=== PATIENT | female | born 1935 | race Caucasian/White ===

== ENCOUNTER 2016-11-29 17:05 | Observation (INO) ==
--- NOTE | 2016-11-29 17:12 | Emergency Department Note ---
Disposition Clinical Impression: Chest pain, CAD (coronary artery disease), CHF (congestive heart failure), Frail elderly, History of heart artery stent, Hypokalemia, Renal insufficiency, Abnormal urinalysis, Abnormal EKG, Elevated blood pressure reading Disposition: Admitted As Inpatient Condition: Fair Referrals: NO,PCP [Non-Partnered Physician] - Forms: ED Satisfaction Letter General Adult HPI - General Chief complaint: ED Chest Pain Stated complaint: chest pain Time Seen by Provider: 11/29/16 17:10 - History of Present Illness HPI Narrative: 81-year-old female reports to the emergency department via EMS concerned with chest pain and shortness of breath. She has had a dull pressure in her left chest for a few days. She states she has a history of cardiac stents. She also takes diuretics for apparent heart failure. The patient describes lower extremity edema worse on the left than right. She has no history of PE DVT or cancer. She has no primary lung disease does not wear oxygen. There is no history of abdominal pain vomiting or diarrhea. The patient states she has not anticoagulated. There is been no trouble moving the arms or legs independently. No history of coughing up blood or syncope. No troubles with unilateral arm or leg weakness or numbness slurred speech or confusion. The patient describes chest pain as her main concern. This has been present for at least several days. She states taking aspirin seems to make it better. - Related Data Home Medications Medication Instructions Recorded Confirmed Acetaminophen [Tylenol] 500 mg PO Q6H PRN 11/29/16 11/29/16 Cholecalciferol (D-3) [Vitamin D] 2,000 unit PO DAILY 11/29/16 11/29/16 Estradiol [Estrace] 1 appl VG MOWEFR 11/29/16 11/29/16 Hydralazine HCl 50 mg PO TID 11/29/16 11/29/16 Levothyroxine [Synthroid] 100 mcg PO 0630 11/29/16 11/29/16 Omeprazole [PriLOSEC] 20 mg PO DAILY 11/29/16 11/29/16 Allergies Allergy/AdvReac Type Severity Reaction Status Date / Time No Known Allergies Allergy Verified 09/17/15 10:12 All systems ED: reviewed and negative except as stated. Past Medical History - Past Medical History Medical history: Reports: asthma, CHF, coronary artery disease, GERD, hypertension Surgical history: Reports: breast surgery, cholecystectomy - Social History Smoking Status: Never smoker Alcohol use: Reports: none Drug use: Reports: none Physical Exam - General Limitations: no limitations General appearance: alert, in no apparent distress - Head Head exam: atraumatic, normocephalic, normal inspection - Eye Eye exam: Present: normal appearance, PERRL, EOMI. Absent: scleral icterus, conjunctival injection, miosis, mydriasis - ENT ENT exam: normal exam, normal oropharynx, mucous membranes moist, TM's normal bilaterally, normal external ear exam - Neck Neck exam: Present: normal inspection, full ROM, trachea midline. Absent: tenderness - Chest Chest inspection: Present: symmetric chest wall rise. Absent: tenderness - Respiratory Respiratory exam: Present: normal lung sounds bilaterally. Absent: respiratory distress, wheezes, accessory muscle use, prolonged expiratory phase - Cardiovascular Cardiovascular exam: Present: regular rate, normal rhythm, normal heart sounds - Abdominal Exam Abdominal exam: Present: soft, Non-Tender, normal bowel sounds. Absent: tenderness, distention, guarding, rebound, rigidity, pulsatile mass - Extremities Exam Extremities exam: Present: normal inspection, full ROM, normal capillary refill , pedal edema (Lower extremity bilaterally worse on the left, the patient reports a left is usually more swollen.). Absent: tenderness, joint swelling, calf tenderness - Expanded Lower Extremity Exam Lower leg exam: Absent: Homans' sign Neurovascular/Tendon exam: Present: normal capillary refill. Absent: motor deficit, sensory deficit, tendon deficit, extremity cold to touch, pallor - Back Exam Back exam: Present: normal inspection, full ROM. Absent: tenderness, CVA tenderness (R), CVA tenderness (L), vertebral tenderness - Neurological Exam Neurological exam: Present: alert, oriented X3, CN II-XII intact. Absent: motor sensory deficit - Psychiatric Psychiatric exam: Present: normal affect, normal mood - Skin Skin exam: Present: warm, dry, intact, normal color. Absent: rash, cyanosis, diaphoresis, erythema, pallor, mottled Course Vital Signs Temperature 97.9 F 11/29/16 17:08 Pulse Rate 98 11/29/16 17:08 Respiratory Rate 18 11/29/16 17:08 Blood Pressure 246/110 11/29/16 17:08 O2 Sat by Pulse Oximetry 100 11/29/16 17:08 Temperature 97.9 F 11/29/16 17:08 Pulse Rate 98 11/29/16 17:08 Respiratory Rate 18 11/29/16 17:08 Blood Pressure 246/110 11/29/16 17:08 O2 Sat by Pulse Oximetry 100 11/29/16 17:08 Oxygen Delivery Oxygen Delivery Nasal Cannula Medical Decision Making - MDM Narrative Medical decision making narrative: The patient is elderly, she has a known history of coronary disease with coronary stent, she is complaining of chest pain and has an abnormal EKG, a notably elevated blood pressure, as well as significant urinary changes. IV access was established aspirin, Lasix, and Nitropaste were ordered. Rocephin was ordered. The patient's lactate is negative. She is afebrile. Based on the patient's age, known coronary disease, chest pain in association with abnormal EKG, an element of CHF and notably elevated blood pressure, I thought it would be appropriate to admit the patient to the hospital. I discussed the case with the hospitalist on-call who has accepted the patient to their care.* The patient's systolic came down to 179 but the diastolic stayed at 118. The hospitalist and I discussed blood pressure management and agree a nitro drip would be a reasonable choice to help manage her CHF, blood pressure, and as an adjunct for her chest pain. - Lab Data Lab results reviewed: Yes I reviewed the patient's lab results. Result diagrams: 11/29/16 17:28 11/29/16 17:28 Lab Results 11/29/16 11/29/16 11/29/16 Range/Units 17:28 17:28 17:28 WBC (4.3-11.1) K/mcL RBC (3.82-4.97) M/mcL Hgb (11.5-15.4) g/dL Hct (35.3-44.9) % MCV (83.0-100.0) fL MCH (28.0-33.3) pg MCHC (31.6-35.5) g/dL RDW (11.5-14.5) % Plt Count (140-400) K/mcL MPV (9.4-12.4) fL Immature Gran % (0-4) % Seg Neutrophils % % Lymphocytes % % Monocytes % % Eosinophils % % Basophils % % Neutrophils # (1.6-8.9) K/mcL Lymphocytes # (0.6-4.6) K/mcL Monocytes # (0.0-1.3) K/mcL Eosinophils # (0.0-0.6) K/mcL Basophils # (0.0-0.2) K/mcL PT 10.6 (9.4-12.1) Seconds INR 1.0 APTT 26.2 (26.0-36.0) Seconds Sodium (136-145) mEq/L Potassium (3.5-4.5) mEq/L Chloride (98-109) mEq/L Carbon Dioxide (19-29) mEq/L BUN (7-20) mg/dL Creatinine (0.57-1.11) mg/dL Est GFR ( Amer) (> 60) Est GFR (Non-Af Amer) (> 60) BUN/Creatinine Ratio (6-26) Glucose (70-99) mg/dL Calculated Osmolality (280-300) Lactic Acid 1.4 (0.5-2.2) mmol/L Calcium (8.6-10.8) mg/dL Total Bilirubin 0.4 (0.2-1.2) mg/dL Direct Bilirubin 0.2 (0.0-0.5) mg/dL Indirect Bilirubin 0.2 (0.0-1.2) mg/dL AST 21 (5-34) Units/L ALT 14 (0-55) Units/L Alkaline Phosphatase 76 (38-126) Units/L Troponin I (0-0.03) ng/mL C-Reactive Protein 12 H (Less than 5) mg/L B-Natriuretic Peptide (0-100) pg/mL Serum Total Protein 8.0 (6.0-8.3) g/dL Albumin 4.1 (3.5-5.0) g/dL Globulin 3.9 H (2.4-3.5) g/dL Albumin/Globulin Ratio 1.1 (1.1-2.2) Lipase 17 (8-78) Units/L Urine Color (Yellow) Urine Clarity (Clear) Urine pH (5.0-8.0) pH Units Ur Specific [place] (1.010-1.025) Urine Protein (Neg-Trace) mg/dL Urine Glucose (UA) (Normal) mg/dL Urine Ketones (Negative) mg/dL Urine Blood (Negative) Urine Nitrite (Negative) Urine Bilirubin (Negative) Urine Urobilinogen (Normal) mg/dL Ur Leukocyte Esterase (Negative) Urine Microscopic RBC (0-3) per hpf Urine Microscopic WBC (0-3) per hpf Ur Squamous Epith Cells (None-Few) per lpf Urine Bacteria (None-Few) per hpf Hyaline Casts (None-Few) per lpf Ur Culture Indicated? (NO) 11/29/16 11/29/16 11/29/16 Range/Units 17:28 17:28 17:28 WBC 7.7 (4.3-11.1) K/mcL RBC 4.34 (3.82-4.97) M/mcL Hgb 12.7 (11.5-15.4) g/dL Hct 39.4 (35.3-44.9) % MCV 90.8 (83.0-100.0) fL MCH 29.3 (28.0-33.3) pg MCHC 32.2 (31.6-35.5) g/dL RDW 13.3 (11.5-14.5) % Plt Count 212 (140-400) K/mcL MPV 9.7 (9.4-12.4) fL Immature Gran % 0.3 (0-4) % Seg Neutrophils % 49.5 % Lymphocytes % 37.5 % Monocytes % 9.4 % Eosinophils % 2.5 % Basophils % 0.8 % Neutrophils # 3.8 (1.6-8.9) K/mcL Lymphocytes # 2.9 (0.6-4.6) K/mcL Monocytes # 0.7 (0.0-1.3) K/mcL Eosinophils # 0.2 (0.0-0.6) K/mcL Basophils # 0.1 (0.0-0.2) K/mcL PT (9.4-12.1) Seconds INR APTT (26.0-36.0) Seconds Sodium 139 (136-145) mEq/L Potassium 3.2 L (3.5-4.5) mEq/L Chloride 103 (98-109) mEq/L Carbon Dioxide 24 (19-29) mEq/L BUN 16 (7-20) mg/dL Creatinine 1.21 H (0.57-1.11) mg/dL Est GFR ( Amer) 52 L (> 60) Est GFR (Non-Af Amer) 43 L (> 60) BUN/Creatinine Ratio 13 (6-26) Glucose 98 (70-99) mg/dL Calculated Osmolality 289 (280-300) Lactic Acid (0.5-2.2) mmol/L Calcium 9.8 (8.6-10.8) mg/dL Total Bilirubin (0.2-1.2) mg/dL Direct Bilirubin (0.0-0.5) mg/dL Indirect Bilirubin (0.0-1.2) mg/dL AST (5-34) Units/L ALT (0-55) Units/L Alkaline Phosphatase (38-126) Units/L Troponin I (0-0.03) ng/mL C-Reactive Protein (Less than 5) mg/L B-Natriuretic Peptide 452 H (0-100) pg/mL Serum Total Protein (6.0-8.3) g/dL Albumin (3.5-5.0) g/dL Globulin (2.4-3.5) g/dL Albumin/Globulin Ratio (1.1-2.2) Lipase (8-78) Units/L Urine Color (Yellow) Urine Clarity (Clear) Urine pH (5.0-8.0) pH Units Ur Specific [place] (1.010-1.025) Urine Protein (Neg-Trace) mg/dL Urine Glucose (UA) (Normal) mg/dL Urine Ketones (Negative) mg/dL Urine Blood (Negative) Urine Nitrite (Negative) Urine Bilirubin (Negative) Urine Urobilinogen (Normal) mg/dL Ur Leukocyte Esterase (Negative) Urine Microscopic RBC (0-3) per hpf Urine Microscopic WBC (0-3) per hpf Ur Squamous Epith Cells (None-Few) per lpf Urine Bacteria (None-Few) per hpf Hyaline Casts (None-Few) per lpf Ur Culture Indicated? (NO) 11/29/16 11/29/16 Range/Units 17:28 17:37 WBC (4.3-11.1) K/mcL RBC (3.82-4.97) M/mcL Hgb (11.5-15.4) g/dL Hct (35.3-44.9) % MCV (83.0-100.0) fL MCH (28.0-33.3) pg MCHC (31.6-35.5) g/dL RDW (11.5-14.5) % Plt Count (140-400) K/mcL MPV (9.4-12.4) fL Immature Gran % (0-4) % Seg Neutrophils % % Lymphocytes % % Monocytes % % Eosinophils % % Basophils % % Neutrophils # (1.6-8.9) K/mcL Lymphocytes # (0.6-4.6) K/mcL Monocytes # (0.0-1.3) K/mcL Eosinophils # (0.0-0.6) K/mcL Basophils # (0.0-0.2) K/mcL PT (9.4-12.1) Seconds INR APTT (26.0-36.0) Seconds Sodium (136-145) mEq/L Potassium (3.5-4.5) mEq/L Chloride (98-109) mEq/L Carbon Dioxide (19-29) mEq/L BUN (7-20) mg/dL Creatinine (0.57-1.11) mg/dL Est GFR ( Amer) (> 60) Est GFR (Non-Af Amer) (> 60) BUN/Creatinine Ratio (6-26) Glucose (70-99) mg/dL Calculated Osmolality (280-300) Lactic Acid (0.5-2.2) mmol/L Calcium (8.6-10.8) mg/dL Total Bilirubin (0.2-1.2) mg/dL Direct Bilirubin (0.0-0.5) mg/dL Indirect Bilirubin (0.0-1.2) mg/dL AST (5-34) Units/L ALT (0-55) Units/L Alkaline Phosphatase (38-126) Units/L Troponin I 0.01 (0-0.03) ng/mL C-Reactive Protein (Less than 5) mg/L B-Natriuretic Peptide (0-100) pg/mL Serum Total Protein (6.0-8.3) g/dL Albumin (3.5-5.0) g/dL Globulin (2.4-3.5) g/dL Albumin/Globulin Ratio (1.1-2.2) Lipase (8-78) Units/L Urine Color Yellow (Yellow) Urine Clarity Clear (Clear) Urine pH 7.0 (5.0-8.0) pH Units Ur Specific [place] 1.009 L (1.010-1.025) Urine Protein 100 H (Neg-Trace) mg/dL Urine Glucose (UA) Normal (Normal) mg/dL Urine Ketones Negative (Negative) mg/dL Urine Blood Large H (Negative) Urine Nitrite Negative (Negative) Urine Bilirubin Negative (Negative) Urine Urobilinogen Normal (Normal) mg/dL Ur Leukocyte Esterase Small H (Negative) Urine Microscopic RBC TNTC H (0-3) per hpf Urine Microscopic WBC 15-30 H (0-3) per hpf Ur Squamous Epith Cells Many H (None-Few) per lpf Urine Bacteria None Seen (None-Few) per hpf Hyaline Casts None Seen (None-Few) per lpf Ur Culture Indicated? YES A (NO) - Radiology Data Radiology results reviewed: Yes I reviewed the patient's radiology results.
[2016-11-29] MEDS ORDERED: Aspirin 325 MG TABLET PO ONE (17:20)
[2016-11-29 17:41] LABS: Basophils # 0.1 K/mcL (0.0-0.2); Basophils % 0.8 %; Eosinophils # 0.2 K/mcL (0.0-0.6); Eosinophils % 2.5 %; Hematocrit 39.4 % (35.3-44.9); Hemoglobin 12.7 g/dL (11.5-15.4); Immature Granulocytes % 0.3 % (0-4); Lymphocytes # 2.9 K/mcL (0.6-4.6); Lymphocytes % 37.5 %; Mean Corpuscular HGB Conc 32.2 g/dL (31.6-35.5); Mean Corpuscular Hemoglobin 29.3 pg (28.0-33.3); Mean Corpuscular Volume 90.8 fL (83.0-100.0); Mean Platelet Volume 9.7 fL (9.4-12.4); Monocytes # 0.7 K/mcL (0.0-1.3); Monocytes % 9.4 %; Neutrophils # 3.8 K/mcL (1.6-8.9); Platelet Count 212 K/mcL (140-400); Red Blood Count 4.34 M/mcL (3.82-4.97); Red Cell Distribution Width 13.3 % (11.5-14.5); Segmented Neutrophils % 49.5 %
[2016-11-29 17:46] LABS: Prothrombin Time 10.6 Seconds (9.4-12.1)
[2016-11-29 17:49] LABS: Activated Partial Thrombo Time 26.2 Seconds (26.0-36.0)
[2016-11-29 17:50] LABS: Bilirubin,Urine Negative (Negative); Blood,Urine Large (Negative); Clarity,Urine Clear (Clear); Color,Urine Yellow (Yellow); Glucose,Urine (UA) Normal (Normal); Ketones,Urine Negative (Negative); Leukocyte Esterase,Urine Small (Negative); Nitrite,Urine Negative (Negative); Protein,Urine 100 mg/dL (Neg-Trace); Specific Gravity,Urine 1.009 (1.010-1.025); Urobilinogen,Urine Normal (Normal)
[2016-11-29 17:53] LABS: Bacteria,Urine None Seen per hpf (None-Few); Hyaline Casts,Urine None Seen per lpf (None-Few); RBC,Urine TNTC per hpf (0-3); Squamous Epithelial Cell,Urine Many per lpf (None-Few); WBC,Urine 15-30 per hpf (0-3)
[2016-11-29 17:55] LABS: Calcium 9.8 mg/dL (8.6-10.8); Potassium 3.2 mEq/L (3.5-4.5)
[2016-11-29 17:58] LABS: Albumin 4.1 g/dL (3.5-5.0); Albumin/Globulin Ratio 1.1 (1.1-2.2); Bilirubin,Direct 0.2 mg/dL (0.0-0.5); Bilirubin,Indirect 0.2 mg/dL (0.0-1.2); Bilirubin,Total 0.4 mg/dL (0.2-1.2); Globulin 3.9 g/dL (2.4-3.5)
[2016-11-29] MEDS ORDERED: Furosemide 40 MG in 0.9 % Sodium Chloride 50 ML IVPB ONE (18:22)
[2016-11-29] MEDS ORDERED: Nitroglycerin 1 INCH/GM PACKET TP ONE (18:22)
[2016-11-29] MEDS ORDERED: Nitroglycerin 25 MG/250 ML INFUS..BTL IVC SCH (20:15)
--- NOTE | 2016-11-29 21:28 | Internal Med History&Physical ---
Date of Encounter: 11/29/16 Time of Encounter: 21:25 Assessment and Plan (1) Hypertensive urgency, malignant Current visit: Yes Status: Acute patient has a history of HTN with acceptable control(per chart she provided) and medication adherence but she comes in today with chest pain in the setting of uncontrolled HTN, this is most likely hypertensive urgency , we will continue titrating nitro drip to chest pain, resume her home antihypertensive and monitor BP, etiology of her current presentation is unclear ?medication non adherence or occult poor control that was misread by her home device we will adjust her medications based on her readings (2) Chest pain Current visit: Yes Status: Acute patient has CAD s/p LAD stent in 2008, now comes in with stuttering chest pain ongoing for about 2 weeks, this is in the setting of uncontrolled HTN, EKG however is unchanged from prior, with her history of CAD it will be reasonable to consider ACS in her presentation we will first control her BP, cycle her troponin, check A1c and lipid profile and consider stress test once her symptoms and BP are controlled Qualifiers: Chest pain type: precordial pain Qualified Code(s): R07.2 - Precordial pain (3) Hypokalemia Current visit: Yes Status: Acute may be related to cellular shifts vs poor intake, we will replace and follow BMP (4) GERD (gastroesophageal reflux disease) Current visit: Yes Status: Chronic will continue PPI Qualifiers: Esophagitis presence: without esophagitis Qualified Code(s): K21.9 - Gastro -esophageal reflux disease without esophagitis (5) Hypothyroidism Current visit: Yes Status: Chronic will continue synthroid at home dose Qualifiers: Hypothyroidism type: acquired Qualified Code(s): E03.9 - Hypothyroidism, unspecified (6) CAD (coronary artery disease) Current visit: Yes Status: Chronic per chest pain section Qualifiers: Coronary Disease-Associated Artery/Lesion type: [place] artery [place] vs. transplanted heart: [place] heart Associated angina: with unspecified angina Qualified Code(s): I25.119 - Atherosclerotic heart disease of [place] coronary artery with unspecified angina pectoris Internal Medicine - H&P: HPI Chief complaint: left arm and chest pain Admitted From: Emergency Dept Plans for Post Hospital Care: Home History of present illness: Ms. Parrish is a 81 year old female with a history of CKD stage 3 and HTN who comes in with shortness of breath, left arm and chest pain. She reports being in her usual state of health until about a month ago when she began to have dyspnea, with dyspnea on exertion as time progressed. About 2 weeks ago she also noticed left arm pain that starts from the shoulder area and radiates to her forearm, this pain is intermittent, achy and sometimes pressure like and is a 6/10 in severity with no relieving or aggravating factors. She noticed about a week ago that she was having chest pain, this had no relation to the arm pain per patient. The chest pain is pressure like, retrosternally located and around a 6/10 in severity with a little relief from aspirin. No associated diaphoresis , nausea or vomiting, palpitations but has lightheadedness occasionally. Of note she was recently started on hydrazine in place of metoprolol by her gate keeper at the beginning of November to control her BP, her BP control has been acceptable for her age with a mean of around 140's systolic to 80's diastolic but today her nurse practitioner checked her BP and it was high so she was asked to come to the ER via [facility] for further evaluation. In the ER her BP was 246/110mmHg. She is being admitted as a case of hypertensive urgency on nitro drip. Past Med Surg Social Fam HX - Past Medical History Source: old records reviewed Medical history: asthma, CHF, coronary artery disease (LAD stent in 2008), GERD , hyperlipidemia, hypertension, renal disease (CKD stage 3), thyroid disease, other (DJD iwth L5 radiculopathy, barretts esophagus, L4-L5 disc bulge , vaginal atrophy) Psychiatric history: no psych history - Past Surgical History Surgical History: breast surgery, cholecystectomy, hysterectomy, knee replacement (left), other (bladder sling, head surgery from fall, pump inplant, medtronic inplant), arthroscopy (right knee) - Social History Smoking Status: Never smoker Smokeless Tobacco Status: No Alcohol use: none Drug use: none Additional social history: she is DNR/DNI - Additional Family History Additional family history: brother is alive with heart problems, parents medical conditions are unknown Internal Medicine - H&P: Meds Acetaminophen [Tylenol] 500 mg PO Q6H PRN 11/29/16 [History] Cholecalciferol (D-3) [Vitamin D] 2,000 unit PO DAILY 11/29/16 [History] Estradiol [Estrace] 1 appl VG MOWEFR 11/29/16 [History] Hydralazine HCl 50 mg PO TID 11/29/16 [History] Levothyroxine [Synthroid] 100 mcg PO 0630 11/29/16 [History] Omeprazole [PriLOSEC] 20 mg PO DAILY 11/29/16 [History] Allergies No Known Allergies Allergy (Verified 09/17/15 10:12) All Systems PM: A 10-system review of systems was performed and is negative for pertinent findings except as documented above in the HPI. - Constitutional Vitals: Temp Pulse Resp BP Pulse Ox 97.9 F 83 18 191/101 98 11/29/16 17:08 11/29/16 20:07 11/29/16 21:02 11/29/16 21:02 11/29/16 20:07 PHYSICAL EXAMINATION: GENERAL: Frail elderly female, lying in bed with no sign of distress, Alert, HEENT: NC/AT, EOMI, PERRLA, anicteric sclera, normal conjunctiva, supple, clear nares, moist mucous membranes, dentures hooks in place RESP: no chest wall tenderness with palpation, lungs are clear to auscultation bilaterally, good AE bilaterally, No crackles or wheeze CARDIO: Normal hearts sounds; S1 and 2, RRR with no murmurs, no JVD, no ankle edema GI: Soft, full, no tenderness, no organomegaly felt, normal bowel sounds heard MUSCULOSKELETAL: grossly normal movements bilaterally, no deformities noted, no arm or calf tenderness NEUROLOGIC: CN 2-12 intact grossly. No motor/sensory deficit appreciated, PSYCHIATRY: AAO x 3. Mood is fair, SKIN: no skin rash or ulcers noted Internal Med - H&P Results - Labs CBC & Chem 7: 11/29/16 17:28 11/30/16 00:53 - EKG Data -: EKG Interpreted by Myself EKG shows normal: sinus rhythm - EKG Data Prior EKG available for review: yes When compared to previous EKG: there is no significant change
[2016-11-29] MEDS ORDERED: Naloxone 0.4 MG/ML INJ IVP PRN (22:13)
[2016-11-29] MEDS ORDERED: Potassium Chloride Elixir 20 MEQ/15 ML UDC PO ONE (22:41)
[2016-11-30] MEDS: hydrALAZINE 25 MG TABLET PO SCH ×4 (01:24→22:32)
[2016-11-30 02:03] LABS: Calcium 9.3 mg/dL (8.6-10.8); Chol/HDL Ratio 4.9 (0-4.9); Magnesium 1.7 mg/dL (1.6-2.6); Phosphorous 3.2 mg/dL (2.3-4.7); Potassium 3.1 mEq/L (3.5-4.5)
[2016-11-30] MEDS: levETIRAcetam 250 MG TABLET PO SCH ×3 (02:46→22:31)
[2016-11-30 08:24] LABS: Hemoglobin A1C 5.9 %
[2016-11-30] MEDS: Cholecalciferol (D-3) 1,000 UNIT TABLET PO SCH (09:15)
--- NOTE | 2016-11-30 11:39 | Internal Med Progress Note ---
<Chandana Madsen - Last Filed: 11/30/16 15:18> Date of Encounter: 11/30/16 Time of Encounter: 09:00 - Assessment and plan (1) Hypertensive urgency, malignant Current Visit: Yes Status: Acute Assessment and plan: - BP as high as 246/110 in ED and patient was started on nitroglycerin drip. - Better controlled as BP 153/87 this morning. - Will hold nitroglycerin drip and continue hydralazine 50 mg PO TID. - Per nephrology note on eCW, patient is also on Toprol XL 25 mg daily. May resume that after patient finishes her nuclear stress test tomorrow. - Continue to monitor. (2) Chest pain Current Visit: Yes Status: Acute Assessment and plan: - Pressure-like retrosternal chest pain at rest prior to admission. Patient also has intermittent pressure-like left shoulder pain radiating down left arm, which per patient, is from the chest pain. - Troponin remains mostly negative (0.01, 0.05, 0.03) and EKG showed no significant ischemic change. - Given patient's PMH of CAD s/p LAD stent, DM and hypertension, patient needs stress test for further cardiac work-up. - Patient underwent nuclear stress test today and will finish rest of that tomorrow. Qualifiers: Chest pain type: precordial pain Qualified Code(s): R07.2 - Precordial pain (3) Hypokalemia Current Visit: Yes Status: Acute Assessment and plan: - K 3.1 early this morning. - Patient has received 40 mg of KCl PO. - Continue to monitor. (4) CAD (coronary artery disease) Current Visit: Yes Status: Chronic Assessment and plan: - S/p LAD stent in 2008. Qualifiers: Coronary Disease-Associated Artery/Lesion type: [place] artery [place] vs. transplanted heart: [place] heart Associated angina: with unspecified angina Qualified Code(s): I25.119 - Atherosclerotic heart disease of [place] coronary artery with unspecified angina pectoris (5) GERD (gastroesophageal reflux disease) Current Visit: Yes Status: Chronic Assessment and plan: - Continue omeprazole. Qualifiers: Esophagitis presence: without esophagitis Qualified Code(s): K21.9 - Gastro -esophageal reflux disease without esophagitis (6) Hypothyroidism Current Visit: Yes Status: Chronic Assessment and plan: - Continue home dose Synthroid. Qualifiers: Hypothyroidism type: acquired Qualified Code(s): E03.9 - Hypothyroidism, unspecified - Subjective Interval history: Patient was seen and examined this morning. Patient still has left shoulder pain radiating down to left arm but denies shortness of breath or chest pain. Patient also complains of headache and states it has been going on for a month. Patient denies fever, chills, nausea, vomiting, diarrhea. - Constitutional Vitals: Temp Pulse Resp BP Pulse Ox 97.9 F 78 16 153/87 99 11/30/16 07:00 11/30/16 07:00 11/30/16 07:00 11/30/16 07:00 11/30/16 07:00 General appearance: Present: cooperative, A&O X 3, no acute distress, answers questions appropriately - Head Head exam: Present: atraumatic, normocephalic - Eye Eye exam: Present: EOMI, PERRL, conjuntiva pink, sclera anicteric - Neck Neck exam general surgery: Present: supple, trachea midline. Absent: lymphadenopathy - Respiratory Respiratory exam: Present: CTAB. Absent: accessory muscle use, rales, rhonchi, wheezes - Cardiovascular Cardiovascular exam: Present: RRR, +S1, +S2. Absent: diastolic murmur, gallop, rubs, systolic murmur - GI/Abdominal GI/Abdominal exam: Present: normal bowel sounds, soft, no peritoneal signs. Absent: distended, tenderness - Extremities Exam Extremities exam: Present: warm, radial pulses palpable and symetrical. Absent : calf tenderness, cyanotic, pedal edema - Neurological Exam Neurological exam: Present: CN II-XII intact, oriented X3, no focal deficits. Absent: pronater drift, facial droop, speech deficit - Skin Skin exam: Present: dry, intact, warm Internal Medicine: Result - Labs CBC & Chem 7: 11/29/16 17:28 11/30/16 00:53 Labs: BMP 11/30/16 00:53 Sodium 139 Potassium 3.1 L Chloride 103 Carbon Dioxide 27 BUN 16 Creatinine 1.23 H Glucose 141 H Calcium 9.3 Cardiac Enzymes 11/30/16 11/30/16 Range/Units 00:53 06:13 Troponin I 0.05 H* 0.03 (0-0.03) ng/mL - ABG Interpretation ABG results: PT/INR, D-dimer PT 10.6 Seconds (9.4-12.1) 11/29/16 17:28 - Impressions Impressions Head CT 11/30/16 09:36 IMPRESSION: No acute intracranial abnormality. There is age-appropriate cerebral atrophy with evidence of chronic periventricular small vessel ischemic disease. Previous right-sided craniotomy with minor foci of encephalomalacia likely postsurgical in nature in the right cerebral hemisphere. D/ / Roel Rodriguez MD / Roel Rodriguez MD Interpreting Provider: Roel Rodriguez MD Consult Discharge Plan - Plan Referrals: Femi Harris MD [Primary Care Provider] - <Ryder Cabral P - Last Filed: 11/30/16 16:28> Date of Encounter: 11/30/16 - Constitutional Vitals: Temp Pulse Resp BP Pulse Ox 97.5 F L 99 18 147/82 100 11/30/16 15:41 11/30/16 15:41 11/30/16 15:41 11/30/16 15:41 11/30/16 15:41 Internal Medicine: Result - Labs CBC & Chem 7: 11/29/16 17:28 11/30/16 00:53 Labs: BMP 11/30/16 00:53 Sodium 139 Potassium 3.1 L Chloride 103 Carbon Dioxide 27 BUN 16 Creatinine 1.23 H Glucose 141 H Calcium 9.3 Cardiac Enzymes 11/30/16 11/30/16 Range/Units 00:53 06:13 Troponin I 0.05 H* 0.03 (0-0.03) ng/mL - ABG Interpretation ABG results: PT/INR, D-dimer PT 10.6 Seconds (9.4-12.1) 11/29/16 17:28 - Impressions Impressions Head CT 11/30/16 09:36 IMPRESSION: No acute intracranial abnormality. There is age-appropriate cerebral atrophy with evidence of chronic periventricular small vessel ischemic disease. Previous right-sided craniotomy with minor foci of encephalomalacia likely postsurgical in nature in the right cerebral hemisphere. D/ / Roel Rodriguez MD / Roel Rodriguez MD Interpreting Provider: Roel Rodriguez MD - Attending Attestation I examined this patient and my medical decision-making was reviewed with the VP PLATFORMS/PA/Advanced Practice Nurse/Resident Physician. I agree with the documented findings, disposition and treatment plan as described except to the extent set forth below.
[2016-11-30] MEDS ORDERED: Ketorolac 15 MG/ML VIAL IVP ONE (16:33)
[2016-11-30] MEDS: *HR* Heparin 5,000 UNIT/ML VIAL SQ SCH (16:36)
--- NOTE | 2016-11-30 16:39 | Electrocardiograph Report ---
[place] [address] Test Date: 2016-11-29 Pat Name: Josselyn Parrish Department: 105 Room: 2NE18 Gender: F Vp Respiratory: JUAN DAVID : 1935 Requested By: Vini Hirsch Order Number: [id number] Reading MD: Meaghan Kasper Measurements Intervals [place] Rate: 83 P: 57 WY: 198 QRS: -37 QRSD: 121 T: 62 QT: 398 QTc: 438 Interpretive Statements SINUS RHYTHM MARKED LEFT AXIS DEVIATION [QRS AXIS < -30] LEFT VENTRICULAR HYPERTROPHY AND ST-T CHANGE [VOLTAGE CRITERIA PLUS ST/T ABNORMALITY] Electronically Signed On 11-30-2016 16:37:28 EDT by Meaghan Kasper
[2016-12-01 05:10] LABS: Basophils # 0.1 K/mcL (0.0-0.2); Basophils % 0.7 %; Eosinophils # 0.3 K/mcL (0.0-0.6); Eosinophils % 4.1 %; Hematocrit 35.4 % (35.3-44.9); Hemoglobin 11.4 g/dL (11.5-15.4); Immature Granulocytes % 0.3 % (0-4); Lymphocytes % 28.6 %; Mean Corpuscular HGB Conc 32.2 g/dL (31.6-35.5); Mean Corpuscular Hemoglobin 29.8 pg (28.0-33.3); Mean Corpuscular Volume 92.4 fL (83.0-100.0); Mean Platelet Volume 10.6 fL (9.4-12.4); Monocytes # 0.7 K/mcL (0.0-1.3); Monocytes % 10.4 %; Neutrophils # 3.9 K/mcL (1.6-8.9); Platelet Count 175 K/mcL (140-400); Red Blood Count 3.83 M/mcL (3.82-4.97); Red Cell Distribution Width 13.6 % (11.5-14.5); Segmented Neutrophils % 55.9 %
[2016-12-01 05:11] LABS: Calcium 8.8 mg/dL (8.6-10.8); Magnesium 1.7 mg/dL (1.6-2.6)
[2016-12-01 05:19] LABS: Potassium 3.7 mEq/L (3.5-4.5)
[2016-12-01] MEDS: *HR* Heparin 5,000 UNIT/ML VIAL SQ SCH ×2 (05:59→16:39)
[2016-12-01] MEDS ORDERED: Regadenoson 0.4 MG/5 ML SYRINGE IVP ONE (06:26)
[2016-12-01] MEDS: Cholecalciferol (D-3) 1,000 UNIT TABLET PO SCH (09:51)
[2016-12-01] MEDS: levETIRAcetam 250 MG TABLET PO SCH ×2 (09:51→20:51)
[2016-12-01] MEDS: hydrALAZINE 25 MG TABLET PO SCH ×3 (09:51→20:51)
[2016-12-01] MEDS ORDERED: *HR* Morphine 2 MG/ML SYRINGE IVP ONE (11:09)
--- NOTE | 2016-12-01 11:21 | Internal Med Progress Note ---
<Chandana Madsen - Last Filed: 12/01/16 13:54> Date of Encounter: 12/01/16 Time of Encounter: 09:15 - Assessment and plan (1) Hypertensive urgency, malignant Current Visit: Yes Status: Acute Assessment and plan: - BP as high as 246/110 in ED and patient was started on nitroglycerin drip. - BP 160/84 this morning. - Continue hydralazine 50 mg PO TID. - Per nephrology note on eCW, patient is also on Toprol XL 25 mg daily. Will resume that given patient had finished her nuclear stress test today. - Continue to monitor. (2) Left shoulder pain Current Visit: Yes Status: Acute Assessment and plan: - 2-week history of intermittent pressure-like left shoulder pain radiating down left arm. Patient denies numbness, tingling or focal weakness. - Concern of radiculopathy and will obtain cervical spine X-ray for further evaluation. - Less likely cardiac given negative nuclear stress test. - Continue to monitor. Qualifiers: Chronicity: acute Qualified Code(s): M25.512 - Pain in left shoulder (3) CAD (coronary artery disease) Current Visit: Yes Status: Chronic Assessment and plan: - S/p LAD stent in 2008. - Pressure-like retrosternal chest pain at rest prior to admission. Currently chest pain-free. - Troponin remains mostly negative (0.01, 0.05, 0.03) and EKG showed no significant ischemic change. - Nuclear stress test found LVEF 70% and negative for ischemic or infarct. Qualifiers: Coronary Disease-Associated Artery/Lesion type: [place] artery [place] vs. transplanted heart: [place] heart Associated angina: with unspecified angina Qualified Code(s): I25.119 - Atherosclerotic heart disease of [place] coronary artery with unspecified angina pectoris (4) Hypokalemia Current Visit: Yes Status: Acute Assessment and plan: - K 3.1 on 11/30/16 - Improves as K 3.7 today - Continue to monitor. (5) GERD (gastroesophageal reflux disease) Current Visit: Yes Status: Chronic Assessment and plan: - Continue omeprazole. Qualifiers: Esophagitis presence: without esophagitis Qualified Code(s): K21.9 - Gastro -esophageal reflux disease without esophagitis (6) Hypothyroidism Current Visit: Yes Status: Chronic Assessment and plan: - Continue home dose Synthroid. Qualifiers: Hypothyroidism type: acquired Qualified Code(s): E03.9 - Hypothyroidism, unspecified - Subjective Interval history: Patient was seen and examined this morning after patient came back from nuclear stress test. Patient still has left shoulder pain radiating down to left arm, headache and some shortness of breath at rest but no chest pain. Patient denies fever, chills, nausea, vomiting, diarrhea. - Constitutional Vitals: Temp Pulse Resp BP Pulse Ox 98.0 F 92 19 160/84 98 12/01/16 04:00 12/01/16 09:21 12/01/16 09:21 12/01/16 09:21 12/01/16 09:21 General appearance: Present: cooperative, A&O X 3, no acute distress, answers questions appropriately - Head Head exam: Present: atraumatic, normocephalic - Eye Eye exam: Present: EOMI, PERRL, conjuntiva pink, sclera anicteric - Neck Neck exam general surgery: Present: supple, trachea midline. Absent: lymphadenopathy - Respiratory Respiratory exam: Present: CTAB. Absent: accessory muscle use, rales, rhonchi, wheezes - Cardiovascular Cardiovascular exam: Present: RRR, +S1, +S2. Absent: diastolic murmur, gallop, rubs, systolic murmur - GI/Abdominal GI/Abdominal exam: Present: normal bowel sounds, soft, no peritoneal signs. Absent: distended, tenderness - Extremities Exam Extremities exam: Present: warm, radial pulses palpable and symetrical. Absent : calf tenderness, cyanotic, pedal edema - Neurological Exam Neurological exam: Present: CN II-XII intact, oriented X3, no focal deficits. Absent: pronater drift, facial droop, speech deficit - Skin Skin exam: Present: dry, intact, warm Internal Medicine: Result - Labs CBC & Chem 7: 12/01/16 04:39 12/01/16 04:39 Labs: Short CBC 12/01/16 Range/Units 04:39 WBC 7.0 (4.3-11.1) K/mcL Hgb 11.4 L (11.5-15.4) g/dL Hct 35.4 (35.3-44.9) % Plt Count 175 (140-400) K/mcL Neutrophils # 3.9 (1.6-8.9) K/mcL BMP 12/01/16 04:39 Sodium 136 Potassium 3.7 Chloride 102 Carbon Dioxide 23 BUN 18 Creatinine 1.33 H Glucose 115 H Calcium 8.8 - ABG Interpretation ABG results: PT/INR, D-dimer PT 10.6 Seconds (9.4-12.1) 11/29/16 17:28 - Impressions Impressions Head CT 11/30/16 09:36 IMPRESSION: No acute intracranial abnormality. There is age-appropriate cerebral atrophy with evidence of chronic periventricular small vessel ischemic disease. Previous right-sided craniotomy with minor foci of encephalomalacia likely postsurgical in nature in the right cerebral hemisphere. D/ / Roel Rodriguez MD / Roel Rodriguez MD Interpreting Provider: Roel Rodriguez MD Consult Discharge Plan - Plan Referrals: Femi Harris MD [Primary Care Provider] - <Ryder Cabral P - Last Filed: 12/01/16 17:51> Date of Encounter: 12/01/16 - Constitutional Vitals: Temp Pulse Resp BP Pulse Ox 98.3 F 87 15 133/74 99 12/01/16 16:52 12/01/16 16:52 12/01/16 16:52 12/01/16 16:52 12/01/16 16:52 Internal Medicine: Result - Labs CBC & Chem 7: 12/01/16 04:39 12/01/16 04:39 Labs: Short CBC 12/01/16 Range/Units 04:39 WBC 7.0 (4.3-11.1) K/mcL Hgb 11.4 L (11.5-15.4) g/dL Hct 35.4 (35.3-44.9) % Plt Count 175 (140-400) K/mcL Neutrophils # 3.9 (1.6-8.9) K/mcL [facility] 12/01/16 04:39 Sodium 136 Potassium 3.7 Chloride 102 Carbon Dioxide 23 BUN 18 Creatinine 1.33 H Glucose 115 H Calcium 8.8 - ABG Interpretation ABG results: PT/INR, D-dimer PT 10.6 Seconds (9.4-12.1) 11/29/16 17:28 - Attending Attestation I examined this patient and my medical decision-making was reviewed with the DATABASE DEVELOPMENT PROJECT MANAGER/PA/Advanced Practice Nurse/Resident Physician. I agree with the documented findings, disposition and treatment plan as described except to the extent set forth below.
[2016-12-01] MEDS ORDERED: Ampicillin 2 GM in 0.9 % Sodium Chloride Mini Bag 100 ML IVPB SCH (12:00)
--- NOTE | 2016-12-01 12:42 | Nuclear Medicine Stress Report ---
Regadenoson Nuclear 2 day Name: Josselyn Parrish Date of Study: 11/30/2016 Date: 1935 Ht: 68.0 in Medical Record#: [id number] Age: 81 Wt: 162.0 lb Gender: Female Order #: [id number] Location: [facility] Room: 2n8 Supervising Provider: Myah Lindsey CNP Reading Physician: Raoul Hearn MD, [facility] Ordering Physician: Ryder Cabral MD Primary Care Physician: Spencer Harris MD Stress Technologist: Jose Haque CRT Bilingual Instructor: Jb Rodriguez Indications: Shortness of breath, Arm pain Impression: Occasional PVCs noted prior to exam beginning, during stress, and in recovery. No significant ECG changes with regadenoson. Gated LVEF > 70%. Perfusion imaging was negative for ischemia or infarct. History: Hypertension Stress Test Summary: Stress Test Type: Pharmacologic Baseline Information: Initial Heart Rate: 85 Blood Pressure: 136/70 Stress Information: Test Terminated Due to (primary): As per protocol Maximum Blood Pressure: 140/68 Maximum Heart Rate: 122 Percent Maximum Heart Rate Achieved: 88 Double Product: [id number] Symptoms: Shortness of breath Nuclear Summary: SPECT myocardial perfusion imaging using Tc99m Sestamibi given intravenously was performed at rest and following cardiac stress testing. The resting images were obtained following initial dose of 27 mCi. Following stress an additional dose of 35.8 mCi was given at peak exercise or 30 seconds post regadenoson infusion. Findings: Stress Note * Resting ECG demonstrated sinus rhythm, moderate IVCD, LVH, poor r-wave progression. * Occasional PVCs noted prior to exam beginning, during stress, and in recovery. * Patient had no chest pain during stress. * No significant ECG changes with regadenoson. Hemodynamic responses * Normal hemodynamic responses to pharmacologic stress. Study Quality * Study quality is good. Gated EF > 70% * Gated LVEF > 70%. Left Ventricle * The left ventricle is not dilated. * Normal Segmental Perfusion in rest. * Normal segmental perfusion in stress. TID * No evidence of transient ischemic dilatation. Updated by Raoul Hearn MD, [facility] on 12/01/2016 12:37:45 PM electronically signed on 12/01/2016 12:38:10 PM with status of Final
[2016-12-01] MEDS: Ampicillin 2 GM in 0.9 % Sodium Chloride Mini Bag 100 ML IVPB SCH ×2 (13:34→20:52)
[2016-12-01] MEDS: Metoprolol XL (24 HR) Succ 25 MG TAB.ER.24H PO SCH (16:03)
[2016-12-01] MEDS: Acetaminophen/Aspirin/Caffeine TABLET PO PRN ×2 (16:03→22:45)
[2016-12-02] MEDS: Ampicillin 2 GM in 0.9 % Sodium Chloride Mini Bag 100 ML IVPB SCH ×4 (01:34→18:30)
[2016-12-02 04:25] LABS: Calcium 8.7 mg/dL (8.6-10.8); Potassium 3.6 mEq/L (3.5-4.5)
[2016-12-02] MEDS: *HR* Heparin 5,000 UNIT/ML VIAL SQ SCH ×2 (05:44→18:29)
[2016-12-02] MEDS: Cholecalciferol (D-3) 1,000 UNIT TABLET PO SCH (08:19)
[2016-12-02] MEDS: hydrALAZINE 25 MG TABLET PO SCH ×3 (08:19→21:22)
[2016-12-02] MEDS: Metoprolol XL (24 HR) Succ 25 MG TAB.ER.24H PO SCH (08:19)
[2016-12-02] MEDS: levETIRAcetam 250 MG TABLET PO SCH ×2 (08:19→21:22)
--- NOTE | 2016-12-02 11:40 | Discharge Summary ---
Date of Encounter: 12/02/16 Time of Encounter: 10:00 - Discharge Diagnosis (1) Hypertensive urgency, malignant Priority: Primary Status: Acute (2) UTI (urinary tract infection) Priority: Secondary Status: Acute (3) Left shoulder pain Priority: Secondary Status: Acute Qualifiers: Chronicity: acute Qualified Code(s): M25.512 - Pain in left shoulder (4) CAD (coronary artery disease) Priority: Secondary Status: Chronic Qualifiers: Coronary Disease-Associated Artery/Lesion type: [place] artery [place] vs. transplanted heart: [place] heart Associated angina: with unspecified angina Qualified Code(s): I25.119 - Atherosclerotic heart disease of [place] coronary artery with unspecified angina pectoris (5) GERD (gastroesophageal reflux disease) Priority: Secondary Status: Chronic Qualifiers: Esophagitis presence: without esophagitis Qualified Code(s): K21.9 - Gastro -esophageal reflux disease without esophagitis (6) Hypothyroidism Priority: Secondary Status: Chronic Qualifiers: Hypothyroidism type: acquired Qualified Code(s): E03.9 - Hypothyroidism, unspecified - Discharge Medications Prescriptions: Acetaminophen/Aspirin/Caffeine [Excedrin EX] 1 each PO Q6HR PRN #20 tablet PRN Reason: Headache Amoxicillin/Clavulanate [Augmentin] 875 mg PO BIDWM #26 tablet Home Medications: Cholecalciferol (D-3) [Vitamin D] 2,000 unit PO DAILY 11/29/16 [History] Estradiol [Estrace] 1 appl VG MOWEFR 11/29/16 [History] Hydralazine HCl 50 mg PO TID 11/29/16 [History] Levothyroxine [Synthroid] 100 mcg PO 0630 11/29/16 [History] Omeprazole [PriLOSEC] 20 mg PO DAILY 11/29/16 [History] LevETIRAcetam [Keppra Xr] 500 mg PO BID 11/30/16 [History] Metoprolol Succinate 25 mg PO DAILY 11/30/16 [History] Acetaminophen/Aspirin/Caffeine [Excedrin EX] 1 each PO Q6HR PRN #20 tablet 12/02 [Rx] Amoxicillin/Clavulanate [Augmentin] 875 mg PO BIDWM #26 tablet 12/02/16 [Rx] Allergies/Adverse Reactions: Allergies No Known Allergies Allergy (Verified 09/17/15 10:12) Procedures/tests Complete & Pending: Procedures Performed prior 72 hours Category Date Time Status CT head/brain wo con [CT] Stat Cat Scan 11/30/16 09:36 Completed NM minerva perf SPECT multi [NM] Routine Exams 11/30/16 05:30 Taken SP pharm nuclear stress Routine Y 12/01/16 Completed Date of admission: 11/29/16 20:52 Primary care physician: Femi Harris MD Consults: 12/02/16 09:54 Consult to Physical Therapy [CONS] Routine Comment: Evaluate, develop and implement POC Reason for Consult: discharge planning OT [Consult to Occupational Therapy] [CONS] Routine Comment: Evaluate, develop and implement POC Reason for Consult: discharge planning Discharging clinician: Chandana Madsen Anticipated date of discharge: 12/02/16 - Patient Status Condition: Fair - Discharge Instructions Follow Up With: Femi Harris MD [Primary Care Provider] - Hospital course: Ms. Parrish is a 81 year old female - Time Spent with Patient Total time spent providing and/or coordinating discharge services: - Constitutional Vitals: Temp Pulse Resp BP Pulse Ox 97.3 F L 68 18 143/73 95 12/02/16 07:04 12/02/16 07:04 12/02/16 07:04 12/02/16 07:04 12/02/16 07:04 General appearance: Present: cooperative, A&O X 3, no acute distress, answers questions appropriately
--- NOTE | 2016-12-02 13:11 | Internal Med Progress Note ---
<Ryder Cabral - Last Filed: 12/02/16 13:28> Date of Encounter: 12/02/16 - Constitutional Vitals: Temp Pulse Resp BP Pulse Ox 97.3 F L 68 18 143/73 95 12/02/16 07:04 12/02/16 13:02 12/02/16 13:02 12/02/16 13:02 12/02/16 13:02 Internal Medicine: Result - Labs CBC & Chem 7: 12/01/16 04:39 12/02/16 03:13 Labs: BMP 12/02/16 03:13 Sodium 134 L Potassium 3.6 Chloride 101 Carbon Dioxide 23 BUN 17 Creatinine 1.15 H Glucose 106 H Calcium 8.7 - ABG Interpretation ABG results: PT/INR, D-dimer PT 10.6 Seconds (9.4-12.1) 11/29/16 17:28 - Impressions Impressions Cervical Spine X-Ray 12/01/16 13:15 IMPRESSION: Multilevel degenerative disc disease with spondylolisthesis as above. D/ / Helio Martin MD / Helio Martin MD Interpreting Provider: Helio Martin MD Consult Discharge Plan - Plan Referrals: Femi Harris MD [Primary Care Provider] - 12/08/16 2:00 pm Prescriptions: Acetaminophen/Aspirin/Caffeine [Excedrin EX] 1 each PO Q6HR PRN #20 tablet PRN Reason: Headache Amoxicillin/Clavulanate [Augmentin] 875 mg PO BIDWM #26 tablet - Attending Attestation I examined this patient and my medical decision-making was reviewed with the IN SERVICE EDUCATOR/PA/Advanced Practice Nurse/Resident Physician. I agree with the documented findings, disposition and treatment plan as described except to the extent set forth below. <Chandana Madsen - Last Filed: 12/02/16 14:07> Date of Encounter: 12/02/16 Time of Encounter: 09:30 - Assessment and plan (1) Hypertensive urgency, malignant Current Visit: Yes Status: Acute Assessment and plan: - BP as high as 246/110 in ED and patient was started on nitroglycerin drip. - Better controlled as BP 143/73 this morning. - Continue hydralazine 50 mg PO TID and Toprol XL 25 mg daily. - Continue to monitor. (2) Symptomatic premature ventricular contractions Current Visit: Yes Status: Acute Assessment and plan: - Multiple premature beats, likely PVCs, noted on telemetry while patient developed nausea, worsening headache and shortness of breath today. Patient denies chest pain/discomfort, palpitation, diaphoresis. - Concern of underlying arrhythmia. - Cardiology consulted. Appreciate further evaluation and recommendation. (3) UTI (urinary tract infection) Current Visit: Yes Status: Acute Assessment and plan: - Urine culture from 11/29/16 grew Group Streptococcus and penicillin is usually the drug of choice. - Symptomatic as patient reports being incontinence. - Continue IV ampicillin. Will switch to Augmentin if discharged to finish total 14-day course of antibiotic therapy. Qualifiers: Urinary tract infection type: site unspecified Hematuria presence: with hematuria Qualified Code(s): N39.0 - Urinary tract infection, site not specified; R31.9 - Hematuria, unspecified (4) Left shoulder pain Current Visit: Yes Status: Acute Assessment and plan: - 2-week history of intermittent pressure-like left shoulder pain radiating down left arm. Patient denies numbness, tingling or focal weakness. - Likely radiculopathy as cervical spine X-ray shows multilevel disc disease with spondylolisthesis. - Patient is instructed to follow up her with PCP for further work-up/referrals. Qualifiers: Chronicity: acute Qualified Code(s): M25.512 - Pain in left shoulder (5) CAD (coronary artery disease) Current Visit: Yes Status: Chronic Assessment and plan: - S/p LAD stent in 2008. - Pressure-like retrosternal chest pain at rest prior to admission. Currently chest pain-free. - Troponin remains mostly negative (0.01, 0.05, 0.03) and EKG showed no significant ischemic change. - Nuclear stress test found LVEF 70% and negative for ischemic or infarct. Qualifiers: Coronary Disease-Associated Artery/Lesion type: [place] artery [place] vs. transplanted heart: [place] heart Associated angina: with unspecified angina Qualified Code(s): I25.119 - Atherosclerotic heart disease of [place] coronary artery with unspecified angina pectoris (6) GERD (gastroesophageal reflux disease) Current Visit: Yes Status: Chronic Assessment and plan: - Continue omeprazole. Qualifiers: Esophagitis presence: without esophagitis Qualified Code(s): K21.9 - Gastro -esophageal reflux disease without esophagitis (7) Hypothyroidism Current Visit: Yes Status: Chronic Assessment and plan: - Continue home dose Synthroid. Qualifiers: Hypothyroidism type: acquired Qualified Code(s): E03.9 - Hypothyroidism, unspecified - Subjective Interval history: No significant event noted overnight. Patient was seen and examined this morning. Patient still has left shoulder pain radiating down to left arm, headache and some shortness of breath at rest but denies chest pain, fever, chills, diarrhea. Per nurse, some premature beats were noted on telemetry while patient developed headache, nausea and shortness of breath. - Constitutional Vitals: Temp Pulse Resp BP Pulse Ox 97.3 F L 68 18 143/73 95 12/02/16 07:04 12/02/16 07:04 12/02/16 07:04 12/02/16 07:04 12/02/16 07:04 General appearance: Present: cooperative, A&O X 3, no acute distress, answers questions appropriately - Head Head exam: Present: atraumatic, normocephalic - Eye Eye exam: Present: EOMI, PERRL, conjuntiva pink, sclera anicteric - Neck Neck exam general surgery: Present: supple, trachea midline. Absent: lymphadenopathy - Respiratory Respiratory exam: Present: CTAB. Absent: accessory muscle use, rales, rhonchi, wheezes - Cardiovascular Cardiovascular exam: Present: RRR, +S1, +S2. Absent: diastolic murmur, gallop, rubs, systolic murmur - GI/Abdominal GI/Abdominal exam: Present: normal bowel sounds, soft, no peritoneal signs. Absent: distended, tenderness - Extremities Exam Extremities exam: Present: warm, radial pulses palpable and symetrical. Absent : calf tenderness, cyanotic, pedal edema - Neurological Exam Neurological exam: Present: CN II-XII intact, oriented X3, no focal deficits. Absent: pronater drift, facial droop, speech deficit - Skin Skin exam: Present: dry, intact, warm Internal Medicine: Result - Labs CBC & Chem 7: 12/01/16 04:39 12/02/16 03:13 Labs: BMP 12/02/16 03:13 Sodium 134 L Potassium 3.6 Chloride 101 Carbon Dioxide 23 BUN 17 Creatinine 1.15 H Glucose 106 H Calcium 8.7 - ABG Interpretation ABG results: PT/INR, D-dimer PT 10.6 Seconds (9.4-12.1) 11/29/16 17:28 - Impressions Impressions Cervical Spine X-Ray 12/01/16 13:15
[2016-12-02] MEDS ORDERED: Metoprolol XL (24 HR) Succ 25 MG TAB.ER.24H PO SCH (13:24)
[2016-12-02] MEDS ORDERED: Metoprolol XL (24 HR) Succ 25 MG TAB.ER.24H PO ONE (14:51)
--- NOTE | 2016-12-02 14:56 | Cardiology Consult Note ---
Date of Encounter: 12/02/16 Time of Encounter: 14:00 Assessment and Plan (1) Premature atrial complexes Current Visit: Yes Status: Acute Per cardiology: -Telemetry strips reviewed with and PACs noted. -Of note, patient also noted to have PVCs. -Patient denies palpitations/fluttering. -Admits to shortness of breath. -On beta marcello. -Will increase beta marcello to 50mg daily. Will give extra 25mg today to total 50mg today. -Will continue to monitor. (2) Elevated troponin Current Visit: Yes Status: Acute Per cardiology: -Elevated troponin 0.01, 0.05, 0.03. Troponins flat and adynamic in the setting of hypertension. -BPs 240s systolic on admission. -Pateint denies chest pain. Admits to left arm pain on admission, but now resolved -History of CAD with stenting 2008. -STress test 12/01/16 negative for ischemia or infarct. -DO not suspect NSTEMI, suspect demand ischemia related to hypertension. -Will order echocardiogram. -Further recommendations pending echo. (3) Hypertension Current Visit: Yes Status: Chronic Per cardiology: -KNown history of hypertension. -BPs 240s systolic on admission. -BPs currently 130-140s systolic. -ON beta marcello and hydralazine. -Pateint reports a mix up with her medications at home. -Will continue to monitor. (4) CAD (coronary artery disease) Current Visit: Yes Status: Chronic Per cardiology: -KNown CAD with stenting 2008. -Denies chest pain. -Stress test this admission negative for ischemia or infarct. -On beta marcello. -Will add asa and statin. -Echo pending. -Further recommendations pending echo. Qualifiers: Coronary Disease-Associated Artery/Lesion type: [place] artery [place] vs. transplanted heart: [place] heart Associated angina: with unspecified angina Qualified Code(s): I25.119 - Atherosclerotic heart disease of [place] coronary artery with unspecified angina pectoris (5) Renal insufficiency Current Visit: Yes Status: Acute Per cardiololgy: -KNown renal insufficiency. -Follows with nephrology. -Creatinine 1.15. -Baseline 1.2-1.4. -Management per primary service. Discussion w patient/family: The assessment and plan as outlined above was discussed with the patient who expressed understanding and agreement. All questions were answered. Thank you for involving us in the care of your patient. Please call with any questions. DIscussed and reviewed with . History of Present Illness Consult date: 12/02/16 Requesting physician: Chandana Madsen Consult reason: symptomatic premature beats Chief complaint: left arm pain History of present illness: Ms. Parrish is a 81 year old female with a relevant past medical history of hyperlipidemia, HTN, CAD s/p stent 2008, asthma, barretts esophagus, CKD. Patient states she was at home when she had left arm pain. Patient states her home health nurse took her BP and it was hypertensive, so she came to ER. Upon arrival to ER, pateint's BP was 246/110. Patient was admitted to hospital. Per hospitalist review of telemetry, patient was noted to have premature beats and cardiololgy was consulted. Patient denies chest pain. Patient denies left arm pain now. Patient states over the last couple of months, she has been more short of breath. Patient admits to fatigue, however states it is at baseline. Patient denies palpitations/fluttering. Past Med Surg Social Fam HX - Past Medical History Attestation: Yes The following information was validated with the patient. Source: patient, old records reviewed Medical history: asthma, CHF, coronary artery disease (LAD stent in 2008), GERD , hyperlipidemia, hypertension, renal disease (CKD stage 3), thyroid disease, other (DJD iwth L5 radiculopathy, barretts esophagus, L4-L5 disc bulge , vaginal atrophy) Psychiatric history: no psych history - Past Surgical History Surgical History: breast surgery, cholecystectomy, hysterectomy, knee replacement (left), other (bladder sling, head surgery from fall, pump inplant, medtronic inplant), arthroscopy (right knee) - Social History Smoking Status: Never smoker Smokeless Tobacco Status: No Alcohol use: none Drug use: none Medications and Allergies Cholecalciferol (D-3) [Vitamin D] 2,000 unit PO DAILY 11/29/16 [History] Estradiol [Estrace] 1 appl VG MOWEFR 11/29/16 [History] Hydralazine HCl 50 mg PO TID 11/29/16 [History] Levothyroxine [Synthroid] 100 mcg PO 0630 11/29/16 [History] Omeprazole [PriLOSEC] 20 mg PO DAILY 11/29/16 [History] LevETIRAcetam [Keppra Xr] 500 mg PO BID 11/30/16 [History] Metoprolol Succinate 25 mg PO DAILY 11/30/16 [History] Acetaminophen/Aspirin/Caffeine [Excedrin EX] 1 each PO Q6HR PRN #20 tablet 12/02 [Rx] Amoxicillin/Clavulanate [Augmentin] 875 mg PO BIDWM #26 tablet 12/02/16 [Rx] Allergies No Known Allergies Allergy (Verified 09/17/15 10:12) All Systems Review: A 10-system review of systems was performed and is negative for pertinent findings except as documented above in the HPI. - Constitutional Constitutional: fatigue - Cardiovascular Cardiovascular: as per HPI, dyspnea on exertion Physical Examination Vital Signs, Last 4 Hours Pulse Resp BP Pulse Ox 12/02/16 13:02 68 18 143/73 95 General: Conversant, No Apparent Distress HEENT: Atraumatic, Normocephaly, Mucus Membranes Moist Neck: No JVD, Normal carotid pulses Cardiac: Reg Rate and Rhythm, Normal S1 and S2, No Murmur Lungs: Normal Breath Sounds, No Wheeze, Rales, Rhonchi Neuro: Alert and responsive, No focal deficits noted Abdomen: Soft, Non-Tender Skin: No rashes noted on visualized skin Musculoskeletal: No Chest Wall Tenderness Extremities: No Clubbing, No Cyanosis, No Edema, Normal Pulses Results 12/01/16 04:39 12/02/16 03:13 Lab Results Impressions Cervical Spine X-Ray 12/01/16 13:15 IMPRESSION: Multilevel degenerative disc disease with spondylolisthesis as above. D/ / Helio Martin MD / Helio Martin MD Interpreting Provider: Helio Martin MD Active Medications Acetaminophen (Tylenol) 500 mg PO Q6H PRN PRN Reason: Pain Stop: 05/31/17 22:13 Last Admin: 12/01/16 05:58 Dose: 500 mg Acetaminophen/Aspirin/Caffeine (Excedrin Ex) 1 each PO Q6HR PRN PRN Reason: Headache Stop: 06/02/17 15:41 Last Admin: 12/01/16 22:45 Dose: 1 each Docusate Sodium (Colace) 100 mg PO BID PRN PRN Reason: Constipation Stop: 05/31/17 22:14 Heparin Sodium (Porcine) (Heparin) 5,000 unit SQ Q12HCO [facility] Stop: 06/01/17 18:01 Last Admin: 12/02/16 05:44 Dose: 5,000 unit Hydralazine HCl (Hydralazine) 50 mg PO TID [facility] Stop: 05/31/17 22:16 Last Admin: 12/02/16 08:19 Dose: 50 mg Ampicillin Sodium 2 gm/ Sodium (Chloride) 100 mls @ 200 mls/hr IVPB Q6HR [facility] Stop: 06/02/17 12:01 Last Admin: 12/02/16 11:55 Dose: 200 mls/hr Levetiracetam (Keppra) 500 mg PO BID [facility] Stop: 06/01/17 01:46 Last Admin: 12/02/16 08:19 Dose: 500 mg Levothyroxine Sodium (Synthroid) 100 mcg PO 0630 [facility] Stop: 06/01/17 06:31 Last Admin: 12/02/16 05:43 Dose: 100 mcg Metoprolol Succinate (Toprol Xl) 50 mg PO DAILY [facility] Stop: 06/04/17 09:01 Naloxone HCl (Narcan) 0.4 mg IVP Q2MIN PRN PRN Reason: Opioid Reversal Stop: 05/31/17 22:14 Omeprazole (Prilosec) 20 mg PO 0630 [facility] PRN Reason: Protocol Stop: 06/01/17 06:31 Last Admin: 12/02/16 05:43 Dose: 20 mg Vitamin D (Vitamin D) 2,000 unit PO DAILY [facility] Stop: 06/01/17 09:01 Last Admin: 12/02/16 08:19 Dose: 2,000 unit Laboratory Tests 11/29/16 11/29/16 11/29/16 17:28 17:28 17:28 Potassium Creatinine 1.21 H Magnesium AST 21 ALT 14 Troponin I 0.01 Triglycerides Cholesterol LDL Cholesterol, Calc HDL Cholesterol 11/30/16 11/30/16 11/30/16 00:53 00:53 06:13 Potassium Creatinine Magnesium AST ALT Troponin I 0.05 H* 0.03 Triglycerides 342 H Cholesterol 148 LDL Cholesterol, Calc 50 HDL Cholesterol 30 L 12/01/16 12/02/16 04:39 03:13 Potassium 3.6 Creatinine 1.15 H Magnesium 1.7 AST ALT Troponin I Triglycerides Cholesterol LDL Cholesterol, Calc HDL Cholesterol - Imaging and Cardiology Chest Xray: report reviewed Stress Test: report reviewed Echo: pending - EKG Interpretation EKG results cardiology: personally reviewed (ECG 11/29/16 with SR, HR 83.), other (Telemetry reviewed with average HR previous 12 hours noted to be 73, Frequent PACs and PVCs noted.) Consult Discharge Plan - Plan Referrals: Femi Harris MD [Primary Care Provider] - 12/08/16 2:00 pm Prescriptions: Acetaminophen/Aspirin/Caffeine [Excedrin EX] 1 each PO Q6HR PRN #20 tablet PRN Reason: Headache Amoxicillin/Clavulanate [Augmentin] 875 mg PO BIDWM #26 tablet
[2016-12-02] MEDS: Aspirin 81 MG TAB.CHEW PO SCH (16:36)
[2016-12-02] MEDS ORDERED: *HR* Morphine 2 MG/ML SYRINGE IVP ONE (21:16)
[2016-12-02] MEDS ORDERED: *HR* Morphine 2 MG/ML SYRINGE ONE (21:19)
[2016-12-03] MEDS: Ampicillin 2 GM in 0.9 % Sodium Chloride Mini Bag 100 ML IVPB SCH ×5 (02:38→23:48)
[2016-12-03 04:41] LABS: Basophils # 0.1 K/mcL (0.0-0.2); Basophils % 0.8 %; Eosinophils # 0.4 K/mcL (0.0-0.6); Eosinophils % 4.6 %; Hematocrit 37.9 % (35.3-44.9); Hemoglobin 12.1 g/dL (11.5-15.4); Immature Granulocytes % 0.3 % (0-4); Lymphocytes # 2.4 K/mcL (0.6-4.6); Mean Corpuscular HGB Conc 31.9 g/dL (31.6-35.5); Mean Corpuscular Hemoglobin 29.4 pg (28.0-33.3); Mean Platelet Volume 10.3 fL (9.4-12.4); Monocytes # 0.9 K/mcL (0.0-1.3); Monocytes % 11.4 %; Platelet Count 195 K/mcL (140-400); Red Blood Count 4.12 M/mcL (3.82-4.97); Red Cell Distribution Width 13.2 % (11.5-14.5); Segmented Neutrophils % 51.9 %
[2016-12-03 04:58] LABS: BUN/Creatinine Ratio 16 (6-26); Blood Urea Nitrogen 17 mg/dL (7-20); Calcium 9.2 mg/dL (8.6-10.8); Carbon Dioxide 23 mEq/L (19-29); Chloride 103 mEq/L (98-109); Glucose 106 mg/dL (70-99); Osmolality,Calculated 284 (280-300); Potassium 3.4 mEq/L (3.5-4.5); Sodium 136 mEq/L (136-145); eGFR For African Americans > 60 (> 60); eGFR For Non-African Americans 51 (> 60)
[2016-12-03] MEDS: hydrALAZINE 25 MG TABLET PO SCH ×3 (08:19→21:44)
[2016-12-03] MEDS: Aspirin 81 MG TAB.CHEW PO SCH (08:19)
[2016-12-03] MEDS: Metoprolol XL (24 HR) Succ 50 MG TAB.ER.24H PO SCH (08:19)
[2016-12-03] MEDS: *HR* Heparin 5,000 UNIT/ML VIAL SQ SCH ×2 (08:20→17:25)
[2016-12-03] MEDS: levETIRAcetam 250 MG TABLET PO SCH ×2 (08:20→21:44)
[2016-12-03] MEDS: Cholecalciferol (D-3) 1,000 UNIT TABLET PO SCH (08:20)
--- NOTE | 2016-12-03 09:43 | Cardiology Progress Note ---
Date of Encounter: 12/03/16 Time of Encounter: 09:00 Assessment and Plan (1) Premature atrial complexes Current Visit: Yes Status: Acute Per cardiology: -Telemetry strips reviewed with yesterday and PACs noted. -Of note, patient also noted to have PVCs. -Patient denies palpitations/fluttering. -Admits to shortness of breath. -On beta marcello, which was increased yesterday. -Per review of telemetry today, it appears episodes of PACs have decreased. -Echo 12/02/16 with LVEF 60-65%, moderate diastolic dysfunction, moderate nilam regurgitation, mild-moderate tricuspid regurgitation, mild pulmonic regurgitation, moderate pulmonary hypertension, all argueta with normal motion. -Cardiology will sign off and will follow as outpatient. Follow up set. -Can consider further titration of beta marcello. (2) Elevated troponin Current Visit: Yes Status: Acute Per cardiology: -Elevated troponin 0.01, 0.05, 0.03. Troponins flat and adynamic in the setting of hypertension. -BPs 240s systolic on admission. -Pateint denies chest pain. Admits to left arm pain on admission, but now resolved -History of CAD with stenting 2008. -STress test 12/01/16 negative for ischemia or infarct. -Echo 12/02/16 with LVEF 60-65%, all argueta with normal motion. -DO not suspect NSTEMI, suspect demand ischemia related to hypertension. -Will continue to follow in outpatient setting. (3) Hypertension Current Visit: Yes Status: Chronic Per cardiology: -KNown history of hypertension. -BPs 240s systolic on admission. -BPs currently 150-160s systolic. -ON beta marcello and hydralazine. -Pateint reports a mix up with her medications at home. -Will continue to monitor in outpatient setting. Qualifiers: Hypertension type: essential hypertension Qualified Code(s): I10 - Essential (primary) hypertension (4) CAD (coronary artery disease) Current Visit: Yes Status: Chronic Per cardiology: -KNown CAD with stenting 2008. -Denies chest pain. -Stress test this admission negative for ischemia or infarct. -On beta marcello, asa, and statin. -Echo 12/02/16 with LVEF 60-65%, all argueta with normal motion. -Will continue to monitor in outpatient setting. Qualifiers: Coronary Disease-Associated Artery/Lesion type: [place] artery [place] vs. transplanted heart: [place] heart Associated angina: with unspecified angina Qualified Code(s): I25.119 - Atherosclerotic heart disease of [place] coronary artery with unspecified angina pectoris (5) Renal insufficiency Current Visit: Yes Status: Acute Per cardiololgy: -KNown renal insufficiency. -Follows with nephrology. -Creatinine 1.104 today. -Of note K today 3.4. -Baseline 1.2-1.4. -Management per primary service. -Will start potassium po daily. Discussion w patient/family: The assessment and plan as outlined above was discussed with the patient who expressed understanding and agreement. All questions were answered. Thank you for involving us in the care of your patient. Please call with any questions. DIscussed and reviewed with . Subjective Principal diagnosis: left arm pain Interval history: Patient states she was at home when she had left arm pain. Patient states her home health nurse took her BP and it was hypertensive, so she came to ER. Upon arrival to ER, pateint's BP was 246/110. Patient was admitted to hospital. Per hospitalist review of telemetry, patient was noted to have premature beats and cardiololgy was consulted. Patient denies chest pain. Patient denies left arm pain now. Patient states over the last couple of months, she has been more short of breath. Patient admits to fatigue, however states it is at baseline. Patient denies palpitations/fluttering. Patient complained today of headache, which she said is being worked up by the hospitalist team. Objective Vital Signs, Last 4 Hours Temp Pulse Resp BP Pulse Ox 12/03/16 06:33 97.5 F L 67 15 159/92 95 General: Conversant, No Apparent Distress HEENT: Atraumatic, Normocephaly, Mucus Membranes Moist Neck: No JVD, Normal carotid pulses Cardiac: Reg Rate and Rhythm, Normal S1 and S2, No Murmur Lungs: Normal Breath Sounds, No Wheeze, Rales, Rhonchi Neuro: Alert and responsive, No focal deficits noted Abdomen: Soft, Non-Tender Skin: No rashes noted on visualized skin Musculoskeletal: No Chest Wall Tenderness Extremities: No Clubbing, No Cyanosis, No Edema, Normal Pulses Results 12/03/16 03:18 12/03/16 03:18 Lab Results Active Medications Acetaminophen (Tylenol) 500 mg PO Q6H PRN PRN Reason: Pain Stop: 05/31/17 22:13 Last Admin: 12/02/16 15:07 Dose: 500 mg Acetaminophen/Aspirin/Caffeine (Excedrin Ex) 1 each PO Q6HR PRN PRN Reason: Headache Stop: 06/02/17 15:41 Last Admin: 12/01/16 22:45 Dose: 1 each Aspirin (Aspirin) 81 mg PO DAILY [facility] Stop: 06/03/17 15:31 Last Admin: 12/03/16 08:19 Dose: 81 mg Atorvastatin Calcium (Lipitor) 40 mg PO HS [facility] Stop: 06/03/17 21:01 Last Admin: 12/02/16 21:23 Dose: 40 mg Docusate Sodium (Colace) 100 mg PO BID PRN PRN Reason: Constipation Stop: 05/31/17 22:14 Heparin Sodium (Porcine) (Heparin) 5,000 unit SQ Q12HCO [facility] Stop: 06/01/17 18:01 Last Admin: 12/03/16 08:20 Dose: 5,000 unit Hydralazine HCl (Hydralazine) 50 mg PO TID [facility] Stop: 05/31/17 22:16 Last Admin: 12/03/16 08:19 Dose: 50 mg Ampicillin Sodium 2 gm/ Sodium (Chloride) 100 mls @ 200 mls/hr IVPB Q6HR [facility] Stop: 06/02/17 12:01 Last Admin: 12/03/16 05:33 Dose: 200 mls/hr Levetiracetam (Keppra) 500 mg PO BID [facility] Stop: 06/01/17 01:46 Last Admin: 12/03/16 08:20 Dose: 500 mg Levothyroxine Sodium (Synthroid) 100 mcg PO 0630 [facility] Stop: 06/01/17 06:31 Last Admin: 12/03/16 05:32 Dose: 100 mcg Metoprolol Succinate (Toprol Xl) 50 mg PO DAILY [facility] Stop: 06/04/17 09:01 Last Admin: 12/03/16 08:19 Dose: 50 mg Naloxone HCl (Narcan) 0.4 mg IVP Q2MIN PRN PRN Reason: Opioid Reversal Stop: 05/31/17 22:14 Omeprazole (Prilosec) 20 mg PO 0630 [facility] PRN Reason: Protocol Stop: 06/01/17 06:31 Last Admin: 12/03/16 05:32 Dose: 20 mg Vitamin D (Vitamin D) 2,000 unit PO DAILY [facility] Stop: 06/01/17 09:01 Last Admin: 12/03/16 08:20 Dose: 2,000 unit Laboratory Tests 12/03/16 12/03/16 03:18 03:18 Hgb 12.1 Potassium 3.4 L Creatinine 1.04 - Imaging and Cardiology Chest Xray: report reviewed Echo: report reviewed - EKG Interpretation EKG results cardiology: other (Telemetry reviewed with average HR 70, sinus rhythm. Occasional PVCs noted. Frequent PACs noted.) Consult Discharge Plan - Plan Referrals: Femi Harris MD [Primary Care Provider] - 12/08/16 2:00 pm Prescriptions: Acetaminophen/Aspirin/Caffeine [Excedrin EX] 1 each PO Q6HR PRN #20 tablet PRN Reason: Headache Amoxicillin/Clavulanate [Augmentin] 875 mg PO BIDWM #26 tablet
[2016-12-03] MEDS ORDERED: *HR* Morphine 2 MG/ML SYRINGE IVP PRN (09:50)
--- NOTE | 2016-12-03 09:52 | Internal Med Progress Note ---
Date of Encounter: 12/03/16 Time of Encounter: 09:50 - Assessment and plan (1) Hypertensive urgency, malignant Current Visit: Yes Status: Acute Assessment and plan: - BP as high as 246/110 in ED and patient was started on nitroglycerin drip. - Better controlled as BP 143/73 this morning. - Continue hydralazine 50 mg PO TID and Toprol XL 25 mg daily. - Continue to monitor. 12/03/2016 Noted that this morning blood pressure is much stable as compared to yesterday. Patient complains of occasional headache. Patient he used to have a morphine pump at home. She is not here on any opiate medication. We will continue intravenous morphine 2 mg every 6 hours. (2) Symptomatic premature ventricular contractions Current Visit: Yes Status: Acute Assessment and plan: - Multiple premature beats, likely PVCs, noted on telemetry while patient developed nausea, worsening headache and shortness of breath today. Patient denies chest pain/discomfort, palpitation, diaphoresis. - Concern of underlying arrhythmia. - Cardiology consulted. Appreciate further evaluation and recommendation. 12/03/2016 We will follow recommendations from cardiology. (3) UTI (urinary tract infection) Current Visit: Yes Status: Acute Assessment and plan: - Urine culture from 11/29/16 grew Group Streptococcus and penicillin is usually the drug of choice. - Symptomatic as patient reports being incontinence. - Continue IV ampicillin. Will switch to Augmentin if discharged to finish total 14-day course of antibiotic therapy. 12/03/2016 Continue antibiotics for now. Qualifiers: Urinary tract infection type: site unspecified Hematuria presence: with hematuria Qualified Code(s): N39.0 - Urinary tract infection, site not specified; R31.9 - Hematuria, unspecified (4) Left shoulder pain Current Visit: Yes Status: Acute Assessment and plan: - 2-week history of intermittent pressure-like left shoulder pain radiating down left arm. Patient denies numbness, tingling or focal weakness. - Likely radiculopathy as cervical spine X-ray shows multilevel disc disease with spondylolisthesis. - Patient is instructed to follow up her with PCP for further work-up/referrals. 12/03/2016 Patient needs outpatient follow-up with neurology/neurosurgery/pain specialist Qualifiers: Chronicity: acute Qualified Code(s): M25.512 - Pain in left shoulder - Subjective Interval history: Seen and examined. Chart reviewed. Patient is comfortably lying on the bed. Patient complains of occasional headache. Patient claims that she uses pain pump for her back pain at home. - Constitutional Vitals: Temp Pulse Resp BP Pulse Ox 97.5 F L 67 15 159/92 95 12/03/16 06:33 12/03/16 06:33 12/03/16 06:33 12/03/16 06:33 12/03/16 06:33 General appearance: Present: cooperative, A&O X 3, no acute distress, answers questions appropriately - Head Head exam: Present: atraumatic, normocephalic - Eye Eye exam: Present: PERRL, conjuntiva pink, sclera anicteric Pupils: Present: PERRL - Neck Neck exam general surgery: Present: supple, trachea midline. Absent: lymphadenopathy - Respiratory Respiratory exam: Present: CTAB. Absent: accessory muscle use, rales, rhonchi, wheezes - Cardiovascular Cardiovascular exam: Present: RRR, +S1, +S2. Absent: diastolic murmur, gallop, rubs, systolic murmur - GI/Abdominal GI/Abdominal exam: Present: normal bowel sounds, soft, no peritoneal signs. Absent: distended, tenderness - Extremities Exam Extremities exam: Present: warm, radial pulses palpable and symetrical. Absent : calf tenderness, cyanotic, pedal edema - Neurological Exam Neurological exam: Present: CN II-XII intact, oriented X3, no focal deficits. Absent: pronater drift, facial droop, speech deficit - Skin Skin exam: Present: dry, intact Internal Medicine: Result - Labs CBC & Chem 7: 12/03/16 03:18 12/03/16 03:18 Labs: Short CBC 12/03/16 Range/Units 03:18 WBC 7.7 (4.3-11.1) K/mcL Hgb 12.1 (11.5-15.4) g/dL Hct 37.9 (35.3-44.9) % Plt Count 195 (140-400) K/mcL Neutrophils # 4.0 (1.6-8.9) K/mcL BMP 12/03/16 03:18 Sodium 136 Potassium 3.4 L Chloride 103 Carbon Dioxide 23 BUN 17 Creatinine 1.04 Glucose 106 H Calcium 9.2 - ABG Interpretation ABG results: PT/INR, D-dimer PT 10.6 Seconds (9.4-12.1) 11/29/16 17:28 Consult Discharge Plan - Plan Referrals: Femi Harris MD [Primary Care Provider] - 12/08/16 2:00 pm Prescriptions: Acetaminophen/Aspirin/Caffeine [Excedrin EX] 1 each PO Q6HR PRN #20 tablet PRN Reason: Headache Amoxicillin/Clavulanate [Augmentin] 875 mg PO BIDWM #26 tablet
[2016-12-03] MEDS: Acetaminophen/Aspirin/Caffeine TABLET PO PRN ×2 (14:10→21:45)
[2016-12-04 05:36] LABS: Basophils # 0.1 K/mcL (0.0-0.2); Basophils % 1.1 %; Eosinophils # 0.4 K/mcL (0.0-0.6); Eosinophils % 5.7 %; Hematocrit 35.8 % (35.3-44.9); Hemoglobin 11.7 g/dL (11.5-15.4); Immature Granulocytes % 0.3 % (0-4); Immature Platelets 5.3 % (1.1-6.1); Lymphocytes % 41.2 %; Mean Corpuscular HGB Conc 32.7 g/dL (31.6-35.5); Mean Corpuscular Volume 91.8 fL (83.0-100.0); Mean Platelet Volume 10.4 fL (9.4-12.4); Monocytes # 0.7 K/mcL (0.0-1.3); Monocytes % 9.8 %; Neutrophils # 3.1 K/mcL (1.6-8.9); Platelet Count 206 K/mcL (140-400); Red Cell Distribution Width 13.3 % (11.5-14.5); Segmented Neutrophils % 41.9 %
[2016-12-04 05:56] LABS: Albumin 3.2 g/dL (3.5-5.0); Bilirubin,Total 0.5 mg/dL (0.2-1.2); Calcium 9.2 mg/dL (8.6-10.8); Globulin 3.2 g/dL (2.4-3.5); Potassium 3.7 mEq/L (3.5-4.5); Total Protein 6.4 g/dL (6.0-8.3)
[2016-12-04] MEDS: Ampicillin 2 GM in 0.9 % Sodium Chloride Mini Bag 100 ML IVPB SCH ×3 (06:27→17:09)
[2016-12-04] MEDS: Acetaminophen/Aspirin/Caffeine TABLET PO PRN ×3 (06:28→17:52)
[2016-12-04] MEDS: *HR* Heparin 5,000 UNIT/ML VIAL SQ SCH ×2 (06:43→17:08)
[2016-12-04] MEDS: hydrALAZINE 25 MG TABLET PO SCH ×3 (09:16→20:53)
[2016-12-04] MEDS: levETIRAcetam 250 MG TABLET PO SCH ×2 (09:16→20:53)
[2016-12-04] MEDS: Metoprolol XL (24 HR) Succ 50 MG TAB.ER.24H PO SCH (09:16)
[2016-12-04] MEDS: Aspirin 81 MG TAB.CHEW PO SCH (09:17)
[2016-12-04] MEDS: Cholecalciferol (D-3) 1,000 UNIT TABLET PO SCH (09:17)
--- NOTE | 2016-12-04 11:09 | Internal Med Progress Note ---
Date of Encounter: 12/04/16 Time of Encounter: 11:05 - Assessment and plan (1) Hypertensive urgency, malignant Current Visit: Yes Status: Acute Assessment and plan: - BP as high as 246/110 in ED and patient was started on nitroglycerin drip. - Better controlled as BP 143/73 this morning. - Continue hydralazine 50 mg PO TID and Toprol XL 25 mg daily. - Continue to monitor. 12/03/2016 Noted that this morning blood pressure is much stable as compared to yesterday. Patient complains of occasional headache. Patient he used to have a morphine pump at home. She is not here on any opiate medication. We will continue intravenous morphine 2 mg every 6 hours. 12/04/2016 This morning blood pressure is under control as compared to last few days. We will continue same medication. Patient's headache is getting better. We will continue the same management. (2) Symptomatic premature ventricular contractions Current Visit: Yes Status: Acute Assessment and plan: - Multiple premature beats, likely PVCs, noted on telemetry while patient developed nausea, worsening headache and shortness of breath today. Patient denies chest pain/discomfort, palpitation, diaphoresis. - Concern of underlying arrhythmia. - Cardiology consulted. Appreciate further evaluation and recommendation. 12/03/2016 We will follow recommendations from cardiology. 12/04/2016 We will follow the recommendations from cardiology (3) UTI (urinary tract infection) Current Visit: Yes Status: Acute Assessment and plan: - Urine culture from 11/29/16 grew Group Streptococcus and penicillin is usually the drug of choice. - Symptomatic as patient reports being incontinence. - Continue IV ampicillin. Will switch to Augmentin if discharged to finish total 14-day course of antibiotic therapy. 12/03/2016 Continue antibiotics for now. Qualifiers: Urinary tract infection type: site unspecified Hematuria presence: with hematuria Qualified Code(s): N39.0 - Urinary tract infection, site not specified; R31.9 - Hematuria, unspecified (4) Left shoulder pain Current Visit: Yes Status: Acute Assessment and plan: - 2-week history of intermittent pressure-like left shoulder pain radiating down left arm. Patient denies numbness, tingling or focal weakness. - Likely radiculopathy as cervical spine X-ray shows multilevel disc disease with spondylolisthesis. - Patient is instructed to follow up her with PCP for further work-up/referrals. 12/03/2016 Patient needs outpatient follow-up with neurology/neurosurgery/pain specialist Qualifiers: Chronicity: acute Qualified Code(s): M25.512 - Pain in left shoulder - Subjective Interval history: Seen and examined. Chart reviewed. Patient is comfortably lying on the bed. Patient complains of occasional headache. Patient claims that she uses pain pump for her back pain at home. 12/04/2016 Seen and examined. Chart reviewed. Patient is able to stand up with great difficulty. Physical therapy in the room and trying to work with the patient. Patient's is at bedside. Patient has a great difficulty and also has a dizziness from getting up. - Constitutional Vitals: Temp Pulse Resp BP Pulse Ox 98.4 F 75 15 163/85 98 12/04/16 08:01 12/04/16 08:01 12/04/16 08:01 12/04/16 08:01 12/04/16 09:00 General appearance: Present: cooperative, A&O X 3, no acute distress, answers questions appropriately - Head Head exam: Present: atraumatic, normocephalic - Eye Eye exam: Present: PERRL, conjuntiva pink, sclera anicteric Pupils: Present: PERRL - Neck Neck exam general surgery: Present: supple, trachea midline. Absent: lymphadenopathy - Respiratory Respiratory exam: Present: CTAB. Absent: accessory muscle use, rales, rhonchi, wheezes - Cardiovascular Cardiovascular exam: Present: RRR, +S1, +S2. Absent: diastolic murmur, gallop, rubs, systolic murmur - GI/Abdominal GI/Abdominal exam: Present: normal bowel sounds, soft, no peritoneal signs. Absent: distended, tenderness - Extremities Exam Extremities exam: Present: warm, radial pulses palpable and symetrical. Absent : calf tenderness, cyanotic, pedal edema - Neurological Exam Neurological exam: Present: CN II-XII intact, oriented X3, no focal deficits. Absent: pronater drift, facial droop, speech deficit - Skin Skin exam: Present: dry, intact Internal Medicine: Result - Labs CBC & Chem 7: 12/04/16 04:54 12/04/16 04:54 Labs: Short CBC 12/04/16 Range/Units 04:54 WBC 7.4 (4.3-11.1) K/mcL Hgb 11.7 (11.5-15.4) g/dL Hct 35.8 (35.3-44.9) % Plt Count 206 (140-400) K/mcL Neutrophils # 3.1 (1.6-8.9) K/mcL BMP 12/04/16 04:54 Sodium 136 Potassium 3.7 Chloride 104 Carbon Dioxide 24 BUN 17 Creatinine 1.27 H Glucose 105 H Calcium 9.2 Liver Function 12/04/16 Range/Units 04:54 Total Bilirubin 0.5 (0.2-1.2) mg/dL AST 17 (5-34) Units/L ALT 12 (0-55) Units/L Alkaline Phosphatase 55 (38-126) Units/L Albumin 3.2 L (3.5-5.0) g/dL - ABG Interpretation ABG results: PT/INR, D-dimer PT 10.6 Seconds (9.4-12.1) 11/29/16 17:28 Consult Discharge Plan - Plan Referrals: Femi Harris MD [Primary Care Provider] - 12/08/16 2:00 pm Prescriptions: Acetaminophen/Aspirin/Caffeine [Excedrin EX] 1 each PO Q6HR PRN #20 tablet PRN Reason: Headache Amoxicillin/Clavulanate [Augmentin] 875 mg PO BIDWM #26 tablet
[2016-12-05] MEDS: Ampicillin 2 GM in 0.9 % Sodium Chloride Mini Bag 100 ML IVPB SCH ×2 (00:16→05:41)
[2016-12-05] MEDS: Acetaminophen/Aspirin/Caffeine TABLET PO PRN (05:40)
[2016-12-05 06:09] LABS: Basophils # 0.1 K/mcL (0.0-0.2); Basophils % 1.2 %; Eosinophils # 0.5 K/mcL (0.0-0.6); Eosinophils % 6.1 %; Hematocrit 36.2 % (35.3-44.9); Hemoglobin 11.7 g/dL (11.5-15.4); Immature Granulocytes % 0.3 % (0-4); Lymphocytes # 2.9 K/mcL (0.6-4.6); Lymphocytes % 37.6 %; Mean Corpuscular HGB Conc 32.3 g/dL (31.6-35.5); Mean Corpuscular Hemoglobin 29.9 pg (28.0-33.3); Mean Corpuscular Volume 92.6 fL (83.0-100.0); Mean Platelet Volume 10.6 fL (9.4-12.4); Monocytes # 0.7 K/mcL (0.0-1.3); Monocytes % 9.6 %; Neutrophils # 3.5 K/mcL (1.6-8.9); Platelet Count 205 K/mcL (140-400); Red Blood Count 3.91 M/mcL (3.82-4.97); Red Cell Distribution Width 13.5 % (11.5-14.5); Segmented Neutrophils % 45.2 %
[2016-12-05 06:30] LABS: Albumin 3.2 g/dL (3.5-5.0); Albumin/Globulin Ratio 0.9 (1.1-2.2); Bilirubin,Total 0.5 mg/dL (0.2-1.2); Calcium 9.4 mg/dL (8.6-10.8); Globulin 3.4 g/dL (2.4-3.5); Potassium 3.8 mEq/L (3.5-4.5); Total Protein 6.6 g/dL (6.0-8.3)
[2016-12-05] MEDS: Cholecalciferol (D-3) 1,000 UNIT TABLET PO SCH (09:34)
[2016-12-05] MEDS: levETIRAcetam 250 MG TABLET PO SCH (09:35)
[2016-12-05] MEDS: hydrALAZINE 25 MG TABLET PO SCH (09:35)
[2016-12-05] MEDS: Metoprolol XL (24 HR) Succ 50 MG TAB.ER.24H PO SCH (09:35)
[2016-12-05] MEDS: *HR* Heparin 5,000 UNIT/ML VIAL SQ SCH (09:35)
[2016-12-05] MEDS: Aspirin 81 MG TAB.CHEW PO SCH (09:35)
--- NOTE | 2016-12-05 10:32 | Discharge Summary ---
<Chandana Madsen - Last Filed: 12/05/16 16:20> Date of Encounter: 12/05/16 Time of Encounter: 08:00 - Discharge Diagnosis (1) Hypertensive urgency, malignant Priority: Primary Status: Acute (2) Symptomatic premature ventricular contractions Priority: Secondary Status: Acute (3) UTI (urinary tract infection) Priority: Secondary Status: Acute Qualifiers: Urinary tract infection type: site unspecified Hematuria presence: with hematuria Qualified Code(s): N39.0 - Urinary tract infection, site not specified; R31.9 - Hematuria, unspecified (4) Left shoulder pain Priority: Secondary Status: Acute Qualifiers: Chronicity: acute Qualified Code(s): M25.512 - Pain in left shoulder (5) CAD (coronary artery disease) Priority: Secondary Status: Chronic Qualifiers: Coronary Disease-Associated Artery/Lesion type: [place] artery [place] vs. transplanted heart: [place] heart Associated angina: with unspecified angina Qualified Code(s): I25.119 - Atherosclerotic heart disease of [place] coronary artery with unspecified angina pectoris (6) GERD (gastroesophageal reflux disease) Priority: Secondary Status: Chronic Qualifiers: Esophagitis presence: without esophagitis Qualified Code(s): K21.9 - Gastro -esophageal reflux disease without esophagitis (7) Hypothyroidism Priority: Secondary Status: Chronic Qualifiers: Hypothyroidism type: acquired Qualified Code(s): E03.9 - Hypothyroidism, unspecified - Discharge Medications Prescriptions: Amoxicillin/Clavulanate [Augmentin] 875 mg PO BIDWM #5 tablet Aspirin 81 mg PO DAILY #30 tab.chew Atorvastatin [Lipitor] 40 mg PO HS #30 tablet Metoprolol XL (24 HR) Succ [Toprol Xl] 50 mg PO DAILY #30 tab.er.24h Home Medications: Cholecalciferol (D-3) [Vitamin D] 2,000 unit PO DAILY 11/29/16 [History] Estradiol [Estrace] 1 appl VG MOWEFR 11/29/16 [History] Hydralazine HCl 50 mg PO TID 11/29/16 [History] Levothyroxine [Synthroid] 100 mcg PO 0630 11/29/16 [History] Omeprazole [PriLOSEC] 20 mg PO DAILY 11/29/16 [History] LevETIRAcetam [Keppra Xr] 500 mg PO BID 11/30/16 [History] Amoxicillin/Clavulanate [Augmentin] 875 mg PO BIDWM #5 tablet 12/05/16 [Rx] Aspirin 81 mg PO DAILY #30 tab.chew 12/05/16 [Rx] Atorvastatin [Lipitor] 40 mg PO HS #30 tablet 12/05/16 [Rx] Metoprolol XL (24 HR) Succ [Toprol Xl] 50 mg PO DAILY #30 tab.er.24h 12/05/16 [ Rx] Allergies/Adverse Reactions: Allergies No Known Allergies Allergy (Verified 09/17/15 10:12) Procedures/tests Complete & Pending: Procedures Performed prior 72 hours Category Date Time Status EV echocardiogram Routine Y 12/02/16 14:48 Completed Date of admission: 11/29/16 20:52 Primary care physician: Femi Harris MD Consults: 12/02/16 09:54 Consult to Physical Therapy [CONS] Routine Comment: Evaluate, develop and implement POC Reason for Consult: discharge planning OT [Consult to Occupational Therapy] [CONS] Routine Comment: Evaluate, develop and implement POC Reason for Consult: discharge planning 12/02/16 11:37 Consult to Mgmt Consultant [CONS] Routine Reason for SW Consult: PT/OT recommend home health. Appreciate assistance to set up home health. 12/02/16 13:06 Consult to Cardiology [CONS] Routine Comment: Consulting Provider: Damon Sanchez Reason for Consult: Concern of symptomatic premature beats. Appreicate cardiology evaluation and recommendation. Call Completed: Yes Discharging clinician: Chandana Madsen Anticipated date of discharge: 12/05/16 - Patient Status Disposition: Home Health Service Condition: Fair Functional capacity at discharge: uses cane/walker Overall status at discharge: patient is progressing back to baseline - Discharge Instructions Instructions: Aspirin/Codeine (By mouth), Metoprolol (By mouth), Amoxicillin ( By mouth), Atorvastatin (By mouth) Follow Up With: Femi Harris MD [Primary Care Provider] - 12/08/16 2:00 pm [facility] [Provider Group] (Within 1-2 weeks for premature heart beats.) Additional Instructions: Please take 2 more days of Augmentin 875 mg by mouth twice a day (5 more pills to go) to finish your 7-day course of antibiotic therapy. Please continue your home dose of hydralazine 50 mg by mouth three times a day. Please be aware your Toprol XL (metoprolol succinate) have been increased. Please take prescribed Toprol XL 50 mg by mouth daily. Please take prescribed apsirin 81 mg by mouth daily and atorvastatin 40 mg by mouth at bedtime. Please follow up with your primary care physician Dr. Harris at 2 pm on regarding your hospitalization and further work-up or referrals (such as neurology, neurosurgery or pain management) for your left shoulder/arm pain. Please follow up with [place] [facility]ology within 1-2 weeks regarding your premature heart beats. - Diet and Activity Activity: increase activity as tolerated Diet: low fat, low cholesterol, low salt diet Hospital course: Ms. Parrish is a 81 year old female with PMH of HTN, hyperlipidemia, CAD s/sp LAD stent in 2008, diastolic CHF, CKD 3, hypothyroidism and DJD with L5 radiculopathy. Patient presented to [place] ED with complaint of one-month history of dyspnea on exertion, 2-week history of left shoulder pain radiating to left arm, and one-week history of intermittent pressure-like chest pain. Patient was noted to have blood pressure as high as 246/110 and started on nitroglycerin drip in ED. Patient was admitted on 11/29/16 for hypertensive urgency and chest pain work-up. Given patient also complains of headache in hypertensive urgency setting, head CT was obtained and found no acute intracranial abnormality. Patient's nitroglycerin was discontinued on 11/30/16 after her blood pressure got better controlled with home dose hydralazine and Toprol XL Patient had questionable troponin elevation (0.01, 0.05, 0.03) and nuclear stress test on 11/30/16 found gated LVEF > 70% and perfusion imaging negative for ischemia or infarct. Patient reports urinary incontinence and her urine culture from 11/29/16 grew Group C Streptoccocus, which is usually sensitive to pencillin. Patient was started on IV ampicillin for UTI. Given patient still complains of left shoulder pain radiating to left arm, cervical spin X-ray was obtained and found multilevel degenerative disc disease with spondylolisthesis. On 12/02/16, patient reports episodes of nausea, worsening headache & shortness of breath with multiple PACs & PVCs noted on telemetry. Cardiology was consulted and increased patient's Toprol XL to 50 mg daily, which seems to decrease patient's PACs. TTE on 12/02/16 found LVEF 60-65% with moderate LV diastolic dysfunction, moderate nilam regurgitation, mild-moderate tricuspid regurgitation, mild pulmonic regurgitation, moderate pulmonary hypertension, all argueta with normal motion. Given patient improves clinically and remains hemodynamically stable, will discharge patient home with home health as recommended by PT/OT. Patient is instructed to take 2 more days of Augmentin 875 mg PO BID (5 more pills to go) to finish 7-day course of antibiotic therapy. Patient is notified the increase of Toprol XL to 50 mg PO daily while continuing her home dose of hydralazine 50 mg PO TID. Patient is also recommended to continue prescribed apsirin 81 mg PO daily and atorvastatin 40 mg PO qHS. Patient will follow up with her primary care physician Dr. Harris at 2 pm on 12/08/16 regarding her hospitalization and further work-up or referrals (such as neurology, neurosurgery or pain management) for her left shoulder/arm pain, which is likely due to cervical DJD with radiculopathy. Patient will also follow up with [place] cardiology regarding her premature heart beats. - Time Spent with Patient Total time spent providing and/or coordinating discharge services: Greater than 30 minutes - Constitutional Vitals: Temp Pulse Resp BP Pulse Ox 97.4 F L 61 16 184/89 96 12/05/16 07:15 12/05/16 07:15 12/05/16 07:15 12/05/16 07:15 12/05/16 07:15 General appearance: Present: cooperative, A&O X 3, no acute distress, answers questions appropriately - Head Head exam: Present: atraumatic, normocephalic - Eye Eye exam: Present: EOMI, PERRL, conjuntiva pink, sclera anicteric - Neck Neck exam general surgery: Present: supple, trachea midline. Absent: lymphadenopathy - Respiratory Respiratory exam: Present: CTAB. Absent: accessory muscle use, rales, rhonchi, wheezes - Cardiovascular Cardiovascular exam: Present: RRR, +S1, +S2. Absent: diastolic murmur, gallop, rubs, systolic murmur - GI/Abdominal GI/Abdominal exam: Present: normal bowel sounds, soft, no peritoneal signs. Absent: distended, tenderness - Extremities Exam Extremities exam: Present: warm, radial pulses palpable and symetrical. Absent : calf tenderness, cyanotic, pedal edema - Neurological Exam Neurological exam: Present: CN II-XII intact, oriented X3, no focal deficits. Absent: pronater drift, facial droop, speech deficit - Skin Skin exam: Present: dry, intact, warm <Marianna,Ryder P - Last Filed: 12/05/16 17:08> Date of Encounter: 12/05/16 - Discharge Diagnosis (1) Hypertensive urgency, malignant Status: Acute (2) Symptomatic premature ventricular contractions Status: Acute (3) UTI (urinary tract infection) Status: Acute Qualifiers: Urinary tract infection type: site unspecified Hematuria presence: with hematuria Qualified Code(s): N39.0 - Urinary tract infection, site not specified; R31.9 - Hematuria, unspecified (4) Left shoulder pain Status: Acute Qualifiers: Chronicity: acute Qualified Code(s): M25.512 - Pain in left shoulder Date of admission: 11/29/16 20:52 Primary care physician: Femi Harris MD Consults: 12/02/16 09:54 Consult to Physical Therapy [CONS] Routine Comment: Evaluate, develop and implement POC Reason for Consult: discharge planning OT [Consult to Occupational Therapy] [CONS] Routine Comment: Evaluate, develop and implement POC Reason for Consult: discharge planning 12/02/16 11:37 Consult to Mgmt Consultant [CONS] Routine Reason for SW Consult: PT/OT recommend home health. Appreciate assistance to set up home health. 12/02/16 13:06 Consult to Cardiology [CONS] Routine Comment: Consulting Provider: [facility] Reason for Consult: Concern of symptomatic premature beats. Appreicate cardiology evaluation and recommendation. Call Completed: Yes Hospital course: Ms. Parrish is a 81 year old female - Time Spent with Patient Total time spent providing and/or coordinating discharge services: - Constitutional Vitals: Temp Pulse Resp BP Pulse Ox 98.1 F 63 16 168/83 98 12/05/16 11:04 12/05/16 11:04 12/05/16 11:04 12/05/16 11:04 12/05/16 11:04 - Attending Attestation I examined this patient and my medical decision-making was reviewed with the CREEL CLERK/PA/Advanced Practice Nurse/Resident Physician. I agree with the documented findings, disposition and treatment plan as described except to the extent set forth below.
--- NOTE | 2016-12-05 11:57 | Physician Discharge Referral ---
<Chandana Madsen - Last Filed: 12/05/16 11:56> Home Health/Hosp Referral Info Transfer to: Home Health Provider in Charge Post Discharge: PCP - Diagnosis (1) Hypertensive urgency, malignant Priority: Primary Status: Acute (2) Symptomatic premature ventricular contractions Priority: Secondary Status: Acute (3) UTI (urinary tract infection) Priority: Secondary Status: Acute (4) Left shoulder pain Priority: Secondary Status: Acute (5) CAD (coronary artery disease) Priority: Secondary Status: Chronic (6) GERD (gastroesophageal reflux disease) Priority: Secondary Status: Chronic (7) Hypothyroidism Priority: Secondary Status: Chronic - Respiratory Orders Smoking Cessation: Smoking cessation has been advised. For more information, call the [place] Tobacco Quit Line at 0-752-IXTT-NOW. - Diet/Nutrition Diet/Nutrition Orders: Cardiac - Activity Activity Orders: Walker - Services Needed Following services are medically necessary services: Physical Therapy, Occupational Therapy - Transfer Medications Prescriptions: Amoxicillin/Clavulanate [Augmentin] 875 mg PO BIDWM #5 tablet Aspirin 81 mg PO DAILY #30 tab.chew Atorvastatin [Lipitor] 40 mg PO HS #30 tablet Metoprolol XL (24 HR) Succ [Toprol Xl] 50 mg PO DAILY #30 tab.er.24h Home Medications: Cholecalciferol (D-3) [Vitamin D] 2,000 unit PO DAILY 11/29/16 [History] Estradiol [Estrace] 1 appl VG MOWEFR 11/29/16 [History] Hydralazine HCl 50 mg PO TID 11/29/16 [History] Levothyroxine [Synthroid] 100 mcg PO 0630 11/29/16 [History] Omeprazole [PriLOSEC] 20 mg PO DAILY 11/29/16 [History] LevETIRAcetam [Keppra Xr] 500 mg PO BID 11/30/16 [History] Amoxicillin/Clavulanate [Augmentin] 875 mg PO BIDWM #5 tablet 12/05/16 [Rx] Aspirin 81 mg PO DAILY #30 tab.chew 12/05/16 [Rx] Atorvastatin [Lipitor] 40 mg PO HS #30 tablet 12/05/16 [Rx] Metoprolol XL (24 HR) Succ [Toprol Xl] 50 mg PO DAILY #30 tab.er.24h 12/05/16 [ Rx] Allergies/Adverse Reactions: Allergies No Known Allergies Allergy (Verified 09/17/15 10:12) Certification: Further, I certify that my clinical findings support that this patient is homebound (i.e. absences from home require considerable and taxing effort and are for medical reasons or adventist services or infrequently or short duration when for other reasons) because: Homebound Reason: Patient requires assistance of a person or device to safely leave home Attestation: My signature below is to certify that this patient is under my care and that I, or nurse practitioner, or a physician's senior agricultural assistant working with me, has a face-to -face encounter with this patient. <Ryder Cabral P - Last Filed: 12/05/16 17:08> - Diagnosis (1) Hypertensive urgency, malignant Status: Acute (2) Symptomatic premature ventricular contractions Status: Acute (3) UTI (urinary tract infection) Status: Acute (4) Left shoulder pain Status: Acute - Respiratory Orders Smoking Cessation: Smoking cessation has been advised. For more information, call the [place] Tobacco Quit Line at 9-755-TTNU-NOW. Certification: Further, I certify that my clinical findings support that this patient is homebound (i.e. absences from home require considerable and taxing effort and are for medical reasons or adventist services or infrequently or short duration when for other reasons) because: Attestation: My signature below is to certify that this patient is under my care and that I, or nurse practitioner, or a physician's senior agricultural assistant working with me, has a face-to -face encounter with this patient.
[2016-12-05 20:02] VITALS: BP 168/83
== END 2016-12-05 13:21 | disposition home health service (06) ==
LOC: EMEROO 17:05 → 2NENU 17:05
PROVIDERS: ADMIT Internal Medicine; ATTEND Internal Medicine

== ENCOUNTER 2018-12-07 12:47 | Inpatient (IN) ==
--- NOTE | 2018-12-07 13:36 | Anesthesia Evaluation PreOp ---
Date of Encounter: 12/07/18 Time of Encounter: 14:16 - Past History Planned Operation: Robotic laparoscopic ruth fundoplication Cardiac History: CHF (moderate mitral regurgitation), HTN, Hyperlipidemia, Cardiac Stent (LAD stent 2008), Other (very poor functional capacity) Pulmonary History: Asthma [employer] History: Denies Any Significant HX Other Medical History: Renal (ckd stage III), GERD (hiatal hernia, Sharpe's) Anesthesia History: No Prior Anesthetic Complications, Past Anesthesia (breast surgery, cholecystectomy, hysterectomy, knee replacement (left), other (bladder sling, head surgery from fall, pump inplant, medtronic inplant), arthroscopy (right knee), multiple EGD's) Alcohol Use: none Drug use: none Medications and Allergies Cholecalciferol (D-3) [Vitamin D] 2,000 unit PO DAILY 11/29/16 [History] Estradiol [Estrace] 1 appl VG MOWEFR 11/29/16 [History] Hydralazine HCl 50 mg PO TID 11/29/16 [History] Levothyroxine [Synthroid] 100 mcg PO 0630 11/29/16 [History] Omeprazole [PriLOSEC] 20 mg PO DAILY 11/29/16 [History] LevETIRAcetam [Keppra Xr] 500 mg PO BID 11/30/16 [History] Aspirin 81 mg PO DAILY #30 tab.chew 12/05/16 [Rx] Atorvastatin [Lipitor] 40 mg PO HS #30 tablet 12/05/16 [Rx] Metoprolol XL (24 HR) Succ [Toprol Xl] 50 mg PO DAILY #30 tab.er.24h 12/05/16 [Rx] Allergy/AdvReac Type Severity Reaction Status Date / Time topiramate [From Topamax] Allergy Hives Verified 11/21/18 16:40 - Meds/Allergy Pre-op Review Medications Reviewed: Yes Allergies Reviewed: Yes Beta Blockers on Current Med List: Yes (metoprolol) If Beta Blockers taken, Date/Time (Last Dose taken): 12-07-18 metoprolol 7 am Anesthesia Results - Labs Laboratory Tests 11/28/18 11/28/18 13:19 13:19 WBC 7.6 Hgb 11.6 Hct 35.9 Plt Count 216 Potassium 3.8 Creatinine 1.22 H Est GFR ( Amer) 51 L Est GFR (Non-Af Amer) 42 L - Imaging EKG: report reviewed, image reviewed (SINUS RHYTHM MARKED LEFT AXIS DEVIATION) Additional studies: 12-05-2018 TTE: Impressions: LVEF 60-65%. Normal LV chamber size and function. Mild concentric left ventricular hypertrophy. Mild left ventricular diastolic dysfunction. Normal right ventricular structure and function. Mild mitral regurgitation. No evidence of pulmonary hypertension. Cardiology clearance by Dr. Call: No severe valvular disease on echo. She has no active cardiac conditions. She is at acceptable risk for an intermediate risk procedure. Continue beta-marcello perioperatively. Nuclear stress: Impression: Occasional PVCs noted prior to exam beginning, during stress, and in recovery. No significant ECG changes with regadenoson. Gated LVEF > 70%. Perfusion imaging was negative for ischemia or infarct. Anesthesia Exam Last Vital Signs Temp 98.2 F 12/07/18 13:09 Pulse 70 12/07/18 13:09 Resp 18 12/07/18 13:09 BP 148/71 12/07/18 13:09 Pulse Ox 97 12/07/18 13:09 Weight: 71 kg NPO (# of Hours): > 8 hrs - HEENT Pupil (Motor): Pupils equal, EOMI Mallampati: II Teeth: Edentulous Oral Opening: Greater than 3 - [employer] LOC: Oriented - Cardiac Rhythm: Regular - Pulmonary Breath Sounds: bilateral Clear Anesthesia Assess/Plan ASA Score: 3 Level of consciousness: Cooperative Anesthetic Plan: General Monitoring Plan: Standard Monitors Recovery Plan: PACU
[2018-12-07] MEDS ORDERED: cefOXitin 2,000 MG in Water for inj. (sterile) 20 ML 20 ML IVP ONE (13:39)
[2018-12-07] MEDS ORDERED: Albuterol 2.5 MG/3 ML NEBULIZER IH ONE (13:41)
[2018-12-07] MEDS ORDERED: Ringers Solution, Lactated 1,000 ML IVC SCH (13:45)
[2018-12-07] MEDS ORDERED: traMADol 50 MG TABLET PO ONE (14:08)
[2018-12-07] MEDS ORDERED: Acetaminophen IV 1,000 MG/100 ML INFUS..BTL IVPB ONE (14:08)
[2018-12-07] MEDS ORDERED: Lidocaine -MPF 2% 2 ML VIAL ONE (14:15)
[2018-12-07] MEDS ORDERED: *HR* Rocuronium Bromide 50 MG/5 ML VIAL ONE (14:15)
[2018-12-07] MEDS ORDERED: Lidocaine -MPF 4% 5 ML AMPUL ONE (14:15)
[2018-12-07] MEDS ORDERED: *HR* Propofol 200 MG/20 ML VIAL IVP ONE (14:16)
[2018-12-07] MEDS ORDERED: *HR* FentaNYL (PF) 100 MCG/2 ML VIAL ONE ×2 (14:16→17:06)
--- NOTE | 2018-12-07 14:44 | History & Physical Report ---
Date of Encounter: 12/07/18 Time of Encounter: 14:44 24 Hour HP Update - Instructions Instructions: If the History and Physical is less than 30 days old and was completed prior to A.M. admission and or procedure and has NOT been updated on calendar day of procedure please complete this update prior to performing procedure. - Update Patient reports changes in Medical Condition: No Changes in examination, assessment, or condition: No Changes in Medication: No Preop tests/diagnostics Reviewed: Yes Surgery Remains Indicated: Yes Consent for Planned Operative Procedure(s) Verified: Yes - Pre-Operative Checklist Preoperative Checklist Indicated: Yes Prophylactic Antibiotic Ordered: Yes Home Medications Include Beta Amol: Yes Beta Amol Taken Today (Day of Surgery): Yes
[2018-12-07] MEDS ORDERED: Neostigmine Methylsulfate 3 MG/3 ML SYRINGE ONE (16:38)
[2018-12-07] MEDS ORDERED: *HR* HYDROMORPHONE 2 MG/ML VIAL ONE (16:50)
[2018-12-07] MEDS ORDERED: *HR* Labetalol 20 MG/4 ML SYRINGE IVP ONE (16:52)
--- NOTE | 2018-12-07 17:02 | Operative Note ---
Date of procedure: 12/07/18 Pre-op diagnosis: Hiatal hernia with reflux esophagitis Procedure: Robotic hiatal hernia repair and Rocio fundoplication Anesthesia: SIOBHAN Surgeon: Lamont Leiva Was there an salon shampoo assistant present: Yes Workforce Specialist: Mercedes Recinos Estimated blood loss (cc): 30 Specimen: .0 Condition: stable Disposition: same day Procedure in Detail: After informed consent this patient was taken the operating room placed supine position. After adequate sedation anesthesia and was prepped and draped. A proper timeout was then performed. Two towel clamps were placed the umbilicus and a Veres needle was inserted. Incision was made between the umbilicus and subxiphoid port just left of the midline. Under direct visualization a 12 mm cannula was then placed into the abdomen. An 8 mm cannula was placed in left upper quadrant to individual 8 mm cannulas were placed in the right upper quadrant at the subxiphoid region and in the midclavicular line. Another 5 mm cannula was placed in the right lower quadrant. Once this port was placed a pretzel retractor was placed underneath of the left lobe of the liver and it was retracted anteriorly. An additional 5 mm cannulas placed in the left lower quadrant. Once all ports were in place robotic was docked over the patient's head. The stomach was delivered out of the hernia. A grasper was then able to identify the pars flaccida and it was opened with a vessel sealer. The right jackson was then identified and the peritoneum was incised again with the vessel sealer. Posterior to the stomach a window was created. The esophagus was easily identified with the lighted bougie. The hiatal hernia defect was then sutured with 0 Ethibond sutures in U stitch type fashion utilizing a pledget. At this point the short gastrics were taken down on the greater curvature stomach and fundus. The fundus was then passed through the retroesophageal window. 3 individual 0 Ethibond sutures were placed in U stitch type fashion in the fundus and the body of the stomach to create short floppy Rocio was created . The bougie was removed and found to have no blood. Once completed the ports are removed and pneumoperitoneum was evacuated. The 12 mm cannula site was closed with an 0 Vicryl suture. Skin incisions were closed with 4-0 Vicryl suture and Dermabond.
[2018-12-07] MEDS ORDERED: *HR* Metoprolol 5 MG/5 ML VIAL IVP ONE (17:04)
[2018-12-07] MEDS ORDERED: *HR* Metoprolol 5 MG/5 ML VIAL IVP PRN (17:05)
[2018-12-07] MEDS: *HR* FentaNYL (PF) 100 MCG/2 ML VIAL IVP PRN ×2 (17:34→17:43)
[2018-12-07] MEDS ORDERED: *HR* HYDROmorphone 2 MG/ML SYRINGE ONE (17:44)
[2018-12-07] MEDS ORDERED: *HR* Labetalol 20 MG/4 ML SYRINGE IVP PRN (17:48)
[2018-12-07] MEDS: *HR* HYDROmorphone (PF) 1 MG/ML SYRINGE IVP PRN ×2 (17:49→18:15)
--- NOTE | 2018-12-07 19:36 | Anesthesia Evaluation Post Op ---
Date of Encounter: 12/07/18 Time of Encounter: 18:59 - Discharge PostOp Status: Transfer Patient to floor (Patient's vital signs have been reviewed. Patient is stable postoperatively and has adequately recovered from anesthesia. Patient is determined to have stable airway patency and respiratory function including respiratory rate and oxygen saturation. Patient has a stable heart rate, blood pressure and adequate hydration. Patients mental status is acceptable. Patients temperature is appropriate. Pain and nausea are adequately controlled.)
[2018-12-07] MEDS: OXYCODONE Oral CONC 10 MG/0.5 ML ORAL.SYG SL PRN (20:20)
[2018-12-07] MEDS: 0.9 % Sodium Chloride 1,000 ML IVC SCH (22:51)
[2018-12-07] MEDS ORDERED: OXYCODONE Oral CONC 10 MG/0.5 ML ORAL.SYG SL STA (23:04)
[2018-12-08] MEDS: OXYCODONE Oral CONC 10 MG/0.5 ML ORAL.SYG SL PRN ×2 (03:30→11:02)
[2018-12-08 08:55] LABS: Bilirubin,Urine Negative (Negative); Blood,Urine Large (Negative); Clarity,Urine Cloudy (Clear); Color,Urine Yellow (Yellow); Glucose,Urine (UA) Normal (Normal); Ketones,Urine Negative (Negative); Leukocyte Esterase,Urine Large (Negative); Nitrite,Urine Negative (Negative); PH,Urine 7.5 pH Units (5.0-8.0); Protein,Urine 30 mg/dL (Neg-Trace); Specific Gravity,Urine 1.008 (1.010-1.025); Urobilinogen,Urine Normal (Normal)
[2018-12-08 09:07] LABS: Bacteria,Urine None Seen per hpf (None-Few); Hyaline Casts,Urine None Seen per lpf (None-Few); RBC,Urine TNTC per hpf (0-3); Squamous Epithelial Cell,Urine None Seen per lpf (None-Few); WBC,Urine TNTC per hpf (0-3)
[2018-12-08] MEDS ORDERED: Acetaminophen IV 1,000 MG/100 ML INFUS..BTL IVPB SCH (10:00)
[2018-12-08] MEDS: Ondansetron 4 MG/2 ML VIAL IVP PRN ×2 (11:02→19:39)
[2018-12-08] MEDS: Famotidine 20 MG TABLET PO SCH ×2 (11:03→11:08)
[2018-12-08] MEDS: (Hydromorphone (Pf) [Hydromorphone Intrathecal Pump] IT SCH (11:03)
[2018-12-08] MEDS: Metoprolol XL (24 HR) Succ 50 MG TAB.ER.24H PO SCH (11:06)
[2018-12-08 11:16] LABS: BUN/Creatinine Ratio 13 (6-26); Blood Urea Nitrogen 12 mg/dL (8-23); Calcium 9.4 mg/dL (8.6-10.3); Carbon Dioxide 23 mEq/L (23-29); Chloride 103 mEq/L (98-107); Glucose 138 mg/dL (70-105); Magnesium 1.5 mg/dL (1.6-2.6); Osmolality,Calculated 264 (280-300); Potassium 3.5 mEq/L (3.5-5.1); Sodium 126 mEq/L (136-145); eGFR For Non-African Americans 57 (> 60)
[2018-12-08 11:19] LABS: Basophils % 0.3 %; Eosinophils % 0.4 %; Hematocrit 36.8 % (35.3-44.9); Hemoglobin 11.7 g/dL (11.5-15.4); Immature Granulocytes % 0.2 % (0-4); Lymphocytes # 1.8 K/mcL (0.6-4.6); Lymphocytes % 18.6 %; Mean Corpuscular HGB Conc 31.8 g/dL (31.6-35.5); Mean Corpuscular Hemoglobin 29.6 pg (28.0-33.3); Mean Corpuscular Volume 93.2 fL (83.0-100.0); Monocytes % 10.4 %; Neutrophils # 6.6 K/mcL (1.6-8.9); Platelet Count 174 K/mcL (140-400); Red Blood Count 3.95 M/mcL (3.82-4.97); Red Cell Distribution Width 13.9 % (11.5-14.5); Segmented Neutrophils % 70.1 %
[2018-12-08] MEDS ORDERED: OXYCODONE Oral CONC 10 MG/0.5 ML ORAL.SYG SL PRN (11:54)
--- NOTE | 2018-12-08 12:54 | AcuteCareSurgery Progress Note ---
<Fang Craven - Last Filed: 12/08/18 12:52> Date of Encounter: 12/08/18 Time of Encounter: 08:30 - Assessment and Plan (1) Hiatal hernia with gastroesophageal reflux disease and esophagitis Current Visit: Yes Status: Acute Date of procedure: 12/07/18 Pre-op diagnosis: Hiatal hernia with reflux esophagitis Procedure: Robotic hiatal hernia repair and Roico fundoplication Anesthesia: GETA Surgeon: Lamont Leiva POD #1 as above. UGI completed 12/08/2018 is without contrast leak, persistent tiny slighting hiatal hernia noted, postoperative edema consistent with surgery, and mild reflux consistent with acute postoperative period. She is recovering as expected. She does state her abdominal pain was signifi cant when the pain medication wore off but is tolerable for activity. She does have an intrathecal pain pump. We have cautiously added 5 mg of sublingual oxycodone for severe breakthrough pain only. We did review this with the bedside RN who will diligently observe for over sedation. She has scheduled Ofirmev. We can add scheduled Toradol if needed. Plan: Continue supportive care and discomfort management while awaiting full return of bowel function Continue G.I. and DVT prophylaxis Incentive spirometry 10 times every hour while awake Out of bed to chair TID, do not offer meal trays while in the bed Activity as tolerated Apply ice 20 minutes on 20 minutes off as needed patient takes Dexilant at home, we will place her on omeprazole while in the hospital consult to PT/OT/social work for mobilization and discharge planning given her frail status and chronic pain. Suspect she would need home health versus a short rehab placement Rocio clear liquid diet, no carbonation, no straw, Ensure clear TID Stop IVF to prvent fluid overload. Pt takes lasix 20 mg aprox every other day. Will evaluate on a daily basis. 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 Intrathecal pain pump. Continue to closely monitor. Qualifiers: Chronic pain type: other chronic pain Qualified Code(s): G89.29 - Other chronic pain (4) Presence of intrathecal pump Current Visit: Yes Status: Chronic (5) HTN, goal below 130/80 Current Visit: Yes Status: Acute (6) Abnormal urinalysis Current Visit: Yes Status: Acute Acute versus chronic hematuria, painless, culture pending. Will wait to start a ntibiotics for culture as she is pain free. (7) Hypothyroidism Current Visit: No Status: Chronic Continue home meds Qualifiers: Hypothyroidism type: acquired Qualified Code(s): E03.9 - Hypothyroidism, unspecified Subjective Patient reports: still having pain (states very sore but she is able to move around and meds help), tolerating liquids well, voiding w/o difficulty, no flatus, no bowel movement, afebrile, other (denies nausea. reports bloody urine now (and at baseline), denies painful urination) Objective Vital Signs - Last 8 Hours Temp Pulse Resp BP Pulse Ox 12/08/18 11:23 98 12/08/18 10:25 97.5 F L 65 15 165/70 100 12/08/18 06:49 98.3 F 64 16 162/79 99 Intake and Output 12/07/18 12/08/18 12/08/18 23:59 07:59 15:59 Intake Total 720 / 1392 672 / 1392 Output Total 350 / 350 Balance -30 / -30 720 / 1042 322 / 1042 Intake: IV Fluids 672 / 672 0.9 % Sodium Chloride 1,000 ML 672 / 672 @ 70 mls/hr IVC .[id number] TYE Rx #:[id number] Oral 720 / 720 0 / 720 Output: Urine 350 / 350 Estimated Blood Loss Other: Meal Breakfast Percent of Meal Consumed 0% # Voids 1 # Urine Diapers 2 # Bowel Movements 0 Blood Glucose* 131 - General physical appearance no distress, moderate pain - Eyes normal ocular movement - ENT normal nares, normal mucosa, atraumatic, normocephalic - Neck Neck exam: trachea midline - Respiratory normal expansion, normal respiratory effort, clear to auscultation - Abdomen Abdomen: Present: bowel sounds present, soft, tender (Expected postoperative tenderness) - Incision Incision: Present: clean and dry, intact - Integumentary no rash - Neurologic normal coordination, normal sensation - Musculoskeletal normal gait, normal posture - Psychiatric oriented to time, oriented to person, oriented to place, speech is normal, memory intact - Labs 12/08/18 10:29 12/08/18 10:29 Diabetes panel 12/08/18 Range/Units 10:29 Sodium 126 L (136-145) mEq/L Potassium 3.5 (3.5-5.1) mEq/L Chloride 103 (98-107) mEq/L Carbon Dioxide 23 (23-29) mEq/L BUN 12 (8-23) mg/dL Creatinine 0.93 (0.60-1.20) mg/dL Glucose 138 H (70-105) mg/dL Calcium 9.4 (8.6-10.3) mg/dL Calcium panel 12/08/18 Range/Units 10:29 Calcium 9.4 (8.6-10.3) mg/dL Phosphorus 3.0 (2.7-4.5) mg/dL Pituitary panel 12/08/18 Range/Units 10:29 Sodium 126 L (136-145) mEq/L Potassium 3.5 (3.5-5.1) mEq/L Chloride 103 (98-107) mEq/L Carbon Dioxide 23 (23-29) mEq/L BUN 12 (8-23) mg/dL Creatinine 0.93 (0.60-1.20) mg/dL Glucose 138 H (70-105) mg/dL Calcium 9.4 (8.6-10.3) mg/dL Adrenal panel 12/08/18 Range/Units 10:29 Sodium 126 L (136-145) mEq/L Potassium 3.5 (3.5-5.1) mEq/L Chloride 103 (98-107) mEq/L Carbon Dioxide 23 (23-29) mEq/L BUN 12 (8-23) mg/dL Creatinine 0.93 (0.60-1.20) mg/dL Glucose 138 H (70-105) mg/dL Calcium 9.4 (8.6-10.3) mg/dL Consult Discharge Plan - Plan Instructions: Adult Laparoscopic Rocio Fundoplication (DC) Additional Instructions: General Instructions After Rocio Surgery 1. No pushing, pulling, or lifting greater than 15 lbs for two weeks. 2. You may shower beginning today, but no tub baths, soaking, or swimming for 2 weeks. 3. You may resume driving when you are off narcotics and are safe to react in a car. 4. Your pain pump will cover your postoperative pain. You may take additional Tylenol if needed. 5. Take stool softeners (Colace) or a water based laxative (Miramax) while taking narcotics. You may hold for loose stools. 6. Report any fevers greater than 100.5F, increase abdominal discomfort, drainage that looks like pus, increased redness or pain at the surgical site, or any vomiting. 7. Report any pain in the calves, shortness of breath, or rapid heartbeat. 8. Continue to take your heartburn medications until directed to stop. Do not stop them abruptly as this can cause symptoms of reflux. 9. Do not drink alcohol or carbonated beverages. 10. Do not deviate from the recommended Rocio diet below. Doing so can affect your outcomes. [facility] Diet After Rocio Fundoplication Surgery This diet information is for patients who have recently had Rocio Fundoplication Surgery to correct reflux disease or to repair various types of hernias, such as hiatal hernia and intrathoracic stomach. This diet may also be used for other gastrointestinal surgeries, such as Heller myotomy and repair of achalasia. The diet will help control diarrhea, excess gas and swallowing problems, which may occur after this type of surgery. Important Steps to Keep Your Stomach From Stretching Eat small, frequent meals (six to eight per day). This will help you consume the majority of the nutrients you need without causing your stomach to feel full or distended. Drinking large amounts of fluids with meals can stretch your stomach. You may drink fluids between meals as often as you like, but limit fluids to 1/2 cup (4 fluid ounces) with meals and one cup (8 fluid ounces) with snacks. Sit upright while eating, and stay upright for 30 minutes after each meal. [place] can help food move through your digestive tract. Do not lie down after eating. Sit upright for 2 hours after your last meal or snack of the day. Eat very slowly. Take your time when eating. Take small bites and chew your food well to lay out helper in swallowing and digestion. Avoid crusty breads and sticky, gummy foods, such as bananas, fresh doughy breads, rolls and doughnuts. These types of foods become sticky and difficult to swallow. Toasted breads tend to be better tolerated. Lastly, if you eat sweets, consume them at the end of your meal to avoid a group of symptoms referred to as dumping syndrome. This describes the rapid emptying of foods from the stomach to the small intestine. Sweetened beverages, candy and desserts move more rapidly and dump quickly into the intestines. This can cause symptoms of nausea, weakness, cold sweats, cramps, diarrhea and dizzy spells. Important Steps to Avoid Gas Do not drink through a straw, chew gum, or chew tobacco. These actions cause you to swallow air, which will produce excess gas in your stomach. Chew with your mouth closed and chew your food thoroughly. Avoid foods that cause stomach gas and distention. The foods include corn, dried beans, peas, lentils, onions, broccoli, cauliflower, and any food item from the cabbage family. Do not drink carbonated drinks, alcohol, citrus, or tomato products. What Will I Be Able To Eat and Drink After Surgery After Rocio Fundoplication Surgery, your diet will be advanced slowly by your surgeon. Generally, you will be on a thin/clear liquid diet for the first 10 days. Then you will advance to the full liquid diet for 4 days and eventually to a Rocio soft diet for 7 days. After any surgery, protein consumption is important for healing. To get enough protein, drink 3-4 [place] Instant Breakfast, Ensure, or equivalent daily. Reminder: Carbonated beverages (such as sodas, energy drinks, flavored carbona rosa water), and alcohol are not permitted for the 1st 6 to 8 weeks after valerio rgery. After this time you may attempt to reintroduce them in small amounts. Please note: Dairy products such as milk, ice cream, and pudding may cause diarrhea in some people after surgery. You may need to avoid milk products. If so you may substitute them with lactose free beverages, such as soy, rice, lactate, or almond milk. Please be aware that each patient's tolerance to food is different. Your doctor will advance your diet depending on how well you progress after surgery. Thin Liquid Diet The first diet after Rocio Fundoplication Surgery is the thin liquids diet. Follow this diet for postoperative days 1-10 12/08- 12/17. Thin liquids include: Apple, Cranberry, or Grape Juice (no citrus juice) Chicken Broth Beef Broth Flavored Gelatin (Jell-O) Decaffeinated Tea or Coffee Popsicles or [place] Ice Caffeinated Beverages Will Be Permitted Based upon Tolerance and at a later date Dairy if tolerated Thin Milkshakes (strawberry or vanilla flavored- No chocolate) Drink 3-4 [place] instant breakfast, Ensure, or equivalent daily. May be mixed with dairy for thin milkshakes Full Liquid Diet Follow this diet for postoperative days 11-14 12/18 - 12/21. Full liquid diet includes anything in the thin liquid diet plus: Milk: Dairy, Soy, Rice, and [place] (No Chocolate) Cream of Wheat, Cream of Rice, Grits Strained Creamed Soups (No Tomato or Broccoli) Vanilla and [place] Flavored Ice Cream Sherbet Vanilla and Butterscotch Pudding (No Chocolate or Coconut) Continue 3-4 [place] Instant Breakfast, Ensure, or an Equivalent Daily. May be mixed with Dairy for Thin Milkshakes. Rocio Soft Diet Follow this diet for postoperative days 15-12/22 - 12/27. (If you are consuming enough protein, you may stop the protein supplements). Please note: You will need extra fluids throughout the day to meet your fluid needs. Referrals: Femi Harris MD [Primary Care Provider] - Fang Craven CNP [Advanced Practice Nurse] - 12/18/18 1:15 pm <Marisela Jiménez - Last Filed: 12/08/18 16:00> Date of Encounter: 12/08/18 Objective Vital Signs - Last 8 Hours Temp Pulse Resp BP Pulse Ox 12/08/18 15:21 97.8 F 62 16 155/66 97 12/08/18 11:23 98 12/08/18 10:25 97.5 F L 65 15 165/70 100 Intake and Output 12/08/18 12/08/18 12/08/18 07:59 15:59 23:59 Intake Total 720 / 1492 772 / 1492 Output Total 350 / 350 Balance 720 / 1142 422 / 1142 Intake: IV Fluids 772 / 772 0.9 % Sodium Chloride 1,000 ML 672 / 672 @ 70 mls/hr IVC .[id number] TYE Rx #:[id number] Ofirmev 1,000 mg/100 ml 1,000 100 / 100 mg In 100 ml @ 400 mls/hr IVPB Q6H TYE Rx#:[id number] Oral 720 / 720 0 / 720 Output: Urine 350 / 350 Other: Meal Breakfast Percent of Meal Consumed 0% # Voids 1 # Urine Diapers 2 # Bowel Movements 0 Blood Glucose* 131 - Labs 12/08/18 10:29 12/08/18 10:29 Diabetes panel 12/08/18 Range/Units 10:29 Sodium 126 L (136-145) mEq/L Potassium 3.5 (3.5-5.1) mEq/L Chloride 103 (98-107) mEq/L Carbon Dioxide 23 (23-29) mEq/L BUN 12 (8-23) mg/dL Creatinine 0.93 (0.60-1.20) mg/dL Glucose 138 H (70-105) mg/dL Calcium 9.4 (8.6-10.3) mg/dL Calcium panel 12/08/18 Range/Units 10:29 Calcium 9.4 (8.6-10.3) mg/dL Phosphorus 3.0 (2.7-4.5) mg/dL Pituitary panel 12/08/18 Range/Units 10:29 Sodium 126 L (136-145) mEq/L Potassium 3.5 (3.5-5.1) mEq/L Chloride 103 (98-107) mEq/L Carbon Dioxide 23 (23-29) mEq/L BUN 12 (8-23) mg/dL Creatinine 0.93 (0.60-1.20) mg/dL Glucose 138 H (70-105) mg/dL Calcium 9.4 (8.6-10.3) mg/dL Adrenal panel 12/08/18 Range/Units 10:29 Sodium 126 L (136-145) mEq/L Potassium 3.5 (3.5-5.1) mEq/L Chloride 103 (98-107) mEq/L Carbon Dioxide 23 (23-29) mEq/L BUN 12 (8-23) mg/dL Creatinine 0.93 (0.60-1.20) mg/dL Glucose 138 H (70-105) mg/dL Calcium 9.4 (8.6-10.3) mg/dL - Attending Attestation I examined this patient and my medical decision-making was reviewed with the RESIDENTIAL REMODELING SUBCONTRACTOR. I agree with the documented findings, disposition and treatment plan as described except to the extent set forth below.
[2018-12-08] MEDS: Pantoprazole 40 MG VIAL IVP SCH (13:35)
[2018-12-08] MEDS: hydrALAZINE 25 MG TABLET PO SCH ×2 (15:15→21:27)
[2018-12-08] MEDS: *HR* Heparin 5,000 UNIT/ML VIAL SQ SCH (17:34)
[2018-12-08] MEDS: Acetaminophen IV 1,000 MG/100 ML INFUS..BTL IVPB SCH ×2 (17:35→23:43)
[2018-12-09] MEDS: *HR* Heparin 5,000 UNIT/ML VIAL SQ SCH ×2 (06:28→17:33)
[2018-12-09] MEDS: Acetaminophen IV 1,000 MG/100 ML INFUS..BTL IVPB SCH ×3 (06:29→17:33)
[2018-12-09 06:42] LABS: Basophils # 0.1 K/mcL (0.0-0.2); Basophils % 0.8 %; Eosinophils # 0.2 K/mcL (0.0-0.6); Hematocrit 33.8 % (35.3-44.9); Immature Granulocytes % 0.1 % (0-4); Lymphocytes # 2.2 K/mcL (0.6-4.6); Lymphocytes % 31.5 %; Mean Corpuscular HGB Conc 32.5 g/dL (31.6-35.5); Mean Corpuscular Volume 92.1 fL (83.0-100.0); Mean Platelet Volume 10.2 fL (9.4-12.4); Monocytes # 0.8 K/mcL (0.0-1.3); Monocytes % 11.6 %; Neutrophils # 3.7 K/mcL (1.6-8.9); Platelet Count 169 K/mcL (140-400); Red Blood Count 3.67 M/mcL (3.82-4.97); Red Cell Distribution Width 13.8 % (11.5-14.5)
[2018-12-09 07:01] LABS: BUN/Creatinine Ratio 13 (6-26); Blood Urea Nitrogen 12 mg/dL (8-23); Calcium 9.3 mg/dL (8.6-10.3); Carbon Dioxide 25 mEq/L (23-29); Chloride 99 mEq/L (98-107); Glucose 104 mg/dL (70-105); Osmolality,Calculated 276 (280-300); Potassium 3.5 mEq/L (3.5-5.1); Sodium 133 mEq/L (136-145); eGFR For Non-African Americans 60 (> 60)
[2018-12-09] MEDS: Pantoprazole 40 MG VIAL IVP SCH (08:41)
[2018-12-09] MEDS: hydrALAZINE 25 MG TABLET PO SCH ×3 (08:41→20:07)
[2018-12-09] MEDS: (Hydromorphone (Pf) [Hydromorphone Intrathecal Pump] IT SCH (08:42)
[2018-12-09] MEDS: Aspirin 81 MG TAB.CHEW PO SCH (08:42)
[2018-12-09] MEDS: Metoprolol XL (24 HR) Succ 50 MG TAB.ER.24H PO SCH (08:42)
[2018-12-09] MEDS: Cholecalciferol (D-3) 1,000 UNIT TABLET PO SCH (08:42)
[2018-12-09] MEDS ORDERED: Furosemide 20 MG TABLET PO SCH (09:00)
--- NOTE | 2018-12-09 09:02 | AcuteCareSurgery Progress Note ---
Date of Encounter: 12/09/18 Time of Encounter: 09:00 - Assessment and Plan (1) S/P repair of paraesophageal hernia Current Visit: Yes Status: Acute POD#2 Continue with post-Rocio diet. Increase activity. Probable DC in am. 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 Pt denies heartburn or dysphagia. ) Objective Vital Signs - Last 8 Hours Temp Pulse Resp BP Pulse Ox 12/09/18 06:56 98.1 F 63 16 127/69 99 12/09/18 03:12 97.7 F 55 14 134/71 98 Intake and Output 12/08/18 12/09/18 12/09/18 23:59 07:59 15:59 Intake Total 700 / 2534 200 / 200 Balance 700 / 2184 200 / 200 Intake: IV Fluids 100 / 974 200 / 200 Ofirmev 1,000 mg/100 ml 1,000 100 / 100 200 / 200 mg In 100 ml @ 400 mls/hr IVPB Q6H [facility] Rx#:[id number] Oral 240 / 1200 0 / 0 Free Water 360 / 360 Other: Meal Lunch # Voids 1 1 # Bowel Movements 0 0 Weight 71.9 kg Blood Glucose* 96 109 Patient Weight 12/09/18 23:59 Weight 71.9 kg - General physical appearance no distress, no pain - Eyes PERRL, normal ocular movement - ENT normal mucosa - Respiratory normal respiratory effort, clear to auscultation - Cardiovascular Cardiovascular exam: Present: RRR. Absent: JVD - Abdomen Abdomen: Present: bowel sounds present, soft, tender - Incision Incision: Present: clean and dry, intact - Integumentary no rash - Neurologic CN 2-12 grossly intact, normal coordination - Musculoskeletal normal posture - Psychiatric oriented to time, oriented to person, oriented to place - Labs 12/09/18 05:28 12/09/18 05:28 Diabetes panel 12/08/18 12/09/18 Range/Units 10:29 05:28 Sodium 126 L 133 L (136-145) mEq/L Potassium 3.5 3.5 (3.5-5.1) mEq/L Chloride 103 99 (98-107) mEq/L Carbon Dioxide 23 25 (23-29) mEq/L BUN 12 12 (8-23) mg/dL Creatinine 0.93 0.90 (0.60-1.20) mg/dL Glucose 138 H 104 (70-105) mg/dL Calcium 9.4 9.3 (8.6-10.3) mg/dL Calcium panel 12/08/18 12/09/18 Range/Units 10:29 05:28 Calcium 9.4 9.3 (8.6-10.3) mg/dL Phosphorus 3.0 (2.7-4.5) mg/dL Pituitary panel 12/08/18 12/09/18 Range/Units 10:29 05:28 Sodium 126 L 133 L (136-145) mEq/L Potassium 3.5 3.5 (3.5-5.1) mEq/L Chloride 103 99 (98-107) mEq/L Carbon Dioxide 23 25 (23-29) mEq/L BUN 12 12 (8-23) mg/dL Creatinine 0.93 0.90 (0.60-1.20) mg/dL Glucose 138 H 104 (70-105) mg/dL Calcium 9.4 9.3 (8.6-10.3) mg/dL Adrenal panel 12/08/18 12/09/18 Range/Units 10:29 05:28 Sodium 126 L 133 L (136-145) mEq/L Potassium 3.5 3.5 (3.5-5.1) mEq/L Chloride 103 99 (98-107) mEq/L Carbon Dioxide 23 25 (23-29) mEq/L BUN 12 12 (8-23) mg/dL Creatinine 0.93 0.90 (0.60-1.20) mg/dL Glucose 138 H 104 (70-105) mg/dL Calcium 9.4 9.3 (8.6-10.3) mg/dL Consult Discharge Plan - Plan Instructions: Adult Laparoscopic Rocio Fundoplication (DC) Additional Instructions: General Instructions After Rocio Surgery 1. No pushing, pulling, or lifting greater than 15 lbs for two weeks. 2. You may shower beginning today, but no tub baths, soaking, or swimming for 2 weeks. 3. You may resume driving when you are off narcotics and are safe to react in a car. 4. Your pain pump will cover your postoperative pain. You may take additional Tylenol if needed. 5. Take stool softeners (Colace) or a water based laxative (Miramax) while taking narcotics. You may hold for loose stools. 6. Report any fevers greater than 100.5F, increase abdominal discomfort, drainage that looks like pus, increased redness or pain at the surgical site, or any vomiting. 7. Report any pain in the calves, shortness of breath, or rapid heartbeat. 8. Continue to take your heartburn medications until directed to stop. Do not stop them abruptly as this can cause symptoms of reflux. 9. Do not drink alcohol or carbonated beverages. 10. Do not deviate from the recommended Rocio diet below. Doing so can affect your outcomes. [facility] Diet After Rocio Fundoplication Surgery This diet information is for patients who have recently had Rocio Fundoplication Surgery to correct reflux disease or to repair various types of hernias, such as hiatal hernia and intrathoracic stomach. This diet may also be used for other gastrointestinal surgeries, such as Heller myotomy and repair of achalasia. The diet will help control diarrhea, excess gas and swallowing problems, which may occur after this type of surgery. Important Steps to Keep Your Stomach From Stretching Eat small, frequent meals (six to eight per day). This will help you consume the majority of the nutrients you need without causing your stomach to feel full or distended. Drinking large amounts of fluids with meals can stretch your stomach. You may drink fluids between meals as often as you like, but limit fluids to 1/2 cup (4 fluid ounces) with meals and one cup (8 fluid ounces) with snacks. Sit upright while eating, and stay upright for 30 minutes after each meal. [place] can help food move through your digestive tract. Do not lie down after eating. Sit upright for 2 hours after your last meal or snack of the day. Eat very slowly. Take your time when eating. Take small bites and chew your food well to corrugator operator helper in swallowing and digestion. Avoid crusty breads and sticky, gummy foods, such as bananas, fresh doughy breads, rolls and doughnuts. These types of foods become sticky and difficult to swallow. Toasted breads tend to be better tolerated. Lastly, if you eat sweets, consume them at the end of your meal to avoid a group of symptoms referred to as dumping syndrome. This describes the rapid emptying of foods from the stomach to the small intestine. Sweetened beverages, candy and desserts move more rapidly and dump quickly into the intestines. This can cause symptoms of nausea, weakness, cold sweats, cramps, diarrhea and dizzy spells. Important Steps to Avoid Gas Do not drink through a straw, chew gum, or chew tobacco. These actions cause you to swallow air, which will produce excess gas in your stomach. Chew with your mouth closed and chew your food thoroughly. Avoid foods that cause stomach gas and distention. The foods include corn, dried beans, peas, lentils, onions, broccoli, cauliflower, and any food item from the cabbage family. Do not drink carbonated drinks, alcohol, citrus, or tomato products. What Will I Be Able To Eat and Drink After Surgery After Rocio Fundoplication Surgery, your diet will be advanced slowly by your surgeon. Generally, you will be on a thin/clear liquid diet for the first 10 days. Then you will advance to the full liquid diet for 4 days and eventually to a Rocio soft diet for 7 days. After any surgery, protein consumption is important for healing. To get enough protein, drink 3-4 [place] Instant Breakfast, Ensure, or equivalent daily. Reminder: Carbonated beverages (such as sodas, energy drinks, flavored carbonated water), and alcohol are not permitted for the 1st 6 to 8 weeks after surgery. After this time you may attempt to reintroduce them in small amounts. Please note: Dairy products such as milk, ice cream, and pudding may cause diarrhea in some people after surgery. You may need to avoid milk products. If so you may substitute them with lactose free beverages, such as soy, rice, lactate, or almond milk. Please be aware that each patient's tolerance to food is different. Your doctor will advance your diet depending on how well you progress after surgery. Thin Liquid Diet The first diet after Rocio Fundoplication Surgery is the thin liquids diet. Follow this diet for postoperative days 1-10 12/08- 12/17. Thin liquids include: Apple, Cranberry, or Grape Juice (no citrus juice) Chicken Broth Beef Broth Flavored Gelatin (Jell-O) Decaffeinated Tea or Coffee Popsicles or [place] Ice Caffeinated Beverages Will Be Permitted Based upon Tolerance and at a later date Dairy if tolerated Thin Milkshakes (strawberry or vanilla flavored- No chocolate) Drink 3-4 [place] instant breakfast, Ensure, or equivalent daily. May be mixed with dairy for thin milkshakes Full Liquid Diet Follow this diet for postoperative days 11-14 12/18 - 12/21. Full liquid diet includes anything in the thin liquid diet plus: Milk: Dairy, Soy, Rice, and [place] (No Chocolate) Cream of Wheat, Cream of Rice, Grits Strained Creamed Soups (No Tomato or Broccoli) Vanilla and [place] Flavored Ice Cream Sherbet Vanilla and Butterscotch Pudding (No Chocolate or Coconut) Continue 3-4 [place] Instant Breakfast, Ensure, or an Equivalent Daily. May be mixed with Dairy for Thin Milkshakes. Rocio Soft Diet Follow this diet for postoperative days 15-12/22 - 12/27. (If you are consuming enough protein, you may stop the protein supplements). Please note: You will need extra fluids throughout the day to meet your fluid needs. Referrals: Femi Harris MD [Primary Care Provider] - Fang Craven CNP [Advanced Practice Nurse] - 12/18/18 1:15 pm
[2018-12-10] MEDS: Acetaminophen IV 1,000 MG/100 ML INFUS..BTL IVPB SCH ×2 (00:15→05:13)
[2018-12-10] MEDS: *HR* Heparin 5,000 UNIT/ML VIAL SQ SCH (05:30)
[2018-12-10] MEDS: 0.9 % Sodium Chloride 1,000 ML IVC SCH (07:27)
--- NOTE | 2018-12-10 08:35 | Discharge Summary ---
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 (5) HTN, goal below 130/80 Priority: Secondary Status: Acute (6) Abnormal urinalysis Priority: Secondary Status: Chronic (7) Hypothyroidism Priority: Secondary Status: Chronic Qualifiers: Hypothyroidism type: acquired Qualified Code(s): E03.9 - Hypothyroidism, unspecified General Surgery Exam Initial Vital Signs Temp Pulse Resp BP Pulse Ox 98.2 F 70 18 148/71 97 12/07/18 13:09 12/07/18 13:09 12/07/18 13:09 12/07/18 13:09 12/07/18 13:09 - General physical appearance well developed, well nourished, no distress - Neck trachea midline - Respiratory normal expansion, normal respiratory effort - Cardiovascular Cardiovascular exam: Present: RRR - Abdomen Abdomen general surgery: Present: bowel sounds present, soft, tender (Expected postoperative) - Incision Incision: Present: clean and dry, intact - Integumentary Integumentary general surgery: Present: warm and dry - Neurologic Present: normal coordination, normal sensation - Musculoskeletal Present: normal posture - Psychiatric Psychiatric general surgery: Present: A&Ox3, appropriate - Hospital Course Hospital course: Ms. Parrish is a 83 year old female who presented on 12/07/2018 for an elective robotic hiatal hernia repair with Rocio fundoplication. Her postoperative u pper G.I. on 12/08/2018 was consistent with expected postoperative edema. She was kept in the hospital over the weekend due to her frail status and difficulty with pain control. She is tolerating her Rocio diet without nausea or vomiting, vital signs are stable, and she is afebrile. We will begin discharge planning to home with healthcare and a follow-up in approximately 2 weeks. - Time Spent with Patient Total time spent providing and/or coordinating discharge services: Less than 30 minutes Specific discharge activities: [facility] coordination - Discharge Medications Prescriptions: New Docusate Sodium [Colace] 100 mg PO BID PRN #30 capsule PRN Reason: Contstipation Polyethylene Glycol 3350 [MiraLAX Powder Bulk 17.9 Oz] 1 scoop PO DAILY 30 Days #510 gm Ondansetron ODT [Zofran ODT] 4 mg SL Q4HR PRN #15 tab.rapdis PRN Reason: Postsurgical nausea Continued Cholecalciferol (D-3) [Vitamin D] 5,000 unit PO DAILY Hydralazine HCl 50 mg PO TID Aspirin 81 mg PO DAILY #30 tab.chew Atorvastatin [Lipitor] 40 mg PO HS #30 tablet Metoprolol XL (24 HR) Succ [Toprol Xl] 50 mg PO DAILY #30 tab.er.24h Hydromorphone (Pf) [Hydromorphone Intrathecal Pump] 1 each IT AD Docusate [Colace] 100 mg PO DAILY PRN PRN Reason: Constipation Sucralfate [Carafate] 10 ml PO QID PRN PRN Reason: GERD Potassium Chloride [Klor-Con 10] 10 meq PO BID Dexlansoprazole [Dexilant] 60 mg PO DAILY Acetaminophen/Butalbital/Caffe [Fioricet] 1 tab PO DAILY PRN PRN Reason: Migraine Headache Magnesium Oxide [Magnesium] 400 mg PO BID Levothyroxine Sodium [Euthyrox] 125 mcg PO DAILY Furosemide [Lasix] 20 mg PO DAILY Home Medications: Cholecalciferol (D-3) [Vitamin D] 5,000 unit PO DAILY 11/29/16 [History] Hydralazine HCl 50 mg PO TID 11/29/16 [History] Aspirin 81 mg PO DAILY #30 tab.chew 12/05/16 [Rx] Atorvastatin [Lipitor] 40 mg PO HS #30 tablet 12/05/16 [Rx] Metoprolol XL (24 HR) Succ [Toprol Xl] 50 mg PO DAILY #30 tab.er.24h 12/05/16 [Rx] Acetaminophen/Butalbital/Caffe [Fioricet] 1 tab PO DAILY PRN 12/07/18 [History] Dexlansoprazole [Dexilant] 60 mg PO DAILY 12/07/18 [History] Docusate [Colace] 100 mg PO DAILY PRN 12/07/18 [History] Furosemide [Lasix] 20 mg PO DAILY 12/07/18 [History] Hydromorphone (Pf) [Hydromorphone Intrathecal Pump] 1 each IT AD 12/07/18 [History] Levothyroxine Sodium [Euthyrox] 125 mcg PO DAILY 12/07/18 [History] Magnesium Oxide [Magnesium] 400 mg PO BID 12/07/18 [History] Potassium Chloride [Klor-Con 10] 10 meq PO BID 12/07/18 [History] Sucralfate [Carafate] 10 ml PO QID PRN 12/07/18 [History] Docusate Sodium [Colace] 100 mg PO BID PRN #30 capsule 12/10/18 [Rx] Ondansetron ODT [Zofran ODT] 4 mg SL Q4HR PRN #15 tab.rapdis 12/10/18 [Rx] Polyethylene Glycol 3350 [MiraLAX Powder Bulk 17.9 Oz] 1 scoop PO DAILY 30 Days #510 gm 12/10/18 [Rx] Allergies/Adverse Reactions: Allergy/AdvReac Type Severity Reaction Status Date / Time topiramate [From Topamax] Allergy Hives Verified 11/21/18 16:40 Date of admission: 12/07/18 19:08 Primary care physician: Femi Harris MD Consults: 12/08/18 09:31 Consult to Occupational Therapy [CONS] Routine Comment: Evaluate, develop and implement POC Reason for Consult: Mobilization and discharge planning Does patient have active BEDREST order?: No Is patient medically & hemodynamically stable?: Yes Patient assessed for mobility or mobilized this visit?: No Consult to Physical Therapy [CONS] Routine Comment: Evaluate, develop and implement POC Reason for Consult: Mobilization and discharge planning Does patient have active BEDREST order?: No Is patient medically & hemodynamically stable?: Yes Patient assessed for mobility or mobilized this visit?: No Consult to Business Banking Officer [CONS] Routine Reason for SW Consult: Discharge planning; likely will need home healthcare due to postoperative pain Discharging clinician: Lamont Leiva (Fang Craven, LEONOR) Anticipated date of discharge: 12/10/18 Labs on day of discharge: Labs from last 24 hours 12/09/18 12/09/18 11:30 07:13 POC Glucose 115 H 109 H - Impressions ITS Impressions Upper GI Series 12/08/18 08:00 IMPRESSION: 1. No evident contrast leak following surgery. 2. Persistent tiny sliding hiatal hernia with suspected postoperative edema at the level of the esophageal hiatus. 3. Spontaneous mild gastroesophageal reflux. D/ / Raoul Gant MD / Raoul Gant MD Interpreting Provider: Raoul Gant MD - Patient Status Disposition: Home Health Service Condition: Fair Functional capacity at discharge: uses cane/walker Overall status at discharge: patient is progressing back to baseline - Discharge Instructions Instructions: Adult Laparoscopic Rocio Fundoplication (DC) Follow Up With: Femi Harris MD [Primary Care Provider] - Fang Craven CNP [Advanced Practice Nurse] - 12/18/18 1:15 pm Additional Instructions: General Instructions After Rocio Surgery 1. No pushing, pulling, or lifting greater than 15 lbs for two weeks. 2. You may shower beginning today, but no tub baths, soaking, or swimming for 2 weeks. 3. You may resume driving when you are off narcotics and are safe to react in a car. 4. Your pain pump will cover your postoperative pain. You may take additional Tylenol if needed. 5. Take stool softeners (Colace) or a water based laxative (Miramax) while taking narcotics. You may hold for loose stools. 6. Report any fevers greater than 100.5F, increase abdominal discomfort, drainage that looks like pus, increased redness or pain at the surgical site, or any vomiting. 7. Report any pain in the calves, shortness of breath, or rapid heartbeat. 8. Continue to take your heartburn medications until directed to stop. Do not stop them abruptly as this can cause symptoms of reflux. 9. Do not drink alcohol or carbonated beverages. 10. Do not deviate from the recommended Rocio diet below. Doing so can affect your outcomes. [facility] Diet After Rocio Fundoplication Surgery This diet information is for patients who have recently had Rocio Fundoplication Surgery to correct reflux disease or to repair various types of hernias, such as hiatal hernia and intrathoracic stomach. This diet may also be used for other gastrointestinal surgeries, such as Heller myotomy and repair of achalasia. The diet will help control diarrhea, excess gas and swallowing problems, which may occur after this type of surgery. Important Steps to Keep Your Stomach From Stretching Eat small, frequent meals (six to eight per day). This will help you consume the majority of the nutrients you need without causing your stomach to feel full or distended. Drinking large amounts of fluids with meals can stretch your stomach. You may drink fluids between meals as often as you like, but limit fluids to 1/2 cup (4 fluid ounces) with meals and one cup (8 fluid ounces) with snacks. Sit upright while eating, and stay upright for 30 minutes after each meal. [place] can help food move through your digestive tract. Do not lie down after eating. Sit upright for 2 hours after your last meal or snack of the day. Eat very slowly. Take your time when eating. Take small bites and chew your food well to sheet metal duct installer helper in swallowing and digestion. Avoid crusty breads and sticky, gummy foods, such as bananas, fresh doughy breads, rolls and doughnuts. These types of foods become sticky and difficult to swallow. Toasted breads tend to be better tolerated. Lastly, if you eat sweets, consume them at the end of your meal to avoid a group of symptoms referred to as dumping syndrome. This describes the rapid e mptying of foods from the stomach to the small intestine. Sweetened beverages, candy and desserts move more rapidly and dump quickly into the intestines. This can cause symptoms of nausea, weakness, cold sweats, cramps, diarrhea and dizzy spells. Important Steps to Avoid Gas Do not drink through a straw, chew gum, or chew tobacco. These actions cause you to swallow air, which will produce excess gas in your stomach. Chew with your mouth closed and chew your food thoroughly. Avoid foods that cause stomach gas and distention. The foods include corn, dried beans, peas, lentils, onions, broccoli, cauliflower, and any food item from the cabbage family. Do not drink carbonated drinks, alcohol, citrus, or tomato products. What Will I Be Able To Eat and Drink After Surgery After Rocio Fundoplication Surgery, your diet will be advanced slowly by your surgeon. Generally, you will be on a thin/clear liquid diet for the first 10 days. Then you will advance to the full liquid diet for 4 days and eventually to a Rocio soft diet for 7 days. After any surgery, protein consumption is important for healing. To get enough protein, drink 3-4 [place] Instant Breakfast, Ensure, or equivalent daily. Reminder: Carbonated beverages (such as sodas, energy drinks, flavored carbonated water), and alcohol are not permitted for the 1st 6 to 8 weeks after surgery. After this time you may attempt to reintroduce them in small amounts. Please note: Dairy products such as milk, ice cream, and pudding may cause diarrhea in some people after surgery. You may need to avoid milk products. If so you may substitute them with lactose free beverages, such as soy, rice, lactate, or almond milk. Please be aware that each patient's tolerance to food is different. Your doctor will advance your diet depending on how well you progress after surgery. Thin Liquid Diet The first diet after Rocio Fundoplication Surgery is the thin liquids diet. Follow this diet for postoperative days 1-10 12/08- 12/17. Thin liquids include: Apple, Cranberry, or Grape Juice (no citrus juice) Chicken Broth Beef Broth Flavored Gelatin (Jell-O) Decaffeinated Tea or Coffee Popsicles or Arabic Ice Caffeinated Beverages Will Be Permitted Based upon Tolerance and at a later date Dairy if tolerated Thin Milkshakes (strawberry or vanilla flavored- No chocolate) Drink 3-4 Preston instant breakfast, Ensure, or equivalent daily. May be mixed with dairy for thin milkshakes Full Liquid Diet Follow this diet for postoperative days 11-14 12/18 - 12/21. Full liquid diet includes anything in the thin liquid diet plus: Milk: Dairy, Soy, Rice, and [place] (No Chocolate) Cream of Wheat, Cream of Rice, Grits Strained Creamed Soups (No Tomato or Broccoli) Vanilla and [place] Flavored Ice Cream Sherbet Vanilla and Butterscotch Pudding (No Chocolate or Coconut) Continue 3-4 Preston Instant Breakfast, Ensure, or an Equivalent Daily. May be mixed with Dairy for Thin Milkshakes. Rocio Soft Diet Follow this diet for postoperative days 15-20 12/22 - 12/27. (If you are consuming enough protein, you may stop the protein supplements). Please note: You will need extra fluids throughout the day to meet your fluid needs. Food Category Foods to Choose Foods to Avoid Beverages Milk, such as, whole, 2%, 1%, non-fat, or skim, soy, rice, almond Caffeinated or decaf tea and coffee Powdered drink mixes (in moderation) Non-citrus juices (apple, grape, cranberry or blends of these) Fruit nectars Nutritional drinks including Boost , Ensure , [place] Instant Breakfast Chocolate milk, cocoa or other chocolate flavored drinks Carbonated drinks Alcohol Reedy juices like orange, grapefruit, lemon, and mind Breads Avoid breads until after your 6-week Upper GI follow-up Untoasted Bread, Bagels, [place], Hard Roles, or [place] Muffins Crackers with Nuts, Seeds, Fresh or Dried Fruit, Coconut, or Highly Seasoned Such As Garlic or Onion Flavored Sweet Rolls, Coffee Cake, or Doughnuts Avoid breads until after your 6-week Upper GI follow-up Cereals Well cooked cereals, such as oatmeal (plain or flavored) Cold cereal (Cornflakes, Rice Krispies, Cheerios, Special K plain, Rice Chexand puffed rice) Very coarse cereals such as shredded wheat Any cereal with fresh or dried fruit, Coconut, seeds, or nuts Food Category Foods to Choose Foods to Avoid Deserts Eat in moderation and do not eat desserts or sweets by themselves. Plain Cakes, Cookies, and Cream Filled Pies Vanilla and Butterscotch Pudding or Custard Ice Cream, Milk, Frozen Yogurt, and Sherbet Gelatin Fruit Ices and Popsicles Desserts containing chocolate, coconut, nuts, seeds, fresh or dried fruit, peppermint, or spearmint Eggs Poached, hard boiled, or scrambled Fried eggs and highly seasoned eggs (deviled eggs) Fats Eat in moderation. Butter and margarine Mayonnaise in Vegetable Oils Mildly Seasoned Cream Sauces and Gravies Plain Cream Cheese Sour Cream Highly Seasoned Salad Dressings, Cream Sauces, and Gravies Sorto, Sorto Fat, Ham, Fat, Lard, and Salt Pork Fried Foods Nuts Fruits Fruit juice Any canned or cooked fruit except those listed in the AVOID column ALL fresh fruits such as citrus, bananas, and pineapple Canned Pineapple Dried Fruits Such As Raisins or Berries Fruits with Seeds Such As Berries, Kiwi, and Figs Meat, Fish, Poultry, and Dairy Products Meats may be ground, minced or chopped Tender, well cooked and moist cuts of beef, chicken, turkey and pork Veal and tolentino Flaky, cooked fish Canned tuna Cottage and ricotta cheeses Mild cheese, i.e. Haitian, mozzarella and baby Vietnamese Creamy peanut butter Plain custard or blended fruit yogurt Moist casseroles, such as macaroni & cheese, tuna noodle Tough meats with a lot of gristle Fried, highly seasoned, smoked and fatty meat, fish or poultry, such as frankfurters, luncheon meats, sausage, sorto, spare ribs, beef brisket, sardines, anchovies, duck and goose Tanner and other entrees made with pepper or chili pepper Shellfish Strongly flavored cheeses, such as sharp cheese, extra sharp cheddar, cheese containing peppers or other seasonings Crunchy peanut butter Any yogurt with nuts, seeds, coconut, strawberries or raspberries Food Category Foods to Choose Foods to Avoid Potatoes and Starches Peeled, mashed or boiled white or sweet potatoes Oven-baked potatoes without skin Well-cooked white rice, enriched noodles, barley, spaghetti, macaroni and other pastas Fried potatoes, potato skins and potato chips Hard and soft taco shells Fried, brown or wild rice Soups Only flavored meat stocks Cream soups made from allowed foods Highly seasoned soups in tomato soup, cream soups made with gas producing vegetables such as broccoli, cauliflower, onion etc. Sweet and Snacks Use in moderation and do not eat large amounts of sweets by themselves Syrup, honey, jelly and seedless jam Plain hard candies and plain candies made with allowed ingredients Molasses Marshmallows Other candy made from allowed ingredients Jam, marmalade and preserves Chocolate in any form Any candy containing nuts, coconut, seeds, peppermint, spearmint or dried or fresh fruit Popcorn, potato chips, tortilla chips Soft or hard thick pretzels, such as sourdough Vegetables Well-cooked soft vegetables without seeds or skins, such as asparagus tips, beets, carrots, green and wax beans, chopped spinach, tender canned baby peas, squash and pumpkin Raw vegetables, tomatoes, tomato juice, tomato sauce and V-8 juice Gas producing vegetables, such as broccoli, Brussel sprouts, cabbage, cauliflower, onions, corn, cucumber, green peppers, rutabagas, turnips, radishes and sauerkraut Dried beans, peas and lentils Miscellaneous Salt and spices in moderation Mustard and vinegar in moderation Fried or highly seasoned foods Coconut and seeds Pickles and olives Tanner sauces, ketchup, barbecue sauce, horseradish, black pepper, chili powder and onion and garlic seasonings Any other strongly flavored seasoning, condiment, spice or herb not tolerated Any food not tolerated Sample Rocio Soft Diet Menu Breakfast cup canned fruit (non-citrus) to cup cereal cup 2% milk 1 tsp. sugar Mid-Morning Snack 2 isauro crackers 1 T creamy peanut butter 1 tsp. jelly 1 cup tea Lunch cup tuna salad (no raw vegetables) 3 to 4 saltine crackers cup canned peaches cup fruit juice (non-citrus) 1 tsp. mayonnaise Mid-Afternoon Snack 4 saltine crackers 1 T cream cheese 1 cup 2% milk Dinner 3 oz. roasted chicken (finely ground) with sauce cup cooked white rice cup cooked carrots cup canned pears 1 tsp. margarine cup tea 1 tsp. sugar Evening Snack cup cottage cheese cup applesauce cup 2% milk Please note:You will need extra fluids throughout the day to meet your fluid needs. [facility] Patient Education. (2014). Diet After Rocio FFundoplication Surgery. Retrieved from [email or web address] - Diet and Activity Activity: ambulate only with your walker, increase activity as tolerated Diet: other (see Rocio Instructions)
[2018-12-10] MEDS: Cholecalciferol (D-3) 1,000 UNIT TABLET PO SCH (09:53)
[2018-12-10] MEDS: Aspirin 81 MG TAB.CHEW PO SCH (09:54)
[2018-12-10] MEDS: (Hydromorphone (Pf) [Hydromorphone Intrathecal Pump] IT SCH (09:54)
[2018-12-10] MEDS: Pantoprazole 40 MG VIAL IVP SCH (09:54)
[2018-12-10] MEDS: hydrALAZINE 25 MG TABLET PO SCH (09:54)
[2018-12-10] MEDS: Metoprolol XL (24 HR) Succ 50 MG TAB.ER.24H PO SCH (09:54)
--- NOTE | 2018-12-10 10:01 | Physician Discharge Referral ---
Home Health/Hosp Referral Info Transfer to: Home Health Attending Provider: Dr. 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 For more information, call the [place] Tobacco Quit Line at 3-723-BUZR-NOW. - Diet/Nutrition Diet/Nutrition: List: Rocio diet (ONLY) and protein supplements TID - Activity Activity Orders: Ambulate, Walker - Services Needed Following services are medically necessary services: Physical Therapy, Occupational Therapy Home Care Orders: General Instructions After Rocio Surgery 1. No pushing, pulling, or lifting greater than 15 lbs for two weeks. 2. You may shower beginning today, but no tub baths, soaking, or swimming for 2 weeks. 3. You may resume driving when you are off narcotics and are safe to react in a car. 4. Your pain pump will cover your postoperative pain. You may take additional Tylenol if needed. 5. Take stool softeners (Colace) or a water based laxative (Miramax) while taking narcotics. You may hold for loose stools. 6. Report any fevers greater than 100.5F, increase abdominal discomfort, drainage that looks like pus, increased redness or pain at the surgical site, or any vomiting. 7. Report any pain in the calves, shortness of breath, or rapid heartbeat. 8. Continue to take your heartburn medications until directed to stop. Do not stop them abruptly as this can cause symptoms of reflux. 9. Do not drink alcohol or carbonated beverages. 10. Do not deviate from the recommended Rocio diet below. Doing so can affect your outcomes. [facility] Diet After Rocio Fundoplication Surgery This diet information is for patients who have recently had Rocio Fundoplication Surgery to correct reflux disease or to repair various types of hernias, such as hiatal hernia and intrathoracic stomach. This diet may also be used for other gastrointestinal surgeries, such as Heller myotomy and repair of achalasia. The diet will help control diarrhea, excess gas and swallowing problems, which may occur after this type of surgery. Important Steps to Keep Your Stomach From Stretching Eat small, frequent meals (six to eight per day). This will help you consume the majority of the nutrients you need without causing your stomach to feel full or distended. Drinking large amounts of fluids with meals can stretch your stomach. You may drink fluids between meals as often as you like, but limit fluids to 1/2 cup (4 fluid ounces) with meals and one cup (8 fluid ounces) with snacks. Sit upright while eating, and stay upright for 30 minutes after each meal. [place] can help food move through your digestive tract. Do not lie down after eating. Sit upright for 2 hours after your last meal or snack of the day. Eat very slowly. Take your time when eating. Take small bites and chew your food well to sales route driver helper in swallowing and digestion. Avoid crusty breads and sticky, gummy foods, such as bananas, fresh doughy breads, rolls and doughnuts. These types of foods become sticky and difficult to swallow. Toasted breads tend to be better tolerated. Lastly, if you eat sweets, consume them at the end of your meal to avoid a group of symptoms referred to as dumping syndrome. This describes the rapid emptying of foods from the stomach to the small intestine. Sweetened beverages, candy and desserts move more rapidly and dump quickly into the intestines. This can cause symptoms of nausea, weakness, cold sweats, cramps, diarrhea and dizzy spells. Important Steps to Avoid Gas Do not drink through a straw, chew gum, or chew tobacco. These actions cause you to swallow air, which will produce excess gas in your stomach. Chew with your mouth closed and chew your food thoroughly. Avoid foods that cause stomach gas and distention. The foods include corn, dried beans, peas, lentils, onions, broccoli, cauliflower, and any food item from the cabbage family. Do not drink carbonated drinks, alcohol, citrus, or tomato products. What Will I Be Able To Eat and Drink After Surgery After Rocio Fundoplication Surgery, your diet will be advanced slowly by your surgeon. Generally, you will be on a thin/clear liquid diet for the first 10 days. Then you will advance to the full liquid diet for 4 days and eventually to a Rocio soft diet for 7 days. After any surgery, protein consumption is important for healing. To get enough protein, drink 3-4 [place] Instant Breakfast, Ensure, or equivalent daily. Reminder: Carbonated beverages (such as sodas, energy drinks, flavored carbonated water), and alcohol are not permitted for the 1st 6 to 8 weeks after surgery. After this time you may attempt to reintroduce them in small amounts. Please note: Dairy products such as milk, ice cream, and pudding may cause diarrhea in some people after surgery. You may need to avoid milk products. If so you may substitute them with lactose free beverages, such as soy, rice, lactate, or almond milk. Please be aware that each patient's tolerance to food is different. Your doctor will advance your diet depending on how well you progress after surgery. Thin Liquid Diet The first diet after Rocio Fundoplication Surgery is the thin liquids diet. Follow this diet for postoperative days 1-10 12/08- 12/17. Thin liquids include: Apple, Cranberry, or Grape Juice (no citrus juice) Chicken Broth Beef Broth Flavored Gelatin (Jell-O) Decaffeinated Tea or Coffee Popsicles or [place] Ice Caffeinated Beverages Will Be Permitted Based upon Tolerance and at a later date Dairy if tolerated Thin Milkshakes (strawberry or vanilla flavored- No chocolate) Drink 3-4 [place] instant breakfast, Ensure, or equivalent daily. May be mixed with dairy for thin milkshakes Full Liquid Diet Follow this diet for postoperative days -14 12/18 - 12/21. Full liquid diet includes anything in the thin liquid diet plus: Milk: Dairy, Soy, Rice, and [place] (No Chocolate) Cream of Wheat, Cream of Rice, Grits Strained Creamed Soups (No Tomato or Broccoli) Vanilla and [place] Flavored Ice Cream Sherbet Vanilla and Butterscotch Pudding (No Chocolate or Coconut) Continue 3-4 [place] Instant Breakfast, Ensure, or an Equivalent Daily. May be mixed with Dairy for Thin Milkshakes. Rocio Soft Diet Follow this diet for postoperative days 15-20 12/22 - 12/27. (If you are consuming enough protein, you may stop the protein supplements). Please note: You will need extra fluids throughout the day to meet your fluid needs. Food Category Foods to Choose Foods to Avoid Beverages Milk, such as, whole, 2%, 1%, non-fat, or skim, soy, rice, almond Caffeinated or decaf tea and coffee Powdered drink mixes (in moderation) Non-citrus juices (apple, grape, cranberry or blends of these) Fruit nectars Nutritional drinks including Boost , Ensure , [place] Instant Breakfast Chocolate milk, cocoa or other chocolate flavored drinks Carbonated drinks Alcohol [place] juices like orange, grapefruit, lemon, and mind Breads Avoid breads until after your 6-week Upper GI follow-up Untoasted Bread, Bagels, [place], Hard Roles, or Khmer Muffins Crackers with Nuts, Seeds, Fresh or Dried Fruit, Coconut, or Highly Seasoned Such As Garlic or Onion Flavored Sweet Rolls, Coffee Cake, or Doughnuts Avoid breads until after your 6-week Upper GI follow-up Cereals Well cooked cereals, such as oatmeal (plain or flavored) Cold cereal (Cornflakes, Rice Krispies, Cheerios, Special K plain, Rice Chexand puffed rice) Very coarse cereals such as shredded wheat Any cereal with fresh or dried fruit, Coconut, seeds, or nuts Food Category Foods to Choose Foods to Avoid Deserts Eat in moderation and do not eat desserts or sweets by themselves. Plain Cakes, Cookies, and Cream Filled Pies Vanilla and Butterscotch Pudding or Custard Ice Cream, Milk, Frozen Yogurt, and Sherbet Gelatin Fruit Ices and Popsicles Desserts containing chocolate, coconut, nuts, seeds, fresh or dried fruit, peppermint, or spearmint Eggs Poached, hard boiled, or scrambled Fried eggs and highly seasoned eggs (deviled eggs) Fats Eat in moderation. Butter and margarine Mayonnaise in Vegetable Oils Mildly Seasoned Cream Sauces and Gravies Plain Cream Cheese Sour Cream Highly Seasoned Salad Dressings, Cream Sauces, and Gravies Yi, Yi Fat, Ham, Fat, Lard, and Salt Pork Fried Foods Nuts Fruits Fruit juice Any canned or cooked fruit except those listed in the AVOID column ALL fresh fruits such as citrus, bananas, and pineapple Canned Pineapple Dried Fruits Such As Raisins or Berries Fruits with Seeds Such As Berries, Kiwi, and Figs Meat, Fish, Poultry, and Dairy Products Meats may be ground, minced or chopped Tender, well cooked and moist cuts of beef, chicken, turkey and pork Veal and [place] Flaky, cooked fish Canned tuna Cottage and ricotta cheeses Mild cheese, i.e. [place], mozzarella and baby [place]inese Creamy peanut butter Plain custard or blended fruit yogurt Moist casseroles, such as macaroni & cheese, tuna noodle Tough meats with a lot of gristle Fried, highly seasoned, smoked and fatty meat, fish or poultry, such as frankfurters, luncheon meats, sausage, yi, spare ribs, beef brisket, sardines, anchovies, duck and goose [place] and other entrees made with pepper or chili pepper Shellfish Strongly flavored cheeses, such as sharp cheese, extra sharp cheddar, cheese containing peppers or other seasonings Crunchy peanut butter Any yogurt with nuts, seeds, coconut, strawberries or raspberries Food Category Foods to Choose Foods to Avoid Potatoes and Starches Peeled, mashed or boiled white or sweet potatoes Oven-baked potatoes without skin Well-cooked white rice, enriched noodles, barley, spaghetti, macaroni and other pastas Fried potatoes, potato skins and potato chips Hard and soft taco shells Fried, brown or wild rice Soups Only flavored meat stocks Cream soups made from allowed foods Highly seasoned soups in tomato soup, cream soups made with gas producing vegetables such as broccoli, cauliflower, onion etc. Sweet and Snacks Use in moderation and do not eat large amounts of sweets by themselves Syrup, honey, jelly and seedless jam Plain hard candies and plain candies made with allowed ingredients Molasses Marshmallows Other candy made from allowed ingredients Jam, marmalade and preserves Chocolate in any form Any candy containing nuts, coconut, seeds, peppermint, spearmint or dried or fresh fruit Popcorn, potato chips, tortilla chips Soft or hard thick pretzels, such as sourdough Vegetables Well-cooked soft vegetables without seeds or skins, such as asparagus tips, beets, carrots, green and wax beans, chopped spinach, tender canned baby peas, squash and pumpkin Raw vegetables, tomatoes, tomato juice, tomato sauce and V-8 juice Gas producing vegetables, such as broccoli, Brussel sprouts, cabbage, cauliflower, onions, corn, cucumber, green peppers, rutabagas, turnips, radishes and sauerkraut Dried beans, peas and lentils Miscellaneous Salt and spices in moderation Mustard and vinegar in moderation Fried or highly seasoned foods Coconut and seeds Pickles and olives [place] sauces, ketchup, barbecue sauce, horseradish, black pepper, chili powder and onion and garlic seasonings Any other strongly flavored seasoning, condiment, spice or herb not tolerated Any food not tolerated Sample Rocio Soft Diet Menu Breakfast cup canned fruit (non-citrus) to cup cereal cup 2% milk 1 tsp. sugar Mid-Morning Snack 2 isauro crackers 1 T creamy peanut butter 1 tsp. jelly 1 cup tea Lunch cup tuna salad (no raw vegetables) 3 to 4 saltine crackers cup canned peaches cup fruit juice (non-citrus) 1 tsp. mayonnaise Mid-Afternoon Snack 4 saltine crackers 1 T cream cheese 1 cup 2% milk Dinner 3 oz. roasted chicken (finely ground) with sauce cup cooked white rice cup cooked carrots cup canned pears 1 tsp. margarine cup tea 1 tsp. sugar Evening Snack cup cottage cheese cup applesauce cup 2% milk Please note:You will need extra fluids throughout the day to meet your fluid needs. [facility] Patient Education. (2014). Diet After Rocio FFundoplication Surgery. Retrieved from http:// [email or web address] - Transfer Medications Prescriptions: Docusate Sodium [Colace] 100 mg PO BID PRN #30 capsule PRN Reason: Contstipation Polyethylene Glycol 3350 [MiraLAX Powder Bulk 17.9 Oz] 1 scoop PO DAILY 30 Days #510 gm Ondansetron ODT [Zofran ODT] 4 mg SL Q4HR PRN #15 tab.rapdis PRN Reason: Postsurgical nausea Home Medications: Cholecalciferol (D-3) [Vitamin D] 5,000 unit PO DAILY 11/29/16 [History] Hydralazine HCl 50 mg PO TID 11/29/16 [History] Aspirin 81 mg PO DAILY #30 tab.chew 12/05/16 [Rx] Atorvastatin [Lipitor] 40 mg PO HS #30 tablet 12/05/16 [Rx] Metoprolol XL (24 HR) Succ [Toprol Xl] 50 mg PO DAILY #30 tab.er.24h 12/05/16 [Rx] Acetaminophen/Butalbital/Caffe [Fioricet] 1 tab PO DAILY PRN 12/07/18 [History] Dexlansoprazole [Dexilant] 60 mg PO DAILY 12/07/18 [History] Docusate [Colace] 100 mg PO DAILY PRN 12/07/18 [History] Furosemide [Lasix] 20 mg PO DAILY 12/07/18 [History] Hydromorphone (Pf) [Hydromorphone Intrathecal Pump] 1 each IT AD 12/07/18 [History] Levothyroxine Sodium [Euthyrox] 125 mcg PO DAILY 12/07/18 [History] Magnesium Oxide [Magnesium] 400 mg PO BID 12/07/18 [History] Potassium Chloride [Klor-Con 10] 10 meq PO BID 12/07/18 [History] Sucralfate [Carafate] 10 ml PO QID PRN 12/07/18 [History] Docusate Sodium [Colace] 100 mg PO BID PRN #30 capsule 12/10/18 [Rx] Ondansetron ODT [Zofran ODT] 4 mg SL Q4HR PRN #15 tab.rapdis 12/10/18 [Rx] Polyethylene Glycol 3350 [MiraLAX Powder Bulk 17.9 Oz] 1 scoop PO DAILY 30 Days #510 gm 12/10/18 [Rx] Allergies/Adverse Reactions: Allergy/AdvReac Type Severity Reaction Status Date / Time topiramate [From Topamax] Allergy Hives Verified 11/21/18 16:40 Certification: Further, I certify that my clinical findings support that this patient is homebound (i.e. absences from home require considerable and taxing effort and are for medical reasons or episcopalian services or infrequently or short duration when for other reasons) because: Homebound Reason: Post-surgery restriction and or conditions limit ability to leave home, Leaving home requires considerable and taxing effort due to condition Attestation: My signature below is to certify that this patient is under my care and that I, or nurse practitioner, or a physician's assistant professor of psychology working with me, has a [id number] encounter with this patient.
[2018-12-10 10:35] VITALS: BP 149/65
== END 2018-12-10 12:31 | disposition home or self-care (01) | DRG 327 ==
LOC: SAMDAY 12:47 → 3ANU 19:08
PROVIDERS: ADMIT Surgery; ATTEND Surgery

== ENCOUNTER 2019-02-25 18:39 | Observation (INO) ==
[2019-02-25] MEDS ORDERED: Aspirin 81 MG TAB.CHEW ONE (18:57)
[2019-02-25] MEDS ORDERED: *HR* Ticagrelor 90 MG TABLET ONE (18:57)
[2019-02-25] MEDS ORDERED: 0.9 % Sodium Chloride 1,000 ML ONE ×2 (18:57→19:18)
[2019-02-25] MEDS ORDERED: Nitroglycerin 0.4 MG TAB.SUBL SL PRN (18:57)
[2019-02-25] MEDS ORDERED: Aspirin 81 MG TAB.CHEW PO ONE (18:57)
[2019-02-25] MEDS ORDERED: *HR* Heparin 5,000 UNIT/ML VIAL ONE (18:57)
--- NOTE | 2019-02-25 18:59 | Emergency Department Note ---
Disposition Clinical Impression: Chest pain Qualifiers: Chest pain type: unspecified Qualified Code(s): R07.9 - Chest pain, unspecified Disposition: Admitted As Inpatient Condition: Fair Referrals: Femi Harris MD [Primary Care Provider] - Forms: ED Satisfaction Letter Time of Disposition: 21:06 Chest Pain HPI - General Chief Complaint: ED Chest Pain Stated Complaint: chest pain Time Seen by Provider: 02/25/19 18:44 Source: patient, family Limitations: no limitations Vital Signs Reviewed: Yes Nursing Notes Reviewed: Yes - History of Present Illness HPI Narrative: Patient is an 83-year-old female presented with chest pain. Patient with known history of CAD status post stenting 1 in 2008, hypertension, hyperlipidemia. Patient has been having chest pain as well as palpitations and shortness of b reath for the past 3-4 days, worse Keith 3 hours prior to arrival, she describes this pain to be pressure in the middle of her chest without radiation. She states that her symptoms are worse with any type of exertion. She states this is similar but not quite as extreme as when she had her NC in 2008. She denies any nausea, vomiting or abdominal pain. No urinary or stool changes. No pleuritic pain in nature. No history of DVT or PE. No history of malignancy, lower leg swelling or hemoptysis. Severity scale (1-10): 10 - Related Data Home Medications Medication Instructions Recorded Confirmed Cholecalciferol (D-3) [Vitamin D] 5,000 unit PO DAILY 11/29/16 02/25/19 Hydralazine HCl 50 mg PO TID 11/29/16 02/25/19 Acetaminophen/Butalbital/Caffe 1 tab PO DAILY PRN 12/07/18 02/25/19 [Fioricet] Dexlansoprazole [Dexilant] 60 mg PO BID 12/07/18 02/25/19 Docusate [Colace] 100 mg PO DAILY PRN 12/07/18 02/25/19 Furosemide [Lasix] 20 mg PO DAILY 12/07/18 02/25/19 Hydromorphone (Pf) [Hydromorphone 1 each IT AD 12/07/18 02/25/19 Intrathecal Pump] Levothyroxine Sodium [Euthyrox] 125 mcg PO DAILY 12/07/18 02/25/19 Magnesium Oxide [Magnesium] 400 mg PO BID 12/07/18 02/25/19 Potassium Chloride [Klor-Con 10] 10 meq PO BID 12/07/18 02/25/19 Metoclopramide HCl 5 mg PO TID 02/25/19 02/25/19 Ondansetron ODT [Zofran ODT] 4 mg SL Q4HR PRN 02/25/19 02/25/19 Previous Rx's Medication Instructions Recorded Aspirin 81 mg PO DAILY #30 tab.chew 12/05/16 Atorvastatin [Lipitor] 40 mg PO HS #30 tablet 12/05/16 Metoprolol XL (24 HR) Succ [Toprol 50 mg PO DAILY #30 tab.er.24h 12/05/16 Xl] Sucralfate [Carafate] 1 gm PO Q6HR 30 Days #120 oral.susp 01/30/19 Allergies Allergy/AdvReac Type Severity Reaction Status Date / Time topiramate [From Topamax] Allergy Hives Verified 11/21/18 16:40 All systems ED: reviewed and negative except as stated. Review of Systems: As Per HPI Constitutional: Denies: fever, chills ENT ED: Denies: congestion Cardiovascular: Reports: chest pain, palpitations, dyspnea on exertion Respiratory: Denies: cough, dyspnea, wheezes Gastrointestinal: Denies: abdominal pain, nausea, vomiting Genitourinary: Denies: dysuria Musculoskeletal: Denies: back pain Integumentary: Denies: rash Neurological: Denies: headache, weakness, confusion Endocrine: Denies: fatigue Chest Pain PMH - Past Medical History Medical history: Reports: renal disease, GERD, hyperlipidemia, hypertension, asthma, other, thyroid disease, coronary artery disease, CHF Surgical history: Reports: breast surgery, cholecystectomy, hysterectomy, knee replacement, orthopedic, other, other, arthroscopy Psychiatric history: Reports: no psych history - Social History Smoking Status: Never smoker Alcohol use: Reports: none Drug use: Reports: none Physical Exam General: Conversant. No apparent distress. Follow commands. Appears stated age. Neck: No JVD. Trachea midline. Neck supple. Eyes: PERRL. No scleral icterus. HENT: Normocephalic and atraumatic. Moist mucus membranes. Cardiovascular: Regular rate and rhythm. Normal S1 and S2. No murmurs appreciated. Normal capillary refill. Extremities well perfused with 2+ distal pulses bilaterally. No edema. Pulmonary: Normal and equal breath sounds bilaterally, anteriorly and posteriorly. No wheezes, rales, or rhonchi. Not in respiratory distress. Speaks in full sentences. Abdomen: Soft, nondistended, without tenderness. No bruits or masses. No guarding or rebound. Neuro: Alert and oriented x3. No slurred speech. No focal deficits noted. Skin: No rashes noted on visualized skin. Musculoskeletal: No bony abnormalities visualized. Moves all extremities. Psych: Normal mood. Pleasant. Makes appropriate eye contact. - General Limitations: no limitations General appearance: alert Course Vital Signs Temperature 98.6 F 02/25/19 18:42 Pulse Rate 101 02/25/19 18:42 Respiratory Rate 18 02/25/19 18:42 Blood Pressure 151/86 02/25/19 18:42 O2 Sat by Pulse Oximetry 100 02/25/19 18:42 Temperature 98.6 F 02/25/19 18:42 Pulse Rate 86 02/25/19 20:30 Respiratory Rate 18 02/25/19 20:30 Blood Pressure 140/74 02/25/19 20:30 O2 Sat by Pulse Oximetry 100 02/25/19 20:30 Oxygen Delivery Oxygen Delivery Nasal Cannula Chest Pain - [facility] Narrative Medical decision making narrative: Patient is an 83-year-old female presented with chest pain. Patient has known history of CAD status post stent 1 in 2008, hypertension, hyperlipidemia. On initial presentation, there was concern with an initial EKG showing ST ST segment elevation in anterior septal leads, initial STEMI alert was called given patient presentation and EKG changes, I did discuss the patient's EKG with Dr. Allen, he also visualized the EKG the vocera, states that this point in time it appears to be rate dependent J-point elevation, with possible incomplete left bundle, does not believe that this is true ST segment elevation with STEMI criteria, given the patient is currently tachycardic, feels though this is appropriate, STEMI alert was canceled. Patient was given aspirin 324 mg as well as a nitroglycerin trial. I was in the room the patient was given the first nitroglycerin, she immediately went slightly hypotensive with a blood pressure of 90/60, her pulse went up to 146, appears to be SVT versus sinus tachycardia, 1 L of fluid was bolused and, blood pressure came back up to 101/75. Did not attempt adenosine R cardioversion as blood pressure was coming up with fluid hydration, will initiate amiodarone bolus with drip. On reevaluation prior to the medial bolus and drip initiation, patient's heart rate is now down to 88, and blood pressure is 155 systolic. We will hold off on amiodarone bolus and drip at this time. Repeat EKG now shows the patient continued to have [address] elevation in the anterior septal leads, no further ST reciprocal depression changes are noted on the EKG. Patient's laboratory work show CBC, BMP and troponin within normal limits. Chest x-ray shows no acute changes. Patient will be admitted at this point in time for ACS rule out. - Medical Records Medical records reviewed: Yes I reviewed the patient's medical records. - Lab Data Lab results reviewed: Yes I reviewed the patient's lab results. Result diagrams: 02/25/19 19:15 02/25/19 19:15 Lab Results 02/25/19 02/25/19 02/25/19 Range/Units 19:15 19:15 19:15 WBC 6.8 (4.3-11.1) K/mcL RBC 4.32 (3.82-4.97) M/mcL Hgb 13.2 (11.5-15.4) g/dL Hct 40.5 (35.3-44.9) % MCV 93.8 (83.0-100.0) fL MCH 30.6 (28.0-33.3) pg MCHC 32.6 (31.6-35.5) g/dL RDW 14.3 (11.5-14.5) % Plt Count 208 (140-400) K/mcL MPV 9.9 (9.4-12.4) fL Immature Gran % 0.1 (0-4) % Seg Neutrophils % 57.9 % Lymphocytes % 29.0 % Monocytes % 10.8 % Eosinophils % 1.6 % Basophils % 0.6 % Neutrophils # 3.9 (1.6-8.9) K/mcL Lymphocytes # 2.0 (0.6-4.6) K/mcL Monocytes # 0.7 (0.0-1.3) K/mcL Eosinophils # 0.1 (0.0-0.6) K/mcL Basophils # 0.0 (0.0-0.2) K/mcL PT 12.2 H (9.4-12.1) Seconds INR 1.1 APTT 43.9 H (26.0-36.0) Seconds Sodium 136 (136-145) mEq/L Potassium 3.2 L (3.5-5.1) mEq/L Chloride 97 L (98-107) mEq/L Carbon Dioxide 26 (23-29) mEq/L BUN 14 (8-23) mg/dL Creatinine 1.21 H (0.60-1.20) mg/dL Est GFR ( Amer) 51 L (> 60) Est GFR (Non-Af Amer) 42 L (> 60) BUN/Creatinine Ratio 12 (6-26) Glucose 169 H (70-105) mg/dL Calculated Osmolality 286 (280-300) Calcium 9.5 (8.6-10.3) mg/dL Troponin I 0.03 (< 0.04) ng/mL - Radiology Data Radiology results reviewed: Yes I reviewed the patient's radiology results. Chest X-Ray 02/25/19 18:57 IMPRESSION: Unremarkable portable chest radiograph. D/ / Steven Wolfe MD / Steven Wolfe MD Interpreting Provider: Steven Wolfe MD - EKG Data EKG attestation: Yes I reviewed and interpreted this EKG. EKG results narrative: EKG performed at 1841 with ventricular rate of 105, regular rhythm, left axis deviation, appears to be V1, V2 and V3 ST elevation approximately [address] depression in the lateral leads. No T-wave inversions. EKG performed at 1917 post nitroglycerin with into a rate of 146, regular rhythm, left axis deviation with continued ST and T-wave changes. EKG performed following 1 L normal saline bolus of 2000 with a jugular rate of 84, V6 is missing, regular rhythm, left axis deviation with continued ST segment elevation [place] a [address] segment depression. No T-wave changes. Heart Score - Score History: Moderately Suspicious EKG: Significant ST-Depression Age: Greater than 65 Risk Factors: Equal/Greater than 3 risk factor or history of atherosclerotic disease Troponin: Less than normal limit HEART Score Total: 7
--- NOTE | 2019-02-25 18:59 | Emergency Department Note ---
Disposition Clinical Impression: Chest pain Qualifiers: Chest pain type: unspecified Qualified Code(s): R07.9 - Chest pain, unspecified Disposition: Admitted As Inpatient Condition: Fair Time of Disposition: 18:45 General Adult HPI - General Chief complaint: ED Chest Pain Stated complaint: chest pain Time Seen by Provider: 02/25/19 18:44 Source: patient, family Limitations: no limitations Nursing Notes Reviewed: Yes Vital Signs Reviewed: Yes - History of Present Illness Pain Scale: 10 - Related Data Home Medications Medication Instructions Recorded Confirmed Cholecalciferol (D-3) [Vitamin D] 5,000 unit PO DAILY 11/29/16 02/25/19 Hydralazine HCl 50 mg PO TID 11/29/16 02/25/19 Acetaminophen/Butalbital/Caffe 1 tab PO DAILY PRN 12/07/18 02/25/19 [Fioricet] Dexlansoprazole [Dexilant] 60 mg PO BID 12/07/18 02/25/19 Docusate [Colace] 100 mg PO DAILY PRN 12/07/18 02/25/19 Furosemide [Lasix] 20 mg PO DAILY 12/07/18 02/25/19 Hydromorphone (Pf) [Hydromorphone 1 each IT AD 12/07/18 02/25/19 Intrathecal Pump] Levothyroxine Sodium [Euthyrox] 125 mcg PO DAILY 12/07/18 02/25/19 Magnesium Oxide [Magnesium] 400 mg PO BID 12/07/18 02/25/19 Potassium Chloride [Klor-Con 10] 10 meq PO BID 12/07/18 02/25/19 Metoclopramide HCl 5 mg PO TID 02/25/19 02/25/19 Ondansetron ODT [Zofran ODT] 4 mg SL Q4HR PRN 02/25/19 02/25/19 Previous Rx's Medication Instructions Recorded Aspirin 81 mg PO DAILY #30 tab.chew 12/05/16 Atorvastatin [Lipitor] 40 mg PO HS #30 tablet 12/05/16 Metoprolol XL (24 HR) Succ [Toprol 50 mg PO DAILY #30 tab.er.24h 12/05/16 Xl] Sucralfate [Carafate] 1 gm PO Q6HR 30 Days #120 oral.susp 01/30/19 Allergies Allergy/AdvReac Type Severity Reaction Status Date / Time topiramate [From Topamax] Allergy Hives Verified 11/21/18 16:40 Past Medical History - Past Medical History Medical history: Reports: renal disease, GERD, hyperlipidemia, hypertension, asthma, other, thyroid disease, coronary artery disease, CHF Surgical history: Reports: breast surgery, cholecystectomy, hysterectomy, knee replacement, orthopedic, other, other, arthroscopy Psychiatric history: Reports: no psych history - Social History Smoking Status: Never smoker Smokeless Tobacco Status: No Alcohol use: Reports: none Drug use: Reports: none Physical Exam - General Limitations: no limitations General appearance: alert Course Vital Signs Temperature 98.6 F 02/25/19 18:42 Pulse Rate 101 02/25/19 18:42 Respiratory Rate 18 02/25/19 18:42 Blood Pressure 151/86 02/25/19 18:42 O2 Sat by Pulse Oximetry 100 02/25/19 18:42 Temperature 98.6 F 02/25/19 18:42 Pulse Rate 99 02/25/19 23:42 Respiratory Rate 12 02/25/19 23:42 Blood Pressure 178/94 02/25/19 23:42 O2 Sat by Pulse Oximetry 100 02/25/19 23:42 Oxygen Delivery Oxygen Delivery Nasal Cannula Medical Decision Making - Lab Data Result diagrams: 02/25/19 19:15 02/25/19 19:15 Lab Results 02/25/19 02/25/19 02/25/19 Range/Units 19:15 19:15 19:15 WBC 6.8 (4.3-11.1) K/mcL RBC 4.32 (3.82-4.97) M/mcL Hgb 13.2 (11.5-15.4) g/dL Hct 40.5 (35.3-44.9) % MCV 93.8 (83.0-100.0) fL MCH 30.6 (28.0-33.3) pg MCHC 32.6 (31.6-35.5) g/dL RDW 14.3 (11.5-14.5) % Plt Count 208 (140-400) K/mcL MPV 9.9 (9.4-12.4) fL Immature Gran % 0.1 (0-4) % Seg Neutrophils % 57.9 % Lymphocytes % 29.0 % Monocytes % 10.8 % Eosinophils % 1.6 % Basophils % 0.6 % Neutrophils # 3.9 (1.6-8.9) K/mcL Lymphocytes # 2.0 (0.6-4.6) K/mcL Monocytes # 0.7 (0.0-1.3) K/mcL Eosinophils # 0.1 (0.0-0.6) K/mcL Basophils # 0.0 (0.0-0.2) K/mcL PT 12.2 H (9.4-12.1) Seconds INR 1.1 APTT 43.9 H (26.0-36.0) Seconds Sodium 136 (136-145) mEq/L Potassium 3.2 L (3.5-5.1) mEq/L Chloride 97 L (98-107) mEq/L Carbon Dioxide 26 (23-29) mEq/L BUN 14 (8-23) mg/dL Creatinine 1.21 H (0.60-1.20) mg/dL Est GFR ( Amer) 51 L (> 60) Est GFR (Non-Af Amer) 42 L (> 60) BUN/Creatinine Ratio 12 (6-26) Glucose 169 H (70-105) mg/dL Calculated Osmolality 286 (280-300) Calcium 9.5 (8.6-10.3) mg/dL Troponin I 0.03 (< 0.04) ng/mL Critical Care Time Critical Care Time: No Attestation Statement - Attestation Attestation: I examined this patient and my medical decision-making was reviewed with the Resident Physician. I agree with the documented findings, disposition and treatment plan as described except to the extent set forth below. Patient to the ED with chief complaint of chest pain. She describes it as substernal pressure nonradiating. History coronary disease with stent placement. She is also been having dyspnea on exertion and palpitations for the past week. States she just does not feel well. On exam she is in no distress with the heart is regular rate and rhythm and lungs are clear. Plan. We will discuss the EKG with the interventional technical publications writer. Cardiac workup. EKG is reviewed with the resident. ST elevations in her anterior leads that appear new from old EKG. She also has some lateral ST depressions. We will discuss with interventionalist Patient had an episode after 1 nitroglycerin where her blood pressure went down and her heart rate went up. It was in the 140s. Appeared to be in SVT versus a atrial flutter with a 2-1 conduction. We are going to give her amiodarone but her heart rate returned to the 80s prior to giving any medication. Her cardiac workup has been unremarkable. Troponin is negative. She does have EKG changes. She is admitted to medicine for further workup.
[2019-02-25] MEDS ORDERED: Amiodarone Premix 150 MG/100 ML BAG IVPB ONE (19:22)
[2019-02-25] MEDS ORDERED: Amiodarone Premix 360 MG/200 ML BAG IVC ONE (19:24)
[2019-02-25] MEDS ORDERED: Amiodarone Premix 360 MG/200 ML BAG IVC SCH (19:30)
[2019-02-25 19:33] LABS: Basophils % 0.6 %; Eosinophils # 0.1 K/mcL (0.0-0.6); Eosinophils % 1.6 %; Hematocrit 40.5 % (35.3-44.9); Hemoglobin 13.2 g/dL (11.5-15.4); Immature Granulocytes % 0.1 % (0-4); Mean Corpuscular HGB Conc 32.6 g/dL (31.6-35.5); Mean Corpuscular Hemoglobin 30.6 pg (28.0-33.3); Mean Corpuscular Volume 93.8 fL (83.0-100.0); Mean Platelet Volume 9.9 fL (9.4-12.4); Monocytes # 0.7 K/mcL (0.0-1.3); Monocytes % 10.8 %; Neutrophils # 3.9 K/mcL (1.6-8.9); Platelet Count 208 K/mcL (140-400); Red Blood Count 4.32 M/mcL (3.82-4.97); Red Cell Distribution Width 14.3 % (11.5-14.5); Segmented Neutrophils % 57.9 %; White Blood Count 6.8 K/mcL (4.3-11.1)
[2019-02-25 19:49] LABS: Calcium 9.5 mg/dL (8.6-10.3); Potassium 3.2 mEq/L (3.5-5.1); Troponin I 0.03 ng/mL (< 0.04)
[2019-02-25 20:01] LABS: INR 1.1; Prothrombin Time 12.2 Seconds (9.4-12.1)
[2019-02-25 20:03] LABS: Activated Partial Thrombo Time 43.9 Seconds (26.0-36.0)
[2019-02-25] MEDS ORDERED: Ondansetron 4 MG/2 ML VIAL IVP PRN (23:33)
[2019-02-25] MEDS ORDERED: Naloxone 0.4 MG/ML INJ IVP PRN (23:33)
[2019-02-25] MEDS ORDERED: *HR* Heparin 5,000 UNIT/ML VIAL IVP ONE (23:39)
[2019-02-25] MEDS ORDERED: *HR* Heparin 5,000 UNIT/ML VIAL IVP PRN ×2 (23:39)
[2019-02-25] MEDS ORDERED: 0.9 % Sodium Chloride 1,000 ML IVC SCH (23:45)
--- NOTE | 2019-02-26 00:03 | Internal Med History&Physical ---
<Sherry Robbins - Last Filed: 02/26/19 05:47> Date of Encounter: 02/26/19 Time of Encounter: 23:49 Internal Medicine - H&P: HPI History of present illness: Ms. Parrish is an 83 year old female with past medical history of hypertension, hyperlipidemia, CAD, AK status post stent in 2008 who presented to the ED on 02/25/19 complaining of chest pain. She reports ongoing chest pain including heart palpitation and shortness of breath for the past 3-4 days which worsened 3 hours prior to arrival. Denies orthopnea or PND and states shortness of breath is not positional. The pain is described as pressure-like in the middle of the chest without radiation and worsens with exertion. Reports the pain is similar to her previous AK in 2008 but the dyspnea and chest pressure is worse. Denies any nausea, emesis, abdominal pain, dysuria, fever, chills, extremity edema abdominal pain. In the ED she was noted to have EKG showing ST segment elevation anterior septal leads and Dr. Allen was called who reviewed the EKG and believed to have right dependent J-point elevation with possible incomplete left bundle branch block, he did not believe it was STEMI given tachycardia. She was subsequently given 325 mg of aspirin and nitroglycerin shortly afterwards became hypotensive with blood pressure of 90/60 and heart rate elevation at 146 which appear sinus tachycardia. Received 1 L of IV fluid pressure returned to 101/75. After bolus of IV hydration heart rate decreased to 88 blood pressure was 155 systolic. Past Med Surg Social Fam HX - Past Medical History Medical history: renal disease, GERD, hyperlipidemia, hypertension, asthma, other, thyroid disease, coronary artery disease, CHF Additional medical history: coronary artery disease,barretts Psychiatric history: no psych history - Past Surgical History Surgical History: breast surgery, cholecystectomy, hysterectomy, knee replacement, orthopedic, other, other, arthroscopy Additional surgical history: heart stent,bladder,head,foot - Social History Smoking Status: Never smoker Smokeless Tobacco Status: No Alcohol use: none Drug use: none - Family History Mother Living Status: Age at : 59 Father Living Status: Age at : 86 Internal Medicine - H&P: Meds Cholecalciferol (D-3) [Vitamin D] 5,000 unit PO DAILY 11/29/16 [History] Hydralazine HCl 50 mg PO TID 11/29/16 [History] Aspirin 81 mg PO DAILY #30 tab.chew 12/05/16 [Rx] Atorvastatin [Lipitor] 40 mg PO HS #30 tablet 12/05/16 [Rx] Metoprolol XL (24 HR) Succ [Toprol Xl] 50 mg PO DAILY #30 tab.er.24h 12/05/16 [Rx] Acetaminophen/Butalbital/Caffe [Fioricet] 1 tab PO DAILY PRN 12/07/18 [History] Dexlansoprazole [Dexilant] 60 mg PO BID 12/07/18 [History] Docusate [Colace] 100 mg PO DAILY PRN 12/07/18 [History] Furosemide [Lasix] 20 mg PO DAILY 12/07/18 [History] Hydromorphone (Pf) [Hydromorphone Intrathecal Pump] 1 each IT AD 12/07/18 [History] Levothyroxine Sodium [Euthyrox] 125 mcg PO DAILY 12/07/18 [History] Magnesium Oxide [Magnesium] 400 mg PO BID 12/07/18 [History] Potassium Chloride [Klor-Con 10] 10 meq PO BID 12/07/18 [History] Sucralfate [Carafate] 1 gm PO Q6HR 30 Days #120 oral.susp 01/30/19 [Rx] Metoclopramide HCl 5 mg PO TID 02/25/19 [History] Ondansetron ODT [Zofran ODT] 4 mg SL Q4HR PRN 02/25/19 [History] Allergy/AdvReac Type Severity Reaction Status Date / Time topiramate [From Topamax] Allergy Hives Verified 11/21/18 16:40 All Systems PM: A 10-system review of systems was performed and is negative for pertinent findings except as documented above in the HPI. - Constitutional Constitutional: no chills, no fever(s), no weakness - EENT Eyes: no blurry vision, no change in vision - Cardiovascular Cardiovascular ROS IM: chest pain (With pressure), dyspnea, dyspnea on exertion, palpitations, no edema - Respiratory Respiratory: dyspnea, dyspnea on exertion, no cough, no wheezing - Gastrointestinal Gastrointestinal: abdominal pain (Chronic unchanged), dysphagia, no diarrhea, no hematemesis, no hematochezia - Genitourinary Genitourinary: breast pain (Chronic unchanged has morphine pump), no dysuria, no flank pain - Musculoskeletal Musculoskeletal ROS IM: no muscle cramps, no numbness, no tingling - Integumentary Integumentary IM: no erythema, no rash - Neurological Neurological ROS: headache(s), no numbness, no paresthesias, no tremor(s) - Endocrine Endocrine IM: no fatigue, no flushing - Constitutional Vitals: Temp Pulse Resp BP Pulse Ox 98.6 F 99 12 178/94 100 02/25/19 18:42 02/25/19 23:42 02/25/19 23:42 02/25/19 23:42 02/25/19 23:42 Exam: Gen: Vitals noted. No acute distress. Appears comfortable. Eyes: anicteric sclerae, moist conjunctivae; no lid-lag; Pupils equal and reactive to light HENT: Atraumatic; oropharynx clear with moist mucous membranes and no mucosal ulcerations; normal hard and soft palate Neck: Trachea midline; supple, no thyromegaly or lymphadenopathy Cardiac: Regular rhythm with tachycardia, mitral regurgitation, +S1/S2. No JVD noted. Pulmonary: CTA bilaterally, no wheezes, rales or rhonchi, equal chest expansion Abdomen: soft, nontender, no guarding. No masses or hepatosplenomegaly MSK: ROM intact, no joint swelling noted Extremities: no edema, nontender calf Skin: Normal temperature, turgor; no rash, ulcers or subcutaneous nodules Neuro: moves all extremities, no focal deficits. Psych: Appropriate mood and behavior. A&Ox3 Internal Med - H&P Results - Labs CBC & Chem 7: 02/26/19 00:32 02/26/19 00:32 Labs: Short CBC 02/25/19 Range/Units 19:15 WBC 6.8 (4.3-11.1) K/mcL Hgb 13.2 (11.5-15.4) g/dL Hct 40.5 (35.3-44.9) % Plt Count 208 (140-400) K/mcL Neutrophils # 3.9 (1.6-8.9) K/mcL BMP 02/25/19 19:15 Sodium 136 Potassium 3.2 L Chloride 97 L Carbon Dioxide 26 BUN 14 Creatinine 1.21 H Glucose 169 H Calcium 9.5 Cardiac Enzymes 02/25/19 Range/Units 19:15 Troponin I 0.03 (< 0.04) ng/mL - Impressions ITS Impressions Chest X-Ray 02/25/19 18:57 IMPRESSION: Unremarkable portable chest radiograph. D/ / Steven Wolfe MD / Steven Wolfe MD Interpreting Provider: Steven Wolfe MD Pulmonary Perfusion Imaging 02/25/19 21:32 IMPRESSION: Low probability for pulmonary embolus. D/ / Keyla Lazar MD / Keyla Lazar MD Interpreting Provider: Keyla Lazar MD - Assessment and Plan (1) Chest pain Current Visit: Yes Status: Acute Assessment and plan: Presented with chest pain described as midsternal pressure-like sensation ongoing for 3 days prior to arrival Additionally complained of heart palpitation Troponin at presentation was her 0.03, repeat troponin was 0.04 Blood pressure was noted to be 90/60 improved after IV hydration EKG showed possible ST elevation but due to tachycardia appeared to be J-point elevation Chest pain improved after receiving aspirin and sublingual nitroglycerin Previous echo on 12/05/18 showed EF of 60-65% with mild elevated diastolic dysfunction with mild LVH Continue heparin drip per ACS protocol Nothing by mouth Limited echo pending Cardiology consulted When necessary nitroglycerin ordered Qualifiers: Chest pain type: unspecified Qualified Code(s): R07.9 - Chest pain, unspecified (2) Hypertension Current Visit: Yes Status: Acute Assessment and plan: History of hypertension on metoprolol and hydralazine at home Continue 20 mg when necessary hydralazine Qualifiers: Hypertension type: essential hypertension Qualified Code(s): I10 - Essential (primary) hypertension (3) Chronic back pain Current Visit: Yes Status: Acute Assessment and plan: Study of chronic back pain on morphine pump at home Currently denying any pain at this time Qualifiers: Back pain location: low back pain Back pain laterality: bilateral Sciatica presence: without sciatica Qualified Code(s): M54.5 - Low back pain; G89.29 - Other chronic pain (4) CAD (coronary artery disease) Current Visit: No Status: Chronic Assessment and plan: History of CAD continue home Continue home atorvastatin Qualifiers: Coronary Disease-Associated Artery/Lesion type: [place] artery [place] vs. transplanted heart: [place] heart Associated angina: with unspecified angina Qualified Code(s): I25.119 - Atherosclerotic heart disease of [place] coronary artery with unspecified angina pectoris (5) Hypokalemia Current Visit: No Status: Acute Assessment and plan: Presented with potassium of 3.2 Received 40 mEq of potassium repeat potassium 3.4 and magnesium was 1.6 Continue 40 mEq of potassium chloride and 2g magnesium (6) GERD (gastroesophageal reflux disease) Current Visit: No Status: Chronic Assessment and plan: Reports history of GERD on Carafate at home will continue Qualifiers: Esophagitis presence: without esophagitis Qualified Code(s): K21.9 - Gastro-esophageal reflux disease without esophagitis (7) Hypothyroidism Current Visit: Yes Status: Chronic Assessment and plan: Continue home levothyroxine Qualifiers: Hypothyroidism type: unspecified Qualified Code(s): E03.9 - Hypothyroidism, unspecified (8) DVT prophylaxis Current Visit: Yes Status: Acute Assessment and plan: Currently on heparin drip - Time Spent With Patient Total time spent is greater than 50% in coordination of care (as documented) at patient's floor/unit and/or counseling patient: <Duncan Guerrero - Last Filed: 02/26/19 06:26> Date of Encounter: 02/26/19 Time of Encounter: 00:30 - Constitutional Constitutional: no fever(s) - Cardiovascular Cardiovascular ROS IM: chest pain, dyspnea, dyspnea on exertion - Respiratory Respiratory: no chest congestion, no excessive phlegm production - Gastrointestinal Gastrointestinal: abdominal pain, nausea, no hematemesis, no hematochezia, no vomiting - Musculoskeletal Musculoskeletal ROS IM: no arthralgias, no back pain - Psychiatric Psychiatric: no anxiety, no depression - Endocrine Endocrine IM: no polydipsia, no polyphagia, no polyuria - Allergic/Immunologic Allergic/Immunologic: no GI upset with certain foods - Constitutional Vitals: Temp Pulse Resp BP Pulse Ox 97.9 F 87 16 131/77 99 02/26/19 04:31 02/26/19 04:31 02/26/19 04:31 02/26/19 04:31 02/26/19 04:31 General appearance: Present: cooperative, A&O X 3, pleasant, no acute distress - Eye Eye exam: Present: PERRL. Absent: scleral icterus - ENT ENT exam: Present: mucous membranes dry, normal exam, normal oropharynx - Neck Neck exam general surgery: Present: full ROM, supple, trachea midline - Respiratory Respiratory exam: Present: CTAB. Absent: rales, rhonchi, wheezes - Cardiovascular Cardiovascular exam: Present: distant heart sounds, +S1, +S2, systolic murmur. Absent: diastolic murmur - GI/Abdominal GI/Abdominal exam: Present: normal bowel sounds, soft. Absent: hepatomegaly, mass, splenomegaly - Extremities Exam Extremities exam: Present: normal capillary refill, warm, radial pulses palpable and symmetrical. Absent: calf tenderness, joint swelling, pedal edema, tenderness - Back Exam Back exam: Absent: CVA tenderness (L), CVA tenderness (R) - Neurological Exam Neurological exam: Present: alert, oriented X3, no focal deficits, strengths equal and symetr throughout - Psychiatric Psychiatric exam: Present: normal affect, normal mood - Skin Skin exam: Present: dry, intact, warm Internal Med - H&P Results - Labs CBC & Chem 7: 02/26/19 00:32 02/26/19 00:32 Labs: Short CBC 02/25/19 02/26/19 Range/Units 19:15 00:32 WBC 6.8 7.0 (4.3-11.1) K/mcL Hgb 13.2 11.4 L D (11.5-15.4) g/dL Hct 40.5 35.6 (35.3-44.9) % Plt Count 208 191 (140-400) K/mcL Neutrophils # 3.9 (1.6-8.9) K/mcL BMP 02/25/19 02/26/19 19:15 00:32 Sodium 136 137 Potassium 3.2 L 3.4 L Chloride 97 L 104 Carbon Dioxide 26 22 L BUN 14 13 Creatinine 1.21 H 0.96 Glucose 169 H 118 H Calcium 9.5 8.7 Cardiac Enzymes 02/25/19 02/26/19 Range/Units 19:15 00:32 Troponin I 0.03 0.04 H* (< 0.04) ng/mL - EKG Data -: EKG Interpreted by Myself - EKG Data Prior EKG available for review: yes EKG comments: 02/26/19 06:[address] elevation which appears to be early repolarization abnormality. EKG already interpreted by cardiology. - Impressions ITS Impressions Chest X-Ray 02/25/19 18:57 IMPRESSION: Unremarkable portable chest radiograph. D/ / Steven Wolfe MD / Steven Wolfe MD Interpreting Provider: Steven Wolfe MD Pulmonary Perfusion Imaging 02/25/19 21:32 IMPRESSION: Low probability for pulmonary embolus. D/ / Keyla Lazar MD / Keyla Lazar MD Interpreting Provider: Keyla Lazar MD - Time Spent With Patient Total time spent is greater than 50% in coordination of care (as documented) at patient's floor/unit and/or counseling patient: - Attending Attestation I discussed the patient HO-CHUNK, past medical history, review of systems, lab data, imaging data, and EGD findings with Dr. Robbins. I then saw and examined patient independently in the ER. Patient remains chest pain-free now and has no dyspnea. Given her presentation and symptoms, I agree with heparin drip initiation. We will keep her nothing by mouth, trend her EKGs and troponins, order limited ECHO, and consult cardiology. I suspect that she may need invasive cardiac workup. However, I will defer to cardiology and patient and family. Meanwhile, we will place her on heparin drip for treatment of her non- STEMI as well as remote possibility of PE. VQ scan was ordered from the ER. She denies any recent prolonged travel, family history of DVT/PE, or any prior malignancies. Other than my comments above and documented exam findings, with Dr. Robbins's assessment and plan.
[2019-02-26 01:02] LABS: Hematocrit 35.6 % (35.3-44.9); Hemoglobin 11.4 g/dL (11.5-15.4); Mean Corpuscular Hemoglobin 30.6 pg (28.0-33.3); Mean Corpuscular Volume 95.7 fL (83.0-100.0); Mean Platelet Volume 10.2 fL (9.4-12.4); Platelet Count 191 K/mcL (140-400); Red Blood Count 3.72 M/mcL (3.82-4.97); Red Cell Distribution Width 14.2 % (11.5-14.5)
[2019-02-26] MEDS ORDERED: Amiodarone Premix 360 MG/200 ML BAG IVC SCH (01:20)
[2019-02-26 01:26] LABS: BUN/Creatinine Ratio 14 (6-26); Blood Urea Nitrogen 13 mg/dL (8-23); Calcium 8.7 mg/dL (8.6-10.3); Carbon Dioxide 22 mEq/L (23-29); Chloride 104 mEq/L (98-107); Glucose 118 mg/dL (70-105); Magnesium 1.6 mg/dL (1.6-2.6); Osmolality,Calculated 285 (280-300); Potassium 3.4 mEq/L (3.5-5.1); Sodium 137 mEq/L (136-145); eGFR For African Americans > 60 (> 60); eGFR For Non-African Americans 55 (> 60)
[2019-02-26] MEDS: Heparin 25,000 UNIT/250 ML D5W 25,000 UNIT/250 ML IV.SOLN IVC SCH (01:43)
[2019-02-26] MEDS ORDERED: *HR* Labetalol 20 MG/4 ML SYRINGE IVP ONE (02:01)
[2019-02-26] MEDS ORDERED: Potassium Chloride 40 MEQ, Lidocaine 1% 2 ML in 0.9 % Sodium Chloride 500 ML IVPB ONE (05:49)
[2019-02-26] MEDS ORDERED: Potassium Chloride Elixir 20 MEQ/15 ML UDC PO ONE ×2 (08:13→10:30)
--- NOTE | 2019-02-26 09:31 | Cardiology Consult Note ---
<Jan Shannon R - Last Filed: 02/26/19 10:27> Date of Encounter: 02/26/19 Time of Encounter: 09:28 Assessment and Plan (1) Elevated troponin Current Visit: No Status: Acute Troponin negative, then 0.04, 0.04 in setting of tachycardia. Suspect demand ischemia, nondiagnostic for ACS. On heparin gtt. TTE to evaluate structure and function. Repeat ECG. If EF remains preserved will recommend nuclear stress test during stay. Will need to wait at least 48 hours after VQ scan. Continue to follow. (2) Chest pain Current Visit: Yes Status: Acute Reports chest pain, heart palpitations and shortness of breath for the past 3-4 days which worsened 3 hours prior to arrival. Pain is described as pressure in the middle of the chest without radiation and worsens with exertion. TTE 12/05/18: LVEF 60-65%. Normal LV chamber size and function. Mild cLVH. Mild LVDD. Normal RV structure and function. Mild MR. No phtn. Nuclear stress test 11/30/16: Gated EF >70%. Perfusion imaging negative for ischemia or infarct. Hx CAD and PCI in 2008. Repeat TTE and if EF preserved, nuclear stress test during stay. Qualifiers: Chest pain type: unspecified Qualified Code(s): R07.9 - Chest pain, unspecified (3) Abnormal EKG Current Visit: No Status: Acute Concern of ECG changes on admission. Appears to be early repolarization. Most recent ECG tachycardic 140s. Currently rate controlled on tele, but appears irregular at times. Will repeat ECG. (4) CAD (coronary artery disease) Current Visit: No Status: Chronic Hx PCI. ASA, Statin, BB. Qualifiers: Coronary Disease-Associated Artery/Lesion type: [place] artery [place] vs. transplanted heart: [place] heart Associated angina: with unspecified angina Qualified Code(s): I25.119 - Atherosclerotic heart disease of [place] coronary artery with unspecified angina pectoris Discussion w patient/family: The assessment and plan as outlined above was discussed with the patient and/or family members who expressed understanding and agreement. All questions were answered. Thank you for involving us in the care of your patient. Please call with any questions. I will discuss all the above with Dr. Call and make changes as necessary. History of Present Illness Consult date: 02/26/19 Consult reason: chest pain, ECG changes Chief complaint: chest pain, palpitations History of present illness: Ms. Parrish is a 83 year old female with PMH of HTN, HLD, CAD, CT s/p PCI in 2008 who presented to the ED complaining of chest pain. She reported chest pain, heart palpitations and shortness of breath for the past 3-4 days which worsened 3 hours prior to arrival. Pain is described as pressure in the middle of the chest without radiation and worsens with exertion. Tachycardic in ED, Initial troponin negative, then 0.04, 0.04. Cardiology consulted for further recs. VQ scan low probability for PE. Prior CV testing: TTE 12/05/18: LVEF 60-65%. Normal LV chamber size and function. Mild concentric left ventricular hypertrophy. Mild left ventricular diastolic dysfunction. Normal right ventricular structure and function. Mild mitral regurgitation. No evidence of pulmonary hypertension. Nuclear stress test 11/30/16: Gated EF >70%. Perfusion imaging negative for ischemia or infarct. Past Med Surg Social Fam HX - Past Medical History Medical history: renal disease, GERD, hyperlipidemia, hypertension, asthma, other, thyroid disease, coronary artery disease, CHF Additional medical history: coronary artery disease,barretts Psychiatric history: no psych history - Past Surgical History Surgical History: breast surgery, cholecystectomy, hysterectomy, knee replacement, orthopedic, other, other, arthroscopy Additional surgical history: heart stent,bladder,head,foot - Social History Smoking Status: Never smoker Smokeless Tobacco Status: No Alcohol use: none Drug use: none - Family History Mother Living Status: Age at : 59 Father Living Status: Age at : 86 Medications and Allergies Cholecalciferol (D-3) [Vitamin D] 5,000 unit PO DAILY 11/29/16 [History] Hydralazine HCl 50 mg PO TID 11/29/16 [History] Aspirin 81 mg PO DAILY #30 tab.chew 12/05/16 [Rx] Atorvastatin [Lipitor] 40 mg PO HS #30 tablet 12/05/16 [Rx] Metoprolol XL (24 HR) Succ [Toprol Xl] 50 mg PO DAILY #30 tab.er.24h 12/05/16 [Rx] Acetaminophen/Butalbital/Caffe [Fioricet] 1 tab PO DAILY PRN 12/07/18 [History] Dexlansoprazole [Dexilant] 60 mg PO BID 12/07/18 [History] Docusate [Colace] 100 mg PO DAILY PRN 12/07/18 [History] Furosemide [Lasix] 20 mg PO DAILY 12/07/18 [History] Hydromorphone (Pf) [Hydromorphone Intrathecal Pump] 1 each IT AD 12/07/18 [History] Levothyroxine Sodium [Euthyrox] 125 mcg PO DAILY 12/07/18 [History] Magnesium Oxide [Magnesium] 400 mg PO BID 12/07/18 [History] Potassium Chloride [Klor-Con 10] 10 meq PO BID 12/07/18 [History] Sucralfate [Carafate] 1 gm PO Q6HR 30 Days #120 oral.susp 01/30/19 [Rx] Metoclopramide HCl 5 mg PO TID 02/25/19 [History] Ondansetron ODT [Zofran ODT] 4 mg SL Q4HR PRN 02/25/19 [History] Allergy/AdvReac Type Severity Reaction Status Date / Time topiramate [From Topamax] Allergy Hives Verified 11/21/18 16:40 All Systems Review: The remainder of the systems were reviewed and are negative - Cardiovascular Cardiovascular: as per HPI, chest pain at rest, chest pain with exertion, dyspnea at rest, palpitations - Respiratory Respiratory: dyspnea Physical Examination Vital Signs, Last 4 Hours Temp Pulse Resp BP Pulse Ox 02/26/19 08:53 98.2 F 78 14 133/73 99 Vital Signs Temp Pulse Resp BP Pulse Ox 02/26/19 08:53 98.2 F 78 14 133/73 99 02/26/19 04:31 97.9 F 87 16 131/77 99 02/26/19 02:17 93 02/26/19 00:14 97.9 F 86 17 198/100 100 02/25/19 23:42 99 12 178/94 100 02/25/19 22:56 95 20 185/97 100 02/25/19 22:00 92 165/88 100 02/25/19 21:00 87 19 160/75 100 02/25/19 20:30 86 18 140/74 100 02/25/19 20:00 86 20 149/74 100 02/25/19 19:45 91 159/86 100 02/25/19 19:30 95 15 155/81 100 02/25/19 19:25 100 02/25/19 19:16 151 20 84/62 100 02/25/19 18:42 98.6 F 101 18 151/86 100 Intake and Output 02/25/19 02/26/19 02/26/19 23:59 07:59 15:59 Intake Total 1999 0 / 0 0 / 0 Output Total 0 / 0 0 / 0 Balance 1999 0 / 0 0 / 0 Intake: IV Fluids 1999 0.9 % Sodium Chloride 1,000 ML 1999 @ 0 mls/hr .ROUTE .[facility] Rx#:[id number] Oral 0 / 0 0 / 0 Output: Urine 0 / 0 0 / 0 Other: # Voids 0 # Urine Diapers 1 # Bowel Movements 0 Weight 64.41 kg 64.4 kg Patient Weight 02/26/19 23:59 Weight 64.4 kg General: Conversant, No Apparent Distress HEENT: Atraumatic, Normocephaly, Mucus Membranes Moist Neck: No JVD, Normal carotid pulses Cardiac: Reg Rate and Rhythm, Normal S1 and S2, No Murmur Lungs: Normal Breath Sounds, No Wheeze, Rales, Rhonchi Neuro: Alert and responsive, No focal deficits noted Abdomen: Soft, Non-Tender Skin: No rashes noted on visualized skin Musculoskeletal: No Chest Wall Tenderness Extremities: No Clubbing, No Cyanosis, No Edema, Normal Pulses Results 02/26/19 00:32 02/26/19 00:32 Lab Results 02/25/19 02/25/19 02/25/19 19:15 19:15 19:15 WBC 6.8 Hgb 13.2 Hct 40.5 Plt Count 208 INR 1.1 APTT 43.9 H Sodium 136 Potassium 3.2 L Chloride 97 L Carbon Dioxide 26 BUN 14 Creatinine 1.21 H Glucose 169 H Calcium 9.5 Magnesium Troponin I 0.03 B-Natriuretic Peptide 02/26/19 02/26/19 02/26/19 00:32 00:32 00:32 WBC 7.0 Hgb 11.4 L D Hct 35.6 Plt Count 191 INR APTT Sodium 137 Potassium 3.4 L Chloride 104 Carbon Dioxide 22 L BUN 13 Creatinine 0.96 Glucose 118 H Calcium 8.7 Magnesium 1.6 Troponin I 0.04 H* B-Natriuretic Peptide 02/26/19 02/26/19 00:32 07:48 WBC Hgb Hct Plt Count INR APTT Sodium Potassium Chloride Carbon Dioxide BUN Creatinine Glucose Calcium Magnesium Troponin I 0.04 H* B-Natriuretic Peptide 437 H Short CBC 02/26/19 02/25/19 Range/Units 00:32 19:15 WBC 7.0 6.8 (4.3-11.1) K/mcL Hgb 11.4 L D 13.2 (11.5-15.4) g/dL Hct 35.6 40.5 (35.3-44.9) % Plt Count 191 208 (140-400) K/mcL Neutrophils # 3.9 (1.6-8.9) K/mcL BMP 02/26/19 02/25/19 Range/Units 00:32 19:15 Sodium 137 136 (136-145) mEq/L Potassium 3.4 L 3.2 L (3.5-5.1) mEq/L Chloride 104 97 L (98-107) mEq/L Carbon Dioxide 22 L 26 (23-29) mEq/L BUN 13 14 (8-23) mg/dL Creatinine 0.96 1.21 H (0.60-1.20) mg/dL Glucose 118 H 169 H (70-105) mg/dL Calcium 8.7 9.5 (8.6-10.3) mg/dL Cardiac Enzymes 02/26/19 02/26/19 02/25/19 Range/Units 07:48 00:32 19:15 Troponin I 0.04 H* 0.04 H* 0.03 (< 0.04) ng/mL Impressions Chest X-Ray 02/25/19 18:57 IMPRESSION: Unremarkable portable chest radiograph. D/ / Steven Wolfe MD / Steven Wolfe MD Interpreting Provider: Steven Wolfe MD Pulmonary Perfusion Imaging 02/25/19 21:32 IMPRESSION: Low probability for pulmonary embolus. D/ / Keyla Lazar MD / Keyla Lazar MD Interpreting Provider: Keyla Lazar MD Active Medications Atorvastatin Calcium (Lipitor) 40 mg PO HS TYE Stop: 08/27/19 23:46 Last Admin: 02/26/19 01:04 Dose: 40 mg Documented by: Docusate Sodium (Colace) 100 mg PO DAILY PRN; Protocol PRN Reason: Constipation Stop: 08/28/19 09:01 Heparin Sodium (Porcine) (Heparin) 3,900 unit 60 unit/kg (3900 unit) IVP Q6HR PRN PRN Reason: SEE COMMENTS Stop: 08/27/19 23:40 Heparin Sodium (Porcine) (Heparin) 1,900 unit 30 unit/kg (1900 unit) IVP Q6H PRN PRN Reason: SEE COMMENTS Stop: 08/27/19 23:40 Hydralazine HCl (Hydralazine) 20 mg IVP Q6H PRN PRN Reason: Hypertension Stop: 08/27/19 23:42 Last Admin: 02/26/19 01:01 Dose: 20 mg Documented by: Sodium Chloride (0.9 % Sodium Chloride) 1,000 mls @ 100 mls/hr IVC .Q10H TYE Stop: 02/26/19 09:44 Last Admin: 02/26/19 01:08 Dose: 100 mls/hr Documented by: Heparin Sodium/Dextrose (Heparin 25,000 Unit/250 Ml D5w) 25,000 unit in 250 mls @ 7.729 mls/hr IVC .Q24H TYE; Protocol Stop: 08/27/19 23:46 Last Admin: 02/26/19 01:43 Dose: 12 unit/kg/hr, 7.7 mls/hr Documented by: Potassium Chloride 40 meq/Lidocaine 2 ml/ Sodium Chloride 522 mls @ 130.5 ml s/hr IVPB ONCE ONE Stop: 02/26/19 09:48 Last Admin: 02/26/19 07:20 Dose: 130.5 mls/hr Documented by: Levothyroxine Sodium (Synthroid) 125 mcg PO 0630 TYE Stop: 08/28/19 06:31 Last Admin: 02/26/19 06:16 Dose: Not Given Documented by: Metoprolol Succinate (Toprol Xl) 50 mg PO DAILY@1200 [facility] Stop: 08/28/19 12:01 Naloxone HCl (Narcan) 0.4 mg IVP Q2MPRN PRN PRN Reason: SEE COMMENTS Stop: 08/27/19 23:34 Nitroglycerin (Nitroglycerin) 0.4 mg SL Q5MPRN PRN PRN Reason: Chest Pain Stop: 08/27/19 18:58 Last Admin: 02/25/19 19:08 Dose: 0.4 mg Documented by: Ondansetron HCl (Zofran) 4 mg IVP Q8H PRN PRN Reason: Nausea And Vomiting Stop: 08/27/19 23:34 Pantoprazole Sodium (Protonix) 40 mg IVP Q12H [facility] Stop: 08/28/19 23:41 Sucralfate (Carafate) 1 gm PO Q6HR [facility] Stop: 08/28/19 00:01 Last Admin: 02/26/19 06:16 Dose: Not Given Documented by: - Imaging and Cardiology Stress Test: report reviewed Echo: report reviewed - EKG Interpretation EKG results cardiology: personally reviewed, other (12 hr tele AVG HR 84) Consult Discharge Plan - Plan Referrals: Femi Harris MD [Primary Care Provider] - <Tommie Call A - Last Filed: 02/26/19 13:58> Date of Encounter: 02/26/19 - Attending Attestation I have personally performed a face to face evaluation on this patient. I have reviewed and agree with the documented findings and care plan as documented by the PLATE WORKER HELPER. History and Exam by me shows: Patient with risk factors for coronary artery disease presenting with atypical chest pain. We will obtain pharmacological nuclear stress test during this hospitalization. Thanks for the consult, please call with questions. Tommie Call MD [facility] Assessment and Plan Discussion w patient/family: The assessment and plan as outlined above was discussed with the patient and/or family members who expressed understanding and agreement. All questions were answered. Thank you for involving us in the care of your patient. Please call with any questions. History of Present Illness History of present illness: Ms. Parrish is a 83 year old female All Systems Review: The remainder of the systems were reviewed and are negative Results 02/26/19 00:32 02/26/19 00:32 Lab Results 02/25/19 02/25/19 02/25/19 19:15 19:15 19:15 WBC 6.8 Hgb 13.2 Hct 40.5 Plt Count 208 INR 1.1 APTT 43.9 H Sodium 136 Potassium 3.2 L Chloride 97 L Carbon Dioxide 26 BUN 14 Creatinine 1.21 H Glucose 169 H Calcium 9.5 Magnesium Troponin I 0.03 B-Natriuretic Peptide 02/26/19 02/26/19 02/26/19 00:32 00:32 00:32 WBC 7.0 Hgb 11.4 L D Hct 35.6 Plt Count 191 INR APTT Sodium 137 Potassium 3.4 L Chloride 104 Carbon Dioxide 22 L BUN 13 Creatinine 0.96 Glucose 118 H Calcium 8.7 Magnesium 1.6 Troponin I 0.04 H* B-Natriuretic Peptide 02/26/19 02/26/19 00:32 07:48 WBC Hgb Hct Plt Count INR APTT Sodium Potassium Chloride Carbon Dioxide BUN Creatinine Glucose Calcium Magnesium Troponin I 0.04 H* B-Natriuretic Peptide 437 H
--- NOTE | 2019-02-26 10:41 | Electrocardiograph Report ---
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
--- NOTE | 2019-02-26 13:18 | Internal Med Progress Note ---
Hospitalist Progress Note - Encounter Date of Encounter: 02/26/19 Time of Encounter: 10:00 - Subjective Interval History: No major events overnight. Patient was seen this a.m. sHe denied fever, chills or night sweats. sHe has no nausea, vomiting or abdominal pain. Patient denied chest pain, shortness of breath or palpitation. - Exam Vitals: Temp Pulse Resp BP Pulse Ox 98.2 F 78 14 133/73 99 02/26/19 08:53 02/26/19 08:53 02/26/19 08:53 02/26/19 08:53 02/26/19 08:53 Exam: Gen: Vitals noted. No acute distress. Appears comfortable. Eyes: anicteric sclerae, moist conjunctivae; no lid-lag; Pupils equal and reactive to light HENT: Atraumatic; oropharynx clear with moist mucous membranes and no mucosal ulcerations; normal hard and soft palate Neck: Trachea midline; supple, no thyromegaly or lymphadenopathy Cardiac: Regular rhythm and rate, +S1/S2. No JVD noted. Pulmonary: CTA bilaterally, no wheezes, rales or rhonchi, equal chest expansion Abdomen: soft, nontender, no guarding. No masses or hepatosplenomegaly MSK: ROM intact, no joint swelling noted Extremities: no edema, nontender calf Skin: Normal temperature, turgor; no rash, ulcers or subcutaneous nodules Neuro: moves all extremities, no focal deficits. Psych: Appropriate mood and behavior. A&Ox3 - Assessment and Plan (1) GABY (acute kidney injury) Current Visit: Yes Status: Resolved (2) Elevated troponin Current Visit: Yes Status: Resolved (3) Chest pain Current Visit: Yes Status: Resolved (4) DVT prophylaxis Current Visit: Yes Status: Acute (5) Hypothyroidism Current Visit: Yes Status: Chronic (6) S/P repair of paraesophageal hernia Current Visit: No Status: Chronic (7) Hypothyroidism Current Visit: Yes Status: Chronic - Summary of Assessment and Plan Summary of Assessment and Plan: Ms. Parrish is a 83 year old female with PMH of HTN, HLD, CAD, [place] s/p PCI in 2008 who presented with chest pain for 4 days, palpitation and shortness of breath. Her symptoms are managed as following: Elevated troponin/NSTEMI: - Likely typeII event however can't r/o type I. repeat EKG today with no ST changes - Flat elevation with concerning EKG changes at presentation, however cardiology thinks his due to tachycardia. - On heparin drip, aspirin, Lipitor and BB. Pending echo and possible stress test in 48 hours since she HAD V/Q yesterday. CAD S/P PCI: - as above. Dysphagia: - Chronic issue, had recent hernia repair without improvement. Speech therapy recommended GI consult. Consult placed. Continue PPI and Carafate GABY: - resolved, likely from dehydration. - Check BMP tomorrow Hypokalemia: - Repleted, check BMP tomorrow Chronic back pain: - On morphine pump DVT prophylaxis: Heparin drip I reviewed independently all laboratory workup, pertinent images including x- rays and CT scans. I also reviewed independently and EKGs and my findings are in the body of my assessment and plan. I ordered the laboratory workup and images myself. I discussed finding with patient's, their families, RN's and consultants involved in the care of the patient. - Time Spent with Patient Total time spent is greater than 50% in coordination of care (as documented) at patient's floor/unit and/or counseling patient: Plan of Care Discussed with: patient Internal Medicine: Result - Labs CBC & Chem 7: 02/26/19 00:32 02/26/19 00:32 Labs: Short CBC 02/25/19 02/26/19 Range/Units 19:15 00:32 WBC 6.8 7.0 (4.3-11.1) K/mcL Hgb 13.2 11.4 L D (11.5-15.4) g/dL Hct 40.5 35.6 (35.3-44.9) % Plt Count 208 191 (140-400) K/mcL Neutrophils # 3.9 (1.6-8.9) K/mcL BMP 02/25/19 02/26/19 19:15 00:32 Sodium 136 137 Potassium 3.2 L 3.4 L Chloride 97 L 104 Carbon Dioxide 26 22 L BUN 14 13 Creatinine 1.21 H 0.96 Glucose 169 H 118 H Calcium 9.5 8.7 Cardiac Enzymes 02/25/19 02/26/19 02/26/19 Range/Units 19:15 00:32 07:48 Troponin I 0.03 0.04 H* 0.04 H* (< 0.04) ng/mL - ABG Interpretation ABG results: PT/INR, D-dimer PT 12.2 Seconds (9.4-12.1) H 02/25/19 19:15 - Impressions Impressions Chest X-Ray 02/25/19 18:57 IMPRESSION: Unremarkable portable chest radiograph. D/ / Steven Wolfe MD / Steven Wolfe MD Interpreting Provider: Steven Wolfe MD Pulmonary Perfusion Imaging 02/25/19 21:32 IMPRESSION: Low probability for pulmonary embolus. D/ / Keyla Lazar MD / Keyla Lazar MD Interpreting Provider: Keyla Lazar MD Consult Discharge Plan - Plan Referrals: Femi Harris MD [Primary Care Provider] - (3) Chest pain Qualifiers: Chest pain type: chest pain due to myocardial ischemia Ischemic chest pain type: unstable angina pectoris Qualified Code(s): I20.0 - Unstable angina (5) Hypothyroidism Qualifiers: Hypothyroidism type: unspecified Qualified Code(s): E03.9 - Hypothyroidism, unspecified (7) Hypothyroidism Qualifiers: Hypothyroidism type: acquired Qualified Code(s): E03.9 - Hypothyroidism, unspecified
[2019-02-26] MEDS: Metoprolol XL (24 HR) Succ 50 MG TAB.ER.24H PO SCH (13:29)
[2019-02-26] MEDS: Aspirin 81 MG TAB.CHEW PO SCH (13:29)
[2019-02-26] MEDS ORDERED: Perflutren Lipid Microsphere 1.3 ML in 0.9 % Sodium Chloride 8.7 ML IVP ONE (14:17)
[2019-02-26 16:20] LABS: Bilirubin,Urine Negative (Negative); Blood,Urine Large (Negative); Clarity,Urine Cloudy (Clear); Color,Urine Yellow (Yellow); Glucose,Urine (UA) Normal (Normal); Ketones,Urine Negative (Negative); Leukocyte Esterase,Urine Small (Negative); Nitrite,Urine Negative (Negative); PH,Urine 7.5 pH Units (5.0-8.0); Protein,Urine Negative (Neg-Trace); Specific Gravity,Urine 1.012 (1.010-1.025); Urobilinogen,Urine Normal (Normal)
[2019-02-26 16:22] LABS: Bacteria,Urine None Seen per hpf (None-Few); Hyaline Casts,Urine None Seen per lpf (None-Few); RBC,Urine TNTC per hpf (0-3); Squamous Epithelial Cell,Urine Many per lpf (None-Few)
[2019-02-26 16:29] LABS: Hematocrit 34.2 % (35.3-44.9); Hemoglobin 10.8 g/dL (11.5-15.4)
--- NOTE | 2019-02-26 18:42 | Urology - Consult Note ---
Date of Encounter: 02/26/19 Time of Encounter: 18:40 - Assessment and Plan (1) Hematuria Current Visit: Yes Status: Acute Assessment and plan: 83-year-old woman with a history of gross hematuria. A urine culture has been obtained. She has previously underwent a urologic workup for hematuria which was benign back in 2016. The bleeding is likely related to her anticoagulation. Her urine color is clear to light pink. I think it is reasonable to conservatively follow this for now. If her urine becomes more bloody, we would need to place a Capellan catheter and consider starting bladder irrigation. I will defer to cardiology and internal medicine team regarding the anticoagulation. Certainly, the heparin drip will potentiate her bladder bleeding. If it is reasonably safe to stop her heparin drip for a few hours, that may decrease her gross hematuria. We will continue to follow her H&H. Surgical intervention is not necessary at this time. If the bleeding worsens, starting CBI would be the first option and making efforts to minimize anticoagulants would certainly help. Thank you very much for allowing me to participate in the care of this patient. Please call with any questions. Qualifiers: Hematuria type: gross Qualified Code(s): R31.0 - Gross hematuria Urology CN:HPI Consult date: 02/26/19 Reason for consult Urology: Gross Hematuria History of present illness: 83-year-old woman was admitted for chest pain. She is undergoing a cardiac workup and has started heparin. She was noted to have gross hematuria. She reports having issues with hematuria and burning pain. She has been established with Dr. Casper. She reports that she previously had a mid urethral sling placed. In [address] scan. This showed some thickening of the anterior bladder wall. Dr. Casper performed a cystoscopy afterwards and saw no concerning lesions at that time. She did void into the commode. The urine was light pink. A urinalysis was obtained. This showed full field red blood cells. Past Med Surg Social Fam HX - Past Medical History Medical history: renal disease, GERD, hyperlipidemia, hypertension, asthma, other, thyroid disease, coronary artery disease, CHF Additional medical history: coronary artery disease,barretts Psychiatric history: no psych history - Past Surgical History Surgical History: breast surgery, cholecystectomy, hysterectomy, knee replacement, orthopedic, other, other, arthroscopy Additional surgical history: heart stent,bladder,head,foot - Social History Smoking Status: Never smoker Smokeless Tobacco Status: No Alcohol use: none Drug use: none - Family History Mother Living Status: Age at : 59 Father Living Status: Age at : 86 Medications and Allergies Cholecalciferol (D-3) [Vitamin D] 5,000 unit PO DAILY 11/29/16 [History] Hydralazine HCl 50 mg PO TID 11/29/16 [History] Aspirin 81 mg PO DAILY #30 tab.chew 12/05/16 [Rx] Atorvastatin [Lipitor] 40 mg PO HS #30 tablet 12/05/16 [Rx] Metoprolol XL (24 HR) Succ [Toprol Xl] 50 mg PO DAILY #30 tab.er.24h 12/05/16 [Rx] Acetaminophen/Butalbital/Caffe [Fioricet] 1 tab PO DAILY PRN 12/07/18 [History] Dexlansoprazole [Dexilant] 60 mg PO BID 12/07/18 [History] Docusate [Colace] 100 mg PO DAILY PRN 12/07/18 [History] Furosemide [Lasix] 20 mg PO DAILY 12/07/18 [History] Hydromorphone (Pf) [Hydromorphone Intrathecal Pump] 1 each IT AD 12/07/18 [History] Levothyroxine Sodium [Euthyrox] 125 mcg PO DAILY 12/07/18 [History] Magnesium Oxide [Magnesium] 400 mg PO BID 12/07/18 [History] Potassium Chloride [Klor-Con 10] 10 meq PO BID 12/07/18 [History] Sucralfate [Carafate] 1 gm PO Q6HR 30 Days #120 oral.susp 01/30/19 [Rx] Metoclopramide HCl 5 mg PO TID 02/25/19 [History] Ondansetron ODT [Zofran ODT] 4 mg SL Q4HR PRN 02/25/19 [History] Allergy/AdvReac Type Severity Reaction Status Date / Time topiramate [From Topamax] Allergy Hives Verified 11/21/18 16:40 Review of Systems - Constitutional no chills, no fever(s) - EENT Nose, mouth and throat: no dizziness - Cardiovascular chest pain - Respiratory no dyspnea - Gastrointestinal no nausea, no vomiting - Genitourinary Genitourinary: difficulty urinating, hematuria, no flank pain - Musculoskeletal no back pain - Integumentary no erythema, no rash - Neurological no weakness - Psychiatric no suicidal ideation - Hematologic/Lymphatic no easy bleeding - Allergic/Immunologic no wheezing Exam Initial Vital Signs Temp Pulse Resp BP Pulse Ox 98.6 F 101 18 151/86 100 02/25/19 18:42 02/25/19 18:42 02/25/19 18:42 02/25/19 18:42 02/25/19 18:42 - General physical appearance Present: well developed, well nourished, no distress - Eyes Absent: icteric - ENT Present: normal nares - Neck Present: trachea midline - Respiratory Present: normal respiratory effort - Cardiovascular Cardiovascular exam IM: RRR - Abdomen Abdomen: Present: soft - Integumentary Present: no rash - Neurologic Present: normal coordination - Musculoskeletal Present: other (Grossly normal) Urology Results - Labs 02/26/19 16:18 02/26/19 00:32 Abnormal lab results RBC 3.72 M/mcL (3.82-4.97) L 02/26/19 00:32 Hgb 10.8 g/dL (11.5-15.4) L 02/26/19 16:18 Hct 34.2 % (35.3-44.9) L 02/26/19 16:18 PT 12.2 Seconds (9.4-12.1) H 02/25/19 19:15 APTT 43.9 Seconds (26.0-36.0) H 02/25/19 19:15 Heparin Anti-Xa, Unfract 0.04 IU/mL (0.30-0.70) L 02/26/19 00:32 Potassium 3.4 mEq/L (3.5-5.1) L 02/26/19 00:32 Chloride 97 mEq/L (98-107) L 02/25/19 19:15 Carbon Dioxide 22 mEq/L (23-29) L 02/26/19 00:32 Creatinine 1.21 mg/dL (0.60-1.20) H 02/25/19 19:15 Est GFR ( Amer) 51 (> 60) L 02/25/19 19:15 Est GFR (Non-Af Amer) 55 (> 60) L 08/20/19 00:32 Glucose 118 mg/dL (70-105) H 02/26/19 00:32 Troponin I 0.04 ng/mL (< 0.04) H* 02/26/19 07:48 B-Natriuretic Peptide 437 pg/mL (Less than 100) H 02/26/19 00:32 TSH 0.101 mcIU/mL (0.340-5.600) L 02/26/19 14:44 Urine Clarity Cloudy (Clear) A 02/26/19 16:02 Urine Blood Large (Negative) H 02/26/19 16:02 Ur Leukocyte Esterase Small (Negative) H 02/26/19 16:02 Urine Microscopic RBC TNTC per hpf (0-3) H 02/26/19 16:02 Urine Microscopic WBC 5-15 per hpf (0-3) H 02/26/19 16:02 Ur Squamous Epith Cells Many per lpf (None-Few) H 02/26/19 16:02 Ur Culture Indicated? YES (NO) A 02/26/19 16:02 Diabetes panel 02/25/19 02/26/19 Range/Units 19:15 00:32 Sodium 136 137 (136-145) mEq/L Potassium 3.2 L 3.4 L (3.5-5.1) mEq/L Chloride 97 L 104 (98-107) mEq/L Carbon Dioxide 26 22 L (23-29) mEq/L BUN 14 13 (8-23) mg/dL Creatinine 1.21 H 0.96 (0.60-1.20) mg/dL Glucose 169 H 118 H (70-105) mg/dL Calcium 9.5 8.7 (8.6-10.3) mg/dL Thyroid panel 02/26/19 Range/Units 14:44 TSH 0.101 L (0.340-5.600) mcIU/mL Calcium panel 02/25/19 02/26/19 Range/Units 19:15 00:32 Calcium 9.5 8.7 (8.6-10.3) mg/dL Pituitary panel 02/25/19 02/26/19 02/26/19 Range/Units 19:15 00:32 14:44 Sodium 136 137 (136-145) mEq/L Potassium 3.2 L 3.4 L (3.5-5.1) mEq/L Chloride 97 L 104 (98-107) mEq/L Carbon Dioxide 26 22 L (23-29) mEq/L BUN 14 13 (8-23) mg/dL Creatinine 1.21 H 0.96 (0.60-1.20) mg/dL Glucose 169 H 118 H (70-105) mg/dL Calcium 9.5 8.7 (8.6-10.3) mg/dL TSH 0.101 L (0.340-5.600) mcIU/mL Adrenal panel 02/25/19 02/26/19 Range/Units 19:15 00:32 Sodium 136 137 (136-145) mEq/L Potassium 3.2 L 3.4 L (3.5-5.1) mEq/L Chloride 97 L 104 (98-107) mEq/L Carbon Dioxide 26 22 L (23-29) mEq/L BUN 14 13 (8-23) mg/dL Creatinine 1.21 H 0.96 (0.60-1.20) mg/dL Glucose 169 H 118 H (70-105) mg/dL Calcium 9.5 8.7 (8.6-10.3) mg/dL All other labs normal. Consult Discharge Plan - Plan Referrals: Femi Harris MD [Primary Care Provider] -
[2019-02-26 21:50] LABS: Hematocrit 32.8 % (35.3-44.9); Hemoglobin 10.7 g/dL (11.5-15.4)
[2019-02-26] MEDS: Pantoprazole 40 MG VIAL IVP SCH (23:15)
[2019-02-27 04:56] LABS: Hematocrit 35.8 % (35.3-44.9); Hemoglobin 11.2 g/dL (11.5-15.4); Mean Corpuscular HGB Conc 31.3 g/dL (31.6-35.5); Mean Corpuscular Hemoglobin 30.5 pg (28.0-33.3); Mean Corpuscular Volume 97.5 fL (83.0-100.0); Mean Platelet Volume 10.1 fL (9.4-12.4); Platelet Count 176 K/mcL (140-400); Red Blood Count 3.67 M/mcL (3.82-4.97); Red Cell Distribution Width 14.6 % (11.5-14.5); White Blood Count 6.8 K/mcL (4.3-11.1)
[2019-02-27 05:10] LABS: BUN/Creatinine Ratio 12 (6-26); Blood Urea Nitrogen 10 mg/dL (8-23); Carbon Dioxide 24 mEq/L (23-29); Chloride 107 mEq/L (98-107); Glucose 100 mg/dL (70-105); Osmolality,Calculated 283 (280-300); Potassium 3.9 mEq/L (3.5-5.1); Sodium 137 mEq/L (136-145); eGFR For African Americans > 60 (> 60); eGFR For Non-African Americans > 60 (> 60)
[2019-02-27] MEDS ORDERED: Regadenoson 0.4 MG/5 ML SYRINGE IVP ONE (06:58)
[2019-02-27] MEDS: Heparin 25,000 UNIT/250 ML D5W 25,000 UNIT/250 ML IV.SOLN IVC SCH (07:25)
--- NOTE | 2019-02-27 08:25 | Event Note ---
Date of Encounter: 02/27/19 Time of Encounter: 08:25 GI consulted for dysphagia. Chart reviewed pt is status post Rocio Fundoplication in 11/25. Dysphagia is likely due to surgery and would recommend if there is concern to consult Dr Leiva or surgery.
[2019-02-27] MEDS: Aspirin 81 MG TAB.CHEW PO SCH (08:28)
--- NOTE | 2019-02-27 08:35 | Urology Progress Note ---
Date of Encounter: 02/27/19 Time of Encounter: 08:00 - Assessment and Plan (1) Hematuria Current Visit: Yes Status: Acute Assessment and plan: Patient is an 83-year-old female who presents the history of gross hematuria. Patient has previously undergone a reassuring hematuria workup with Dr. Casper. Hematuria appears resolved, as urine is transparent and clear yellow at present. Hemoglobin appears stabilized, and patient is still receiving IV heparin. At this time, I do not anticipate any need for urologic intervention such as catheterization. We discussed outpatient follow-up will likely require a cystoscopy. We briefly discussed her urge incontinence, and she is also interested in seeking further treatment for this at upcoming outpatient appointment. Patient will need an appointment for cystoscopy with either Dr. Child or Dr. Castellon within 2-3 weeks of discharge. Qualifiers: Hematuria type: gross Qualified Code(s): R31.0 - Gross hematuria Progress Note Subjective: no new complaints, feels better Narrative: Patient seen and examined sitting upright in bed in no apparent distress. Patient with family member at bedside. Patient denies any fever, chills or flank pain. Objective Initial Vital Signs Temp Pulse Resp BP Pulse Ox 98.6 F 101 18 151/86 100 02/25/19 18:42 02/25/19 18:42 02/25/19 18:42 02/25/19 18:42 02/25/19 18:42 - General physical appearance Present: no distress, no pain - Respiratory Present: normal expansion, normal respiratory effort - Abdomen Present: soft, non tender. Absent: distended - Genitourinary Urine Appearance: Present: Clear. Absent: Hematuria - Integumentary Present: no rash, no abnormal pigmentation - Musculoskeletal Present: normal posture - Psychiatric Present: oriented to time, oriented to person, oriented to place, speech is normal, memory intact - Labs 02/27/19 04:36 02/27/19 04:36 Diabetes panel 02/27/19 Range/Units 04:36 Sodium 137 (136-145) mEq/L Potassium 3.9 (3.5-5.1) mEq/L Chloride 107 (98-107) mEq/L Carbon Dioxide 24 (23-29) mEq/L BUN 10 (8-23) mg/dL Creatinine 0.85 (0.60-1.20) mg/dL Glucose 100 (70-105) mg/dL Calcium 9.0 (8.6-10.3) mg/dL Thyroid panel 02/26/19 Range/Units 14:44 TSH 0.101 L (0.340-5.600) mcIU/mL Calcium panel 02/27/19 Range/Units 04:36 Calcium 9.0 (8.6-10.3) mg/dL Pituitary panel 02/26/19 02/27/19 Range/Units 14:44 04:36 Sodium 137 (136-145) mEq/L Potassium 3.9 (3.5-5.1) mEq/L Chloride 107 (98-107) mEq/L Carbon Dioxide 24 (23-29) mEq/L BUN 10 (8-23) mg/dL Creatinine 0.85 (0.60-1.20) mg/dL Glucose 100 (70-105) mg/dL Calcium 9.0 (8.6-10.3) mg/dL TSH 0.101 L (0.340-5.600) mcIU/mL Adrenal panel 02/27/19 Range/Units 04:36 Sodium 137 (136-145) mEq/L Potassium 3.9 (3.5-5.1) mEq/L Chloride 107 (98-107) mEq/L Carbon Dioxide 24 (23-29) mEq/L BUN 10 (8-23) mg/dL Creatinine 0.85 (0.60-1.20) mg/dL Glucose 100 (70-105) mg/dL Calcium 9.0 (8.6-10.3) mg/dL Consult Discharge Plan - Plan Referrals: Femi Harris MD [Primary Care Provider] -
--- NOTE | 2019-02-27 09:14 | Cardiology Progress Note ---
Date of Encounter: 02/27/19 Time of Encounter: 09:11 Assessment and Plan (1) Elevated troponin Current Visit: No Status: Acute Troponin negative, then 0.04, 0.04 in setting of tachycardia. Suspect demand ischemia, nondiagnostic for ACS. On heparin gtt. TTE EF 65-70%. Repeat ECG. Recommend nuclear stress test during stay. Will need to wait at least 48 hours after VQ scan. Plan for pharmacologic nuclear stress test tomorrow AM. Continue to follow. (2) Chest pain Current Visit: Yes Status: Resolved Reports chest pain, heart palpitations and shortness of breath for the past 3-4 days which worsened 3 hours prior to arrival. Pain is described as pressure in the middle of the chest without radiation and worsens with exertion. TTE 12/05/18: LVEF 60-65%. Normal LV chamber size and function. Mild cLVH. Mild LVDD. Normal RV structure and function. Mild MR. No phtn. Nuclear stress test 11/30/16: Gated EF >70%. Perfusion imaging negative for ischemia or infarct. Hx CAD and PCI in 2008. Repeat TTE EF preserved, nuclear stress test during stay as above. Qualifiers: Chest pain type: chest pain due to myocardial ischemia Ischemic chest pain type: unstable angina pectoris Qualified Code(s): I20.0 - Unstable angina (3) Abnormal EKG Current Visit: No Status: Acute Concern of ECG changes on admission. Appears to be early repolarization. Most recent ECG tachycardic 140s. Currently SR on tele. Will repeat ECG. (4) CAD (coronary artery disease) Current Visit: No Status: Chronic Hx PCI. ASA, Statin, BB. Qualifiers: Coronary Disease-Associated Artery/Lesion type: [place] artery [place] vs. transplanted heart: [place] heart Associated angina: with unspecified angina Qualified Code(s): I25.119 - Atherosclerotic heart disease of [place] coronary a rtery with unspecified angina pectoris Discussion w patient/family: The assessment and plan as outlined above was discussed with the patient and/or family members who expressed understanding and agreement. All questions were answered. Thank you for involving us in the care of your patient. Please call with any questions. I will discuss all the above with Dr. Call and make changes as necessary. Subjective Principal diagnosis: Elevated troponin Interval history: No acute cardiac complaints this AM. Objective Vital Signs, Last 4 Hours Temp Pulse Resp BP Pulse Ox 02/27/19 07:37 97.8 F 58 14 135/63 98 Vital Signs Temp Pulse Resp BP Pulse Ox 02/27/19 07:37 97.8 F 58 14 135/63 98 02/27/19 04:37 97.6 F 57 16 148/70 100 02/27/19 00:19 97.8 F 65 18 114/65 98 02/26/19 21:26 77 14 135/77 99 02/26/19 20:33 97.9 F 74 16 97 02/26/19 15:46 98.2 F 85 17 155/77 99 02/26/19 14:10 97.9 F 78 16 144/76 97 Intake and Output 02/26/19 02/27/19 02/27/19 23:59 07:59 15:59 Intake Total 25 / 1175 100 / 100 Output Total 0 / 0 650 / 650 Balance 25 / 1175 -550 / -550 Intake: IV Fluids 100 / 100 Heparin 25,000 UNIT/250 ML D5W 100 / 100 25,000 unit In 250 ml @ 12 UNIT /KG/HR 7.729 mls/hr IVC .Q24H [facility] Rx#:[id number] Oral 25 / 25 0 / 0 Output: Urine 0 / 0 650 / 650 Other: Weight 64 kg Patient Weight 02/27/19 23:59 Weight 64 kg General: Conversant, No Apparent Distress HEENT: Atraumatic, Normocephaly, Mucus Membranes Moist Neck: No JVD, Normal carotid pulses Cardiac: Reg Rate and Rhythm, Normal S1 and S2, No Murmur Lungs: Normal Breath Sounds, No Wheeze, Rales, Rhonchi Neuro: Alert and responsive, No focal deficits noted Abdomen: Soft, Non-Tender Skin: No rashes noted on visualized skin Musculoskeletal: No Chest Wall Tenderness Extremities: No Clubbing, No Cyanosis, No Edema, Normal Pulses Results 02/27/19 04:36 02/27/19 04:36 Lab Results 02/26/19 02/26/19 02/26/19 14:44 16:18 21:32 WBC Hgb 10.8 L 10.7 L Hct 34.2 L 32.8 L Plt Count Sodium Potassium Chloride Carbon Dioxide BUN Creatinine Glucose Calcium TSH 0.101 L 02/27/19 02/27/19 04:36 04:36 WBC 6.8 Hgb 11.2 L Hct 35.8 Plt Count 176 Sodium 137 Potassium 3.9 Chloride 107 Carbon Dioxide 24 BUN 10 Creatinine 0.85 Glucose 100 Calcium 9.0 TSH Short CBC 02/27/19 02/26/19 02/26/19 Range/Units 04:36 21:32 16:18 WBC 6.8 (4.3-11.1) K/mcL Hgb 11.2 L 10.7 L 10.8 L (11.5-15.4) g/dL Hct 35.8 32.8 L 34.2 L (35.3-44.9) % Plt Count 176 (140-400) K/mcL BMP 02/27/19 Range/Units 04:36 Sodium 137 (136-145) mEq/L Potassium 3.9 (3.5-5.1) mEq/L Chloride 107 (98-107) mEq/L Carbon Dioxide 24 (23-29) mEq/L BUN 10 (8-23) mg/dL Creatinine 0.85 (0.60-1.20) mg/dL Glucose 100 (70-105) mg/dL Calcium 9.0 (8.6-10.3) mg/dL Urine 02/26/19 Range/Units 16:02 Urine Color Yellow (Yellow) Urine Clarity Cloudy A (Clear) Urine pH 7.5 (5.0-8.0) pH Units Ur Specific [place] 1.012 (1.010-1.025) Urine Protein Negative (Neg-Trace) mg/dL Urine Glucose (UA) Normal (Normal) mg/dL Active Medications Aspirin (Aspirin) 81 mg PO DAILY TYE Stop: 08/28/19 10:40 Last Admin: 02/27/19 08:28 Dose: 81 mg Documented by: Atorvastatin Calcium (Lipitor) 40 mg PO HS TYE Stop: 08/27/19 23:46 Last Admin: 02/26/19 20:25 Dose: 40 mg Documented by: Diphenhydramine HCl (Benadryl) 25 mg PO HS PRN PRN Reason: Insomnia Stop: 08/28/19 20:48 Last Admin: 02/26/19 20:57 Dose: 25 mg Documented by: Docusate Sodium (Colace) 100 mg PO DAILY PRN; Protocol PRN Reason: Constipation Stop: 08/28/19 09:01 Last Admin: 02/27/19 08:40 Dose: 100 mg Documented by: Heparin Sodium (Porcine) (Heparin) 3,900 unit 60 unit/kg (3900 unit) IVP Q6HR PRN PRN Reason: SEE COMMENTS Stop: 08/27/19 23:40 Heparin Sodium (Porcine) (Heparin) 1,900 unit 30 unit/kg (1900 unit) IVP Q6H PRN PRN Reason: SEE COMMENTS Stop: 08/27/19 23:40 Hydralazine HCl (Hydralazine) 20 mg IVP Q6H PRN PRN Reason: Hypertension Stop: 08/27/19 23:42 Last Admin: 02/26/19 20:57 Dose: 20 mg Documented by: Heparin Sodium/Dextrose (Heparin 25,000 Unit/250 Ml D5w) 25,000 unit in 250 mls @ 7.729 mls/hr IVC .Q24H TYE; Protocol Stop: 08/27/19 23:46 Last Admin: 02/27/19 07:25 Dose: 11.95 unit/kg/hr, 7.7 mls/hr Documented by: Levothyroxine Sodium (Synthroid) 100 mcg PO 0630 [facility] Stop: 08/29/19 06:31 Last Admin: 02/27/19 05:33 Dose: Not Given Documented by: Metoprolol Succinate (Toprol Xl) 50 mg PO DAILY@1200 TYE Stop: 08/28/19 12:01 Last Admin: 02/26/19 13:29 Dose: 50 mg Documented by: Naloxone HCl (Narcan) 0.4 mg IVP Q2MPRN PRN PRN Reason: SEE COMMENTS Stop: 08/27/19 23:34 Nitroglycerin (Nitroglycerin) 0.4 mg SL Q5MPRN PRN PRN Reason: Chest Pain Stop: 08/27/19 18:58 Last Admin: 02/25/19 19:08 Dose: 0.4 mg Documented by: Ondansetron HCl (Zofran) 4 mg IVP Q8H PRN PRN Reason: Nausea And Vomiting Stop: 08/27/19 23:34 Pantoprazole Sodium (Protonix) 40 mg IVP Q12H TYE Stop: 08/28/19 23:41 Last Admin: 02/26/19 23:15 Dose: 40 mg Documented by: Sucralfate (Carafate) 1 gm PO Q6HR TYE Stop: 08/28/19 00:01 Last Admin: 02/27/19 05:32 Dose: Not Given Documented by: - Imaging and Cardiology Echo: report reviewed - EKG Interpretation EKG results cardiology: other (12 hr tele AVG HR 84, SR) Consult Discharge Plan - Plan Referrals: Femi Harris MD [Primary Care Provider] -
--- NOTE | 2019-02-27 11:48 | Internal Med Progress Note ---
Hospitalist Progress Note - Encounter Date of Encounter: 02/27/19 Time of Encounter: 10:25 - Subjective Interval History: Patient was seen this morning. She denied chest pain, shortness of breath or palpitation. She did not have any hematuria since yesterday night. She denied nausea/vomiting or abdominal pain. - Exam Vitals: Temp Pulse Resp BP Pulse Ox 97.8 F 63 14 149/87 95 02/27/19 11:14 02/27/19 11:14 02/27/19 11:14 02/27/19 11:14 02/27/19 11:14 Exam: Gen: Vitals noted. No acute distress. Appears comfortable. Eyes: anicteric sclerae, moist conjunctivae; no lid-lag; Pupils equal and reactive to light HENT: Atraumatic; oropharynx clear with moist mucous membranes and no mucosal ulcerations; normal hard and soft palate Neck: Trachea midline; supple, no thyromegaly or lymphadenopathy Cardiac: Normal rate but Irregular rhythm , +S1/S2. No JVD noted. Pulmonary: CTA bilaterally, no wheezes, rales or rhonchi, equal chest expansion Abdomen: soft, nontender, no guarding. No masses or hepatosplenomegaly MSK: ROM intact, no joint swelling noted Extremities: no edema, nontender calf Skin: Normal temperature, turgor; no rash, ulcers or subcutaneous nodules Neuro: moves all extremities, no focal deficits. Psych: Appropriate mood and behavior. A&Ox3 - Assessment and Plan (1) GABY (acute kidney injury) Current Visit: Yes Status: Resolved (2) Elevated troponin Current Visit: Yes Status: Resolved (3) Chest pain Current Visit: Yes Status: Resolved (4) DVT prophylaxis Current Visit: Yes Status: Acute (5) Hypothyroidism Current Visit: Yes Status: Chronic (6) S/P repair of paraesophageal hernia Current Visit: No Status: Chronic (7) Hypothyroidism Current Visit: Yes Status: Chronic (8) Gross hematuria Current Visit: Yes Status: Acute (9) Dysphagia Current Visit: Yes Status: Acute - Summary of Assessment and Plan Summary of Assessment and Plan: Ms. Parrihs is a 83 year old female with PMH of HTN, HLD, CAD, [place] s/p PCI in 2008 who presented with chest pain for 4 days, palpitation and shortness of breath. Her symptoms are managed as following: Elevated troponin/NSTEMI: - Likely typeII event however can't r/o type I. Repeat EKG today with no ST changes, SR with 1st degree HB. - Flat elevation with concerning EKG changes at presentation, however cardiology thinks his due to tachycardia. - On heparin drip, aspirin, Lipitor and BB. limited echo without a change in EF, tomorrow for stress test in 48 hours since she HAD V/Q at admission. CAD S/P PCI: - as above. Gross hematuria: resolved - Yesterday with slight drop in Hg, UA with RBC TNTC. - Urology consulted yesterday, Had previous reassuring hematuria work up, can follow up as outpatient. Dysphagia/ Odynophagia: - Chronic issue, had recent robotic hiatal hernia repair with Rocio fundoplication. Spoke with General surgery who did the procedure back in December, appreciate their recommendation. - Continue PPI and Carafate GABY: - resolved, likely from dehydration. - Check BMP tomorrow Hypokalemia: resolved Chronic back pain: - On morphine pump DVT prophylaxis: Heparin drip I reviewed independently all laboratory workup, pertinent images including x- rays and CT scans. I also reviewed independently and EKGs and my findings are in the body of my assessment and plan. I ordered the laboratory workup and images myself. I discussed finding with patient's, their families, RN's and consultants involved in the care of the patient. - Time Spent with Patient Total time spent is greater than 50% in coordination of care (as documented) at patient's floor/unit and/or counseling patient: Plan of Care Discussed with: patient Internal Medicine: Result - Labs CBC & Chem 7: 02/27/19 04:36 02/27/19 04:36 Labs: Short CBC 02/26/19 02/26/19 02/27/19 Range/Units 16:18 21:32 04:36 WBC 6.8 (4.3-11.1) K/mcL Hgb 10.8 L 10.7 L 11.2 L (11.5-15.4) g/dL Hct 34.2 L 32.8 L 35.8 (35.3-44.9) % Plt Count 176 (140-400) K/mcL BMP 02/27/19 04:36 Sodium 137 Potassium 3.9 Chloride 107 Carbon Dioxide 24 BUN 10 Creatinine 0.85 Glucose 100 Calcium 9.0 Urine 08/20/19 Range/Units 16:02 Urine Color Yellow (Yellow) Urine Clarity Cloudy A (Clear) Urine pH 7.5 (5.0-8.0) pH Units Ur Specific [place] 1.012 (1.010-1.025) Urine Protein Negative (Neg-Trace) mg/dL Urine Glucose (UA) Normal (Normal) mg/dL - ABG Interpretation ABG results: PT/INR, D-dimer PT 12.2 Seconds (9.4-12.1) H 02/25/19 19:15 Consult Discharge Plan - Plan Referrals: Femi Harris MD [Primary Care Provider] - ____ (3) Chest pain Qualifiers: Chest pain type: chest pain due to myocardial ischemia Ischemic chest pain type: unstable angina pectoris Qualified Code(s): I20.0 - Unstable angina (5) Hypothyroidism Qualifiers: Hypothyroidism type: unspecified Qualified Code(s): E03.9 - Hypothyroidism, unspecified (7) Hypothyroidism Qualifiers: Hypothyroidism type: acquired Qualified Code(s): E03.9 - Hypothyroidism, unspecified (9) Dysphagia Qualifiers: Dysphagia type: unspecified Qualified Code(s): R13.10 - Dysphagia, unspecified
[2019-02-27] MEDS: Metoprolol XL (24 HR) Succ 50 MG TAB.ER.24H PO SCH (11:59)
[2019-02-27] MEDS: Pantoprazole 40 MG VIAL IVP SCH ×2 (11:59→23:47)
--- NOTE | 2019-02-27 14:24 | Event Note ---
Date of Encounter: 02/27/19 Time of Encounter: 14:18 Ms. Parrish is s/p Robotic assisted Rocio Fundoplication with Dr. Leiva on 12/07/18. She is s/p EGD on 01/30/19 for continued dysphagia. She had esophageal ulcerations noted during her EGD. Her dysphagia has been a chronic issue which was present before her surgery and has not improved after her surgery. She has been on PPI therapy as well as carafate. No improvement noted in symptoms and ulcerations evident on scope. Dr. Blevins did see the patient as an outpatient on 02/20/19 and plans were made to repeat EGD with biopsies to evaluate causes for symptoms and ulcerations. I personally discussed with Dr. Blevins and he will plan to see the patient and perform EGD while inpatient, likely 02/28/19.
--- NOTE | 2019-02-27 18:09 | Electrocardiograph Report ---
[place] [id number] Test Date: 2019-02-27 Pat Name: Josselyn Parrish Department: 111 Room: 2NE32 Gender: F [employer]: [facility] : 1935 Requested By: Jan Shannon Order Number: [id number] Reading MD: Yann Crowe Measurements Intervals [place] Rate: 64 P: 64 [place]: 254 QRS: -43 QRSD: 107 T: 29 QT: 425 QTc: 435 Interpretive Statements SINUS RHYTHM WITH FIRST DEGREE AV BLOCK MARKED LEFT AXIS DEVIATION MINIMAL VOLTAGE CRITERIA FOR LVH, CONSIDER NORMAL VARIANT Poor R wave progression Electronically Signed On 02-27-2019 18:08:03 EDT by Yann Crowe
[2019-02-27] MEDS: Hydromorphone (Pf) [Hydromorphone Intrathecal Pump IT SCH (19:23)
[2019-02-27] MEDS: Magnesium Oxide 400 MG TABLET PO SCH (21:41)
[2019-02-28] MEDS ORDERED: Regadenoson 0.4 MG/5 ML SYRINGE IVP ONE (06:24)
[2019-02-28 07:34] LABS: Hematocrit 34.9 % (35.3-44.9); Hemoglobin 11.2 g/dL (11.5-15.4); Mean Corpuscular HGB Conc 32.1 g/dL (31.6-35.5); Mean Corpuscular Hemoglobin 31.1 pg (28.0-33.3); Mean Corpuscular Volume 96.9 fL (83.0-100.0); Mean Platelet Volume 11.2 fL (9.4-12.4); Platelet Count 144 K/mcL (140-400); Red Cell Distribution Width 14.2 % (11.5-14.5); White Blood Count 7.2 K/mcL (4.3-11.1)
[2019-02-28 08:02] LABS: BUN/Creatinine Ratio 13 (6-26); Blood Urea Nitrogen 11 mg/dL (8-23); Calcium 9.3 mg/dL (8.6-10.3); Carbon Dioxide 25 mEq/L (23-29); Chloride 101 mEq/L (98-107); Glucose 96 mg/dL (70-105); Osmolality,Calculated 279 (280-300); Potassium 3.6 mEq/L (3.5-5.1); Sodium 135 mEq/L (136-145); eGFR For African Americans > 60 (> 60); eGFR For Non-African Americans > 60 (> 60)
--- NOTE | 2019-02-28 08:54 | Gastroenterology Consult Note ---
<NichoGabriellaWayne C - Last Filed: 02/28/19 11:22> Date of Encounter: 02/28/19 Time of Encounter: 08:54 - Assessment and plan (1) Odynophagia Current Visit: Yes Status: Chronic Assessment and plan: Patient has chronic history of odynophagia She has had multiple EGDs demonstrating nonbleeding ulcers and gastritis Odynophagia has continued despite Rocio fundoplication and medical management She has been evaluated by gastroenterology on an outpatient basis and was anticipated for repeat EGD She is currently hospitalized for chest pain and cardiology evaluation, however continues to complain of odynophagia Gastroenterology evaluation was requested, plan is for EGD this afternoon to evaluate upper gastrointestinal tract Risks including bleeding/infection/perforation were explained to the patient, she agrees to plan of care Patient is currently nothing by mouth, on Carafate and Protonix, recommend continuing these medications Further recommendations per Dr. Blevins (2) Constipation Current Visit: Yes Status: Chronic Assessment and plan: Patient complains of chronic and continued constipation She normally takes Colace which helps but has recently resorted to taking MiraLAX Yesterday she strained significantly to have a bowel movement and experienced bright red blood when wiping She denies any melena or hematochezia, blood when wiping is likely secondary to straining I anticipate this can be relieved with continued medical management and will not require urgent colonoscopy Further recommendations per Dr. Blevins Qualifiers: Constipation type: unspecified constipation type Qualified Code(s): K59.00 - Constipation, unspecified - Time Spent With Patient Total time spent is greater than 50% in coordination of care (as documented) at patient's floor/unit and/or counseling patient: GI History of Present Illness - Data of Consult Patient: known to practice within the last 3 years Consult date: 02/28/19 Requesting Physician: Madelyn Aguiar - Consult Narrative Reason for consult: odynophagia History of present illness: Ms. Prarish is a 83 year old female with a past medical history of hypertension, hyperlipidemia, coronary artery disease, SD status post PCI in 2008, Rocio fundoplication. She was recently admitted in November 2018 for Rocio fundoplication performed by Dr. Leiva with general surgery. Surgery was completed without incident, patient had repeat EGD by Dr. Leiva in January 2019. She was symptomatic with odynophagia prior to Rocio fundoplication and post-procedurally. Repeat EGD in January demonstrated ulcerations. She was referred to gastroenterology service where she followed up outpatient in the office earlier this month. Plan at that time was to schedule repeat EGD for evaluation of ulceration and odynophagia. She is currently admitted for chest pain and cardiology evaluation. While in the hospital gastroenterology consultation was requested for odynophagia. On my evaluation patient confirms the above history. She states she has been having consistent odynophagia associated with both solids and liquids and pills. She states that any time she swallows she has pain during the entire swallowing process but most acutely in the lower chest/epigastrium. She denies specific dysphagia, stating that nothing feels as if it gets stuck but that is just very painful. She also saw reports some nausea after by mouth intake but denies vomiting. She also reports constipation and he denies diarrhea, she denies melena or hematochezia but does report blood after wiping secondary to straining. I explained to her that we are concerned for continued ulceration of her esophagus and possible gastritis, and that our p mahesh is to perform repeat EGD this afternoon to evaluate the upper gastrointestinal tract. She stated she understood and agreed with the plan of care. Past Med Surg Social Fam HX - Past Medical History Medical history: renal disease, GERD, hyperlipidemia, hypertension, asthma, other, thyroid disease, coronary artery disease, CHF Additional medical history: coronary artery disease,barretts Psychiatric history: no psych history - Past Surgical History Surgical History: breast surgery, cholecystectomy, hysterectomy, knee replacement, orthopedic, other, other, arthroscopy Additional surgical history: heart stent,bladder,head,foot - Social History Smoking Status: Never smoker Smokeless Tobacco Status: No Alcohol use: none Drug use: none - Family History Mother Living Status: Age at : 59 Father Living Status: Age at : 86 All systems PM: reviewed and no additional remarkable complaints except as stated - Constitutional Vitals: Temp Pulse Resp BP Pulse Ox 97.7 F 60 12 130/86 97 02/28/19 03:38 02/28/19 03:38 02/28/19 03:38 02/28/19 03:38 02/28/19 03:38 General appearance: Present: A&O X 3, no acute distress - Eye Eye exam: Present: EOMI, PERRL - Respiratory Respiratory exam: Present: CTAB - Cardiovascular Cardiovascular exam: Present: RRR Additional comments: Frequent premature contractions - GI/Abdominal GI/Abdominal exam: Present: pulsatile mass (Significantly palpable, auditory and visible central abdominal pulse), soft, no peritoneal signs. Absent: firm, guarding, rigid, tenderness - Extremities Exam Extremities exam: Present: radial pulses palpable and symmetrical. Absent: ped al edema - Skin Skin exam: Present: dry, warm Results - Labs CBC & Chem 7: 02/28/19 06:37 02/28/19 06:37 Labs: Last Result 02/28/19 06:37 Calcium 9.3 Entire Visit 02/28/19 06:37 Hgb 11.2 L Hct 34.9 L - ABG ABG results: PT/INR, D-dimer PT 12.2 Seconds (9.4-12.1) H 02/25/19 19:15 Consult Discharge Plan - Plan Referrals: Femi Harris MD [Primary Care Provider] - 03/06/19 3:00 pm (patient is to see Dr. Harris and 3:00 on the . The is at 3:30) <Kain Blevins - Last Filed: 02/28/19 14:02> Date of Encounter: 02/28/19 Time of Encounter: 13:00 - Time Spent With Patient Total time spent is greater than 50% in coordination of care (as documented) at patient's floor/unit and/or counseling patient: GI History of Present Illness - Data of Consult Requesting Physician: Madelyn Aguiar - Consult Narrative History of present illness: Ms. Parrish is a 83 year old female - Constitutional Vitals: Temp Pulse Resp BP Pulse Ox 97.7 F 62 16 164/81 97 02/28/19 13:30 02/28/19 13:30 02/28/19 13:30 02/28/19 13:30 02/28/19 13:30 Results - Labs CBC & Chem 7: 02/28/19 06:37 02/28/19 06:37 Labs: Last Result 02/28/19 06:37 Calcium 9.3 Entire Visit 02/28/19 06:37 Hgb 11.2 L Hct 34.9 L - ABG ABG results: PT/INR, D-dimer PT 12.2 Seconds (9.4-12.1) H 02/25/19 19:15 - Attending Attestation I have personally performed a face to face evaluation on this patient. I have reviewed and agree with the care plan. History and Exam by me shows: Patient seen complaining of having trouble/painful swallowing. On examination: Alert and awake not in distress. Assessment: Patient with a history of persistent erosive/ulcerated esophagitis status post Rocio fundoplication by Dr. Leiva but still patient is having persistent symptom and recent EGD by Dr. Leiva still shows persistent ulceration. Recommendation: Repeat EGD with biopsies of the ulcer to make sure patient does not have any underlying Crohn disease or any other infectious etiology for her persistent ulceration. We will recommend stopping oral magnesium potassium and vitamin D. Continue PPI along with the oral Carafate liquid
[2019-02-28] MEDS: Aspirin 81 MG TAB.CHEW PO SCH (10:28)
[2019-02-28] MEDS: Magnesium Oxide 400 MG TABLET PO SCH ×2 (10:29→21:30)
[2019-02-28] MEDS: Heparin 25,000 UNIT/250 ML D5W 25,000 UNIT/250 ML IV.SOLN IVC SCH (10:46)
--- NOTE | 2019-02-28 10:58 | Cardiology Progress Note ---
Date of Encounter: 02/28/19 Time of Encounter: 10:56 Assessment and Plan (1) Elevated troponin Current Visit: No Status: Acute Troponin negative, then 0.04, 0.04 in setting of tachycardia. Suspect demand ischemia, nondiagnostic for ACS. On heparin gtt. TTE EF 65-70%. Repeat ECG improved from admission. Nuclear stress test negative for ischemia or infarct. Cardiology signing off. Reconsult PRN. (2) Chest pain Current Visit: Yes Status: Resolved Reports chest pain, heart palpitations and shortness of breath for the past 3-4 days which worsened 3 hours prior to arrival. SVT on admission. Pain is described as pressure in the middle of the chest without radiation and worsens with exertion. TTE 12/05/18: LVEF 60-65%. Normal LV chamber size and function. Mild cLVH. Mild LVDD. Normal RV structure and function. Mild MR. No phtn. Nuclear stress test 11/30/16: Gated EF >70%. Perfusion imaging negative for ischemia or infarct. Hx CAD and PCI in 2008. Repeat TTE EF preserved, nuclear stress test today negative for ischemia or infarct. No further inpt cardiac testing warranted. Qualifiers: Chest pain type: chest pain due to myocardial ischemia Ischemic chest pain type: unstable angina pectoris Qualified Code(s): I20.0 - Unstable angina (3) Abnormal EKG Current Visit: No Status: Acute Concern of ECG changes on admission. Appears to be early repolarization, SVT rate 140s. Currently SR on tele. Continue BB. Repeat ECG improved and back to baseline. (4) CAD (coronary artery disease) Current Visit: No Status: Chronic Hx PCI. ASA, Statin, BB. Qualifiers: Coronary Disease-Associated Artery/Lesion type: [place] artery [place] vs. transplanted heart: [place] heart Associated angina: with unspecified angina Qualified Code(s): I25.119 - Atherosclerotic heart disease of [place] coronary artery with unspecified angina pectoris (5) SVT (supraventricular tachycardia) Current Visit: Yes Status: Acute SVT on admission ECG. Now resolved without recurrence. Continue BB. Discussion w patient/family: The assessment and plan as outlined above was discussed with the patient and/or family members who expressed understanding and agreement. All questions were answered. Thank you for involving us in the care of your patient. Please call with any questions. I will discuss all the above with Dr. Call and make changes as necessary. Subjective Principal diagnosis: Elevated troponin Interval history: No acute cardiac complaints this AM. Reports intermittent epigastric discomfort, but denies chest pain. Objective Vital Signs Temp Pulse Resp BP Pulse Ox 02/28/19 03:38 97.7 F 60 12 130/86 97 02/27/19 23:54 97.7 F 62 12 156/87 97 02/27/19 21:45 97 02/27/19 19:39 97.6 F 68 16 166/65 97 02/27/19 15:27 97.8 F 61 14 156/79 96 02/27/19 11:14 97.8 F 63 14 149/87 95 Intake and Output 02/27/19 02/28/19 02/28/19 23:59 07:59 15:59 Intake Total 115.5 / 115.5 0 / 115.5 Output Total 250 / 250 Balance -134.5 / -134.5 0 / -134.5 Intake: IV Fluids 115.5 / 115.5 Heparin 25,000 UNIT/250 ML D5W 115.5 / 115.5 25,000 unit In 250 ml @ 12 UNIT /KG/HR 7.729 mls/hr IVC .Q24H [facility] Rx#:[id number] Oral 0 / 0 Output: Urine 250 / 250 Other: Meal Breakfast Percent of Meal Consumed 0% Weight 64.5 kg General: Conversant, No Apparent Distress HEENT: Atraumatic, Normocephaly, Mucus Membranes Moist Neck: No JVD, Normal carotid pulses Cardiac: Reg Rate and Rhythm, Normal S1 and S2, No Murmur Lungs: Normal Breath Sounds, No Wheeze, Rales, Rhonchi Neuro: Alert and responsive, No focal deficits noted Abdomen: Soft, Non-Tender Skin: No rashes noted on visualized skin Musculoskeletal: No Chest Wall Tenderness Extremities: No Clubbing, No Cyanosis, No Edema, Normal Pulses Results 02/28/19 06:37 02/28/19 06:37 Lab Results 02/28/19 02/28/19 06:37 06:37 WBC 7.2 Hgb 11.2 L Hct 34.9 L Plt Count 144 Sodium 135 L Potassium 3.6 Chloride 101 Carbon Dioxide 25 BUN 11 Creatinine 0.88 Glucose 96 Calcium 9.3 Short CBC 02/28/19 Range/Units 06:37 WBC 7.2 (4.3-11.1) K/mcL Hgb 11.2 L (11.5-15.4) g/dL Hct 34.9 L (35.3-44.9) % Plt Count 144 (140-400) K/mcL BMP 02/28/19 Range/Units 06:37 Sodium 135 L (136-145) mEq/L Potassium 3.6 (3.5-5.1) mEq/L Chloride 101 (98-107) mEq/L Carbon Dioxide 25 (23-29) mEq/L BUN 11 (8-23) mg/dL Creatinine 0.88 (0.60-1.20) mg/dL Glucose 96 (70-105) mg/dL Calcium 9.3 (8.6-10.3) mg/dL Active Medications Aspirin (Aspirin) 81 mg PO DAILY [facility] Stop: 08/28/19 10:40 Last Admin: 02/28/19 10:28 Dose: Not Given Documented by: Atorvastatin Calcium (Lipitor) 40 mg PO HS [facility] Stop: 08/27/19 23:46 Last Admin: 02/27/19 21:41 Dose: 40 mg Documented by: Diphenhydramine HCl (Benadryl) 25 mg PO HS PRN PRN Reason: Insomnia Stop: 08/28/19 20:48 Last Admin: 02/26/19 20:57 Dose: 25 mg Documented by: Docusate Sodium (Colace) 100 mg PO DAILY PRN; Protocol PRN Reason: Constipation Stop: 08/28/19 09:01 Last Admin: 02/27/19 08:40 Dose: 100 mg Documented by: Hydralazine HCl (Hydralazine) 20 mg IVP Q6H PRN PRN Reason: Hypertension Stop: 08/27/19 23:42 Last Admin: 02/26/19 20:57 Dose: 20 mg Documented by: Levothyroxine Sodium (Synthroid) 100 mcg PO 0630 [facility] Stop: 08/29/19 06:31 Last Admin: 02/28/19 05:27 Dose: 100 mcg Documented by: Magnesium Oxide (Mag-Ox) 400 mg PO BID [facility] Stop: 08/29/19 21:01 Last Admin: 02/28/19 10:29 Dose: Not Given Documented by: Metoprolol Succinate (Toprol Xl) 50 mg PO DAILY@1200 [facility] Stop: 08/28/19 12:01 Last Admin: 02/27/19 11:59 Dose: 50 mg Documented by: Naloxone HCl (Narcan) 0.4 mg IVP Q2MPRN PRN PRN Reason: SEE COMMENTS Stop: 08/27/19 23:34 Nitroglycerin (Nitroglycerin) 0.4 mg SL Q5MPRN PRN PRN Reason: Chest Pain Stop: 08/27/19 18:58 Last Admin: 02/25/19 19:08 Dose: 0.4 mg Documented by: Ondansetron HCl (Zofran) 4 mg IVP Q8H PRN PRN Reason: Nausea And Vomiting Stop: 08/27/19 23:34 Pantoprazole Sodium (Protonix) 40 mg IVP Q12H [facility] Stop: 08/28/19 23:41 Last Admin: 02/27/19 23:47 Dose: 40 mg Documented by: Pharmacy Profile Note (Patient Taking Own Medication) 1 each IT AD [facility] Stop: 08/29/19 12:16 Last Admin: 02/27/19 19:23 Dose: Not Given Documented by: Sucralfate (Carafate) 1 gm PO Q6HR [facility] Stop: 08/28/19 00:01 Last Admin: 02/28/19 05:27 Dose: 1 gm Documented by: - Imaging and Cardiology Stress Test: report reviewed - EKG Interpretation EKG results cardiology: other (12 hr tele AVG HR 55, SR) Consult Discharge Plan - Plan Referrals: Femi Harris MD [Primary Care Provider] - 03/06/19 3:00 pm (patient is to see Dr. Harris and 3:00 on the . The is at 3:30)
[2019-02-28] MEDS ORDERED: *HR* Propofol 200 MG/20 ML VIAL IVP ONE (11:17)
[2019-02-28] MEDS ORDERED: Lidocaine -MPF 2% 2 ML VIAL ONE (11:18)
[2019-02-28] MEDS ORDERED: *HR* Metoprolol 5 MG/5 ML VIAL IVP ONE (11:58)
--- NOTE | 2019-02-28 12:24 | Anesthesia Evaluation PreOp ---
Date of Encounter: 02/28/19 Time of Encounter: 12:30 - Past History Planned Operation: EGD for odynophagia Cardiac History: OK, CHF, HTN, Hyperlipidemia, Cardiac Stent, Other (admitted to hospital on 02/26 with angina. Was felt NOT to have an OK, just angina that responded to nitroglycerin and IV fluids.) Pulmonary History: Asthma Other Medical History: Renal (renal insufficiency), Thyroid (hypothyroid), GERD Alcohol Use: none Drug use: none Medications and Allergies Cholecalciferol (D-3) [Vitamin D] 5,000 unit PO DAILY 11/29/16 [History] Hydralazine HCl 50 mg PO TID 11/29/16 [History] Aspirin 81 mg PO DAILY #30 tab.chew 12/05/16 [Rx] Atorvastatin [Lipitor] 40 mg PO HS #30 tablet 12/05/16 [Rx] Metoprolol XL (24 HR) Succ [Toprol Xl] 50 mg PO DAILY #30 tab.er.24h 12/05/16 [Rx] Acetaminophen/Butalbital/Caffe [Fioricet] 1 tab PO DAILY PRN 12/07/18 [History] Dexlansoprazole [Dexilant] 60 mg PO BID 12/07/18 [History] Docusate [Colace] 100 mg PO DAILY PRN 12/07/18 [History] Furosemide [Lasix] 20 mg PO DAILY 12/07/18 [History] Hydromorphone (Pf) [Hydromorphone Intrathecal Pump] 1 each IT AD 12/07/18 [History] Levothyroxine Sodium [Euthyrox] 125 mcg PO DAILY 12/07/18 [History] Magnesium Oxide [Magnesium] 400 mg PO BID 12/07/18 [History] Potassium Chloride [Klor-Con 10] 10 meq PO BID 12/07/18 [History] Sucralfate [Carafate] 1 gm PO Q6HR 30 Days #120 oral.susp 01/30/19 [Rx] Metoclopramide HCl 5 mg PO TID 02/25/19 [History] Ondansetron ODT [Zofran ODT] 4 mg SL Q4HR PRN 02/25/19 [History] Allergy/AdvReac Type Severity Reaction Status Date / Time topiramate [From Topamax] Allergy Hives Verified 11/21/18 16:40 - Meds/Allergy Pre-op Review Medications Reviewed: Yes Allergies Reviewed: Yes Beta Blockers on Current Med List: Yes (currently on hold by cardiologists) Anesthesia Results - Labs 02/28/19 06:37 02/28/19 06:37 - Imaging Additional studies: EF 60-65% with mild elevated diastolic dysfunction Anesthesia Exam Selected Entries 02/28/19 11:55 Temperature 97.5 F L Pulse Rate 59 Respiratory Rate 12 Blood Pressure 174/70 O2 Sat by Pulse Oximetry 98 Weight: 65 kg NPO (# of Hours): over 8 hours - HEENT Teeth: Edentulous Oral Opening: Greater than 3 - Cardiac Rhythm: Regular Murmur: None - Pulmonary Breath Sounds: bilateral Clear Respiratory Effort: Symmetrical Anesthesia Assess/Plan ASA Score: 3 Level of consciousness: Cooperative Anesthetic Plan: MAC Monitoring Plan: Standard Monitors Recovery Plan: Other (Discussed MAC anesthesia, agreed to proceed.)
[2019-02-28] MEDS: Hydromorphone (Pf) [Hydromorphone Intrathecal Pump IT SCH (13:31)
[2019-02-28] MEDS: Metoprolol XL (24 HR) Succ 50 MG TAB.ER.24H PO SCH (13:35)
[2019-02-28] MEDS: Pantoprazole 40 MG VIAL IVP SCH (13:35)
--- NOTE | 2019-02-28 14:45 | Internal Med Progress Note ---
Hospitalist Progress Note - Encounter Date of Encounter: 02/28/19 Time of Encounter: 10:25 - Subjective Interval History: No major events overnight. Patient was seen this a.m. sHe denied fever, chills or night sweats. sHe has no nausea, vomiting or abdominal pain. Patient denied chest pain, shortness of breath or palpitation. - Exam Vitals: Temp Pulse Resp BP Pulse Ox 97.4 F L 56 16 189/79 97 02/28/19 14:08 02/28/19 14:08 02/28/19 14:08 02/28/19 14:08 02/28/19 14:08 Exam: Gen: Vitals noted. No acute distress. Appears comfortable. Eyes: anicteric sclerae, moist conjunctivae; no lid-lag; Pupils equal and reactive to light HENT: Atraumatic; oropharynx clear with moist mucous membranes and no mucosal ulcerations; normal hard and soft palate Neck: Trachea midline; supple, no thyromegaly or lymphadenopathy Cardiac: Normal rate but Irregular rhythm , +S1/S2. No JVD noted. Pulmonary: CTA bilaterally, no wheezes, rales or rhonchi, equal chest expansion Abdomen: soft, nontender, no guarding. No masses or hepatosplenomegaly MSK: ROM intact, no joint swelling noted Extremities: no edema, nontender calf Skin: Normal temperature, turgor; no rash, ulcers or subcutaneous nodules Neuro: moves all extremities, no focal deficits. Psych: Appropriate mood and behavior. A&Ox3 - Assessment and Plan (1) Elevated troponin Current Visit: Yes Status: Resolved (2) GABY (acute kidney injury) Current Visit: Yes Status: Resolved (3) Hypothyroidism Current Visit: Yes Status: Chronic (4) S/P repair of paraesophageal hernia Current Visit: No Status: Chronic (5) Hypothyroidism Current Visit: Yes Status: Chronic (6) Gross hematuria Current Visit: Yes Status: Resolved (7) Dysphagia Current Visit: Yes Status: Acute (8) Esophagitis Current Visit: Yes Status: Acute (9) DVT prophylaxis Current Visit: Yes Status: Acute - Summary of Assessment and Plan Summary of Assessment and Plan: Ms. Parrish is a 83 year old female with PMH of HTN, HLD, CAD, [place] s/p PCI in 2008 who presented with chest pain for 4 days, palpitation and shortness of breath. Her symptoms are managed as following: Elevated troponin/NSTEMI: - Likely typeII event, EKG with no ST changes, SR with 1st degree HB. Flat elevation of troponin. - On Aspirin, Lipitor and BB. limited echo without a change in EF, stress test is negative for acute ischemic changes. CAD S/P PCI: - as above. Dysphagia/ Odynophagia: - Chronic issue, had recent robotic hiatal hernia repair with Rocio fundoplication. EGD today with findings of severe esophagitis, medium sized h iatal hernia. - Continue PPI and Carafate Gross hematuria: resolved - Urology consulted, Had previous reassuring hematuria work up, can follow up as outpatient. GABY: - resolved, likely from dehydration. - Check BMP tomorrow Hypokalemia: resolved Chronic back pain: - On morphine pump DVT prophylaxis: Heparin SC - Time Spent with Patient Total time spent is greater than 50% in coordination of care (as documented) at patient's floor/unit and/or counseling patient: Plan of Care Discussed with: patient Internal Medicine: Result - Labs CBC & Chem 7: 02/28/19 06:37 02/28/19 06:37 Labs: Short CBC 02/28/19 Range/Units 06:37 WBC 7.2 (4.3-11.1) K/mcL Hgb 11.2 L (11.5-15.4) g/dL Hct 34.9 L (35.3-44.9) % Plt Count 144 (140-400) K/mcL BMP 02/28/19 06:37 Sodium 135 L Potassium 3.6 Chloride 101 Carbon Dioxide 25 BUN 11 Creatinine 0.88 Glucose 96 Calcium 9.3 - ABG Interpretation ABG results: PT/INR, D-dimer PT 12.2 Seconds (9.4-12.1) H 02/25/19 19:15 Consult Discharge Plan - Plan Referrals: Femi Harris MD [Primary Care Provider] - 03/06/19 3:00 pm (patient is to see Dr. Harris and 3:00 on the . The is at 3:30) (3) Hypothyroidism Qualifiers: Hypothyroidism type: unspecified Qualified Code(s): E03.9 - Hypothyroidism, unspecified (5) Hypothyroidism Qualifiers: Hypothyroidism type: acquired Qualified Code(s): E03.9 - Hypothyroidism, unspecified (7) Dysphagia Qualifiers: Dysphagia type: esophageal phase Qualified Code(s): R13.10 - Dysphagia, unspecified
[2019-02-28] MEDS: *HR* Heparin 5,000 UNIT/ML VIAL SQ SCH (18:52)
[2019-02-28] MEDS ORDERED: Tetrahydrozoline 15 ML BOTTLE RIGHT EYE PRN (18:53)
[2019-03-01] MEDS: Pantoprazole 40 MG VIAL IVP SCH (00:27)
[2019-03-01] MEDS: *HR* Heparin 5,000 UNIT/ML VIAL SQ SCH (06:31)
[2019-03-01] MEDS: Aspirin 81 MG TAB.CHEW PO SCH (09:41)
[2019-03-01] MEDS: Magnesium Oxide 400 MG TABLET PO SCH (09:41)
--- NOTE | 2019-03-01 10:33 | Discharge Summary ---
- NOTES TO OUTPATIENT PROVIDER Notes to Outpatient Provider: Patient was admitted for chest pain and was treated for NSTEMI with negative stress test. She also had dysphagia and odynophagia and upper endoscopy was done by GI with findings positive for severe esophagitis. Follow-up on upper endoscopy biopsy results. I also decreased her levothyroxine giving her low TSH so follow TSH in 6 weeks. Orders not resulted at time of discharge: Pending orders 02/26/19 14:44 Culture,Blood [BC] Routine 02/28/19 13:09 Surgical Pathology [PTH] Routine Date of Encounter: 03/01/19 Time of Encounter: 09:35 - Discharge Diagnosis (1) Elevated troponin Priority: Primary Status: Resolved (2) GABY (acute kidney injury) Priority: Secondary Status: Resolved (3) Hypothyroidism Priority: Secondary Status: Chronic Qualifiers: Hypothyroidism type: unspecified Qualified Code(s): E03.9 - Hypothyroidism, unspecified (4) S/P repair of paraesophageal hernia Priority: Secondary Status: Chronic (5) Hypothyroidism Priority: Secondary Status: Chronic Qualifiers: Hypothyroidism type: acquired Qualified Code(s): E03.9 - Hypothyroidism, unspecified (6) Gross hematuria Priority: Secondary Status: Resolved (7) Dysphagia Priority: Secondary Status: Acute Qualifiers: Dysphagia type: esophageal phase Qualified Code(s): R13.10 - Dysphagia, unspecified (8) Esophagitis Priority: Secondary Status: Acute Hospital course: Ms. Parrish is a 83 year old female with PMH of HTN, HLD, CAD, ID s/p PCI in 200 9, recent obotic hiatal hernia repair with Rocio fundoplication who presented with chest pain for 4 days, palpitation and shortness of breath. Patient had mild troponin elevation for which cardiology service was consulted and patient had no change on her echo and negative stress test. Her TSH was low for which her levothyroxine dose was decreased. Patient developed one episode of gross hematuria with stable hemoglobin while being on heparin drip and urology service was consulted and no further workup was recommended while inpatient. She had the chronic dysphagia and odynophagia and GI was consulted and had EGD revealed severe esophagitis with moderate size hiatal hernia. Today, patient is hemodynamically stable, asymptomatic. She will be discharged home in stable condition. She has an appointment in 5 days with her PCP to set home health services for her Discharge discussed with: patient - Time Spent with Patient Total time spent providing and/or coordinating discharge services: 45 minutes - Discharge Medications Prescriptions: New Pantoprazole Sodium [Protonix] 40 mg PO BID #120 tablet. Levothyroxine [Synthroid] 100 mcg PO 0630 #30 tablet Continued Cholecalciferol (D-3) [Vitamin D] 5,000 unit PO DAILY Hydralazine HCl 50 mg PO TID Aspirin 81 mg PO DAILY #30 tab.chew Atorvastatin [Lipitor] 40 mg PO HS #30 tablet Metoprolol XL (24 HR) Succ [Toprol Xl] 50 mg PO DAILY #30 tab.er.24h Hydromorphone (Pf) [Hydromorphone Intrathecal Pump] 1 each IT AD Docusate [Colace] 100 mg PO DAILY PRN PRN Reason: Constipation Potassium Chloride [Klor-Con 10] 10 meq PO BID Dexlansoprazole [Dexilant] 60 mg PO BID Acetaminophen/Butalbital/Caffe [Fioricet] 1 tab PO DAILY PRN PRN Reason: Migraine Headache Magnesium Oxide [Magnesium] 400 mg PO BID Furosemide [Lasix] 20 mg PO DAILY Sucralfate [Carafate] 1 gm PO Q6HR 30 Days #120 oral.susp Metoclopramide HCl 5 mg PO TID Ondansetron ODT [Zofran ODT] 4 mg SL Q4HR PRN PRN Reason: Nausea And Vomiting Discontinued Levothyroxine Sodium [Euthyrox] 125 mcg PO DAILY Home Medications: Cholecalciferol (D-3) [Vitamin D] 5,000 unit PO DAILY 11/29/16 [History] Hydralazine HCl 50 mg PO TID 11/29/16 [History] Aspirin 81 mg PO DAILY #30 tab.chew 12/05/16 [Rx] Atorvastatin [Lipitor] 40 mg PO HS #30 tablet 12/05/16 [Rx] Metoprolol XL (24 HR) Succ [Toprol Xl] 50 mg PO DAILY #30 tab.er.24h 12/05/16 [Rx] Acetaminophen/Butalbital/Caffe [Fioricet] 1 tab PO DAILY PRN 12/07/18 [History] Dexlansoprazole [Dexilant] 60 mg PO BID 12/07/18 [History] Docusate [Colace] 100 mg PO DAILY PRN 12/07/18 [History] Furosemide [Lasix] 20 mg PO DAILY 12/07/18 [History] Hydromorphone (Pf) [Hydromorphone Intrathecal Pump] 1 each IT AD 12/07/18 [History] Magnesium Oxide [Magnesium] 400 mg PO BID 12/07/18 [History] Potassium Chloride [Klor-Con 10] 10 meq PO BID 12/07/18 [History] Sucralfate [Carafate] 1 gm PO Q6HR 30 Days #120 oral.susp 01/30/19 [Rx] Metoclopramide HCl 5 mg PO TID 02/25/19 [History] Ondansetron ODT [Zofran ODT] 4 mg SL Q4HR PRN 02/25/19 [History] Levothyroxine [Synthroid] 100 mcg PO 0630 #30 tablet 03/01/19 [Rx] Pantoprazole Sodium [Protonix] 40 mg PO BID #120 tablet. 03/01/19 [Rx] Allergies/Adverse Reactions: Allergy/AdvReac Type Severity Reaction Status Date / Time topiramate [From Topamax] Allergy Hives Verified 11/21/18 16:40 Date of admission: 02/25/19 22:05 Primary care physician: Femi Harris MD Consults: 02/26/19 02:13 Consult to Nutrition [CONS] Routine Comment: Consulting Provider: NUTRITION Reason for Dietary Consult: MST Score 02/26/19 05:56 Consult to Cardiology [CONS] Routine Comment: Consulting Provider: Cardiology Laura Reason for Consult: chest pain with EKG changes Call Completed: Yes 02/26/19 13:24 Consult to Gastroenterology [CONS] Routine Consulting Provider: Gastroenterology Laura Reason for Consult: Has hernia repair recently. Has dysphagia and speech therapy recommended GI consult Call Completed: No 02/26/19 16:37 Consult to Urology [CONS] Routine Consulting Provider: Urology Stokes Reason for Consult: hematuria, gross Call Completed: No 02/27/19 09:32 Consult to Surgery [CONS] Routine Consulting Provider: Surgery Laura Surgical Reason for Consult: Robotic hiatal hernia repair and Rocio fundoplication on December, she has dysphagia and odynophagia with regurg. Call Completed: Yes 02/28/19 10:43 Consult to Occupational Therapy [CONS] Routine Comment: Evaluate, develop and implement POC Reason for Consult: evaluate the need for skilled placement Does patient have active BEDREST order?: No Is patient medically & hemodynamically stable?: Yes Consult to Physical Therapy [CONS] Routine Comment: Evaluate, develop and implement POC Reason for Consult: evaluate the need for skilled placement Does patient have active BEDREST order?: No Is patient medically & hemodynamically stable?: Yes - Constitutional Vitals: Temp Pulse Resp BP Pulse Ox 98.4 F 58 12 157/72 97 03/01/19 07:28 03/01/19 07:28 03/01/19 07:28 03/01/19 07:28 03/01/19 07:28 General appearance: Present: cooperative, A&O X 3, pleasant, no acute distress Exam: Gen: Vitals noted. No acute distress. Appears comfortable. Eyes: anicteric sclerae, moist conjunctivae; no lid-lag; Pupils equal and reactive to light HENT: Atraumatic; oropharynx clear with moist mucous membranes and no mucosal ulcerations; normal hard and soft palate Neck: Trachea midline; supple, no thyromegaly or lymphadenopathy Cardiac: Normal rate but Irregular rhythm , +S1/S2. No JVD noted. Pulmonary: CTA bilaterally, no wheezes, rales or rhonchi, equal chest expansion Abdomen: soft, nontender, no guarding. No masses or hepatosplenomegaly MSK: ROM intact, no joint swelling noted Extremities: no edema, nontender calf Skin: Normal temperature, turgor; no rash, ulcers or subcutaneous nodules Neuro: moves all extremities, no focal deficits. Psych: Appropriate mood and behavior. A&Ox3 - Patient Status Disposition: Home, Self-Care Condition: Good Functional capacity at discharge: uses cane/walker Overall status at discharge: patient is back to baseline - Discharge Instructions Follow Up With: Femi Harris MD [Primary Care Provider] - 03/06/19 3:00 pm (patient is to see Dr. Harris and 3:00 on the . The is at 3:30) - Diet and Activity Activity: increase activity as tolerated Diet: low salt diet
[2019-03-01 16:06] VITALS: BP 169/98
== END 2019-03-01 16:11 | disposition home or self-care (01) ==
LOC: EMEROOARM 18:39 → ICNU 18:39 → SUATTDRO 22:05 → 2NENU 23:30
PROVIDERS: ADMIT Internal Medicine Nephrology; ATTEND Internal Medicine

== ENCOUNTER 2019-03-26 16:07 | Inpatient (IN) ==
[2019-03-26] MEDS ORDERED: 0.9 % Sodium Chloride 1,000 ML IVC ONE ×2 (16:36→20:34)
[2019-03-26 17:11] LABS: Basophils % 0.2 %; Hematocrit 38.9 % (35.3-44.9); Hemoglobin 13.1 g/dL (11.5-15.4); Lymphocytes # 0.5 K/mcL (0.6-4.6); Lymphocytes % 8.6 %; Mean Corpuscular HGB Conc 33.7 g/dL (31.6-35.5); Mean Corpuscular Hemoglobin 31.1 pg (28.0-33.3); Mean Corpuscular Volume 92.4 fL (83.0-100.0); Mean Platelet Volume 10.6 fL (9.4-12.4); Monocytes % 0.6 %; Neutrophils # 4.7 K/mcL (1.6-8.9); Platelet Count 134 K/mcL (140-400); Red Blood Count 4.21 M/mcL (3.82-4.97); Red Cell Distribution Width 13.5 % (11.5-14.5); Segmented Neutrophils % 89.6 %; White Blood Count 5.2 K/mcL (4.3-11.1)
[2019-03-26 17:19] LABS: INR 1.1; Prothrombin Time 12.7 Seconds (9.4-12.1)
[2019-03-26 17:22] LABS: Activated Partial Thrombo Time 28.6 Seconds (26.0-36.0)
[2019-03-26 17:30] LABS: Alanine Aminotransferase 217 Units/L (7-52); Albumin 3.7 g/dL (3.5-5.7); Albumin/Globulin Ratio 1.6 (1.1-2.2); Alkaline Phosphatase 153 Units/L (34-104); Aspartate Amino Transferase 453 Units/L (13-39); BUN/Creatinine Ratio 20 (6-26); Bilirubin,Direct 1.2 mg/dL (0.0-0.2); Bilirubin,Indirect 0.7 mg/dL (0.0-1.2); Bilirubin,Total 1.9 mg/dL (0.3-1.0); Blood Urea Nitrogen 26 mg/dL (8-23); Calcium 9.8 mg/dL (8.6-10.3); Carbon Dioxide 26 mEq/L (23-29); Chloride 96 mEq/L (98-107); Globulin 2.3 g/dL (2.4-3.5); Glucose 114 mg/dL (70-105); Magnesium 1.6 mg/dL (1.6-2.6); Osmolality,Calculated 280 (280-300); Phosphorous 1.1 mg/dL (2.7-4.5); Potassium 3.3 mEq/L (3.5-5.1); Sodium 132 mEq/L (136-145); eGFR For African Americans 49 (> 60); eGFR For Non-African Americans 40 (> 60)
[2019-03-26 18:06] LABS: Bilirubin,Urine Negative (Negative); Blood,Urine Small (Negative); Clarity,Urine Clear (Clear); Color,Urine Yellow (Yellow); Glucose,Urine (UA) Normal (Normal); Ketones,Urine Negative (Negative); Leukocyte Esterase,Urine Negative (Negative); Nitrite,Urine Negative (Negative); Protein,Urine 100 mg/dL (Neg-Trace); Specific Gravity,Urine 1.011 (1.010-1.025); Urobilinogen,Urine Normal (Normal)
[2019-03-26 18:08] LABS: Bacteria,Urine Many per hpf (None-Few); Hyaline Casts,Urine None Seen per lpf (None-Few); RBC,Urine 0-3 per hpf (0-3); Squamous Epithelial Cell,Urine Many per lpf (None-Few)
[2019-03-26] MEDS ORDERED: Piperacillin/Tazobactam 3.375 GM in 0.9 % Sodium Chloride Mini Bag 100 ML IVPB ONE (19:05)
[2019-03-26] MEDS ORDERED: cefTRIAXone 1,000 MG in Water for inj. (sterile) 10 ML IVP ONE (19:05)
--- NOTE | 2019-03-26 20:53 | Emergency Department Note ---
Disposition Clinical Impression: Transaminitis, Elevated troponin UTI (urinary tract infection) Qualifiers: Urinary tract infection type: acute cystitis Hematuria presence: without hematuria Qualified Code(s): N30.00 - Acute cystitis without hematuria Sepsis Qualifiers: Sepsis type: sepsis due to unspecified organism Sepsis acute organ dysfunction status: unspecified Qualified Code(s): A41.9 - Sepsis, unspecified organism Disposition: Admitted As Inpatient Condition: Fair Time of Disposition: 21:03 General Adult HPI - General Chief complaint: ED General Medical Stated complaint: General illness Time Seen by Provider: 03/26/19 16:10 Source: patient, EMS Mode of arrival: EMS Limitations: altered mental status Nursing Notes Reviewed: Yes Vital Signs Reviewed: Yes - History of Present Illness HPI Narrative: 83-year-old female with significant past medical history of coronary artery disease and congestive heart failure presenting to the emergency department chief complaint of altered mental status. According to family members at bedside patient has been weaker than normal and more tired for the past 2 days. Today her family member went to go see her and she was very tired, somnolent and they were concerned. According to patient's son yesterday she was complaining of dysuria and was concerned for UTI as she has had multiple these in the past. The patient arrived she is febrile. No known fevers at home. Patient somnolent and unable to provide any further history of present illness. Pain Scale: 8 - Related Data Home Medications Medication Instructions Recorded Confirmed Cholecalciferol (D-3) [Vitamin D] 5,000 unit PO DAILY 11/29/16 02/25/19 Hydralazine HCl 50 mg PO TID 11/29/16 02/25/19 Acetaminophen/Butalbital/Caffe 1 tab PO DAILY PRN 12/07/18 02/25/19 [Fioricet] Dexlansoprazole [Dexilant] 60 mg PO BID 12/07/18 02/25/19 Docusate [Colace] 100 mg PO DAILY PRN 12/07/18 02/25/19 Furosemide [Lasix] 20 mg PO DAILY 12/07/18 02/25/19 Hydromorphone (Pf) [Hydromorphone 1 each IT AD 12/07/18 02/25/19 Intrathecal Pump] Magnesium Oxide [Magnesium] 400 mg PO BID 12/07/18 02/25/19 Metoclopramide HCl 5 mg PO TID 02/25/19 02/25/19 Ondansetron ODT [Zofran ODT] 4 mg SL Q4HR PRN 02/25/19 02/25/19 Previous Rx's Medication Instructions Recorded Aspirin 81 mg PO DAILY #30 tab.chew 12/05/16 Atorvastatin [Lipitor] 40 mg PO HS #30 tablet 12/05/16 Metoprolol XL (24 HR) Succ [Toprol 50 mg PO DAILY #30 tab.er.24h 12/05/16 Xl] Sucralfate [Carafate] 1 gm PO Q6HR 30 Days #120 oral.susp 01/30/19 Levothyroxine [Synthroid] 100 mcg PO 0630 #30 tablet 03/01/19 Pantoprazole Sodium [Protonix] 40 mg PO BID #120 tablet. 03/01/19 Allergies Allergy/AdvReac Type Severity Reaction Status Date / Time topiramate [From Topamax] Allergy Hives Verified 11/21/18 16:40 All systems ED: reviewed and negative except as stated. Constitutional: Reports: fever Eyes: Reports: as per HPI ENT ED: Reports: as per HPI Cardiovascular: Reports: as per HPI Respiratory: Denies: cough Gastrointestinal: Reports: as per HPI Genitourinary: Reports: dysuria Musculoskeletal: Reports: as per HPI Integumentary: Reports: as per HPI Neurological: Reports: as per HPI Psychiatric: Reports: as per HPI Endocrine: Reports: as per HPI Hematological/Lymphatic: Reports: as per HPI Allergic/Immunologic: Reports: as per HPI Past Medical History - Past Medical History Attestation: Yes The following information was validated with the patient. Medical history: Reports: renal disease, GERD, hyperlipidemia, hypertension, asthma, other, thyroid disease, coronary artery disease, CHF Surgical history: Reports: breast surgery, cholecystectomy, hysterectomy, knee replacement, orthopedic, other, other, arthroscopy Psychiatric history: Reports: no psych history - Social History Smoking Status: Never smoker Smokeless Tobacco Status: No Alcohol use: Reports: none Drug use: Reports: none Physical Exam - General Limitations: no limitations General appearance: alert, in no apparent distress - Head Head exam: atraumatic, normocephalic, normal inspection - Eye Eye exam: Absent: scleral icterus - ENT ENT exam: mucous membranes dry - Chest Chest inspection: Present: symmetric chest wall rise - Respiratory Respiratory exam: Present: normal lung sounds bilaterally. Absent: respiratory distress, wheezes - Cardiovascular Cardiovascular exam: Present: normal rhythm, tachycardia - Abdominal Exam Abdominal exam: Present: soft, Non-Tender. Absent: distention, guarding, rebound - Female Gate Manager present during exam: Yes External Exam: Present: normal external exam - Psychiatric Psychiatric exam: Present: normal affect - Skin Skin exam: Present: warm Course Course Narrative: 83-year-old female coming in for altered mental status. In the room she is june nolent but arousable. Concern for UTI per patient family history. Patient found to be febrile at 101 and tachycardic in the low 100s. Concerning for sepsis at this time. We will perform labs, blood cultures, urine analysis and CT of the head. Disposition most likely admission the pending results. Patient agrees with this plan along with family members at bedside. - Reevaluation(s) Reevaluation #1: Patient's laboratory analysis shows elevated AST, ALT, alkaline phosphatase along with an elevated troponin at 0.1. No EKG changes. Concern for sepsis and end organ damage at this time. We will provide the patient with Zosyn and Rocephin. Patient remains somnolent but arousable and hemodynamically stable after 2 L of fluid. Due to the elevated liver enzymes right upper quadrant ultrasound was completed that showed some mild dilatation of the biliary tree but no obstruction or lesions. At this time will plan to admit the patient for further evaluation and treatment of her sepsis. I spoke with the hospitalist on-call who agrees to accept the patient at this time. Vital Signs Temperature 101.4 F H 03/26/19 16:16 Pulse Rate 104 03/26/19 16:16 Respiratory Rate 14 03/26/19 16:16 Blood Pressure 133/78 03/26/19 16:16 O2 Sat by Pulse Oximetry 99 03/26/19 16:16 Temperature 98.5 F 03/26/19 20:46 Pulse Rate 78 03/26/19 21:14 Respiratory Rate 16 03/26/19 19:28 Blood Pressure 99/54 03/26/19 21:14 O2 Sat by Pulse Oximetry 100 03/26/19 21:14 Oxygen Delivery Oxygen Delivery Room Air Medical Decision Making - Lab Data Result diagrams: 03/26/19 16:47 03/26/19 16:47 Lab Results 03/26/19 03/26/19 03/26/19 Range/Units 16:47 16:47 16:47 WBC 5.2 (4.3-11.1) K/mcL RBC 4.21 (3.82-4.97) M/mcL Hgb 13.1 (11.5-15.4) g/dL Hct 38.9 (35.3-44.9) % MCV 92.4 (83.0-100.0) fL MCH 31.1 (28.0-33.3) pg MCHC 33.7 (31.6-35.5) g/dL RDW 13.5 (11.5-14.5) % Plt Count 134 L (140-400) K/mcL MPV 10.6 (9.4-12.4) fL Immature Gran % 1.0 (0-4) % Seg Neutrophils % 89.6 % Lymphocytes % 8.6 % Monocytes % 0.6 % Eosinophils % 0.0 % Basophils % 0.2 % Neutrophils # 4.7 (1.6-8.9) K/mcL Lymphocytes # 0.5 L (0.6-4.6) K/mcL Monocytes # 0.0 (0.0-1.3) K/mcL Eosinophils # 0.0 (0.0-0.6) K/mcL Basophils # 0.0 (0.0-0.2) K/mcL PT 12.7 H (9.4-12.1) Seconds INR 1.1 APTT 28.6 (26.0-36.0) Seconds Sodium 132 L (136-145) mEq/L Potassium 3.3 L (3.5-5.1) mEq/L Chloride 96 L (98-107) mEq/L Carbon Dioxide 26 (23-29) mEq/L BUN 26 H (8-23) mg/dL Creatinine 1.27 H (0.60-1.20) mg/dL Est GFR ( Amer) 49 L (> 60) Est GFR (Non-Af Amer) 40 L (> 60) BUN/Creatinine Ratio 20 (6-26) Glucose 114 H (70-105) mg/dL Calculated Osmolality 280 (280-300) Lactic Acid (0.5-2.2) mmol/L Calcium 9.8 (8.6-10.3) mg/dL Phosphorus 1.1 L (2.7-4.5) mg/dL Magnesium 1.6 (1.6-2.6) mg/dL Total Bilirubin 1.9 H (0.3-1.0) mg/dL Direct Bilirubin 1.2 H (0.0-0.2) mg/dL Indirect Bilirubin 0.7 (0.0-1.2) mg/dL AST 453 H (13-39) Units/L ALT 217 H (7-52) Units/L Alkaline Phosphatase 153 H (34-104) Units/L Troponin I 0.10 H* (< 0.04) ng/mL Serum Total Protein 6.0 L (6.4-8.9) g/dL Albumin 3.7 (3.5-5.7) g/dL Globulin 2.3 L (2.4-3.5) g/dL Albumin/Globulin Ratio 1.6 (1.1-2.2) Urine Color (Yellow) Urine Clarity (Clear) Urine pH (5.0-8.0) pH Units Ur Specific Ronco (1.010-1.025) Urine Protein (Neg-Trace) mg/dL Urine Glucose (UA) (Normal) mg/dL Urine Ketones (Negative) mg/dL Urine Blood (Negative) Urine Nitrite (Negative) Urine Bilirubin (Negative) Urine Urobilinogen (Normal) mg/dL Ur Leukocyte Esterase (Negative) Urine Microscopic RBC (0-3) per hpf Urine Microscopic WBC (0-3) per hpf Ur Squamous Epith Cells (None-Few) per lpf Urine Bacteria (None-Few) per hpf Hyaline Casts (None-Few) per lpf Ur Culture Indicated? (NO) 03/26/19 03/26/19 03/26/19 Range/Units 16:47 17:54 20:50 WBC (4.3-11.1) K/mcL RBC (3.82-4.97) M/mcL Hgb (11.5-15.4) g/dL Hct (35.3-44.9) % MCV (83.0-100.0) fL MCH (28.0-33.3) pg MCHC (31.6-35.5) g/dL RDW (11.5-14.5) % Plt Count (140-400) K/mcL MPV (9.4-12.4) fL Immature Gran % (0-4) % Seg Neutrophils % % Lymphocytes % % Monocytes % % Eosinophils % % Basophils % % Neutrophils # (1.6-8.9) K/mcL Lymphocytes # (0.6-4.6) K/mcL Monocytes # (0.0-1.3) K/mcL Eosinophils # (0.0-0.6) K/mcL Basophils # (0.0-0.2) K/mcL PT (9.4-12.1) Seconds INR APTT (26.0-36.0) Seconds Sodium (136-145) mEq/L Potassium (3.5-5.1) mEq/L Chloride (98-107) mEq/L Carbon Dioxide (23-29) mEq/L BUN (8-23) mg/dL Creatinine (0.60-1.20) mg/dL Est GFR ( Amer) (> 60) Est GFR (Non-Af Amer) (> 60) BUN/Creatinine Ratio (6-26) Glucose (70-105) mg/dL Calculated Osmolality (280-300) Lactic Acid 2.6 H 1.7 (0.5-2.2) mmol/L Calcium (8.6-10.3) mg/dL Phosphorus (2.7-4.5) mg/dL Magnesium (1.6-2.6) mg/dL Total Bilirubin (0.3-1.0) mg/dL Direct Bilirubin (0.0-0.2) mg/dL Indirect Bilirubin (0.0-1.2) mg/dL AST (13-39) Units/L ALT (7-52) Units/L Alkaline Phosphatase (34-104) Units/L Troponin I (< 0.04) ng/mL Serum Total Protein (6.4-8.9) g/dL Albumin (3.5-5.7) g/dL Globulin (2.4-3.5) g/dL Albumin/Globulin Ratio (1.1-2.2) Urine Color Yellow (Yellow) Urine Clarity Clear (Clear) Urine pH 7.0 (5.0-8.0) pH Units Ur Specific [place] 1.011 (1.010-1.025) Urine Protein 100 H (Neg-Trace) mg/dL Urine Glucose (UA) Normal (Normal) mg/dL Urine Ketones Negative (Negative) mg/dL Urine Blood Small H (Negative) Urine Nitrite Negative (Negative) Urine Bilirubin Negative (Negative) Urine Urobilinogen Normal (Normal) mg/dL Ur Leukocyte Esterase Negative (Negative) Urine Microscopic RBC 0-3 (0-3) per hpf Urine Microscopic WBC 5-15 H (0-3) per hpf Ur Squamous Epith Cells Many H (None-Few) per lpf Urine Bacteria Many H (None-Few) per hpf Hyaline Casts None Seen (None-Few) per lpf Ur Culture Indicated? YES A (NO) Critical Care Time Critical Care Time: Yes Total Critical Care Time: 35 Attestation: CRITICAL CARE TIME OF 35 MINUTES PERFORMING THIS INDIVIDUAL OUTSIDE OF SEPARATELY BILLABLE PROCEDURES. THIS INCLUDES BEDSIDE EVALUATION, INTERPRETATION OF EKG AND LAB TESTS AND CONSULTATIONS. Attestation Statement - Attestation Attestation: I examined this patient and my medical decision-making was reviewed with the Resident Physician. I agree with the documented findings, disposition and treatment plan as described except to the extent set forth below. Patient is somewhat tired appearing in emergency room, somewhat of a poor historian as well. She denies any abdominal pain. The patient states that she apparently did have some painful urination couple days ago, she was at the fever. The patient has had no cough, she has clear breath sounds and examination, mildly tachycardic on examination, focally neurologically intact, no complaints of headache, no neck pain. The patient has no other rashes noted. Patient appears to have possibly urosepsis. The patient did have a CAT scan that showed evidence of stranding around the kidney, this is concerning for infection. The patient at this time is going to be admitted, the patient did have elevated LFTs, the patient did have an ultrasound that did not show any acute findings. The patient also did have a CT of the head secondary to some confusion she was having however this is most likely secondary to infection. Patient was treated with broad-spectrum antibiotics here in emergency room, she was given several liters of IV fluids. The patient is going to be admitted and otherwise critical but overall stable condition. I do agree with the resident's interpretation of the patient's EKG.
--- NOTE | 2019-03-26 22:25 | Internal Med History&Physical ---
<Luba Henry - Last Filed: 03/27/19 03:39> Date of Encounter: 03/27/19 Time of Encounter: 22:25 Internal Medicine - H&P: HPI Chief complaint: Weakness Admitted From: Emergency Dept Plans for Post Hospital Care: Transfer [facility] Facility History of present illness: Ms. Parrish is a 83 year old female with past medical history of CAD, hypertension, asthma, Gerd, renal disease who presented to [facility] from home due to weakness. The patient is fatigued and there is no family at the bedside to get history, hence some of history is taken from medical records. The patient reported that today she suddenly felt nauseous but did not vomit. Additionally, she has had dysuria for the past 2 days with increased urinary frequency. Apparently, the patient's family was concerned because they noted that she had been more tired and weak the past couple of days which progressed. Then when she complained of dysuria they were concerned for a UTI since she has had them in the past and brought her into the ED for evaluation. She denied recent grayson catheterization or ureteral procedure. The patient denies fever, chills, skin rash, itching, chest pain, new shortness of breath, cough, sputum production, a bdominal pain, diarrhea. Patient denies smoking, alcohol use, drug use. In the ED they were told by patient and family that she wanted everything done and to be a full code. In the ED initial vitals were temperature 101.4F, HR 104, RR 14, BP 133/78, 99% SpO2 on room air. WBC 5.2, hemoglobin 13.1, platelets 134, INR 1.1, sodium 132, potassium 3.3, creatinine 1.27, lactic acid 2.6, phosphorus 1.1, magnesium 1.6, total bilirubin 1.9, direct bilirubin 1.2, and direct bilirubin 0.7, AST 453, ALT 217, alkaline phosphatase 153, troponin 0.1. -Urinalysis: protein 100, WBC 5-15. -Head CT negative for acute intracranial normality. -Pelvis x-ray showing severe osteoarthritis of the right hip. -Abdomen/pelvis CT showing prominent perinephric fat stranding along with urothelial thickening. Intra-and extrahepatic biliary dilation status post cholecystectomy. Thickening and irregularity of the cervix and upper vagina new compared to previous exam. -Liver ultrasound showing intra-and extrahepatic biliary ductal dilation, may be related to prior cholecystectomy. No coledocholithiasis or obstructing lesions. -In the ED the patient was given 2L IVF, Zosyn, ceftriaxone, acetaminophen for sepsis with concerns for UTI. Blood and urine cultures were collected. Past Med Surg Social Fam HX - Past Medical History Source: old records reviewed Medical history: renal disease, GERD, hyperlipidemia, hypertension, asthma, other, thyroid disease, coronary artery disease, CHF Additional medical history: coronary artery disease,barretts Psychiatric history: no psych history - Past Surgical History Surgical History: breast surgery, cholecystectomy, hysterectomy, knee replacement, orthopedic, other, other, arthroscopy Additional surgical history: heart stent,bladder,head,foot, pain pump in place - Social History Smoking Status: Never smoker Smokeless Tobacco Status: No Alcohol use: none Drug use: none - Family History Mother Living Status: Father Living Status: Internal Medicine - H&P: Meds Cholecalciferol (D-3) [Vitamin D] 5,000 unit PO DAILY 11/29/16 [History] Hydralazine HCl 50 mg PO TID 11/29/16 [History] Aspirin 81 mg PO DAILY #30 tab.chew 12/05/16 [Rx] Atorvastatin [Lipitor] 40 mg PO HS #30 tablet 12/05/16 [Rx] Metoprolol XL (24 HR) Succ [Toprol Xl] 50 mg PO DAILY #30 tab.er.24h 12/05/16 [Rx] Acetaminophen/Butalbital/Caffe [Fioricet] 1 tab PO DAILY PRN 12/07/18 [History] Dexlansoprazole [Dexilant] 60 mg PO BID 12/07/18 [History] Docusate [Colace] 100 mg PO DAILY PRN 12/07/18 [History] Furosemide [Lasix] 20 mg PO DAILY 12/07/18 [History] Hydromorphone (Pf) [Hydromorphone Intrathecal Pump] 1 each IT AD 12/07/18 [History] Magnesium Oxide [Magnesium] 400 mg PO BID 12/07/18 [History] Sucralfate [Carafate] 1 gm PO Q6HR 30 Days #120 oral.susp 01/30/19 [Rx] Metoclopramide HCl 5 mg PO TID 02/25/19 [History] Ondansetron ODT [Zofran ODT] 4 mg SL Q4HR PRN 02/25/19 [History] Levothyroxine [Synthroid] 100 mcg PO 0630 #30 tablet 03/01/19 [Rx] Pantoprazole Sodium [Protonix] 40 mg PO BID #120 tablet. 03/01/19 [Rx] predniSONE [PredniSONE] See Taper PO TAPER 03/26/19 [History] Allergy/AdvReac Type Severity Reaction Status Date / Time topiramate [From Topamax] Allergy Hives Verified 11/21/18 16:40 All Systems PM: A 10-system review of systems was performed and is negative for pertinent findings except as documented above in the HPI. - Constitutional Constitutional: no chills, no fever(s), no malaise - EENT Eyes: no change in vision - Cardiovascular Cardiovascular ROS IM: no chest pain, no edema, no palpitations - Respiratory Respiratory: no cough, no dyspnea, no wheezing, no excessive phlegm production - Gastrointestinal Gastrointestinal: no abdominal pain, no diarrhea, no nausea, no vomiting - Genitourinary Genitourinary: dysuria, urinary frequency - Musculoskeletal Musculoskeletal ROS IM: no muscle cramps, no muscle weakness - Integumentary Integumentary IM: no rash, no skin ulcer - Neurological Neurological ROS: no dizziness, no headache(s) - Constitutional Vitals: Temp Pulse Resp BP Pulse Ox 97.3 F L 90 14 97/41 100 03/26/19 21:57 03/26/19 21:57 03/26/19 21:57 03/26/19 21:57 03/26/19 22:02 Exam: Gen.: Vitals noted. No acute distress. AAOx2 (person and place) HEENT: oropharynx clear, Normocephalic, atraumatic, no scleral icterus Cardiac: RRR, systolic murmur, +S1/S2 Pulmonary: CTA bilaterally, no wheezes, rales or rhonchi, equal chest expansion Abdomen: soft, nontender, Bowel sounds noted, no guarding Back: mild right CVA throughout. MSK: no joint swelling noted Extremities: no BLE edema, nontender calf, no cyanosis or clubbing Neuro: A&Ox2, moves all extremities, no focal deficits Psych: Appropriate mood and behavior Internal Med - H&P Results - Labs CBC & Chem 7: 03/26/19 16:47 03/26/19 16:47 Labs: Short CBC 03/26/19 Range/Units 16:47 WBC 5.2 (4.3-11.1) K/mcL Hgb 13.1 (11.5-15.4) g/dL Hct 38.9 (35.3-44.9) % Plt Count 134 L (140-400) K/mcL Neutrophils # 4.7 (1.6-8.9) K/mcL BMP 03/26/19 16:47 Sodium 132 L Potassium 3.3 L Chloride 96 L Carbon Dioxide 26 BUN 26 H Creatinine 1.27 H Glucose 114 H Calcium 9.8 Cardiac Enzymes 03/26/19 Range/Units 16:47 Troponin I 0.10 H* (< 0.04) ng/mL Liver Function 03/26/19 Range/Units 16:47 Total Bilirubin 1.9 H (0.3-1.0) mg/dL Direct Bilirubin 1.2 H (0.0-0.2) mg/dL AST 453 H (13-39) Units/L ALT 217 H (7-52) Units/L Alkaline Phosphatase 153 H (34-104) Units/L Albumin 3.7 (3.5-5.7) g/dL Urine 03/26/19 Range/Units 17:54 Urine Color Yellow (Yellow) Urine Clarity Clear (Clear) Urine pH 7.0 (5.0-8.0) pH Units Ur Specific [place] 1.011 (1.010-1.025) Urine Protein 100 H (Neg-Trace) mg/dL Urine Glucose (UA) Normal (Normal) mg/dL - Impressions ITS Impressions Pelvis X-Ray 03/26/19 17:22 IMPRESSION: Severe osteoarthritis of the right hip. D/ / Shaq Carmichael MD / Shaq Carmichael MD Interpreting Provider: Shaq Carmichael MD Head CT 03/26/19 17:58 IMPRESSION: No acute intracranial abnormality. Diffuse atrophic changes with findings suggesting chronic microvascular ischemia D/ / Raoul Cadena MD / Raoul Cadena MD Interpreting Provider: Raoul Cadena MD Abdomen/Pelvis CT 03/26/19 18:49 IMPRESSION: Prominent left perinephric fat stranding along with urothelial thickening. Urinary tract infection on the left is likely. Correlation with urinalysis recommended. There is intra and extrahepatic biliary dilation. Some of that may be reservoir effect status post cholecystectomy. However, correlate with any clinical evidence of biliary obstruction. Thickening and irregularity of the cervix and the upper vagina, which appears new when compared to the previous exam. Correlation with physical exam recommended. D/ / Steven Wolfe MD / Steven Wolfe MD Interpreting Provider: Steven Wolfe MD Liver Ultrasound 03/26/19 20:37 IMPRESSION: 1. Prior cholecystectomy. 2. Intra and extrahepatic biliary ductal dilatation which may be related to prior cholecystectomy. No choledocholithiasis or obstructing lesions are evident. MRCP could be performed for further evaluation if clinically warranted. D/ / 03/26/2019 20:43:35 Shaq Carmichael MD / [place] Interpreting Provider: Shaq Carmichael MD - Assessment and Plan (1) Sepsis Current Visit: Yes Status: Acute Assessment and plan: Patient presenting mean sepsis criteria with 2 SIRS: 101.4F, HR 104. -Etiology for sepsis is unclear at this time however patient is reporting dysuria for the past couple days concerning for UTI but urinalysis is inconsistent with this but she received abx in ED prior to UA. She has very mild right CVA tenderness but CT shows some fat stranding along left kidney and not the right. So no overt high suspicion for pyelonephritis at this time. She has elevated transaminases and bilirubin levels status post cholecystectomy and liver ultrasound is not sure obstruction and patient does not have any other findings on physical exam concerning for obstruction as she does not have abdominal pain. Consider bacteremia. Possible consideration of the new thickening of the cervix and upper vagina. It is also noted that patient has pr ednisone taper on home medication list which shows that was started on 03/18/2019 for dosing of 30 mg for 10 days and then 20 mg for 10 days. Patient may have an adrenal insufficiency if she had been not taking the prednisone. It is unknown at this time why she is taking the prednisone will have to talk with family when they come to the hospital tomorrow. In the ED the patient was given 2L IVF, Z osyn, ceftriaxone, acetaminophen for sepsis with concerns for UTI. Blood and urine cultures were collected. -WBC 5.2, lactic acid 2.6 -total bilirubin 1.9, direct bilirubin 1.2, and direct bilirubin 0.7, AST 453, ALT 217, alkaline phosphatase 153 -Urinalysis: protein 100, WBC 5-15. -Head CT negative for acute intracranial normality. -Pelvis x-ray showing severe osteoarthritis of the right hip. -Abdomen/pelvis CT showing prominent left perinephric fat stranding along with urothelial thickening. Intra-and extrahepatic biliary dilation status post cholecystectomy. Thickening and irregularity of the cervix and upper vagina new compared to previous exam. -Liver ultrasound showing intra-and extrahepatic biliary ductal dilation, may be related to prior cholecystectomy. No coledocholithiasis or obstructing lesions. plan: -continue 500ml IVF bolus. Patient is our received 2L IVF which meets fluid resuscitation for sepsis 30ml/kg. -continue Zosyn for now as source of infection is unclear. -await urine culture -await blood culture -Tylenol PRN fever Qualifiers: Sepsis type: sepsis due to unspecified organism Sepsis acute organ dysfunction status: unspecified Qualified Code(s): A41.9 - Sepsis, unspecified organism (2) Adrenal insufficiency Current Visit: Yes Status: Acute Assessment and plan: Concern for possible adrenal insufficiency of the patient has prednisone on her home medication list. Upon review of medication list it had been started on 03/18/2019 to take prednisone 30 mg for 10 days and then 20 mg for 10 days. The patient has been hypotensive despite fluids and increased weakness. She may not have been taking her prednisone as prescribed. plan -will give dexamethasone 4 mg IV once -will do a standard high dose ACTH stimulation test was giving cosyntropin then measure serum cortisol immediately before and 30 and 60 minutes after. (3) UTI (urinary tract infection) Current Visit: Yes Status: Acute Assessment and plan: Patient reporting dysuria with symptoms concerning for a UTI, however urinalysis is inconsistent but may be due to patient getting abx prior to UA. Abdomen CT that showed left perinephric fat stranding along with urothelial thickening but she does not have left CVA tenderness. Instead she has slight right CVA tenderness in the setting of chronic back pain. Not highly concerning for pyelonephritis. She has history of UTI in the past. -Urinalysis: protein 100, WBC 5-15. -Abdomen/pelvis CT showing prominent left perinephric fat stranding along with urothelial thickening. Thickening and irregularity of the cervix and upper vagina new compared to previous exam. plan: -continue zosyn for now and await urine culture. -Urine culture ordered Qualifiers: Urinary tract infection type: acute cystitis Hematuria presence: without hematuria Qualified Code(s): N30.00 - Acute cystitis without hematuria (4) Hypokalemia Current Visit: No Status: Acute Assessment and plan: Patient presented with hypokalemia potassium 3.3. This may be secondary to poor oral intake and patient taking diuretics. -Replete potassium with potassium phosphate as phosphorus is also low. Magnesium 1.6. -Continue to monitor potassium -magnesium repleted (5) Transaminitis Current Visit: Yes Status: Acute Assessment and plan: Patient with elevated LFTs. She denies history of alcohol use. Compared to prior labs this is new. The elevated transaminases are in the setting of sepsis and hypotension, which might have caused decreased perfusion to the liver. No physical evidence of biliary obstruction as the patient does not have abdominal pain, jaundice, scleral icterus. -total bilirubin 1.9, direct bilirubin 1.2, and direct bilirubin 0.7, AST 453, ALT 217, alkaline phosphatase 153 -Abdomen/pelvis CT showing prominent left perinephric fat stranding along with urothelial thickening. Intra-and extrahepatic biliary dilation status post cholecystectomy. Thickening and irregularity of the cervix and upper vagina new compared to previous exam. -Liver ultrasound showing intra-and extrahepatic biliary ductal dilation, may be related to prior cholecystectomy. No coledocholithiasis or obstructing lesions. plan: -will continue with IV fluids -will check in acetaminophen level -will recheck and monitor LFTs in a.m. labs (6) Weakness Current Visit: Yes Status: Acute Assessment and plan: Patient having increased weakness according to family over the past few days. May be secondary to sepsis in infection from possible UTI. -Consult PT/OT (7) Elevated troponin Current Visit: No Status: Resolved Assessment and plan: Elevated troponin on admission. Patient denies chest pain. May be secondary to demand ischemia in the setting of sepsis. Do not suspect ACS. -Troponin 0.1 > 0.09 -EKG: HR 68, NSR, left axis deviation, LVH and T wave inversion in leads III and aVF. No ST changes. Similiar compared to prior EKG. -will trend troponin in monitor for chest pain (8) Low phosphate levels Current Visit: Yes Status: Acute Assessment and plan: Low phosphorus level of 1.1 on admission. This is likely secondary to poor oral intake. -Will replete phosphorus -will continue to monitor phosphorus level (9) CKD (chronic kidney disease) stage 3, GFR 30-59 ml/min Current Visit: Yes Status: Acute Assessment and plan: Patient is chronic kidney disease stage III. -Creatinine 1.27 she is at baseline plan -will continue to monitor serum creatinine and urine output -will avoid nephrotoxic agents and renal dose medications as needed -monitor I&O (10) CAD (coronary artery disease) Current Visit: No Status: Chronic Assessment and plan: Patient with history of CAD taking aspirin, atorvastatin, hydralazine, metoprolol, Lasix. Holding blood pressure medications at this time due to sepsis. Qualifiers: Coronary Disease-Associated Artery/Lesion type: [place] artery [place] vs. 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 (12) CHF (congestive heart failure) Current Visit: No Status: Acute Assessment and plan: HFpEF. -12/05/2018 TTE: EF= 60-65%, mild diastolic dysfunction, mild mitral regurgitation. -Patient takes metoprolol, Lasix, hydralazine however we are holding these medications as she is septic with hypotension -continue aspirin and atorvastatin -monitor I&O Qualifiers: Heart failure type: diastolic Heart failure chronicity: chronic Qualified Code(s): I50.32 - Chronic diastolic (congestive) heart failure (13) DVT prophylaxis Current Visit: No Status: Acute Assessment and plan: Heparin SQ - Time Spent With Patient Total time spent is greater than 50% in coordination of care (as documented) at patient's floor/unit and/or counseling patient: <Betsey Martinez A - Last Filed: 03/27/19 07:07> Date of Encounter: 03/27/19 Internal Medicine - H&P: HPI History of present illness: Ms. Parrish is a 83 year old female All Systems PM: A 10-system review of systems was performed and is negative for pertinent findings except as documented above in the HPI. - Constitutional Vitals: Temp Pulse Resp BP Pulse Ox 98.3 F 69 14 90/47 95 03/27/19 05:08 03/27/19 05:08 03/27/19 05:08 03/27/19 05:08 03/27/19 05:08 Internal Med - H&P Results - Labs CBC & Chem 7: 03/27/19 04:00 03/27/19 04:00 Labs: Short CBC 03/26/19 03/27/19 Range/Units 16:47 04:00 WBC 5.2 15.2 H D (4.3-11.1) K/mcL Hgb 13.1 10.2 L D (11.5-15.4) g/dL Hct 38.9 30.7 L (35.3-44.9) % Plt Count 134 L 82 L (140-400) K/mcL Neutrophils # 4.7 (1.6-8.9) K/mcL BMP 03/26/19 03/27/19 16:47 04:00 Sodium 132 L 134 L Potassium 3.3 L 3.9 Chloride 96 L 103 Carbon Dioxide 26 22 L BUN 26 H 27 H Creatinine 1.27 H 1.43 H Glucose 114 H 88 Calcium 9.8 8.4 L Cardiac Enzymes 03/26/19 03/26/19 Range/Units 16:47 23:44 Troponin I 0.10 H* 0.09 H* (< 0.04) ng/mL Liver Function 03/26/19 03/27/19 Range/Units 16:47 04:00 Total Bilirubin 1.9 H 1.9 H (0.3-1.0) mg/dL Direct Bilirubin 1.2 H 1.4 H (0.0-0.2) mg/dL AST 453 H 220 H (13-39) Units/L ALT 217 H 173 H (7-52) Units/L Alkaline Phosphatase 153 H 121 H (34-104) Units/L Albumin 3.7 2.9 L (3.5-5.7) g/dL Urine 03/26/19 Range/Units 17:54 Urine Color Yellow (Yellow) Urine Clarity Clear (Clear) Urine pH 7.0 (5.0-8.0) pH Units Ur Specific [place] 1.011 (1.010-1.025) Urine Protein 100 H (Neg-Trace) mg/dL Urine Glucose (UA) Normal (Normal) mg/dL - Impressions ITS Impressions Pelvis X-Ray 03/26/19 17:22 IMPRESSION: Severe osteoarthritis of the right hip. D/ / Shaq Carmichael MD / Shaq Carmichael MD Interpreting Provider: Shaq Carmichael MD Head CT 03/26/19 17:58 IMPRESSION: No acute intracranial abnormality. Diffuse atrophic changes with findings suggesting chronic microvascular ischemia D/ / Raoul Cadena MD / Raoul Cadena MD Interpreting Provider: Raoul Cadena MD Abdomen/Pelvis CT 03/26/19 18:49 IMPRESSION: Prominent left perinephric fat stranding along with urothelial thickening. Urinary tract infection on the left is likely. Correlation with urinalysis recommended. There is intra and extrahepatic biliary dilation. Some of that may be reservoir effect status post cholecystectomy. However, correlate with any clinical evidence of biliary obstruction. Thickening and irregularity of the cervix and the upper vagina, which appears new when compared to the previous exam. Correlation with physical exam recommended. D/ / Steven Wolfe MD / Steven Wolfe MD Interpreting Provider: Steven Wolfe MD Liver Ultrasound 03/26/19 20:37 IMPRESSION: 1. Prior cholecystectomy. 2. Intra and extrahepatic biliary ductal dilatation which may be related to prior cholecystectomy. No choledocholithiasis or obstructing lesions are evident. MRCP could be performed for further evaluation if clinically warranted. D/ / 03/26/2019 20:43:35 Shaq Carmichael MD / [place] Interpreting Provider: Shaq Carmichael MD - Assessment and Plan (1) Sepsis Current Visit: Yes Status: Acute Qualifiers: Sepsis type: sepsis due to unspecified organism Sepsis acute organ dysfunction status: unspecified Qualified Code(s): A41.9 - Sepsis, unspecified organism (2) Adrenal insufficiency Current Visit: Yes Status: Acute (3) UTI (urinary tract infection) Current Visit: Yes Status: Acute Qualifiers: Urinary tract infection type: acute cystitis Hematuria presence: without hematuria Qualified Code(s): N30.00 - Acute cystitis without hematuria (4) Hypokalemia Current Visit: No Status: Acute (5) Transaminitis Current Visit: Yes Status: Acute (6) Weakness Current Visit: Yes Status: Acute (7) Elevated troponin Current Visit: No Status: Resolved (8) Low phosphate levels Current Visit: Yes Status: Acute (9) CKD (chronic kidney disease) stage 3, GFR 30-59 ml/min Current Visit: Yes Status: Acute (10) CAD (coronary artery disease) Current Visit: No Status: Chronic Qualifiers: Coronary Disease-Associated Artery/Lesion type: [place] artery [place] vs. 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 I agree with plan of care as documented below by the resident with the following comments: [id number] encounter 9:45pm. The patient is a 83-year-old female with past medical history of severe CAD, chronic back pain on intrathecal Pump on chronic prednisone presented for severe lethargy. Patient reports very poor oral intake, and worsening lethargy and weakness. The patient's past medical surgi shreays family and social history. On exam dry mucous membranes, tachycardic, grade 2 systolic murmur, capillary Refill 6 seconds, CVA tenderness. Patient admitted for sepsis suspected source urinary currently on IV Zosyn. Source remain not clear thus will consult ID. While patient was admitted was noted to be hypotensive despite fluid resuscitation with suspected adrenal insufficiency due to chronic prednisone intake thus was given dexamethasone with cosyntropin test done thereafter. Blood pressure has improved significantly after steroid intake and consyntropin test was normal. Acute renal failure secondary to low oral intake- prerenal picture. IVF and recheck response. Nutrition consult for malnutrition.
[2019-03-26] MEDS ORDERED: Ondansetron ODT 4 MG TAB.RAPDIS SL PRN (22:39)
[2019-03-26] MEDS ORDERED: Naloxone 0.4 MG/ML INJ IVP PRN (22:39)
[2019-03-26] MEDS ORDERED: 0.9 % Sodium Chloride 500 ML IVC ONE (23:05)
[2019-03-26] MEDS ORDERED: Potassium Phosphate 44 MEQ in 0.9 % Sodium Chloride 250 ML IVPB ONE (23:26)
[2019-03-27 00:15] LABS: Acetaminophen < 10 mcg/mL (10-20)
[2019-03-27] MEDS ORDERED: Dexamethasone 4 MG/ML VIAL IVP ONE (01:27)
[2019-03-27] MEDS ORDERED: Cosyntropin 250 MCG/2 ML VIAL IVP ONE (02:34)
[2019-03-27 04:44] LABS: Mean Platelet Volume 11.1 fL (9.4-12.4)
[2019-03-27 04:46] LABS: Hematocrit 30.7 % (35.3-44.9); Hemoglobin 10.2 g/dL (11.5-15.4); Immature Platelets 5.2 % (1.1-6.1); Mean Corpuscular HGB Conc 33.2 g/dL (31.6-35.5); Mean Corpuscular Hemoglobin 31.4 pg (28.0-33.3); Mean Corpuscular Volume 94.5 fL (83.0-100.0); Red Blood Count 3.25 M/mcL (3.82-4.97); Red Cell Distribution Width 13.6 % (11.5-14.5); White Blood Count 15.2 K/mcL (4.3-11.1)
[2019-03-27 04:50] LABS: Platelet Count 82 K/mcL (140-400)
[2019-03-27 05:00] LABS: Phosphorous 4.1 mg/dL (2.7-4.5)
[2019-03-27 05:03] LABS: Albumin 2.9 g/dL (3.5-5.7); Albumin/Globulin Ratio 1.5 (1.1-2.2); Bilirubin,Direct 1.4 mg/dL (0.0-0.2); Bilirubin,Indirect 0.5 mg/dL (0.0-1.2); Bilirubin,Total 1.9 mg/dL (0.3-1.0); Calcium 8.4 mg/dL (8.6-10.3); Globulin 1.9 g/dL (2.4-3.5); Potassium 3.9 mEq/L (3.5-5.1); Total Protein 4.8 g/dL (6.4-8.9)
[2019-03-27] MEDS ORDERED: 0.9 % Sodium Chloride 1,000 ML IVC ONE (05:58)
[2019-03-27] MEDS ORDERED: Ringers Solution, Lactated 1,000 ML IVC SCH (06:00)
[2019-03-27 06:10] LABS: Basophils % 0.1 %; Eosinophils % 0.1 %; Immature Granulocytes % 7.2 % (0-4); Lymphocytes # 0.4 K/mcL (0.6-4.6); Lymphocytes % 2.8 %; Monocytes % 2.9 %; Segmented Neutrophils % 86.9 %
[2019-03-27 06:13] LABS: Monocytes # 0.4 K/mcL (0.0-1.3); Neutrophils # 13.2 K/mcL (1.6-8.9)
[2019-03-27] MEDS: *HR* Heparin 5,000 UNIT/ML VIAL SQ SCH ×3 (06:27→21:40)
[2019-03-27 06:35] LABS: Platelet Estimate Decreased (Normal)
[2019-03-27] MEDS: Piperacillin/Tazobactam 3.375 GM in 0.9 % Sodium Chloride Mini Bag 100 ML IVPB SCH ×3 (08:53→23:42)
[2019-03-27] MEDS: Aspirin 81 MG TAB.CHEW PO SCH (08:55)
--- NOTE | 2019-03-27 11:26 | Internal Med Progress Note ---
Hospitalist Progress Note - Encounter Date of Encounter: 03/27/19 Time of Encounter: 07:40 - Subjective Interval History: Patient seen and examined. States that she is feeling better compared to when she came in but admits that she still feels "sick'. Denies abdominal pain, fever, chills, nausea and vomiting. - Exam Vitals: Temp Pulse Resp BP Pulse Ox 36.5 C 68 14 109/60 97 03/27/19 11:00 03/27/19 11:00 03/27/19 11:00 03/27/19 11:00 03/27/19 11:00 Exam: GENERAL: Not in distress. Alert and Oriented MOUTH: Moist oral mucosa NECK:No JVD, No lymph nodes. CHEST AND LUNGS: Normal breath sounds, no wheezes or crackles HEART: S1 and S2 normal, no murmurs ABDOMEN: Soft, nontender, no organomegaly SKIN: Normal color, no rashes, no lesions EXTREMITIES: No deformity, no edema, no tenderness, no joint swelling or clubbing NEUROLOGICAL: Normal cognition, normal motor and sensory exam. - Assessment and Plan (1) Sepsis Current Visit: Yes Status: Acute Assessment and Plan: Patient has been afebrile overnight. WBC 15.2 (elevation likely due to IV steroids that patient received.) Source of infection likely the urinary tract. Awaiting blood an urine cultures. Continue IV antibiotics. (2) UTI (urinary tract infection) Current Visit: Yes Status: Acute Assessment and Plan: Patient presented with symptoms of a UTI. CT scan findings significant for left perinephric fat stranding. Urine cultures pending. Continue broad-spectrum antibiotics. (3) Hypokalemia Current Visit: No Status: Resolved Assessment and Plan: Potasium 3.9 this morning. Will monitor. (4) Transaminitis Current Visit: Yes Status: Acute Assessment and Plan: Elevation in liver enzymes likley due to severe hypotension with reduced hepatic perfusion. Liver enzymes are trending down: AST 220<453, ALT 173<217, ALP 121<153 No RUQ tenderness on exam. Will continue with gentle hydration. (5) Elevated troponin Current Visit: No Status: Resolved Assessment and Plan: Likely due to demand ischemia Troponin trending down. 0.10<0.09<0.08 Patient denies chest pain, palpitations and SOB. Will monitor. (6) Low phosphate levels Current Visit: Yes Status: Acute Assessment and Plan: Corrected. Now at 4.1 (7) CKD (chronic kidney disease) stage 3, GFR 30-59 ml/min Current Visit: Yes Status: Acute Assessment and Plan: Creatinine close to baseline. Will continue to monitor. (8) CAD (coronary artery disease) Current Visit: No Status: Chronic Assessment and Plan: Patient with history of CAD taking aspirin, atorvastatin, hydralazine, metoprolol, Lasix. Metoprolol and hydralazine on hold due to initial hypotension. (9) Presence of intrathecal pump Current Visit: No Status: Chronic Assessment and Plan: Patient has chronic back pain for which she has an intrathecal pain pump that is located anterior to her right pelvis. (10) CHF (congestive heart failure) Current Visit: No Status: Acute Assessment and Plan: HFpEF. -12/05/2018 TTE: EF= 60-65%, mild diastolic dysfunction, mild mitral regurgitation. -Patient takes metoprolol, Lasix, hydralazine however we are holding these medications as she is septic with hypotension -continue aspirin and atorvastatin -monitor I&O (11) DVT prophylaxis Current Visit: No Status: Acute Assessment and Plan: Heparin SQ - Time Spent with Patient Total time spent is greater than 50% in coordination of care (as documented) at patient's floor/unit and/or counseling patient: Internal Medicine: Result - Labs CBC & Chem 7: 03/27/19 04:00 03/27/19 04:00 Labs: Short CBC 03/26/19 03/27/19 Range/Units 16:47 04:00 WBC 5.2 15.2 H D (4.3-11.1) K/mcL Hgb 13.1 10.2 L D (11.5-15.4) g/dL Hct 38.9 30.7 L (35.3-44.9) % Plt Count 134 L 82 L (140-400) K/mcL Neutrophils # 4.7 13.2 H (1.6-8.9) K/mcL BMP 03/26/19 03/27/19 16:47 04:00 Sodium 132 L 134 L Potassium 3.3 L 3.9 Chloride 96 L 103 Carbon Dioxide 26 22 L BUN 26 H 27 H Creatinine 1.27 H 1.43 H Glucose 114 H 88 Calcium 9.8 8.4 L Cardiac Enzymes 03/26/19 03/26/19 03/27/19 Range/Units 16:47 23:44 04:11 Troponin I 0.10 H* 0.09 H* 0.08 H* (< 0.04) ng/mL Liver Function 03/26/19 03/27/19 Range/Units 16:47 04:00 Total Bilirubin 1.9 H 1.9 H (0.3-1.0) mg/dL Direct Bilirubin 1.2 H 1.4 H (0.0-0.2) mg/dL AST 453 H 220 H (13-39) Units/L ALT 217 H 173 H (7-52) Units/L Alkaline Phosphatase 153 H 121 H (34-104) Units/L Albumin 3.7 2.9 L (3.5-5.7) g/dL Urine 03/26/19 Range/Units 17:54 Urine Color Yellow (Yellow) Urine Clarity Clear (Clear) Urine pH 7.0 (5.0-8.0) pH Units Ur Specific [place] 1.011 (1.010-1.025) Urine Protein 100 H (Neg-Trace) mg/dL Urine Glucose (UA) Normal (Normal) mg/dL - ABG Interpretation ABG results: PT/INR, D-dimer PT 12.7 Seconds (9.4-12.1) H 03/26/19 16:47 - Impressions Impressions Pelvis X-Ray 03/26/19 17:22 IMPRESSION: Severe osteoarthritis of the right hip. D/ / Shaq Carmichael MD / Shaq Carmichael MD Interpreting Provider: Shaq Carmichael MD Head CT 03/26/19 17:58 IMPRESSION: No acute intracranial abnormality. Diffuse atrophic changes with findings suggesting chronic microvascular ischemia D/ / Raoul Cadena MD / Raoul Cadena MD Interpreting Provider: Raoul Cadena MD Abdomen/Pelvis CT 03/26/19 18:49 IMPRESSION: Prominent left perinephric fat stranding along with urothelial thickening. Urinary tract infection on the left is likely. Correlation with urinalysis recommended. There is intra and extrahepatic biliary dilation. Some of that may be reservoir effect status post cholecystectomy. However, correlate with any clinical evidence of biliary obstruction. Thickening and irregularity of the cervix and the upper vagina, which appears new when compared to the previous exam. Correlation with physical exam recommended. D/ / Steven Wolfe MD / Steven Wolfe MD Interpreting Provider: Steven Wolfe MD Liver Ultrasound 03/26/19 20:37 IMPRESSION: 1. Prior cholecystectomy. 2. Intra and extrahepatic biliary ductal dilatation which may be related to prior cholecystectomy. No choledocholithiasis or obstructing lesions are evident. MRCP could be performed for further evaluation if clinically warranted. D/ / 03/26/2019 20:43:35 Shaq Carmichael MD / [place] Interpreting Provider: Shaq Carmichael MD Consult Discharge Plan - Plan Referrals: NONE,PCP [Primary Care Provider] - (1) Sepsis Qualifiers: Qualified Code(s): A41.9 - Sepsis, unspecified organism (2) UTI (urinary tract infection) Qualifiers: Qualified Code(s): N30.00 - Acute cystitis without hematuria (8) CAD (coronary artery disease) Qualifiers: Qualified Code(s): I25.119 - Atherosclerotic heart disease of [place] coronary artery with unspecified angina pectoris (10) CHF (congestive heart failure) Qualifiers: Qualified Code(s): I50.32 - Chronic diastolic (congestive) heart failure
--- NOTE | 2019-03-27 11:50 | Infectious Disease Consult ---
Infectious Disease-Consult - Encounter Date/Time Date of Encounter: 03/27/19 Time of Encounter: 11:45 - Data of Consult Patient: new to practice Reason for consult: "sepsis with unknown etiology. possibly UTI. " Consult date: 03/27/19 Requesting Physician: Kathleen Kim MD Primary Care Provider: PCP NONE - HPI HPI: Ms. Parrish is an 83-year-old female with past medical history of CAD, CHF, chronic kidney disease, GERD, hyperlipidemia, and hypertension. Patient was admitted to the hospital 03/26/19 for elevated troponin, transaminitis, UTI, and sepsis. We are consulted 03/27/19 for further workup and treatment recommendations for fever with unknown etiology. Briefly, the patient is an 83-year-old female with past medical history as stated above. The patient presented to the emergency department with complaints of feeling generally weak and tired and a 2 day history of dysuria with urinary frequency. Upon arrival, she was febrile tachycardic. Her white blood cell count was normal. Creatinine was elevated consistent with her chronic kidney disease. Lactic acid was elevated at 2.6. LFTs revealed a total bili of 1.9, AST of 453, PLT 217, and alkaline phosphatase 153. Urinalysis was positive for white cells, but also had many epithelial cells. Culture is pending. She is complaining of some right hip pain since an x-ray of the pelvis that showed severe right hip osteoarthritis. CT of the head was negative. His CT of the abdomen and pelvis that showed prominent left perinephric fat stranding along with urothelial thickening. Urinary tract infection on the left is likely. There was also intra-and extrahepatic biliary dilatation, some of which may be reservoir effect from status post cholecystectomy, however, correlate with any clinical evidence of biliary obstruction. There is also some thickening and irregularity of the cervix and upper vagina, which appears new when compared to previous exam. Ultrasound of the liver showed findings consistent with prior cholecystectomy as well as intra-and extrahepatic biliary ductal dilatation which may be related to prior cholecystectomy. No choledocholithiasis or obstructing lesions were evident. She was given a dose of Zosyn and Rocephin and was admitted to the hospital for further evaluation. Since admission, the patient has remained afebrile and hemodynamically stable. She does have a leukocytosis today, but it appears she received an dose of IV Decadron yesterday due to being on steroids at home. LFTs are improved. Procalcitonin is elevated at 45. Blood cultures and urine culture are still pending. Currently, she is on vancomycin and Zosyn. We have been asked to evaluate and make further recommendations. During my exam today, the patient states that for 2 days prior to admission she was feeling generally weak and tired. She denies any fevers or chills or rigors. Reports chronic headaches that a bit of baseline, but denies any neck pain or stiffness. She denies any congestion, earache, or sore throat. Reports intermittent reflux-like abdominal pain if she eats something that is not on her prescribed diet. She reports some intermittent nausea, no vomiting. States her appetite has been relatively poor. States she intermittently gets some epigastric abdominal pain again depending on what she eats. She reports urinary frequency that is chronic, but denies any dysuria at this time. She denies any flank pain. States she has chronic back pain that is at baseline. She has an intrathecal pain pump to her right lower abdomen that was placed several years ago. She denies any redness, swelling, or pain at the site of her pain pump. She just tells me she had a trigger point injection back in February. Review of the medical record indicates she was seen by Dr. Blevins on 03/18/19 for erosive esop hagitis status post EGD that showed a large hiatal hernia with biopsy of the erosive esophagitis that was unremarkable. She was started on a steroid taper to see if this would help with the ulcers. She states the pain initially improved, but re-started once the taper started. The patient lives at home with her . She has retired. She denies tobacco, alcohol, or illicit drug use. Denies any recent travel outside the [facility]. Denies any known chronic infectious diseases. - ROS Review of Systems: All systems reviewed and no additional remarkable complaints except as stated. - Results CBC & Chem 7: 03/28/19 05:22 03/28/19 05:22 - Exam Vitals: Temp Pulse Resp BP Pulse Ox 97.7 F 68 14 109/60 97 03/27/19 11:00 03/27/19 11:00 03/27/19 11:00 03/27/19 11:00 03/27/19 11:00 Exam: Head: Atraumatic, normal inspection, normocephalic. Eye: EOMI, PERRLA, no scleral icterus noted. ENT: Mucous membranes moist. No odontogenic infection noted. Neck: Normal inspection, no meningismus. Respiratory: Clear to auscultation. No rales, respiratory distress, rhonchi, or wheezes noted. Cardiovascular: Regular rate and rhythm, S1 and S2 audible. No murmurs, rubs, or gallops. GI: Soft, nondistended, normal bowel sounds. Epigastric and right upper quadrant tenderness noted. Intrathecal pain pump noted to the right lower abdomen without surrounding erythema, warmth, tenderness. Extremities:No joint swelling, pedal edema, or tenderness noted. Back: Normal inspection. No vertebral tenderness noted. No CVA tenderness noted. Neurological: Alert, oriented 3, no focal deficits. Psychiatric: normal affect, normal mood. Skin: Dry, intact, warm. Normal color. No rashes. Cholecalciferol (D-3) [Vitamin D] 5,000 unit PO DAILY 11/29/16 [History] Hydralazine HCl 50 mg PO TID 11/29/16 [History] Aspirin 81 mg PO DAILY #30 tab.chew 12/05/16 [Rx] Atorvastatin [Lipitor] 40 mg PO HS #30 tablet 12/05/16 [Rx] Metoprolol XL (24 HR) Succ [Toprol Xl] 50 mg PO DAILY #30 tab.er.24h 12/05/16 [R x] Acetaminophen/Butalbital/Caffe [Fioricet] 1 tab PO DAILY PRN 12/07/18 [History] Dexlansoprazole [Dexilant] 60 mg PO BID 12/07/18 [History] Docusate [Colace] 100 mg PO DAILY PRN 12/07/18 [History] Furosemide [Lasix] 20 mg PO DAILY 12/07/18 [History] Hydromorphone (Pf) [Hydromorphone Intrathecal Pump] 1 each IT AD 12/07/18 [History] Magnesium Oxide [Magnesium] 400 mg PO BID 12/07/18 [History] Sucralfate [Carafate] 1 gm PO Q6HR 30 Days #120 oral.susp 01/30/19 [Rx] Metoclopramide HCl 5 mg PO TID 02/25/19 [History] Ondansetron ODT [Zofran ODT] 4 mg SL Q4HR PRN 02/25/19 [History] Levothyroxine [Synthroid] 100 mcg PO 0630 #30 tablet 03/01/19 [Rx] Pantoprazole Sodium [Protonix] 40 mg PO BID #120 tablet. 03/01/19 [Rx] predniSONE [PredniSONE] See Taper PO TAPER 03/26/19 [History] Allergy/AdvReac Type Severity Reaction Status Date / Time topiramate [From Topamax] Allergy Hives Verified 11/21/18 16:40 - Assessment and Plan (1) Sepsis Current Visit: Yes Status: Acute The patient had 2 sepsis criteria on admission. Etiology: Unclear. UTI versus intra-abdominal process versus other. Leukocytosis noted today, likely secondary to steroids. Tachycardia resolved. She did have some hypotension overnight that has resolved. Blood cultures drawn 03/26/19 are pending 2 sets. Qualifiers: Sepsis type: sepsis due to unspecified organism Sepsis acute organ dysfunction status: unspecified Qualified Code(s): A41.9 - Sepsis, unspecified organism SNOMED Code(s): 21462575 (2) UTI (urinary tract infection) Current Visit: Yes Status: Acute Causative organism: Unclear. Urine cultures pending. Little unclear if the patient actually has urinary symptoms or not. Her CT of the abdomen and pelvis is concerning for left pyelonephritis. She reports chronic urinary frequency, but according to the records, she reported some dysuria as well on admission. Currently on vancomycin and Zosyn. Qualifiers: Urinary tract infection type: acute pyelonephritis Qualified Code(s): N10 - Acute pyelonephritis SNOMED Code(s): 47610901 (3) Transaminitis Current Visit: Yes Status: Acute Etiology: Unclear. CT of the abdomen and pelvis shows findings concerning for intra-and extrahepatic biliary dilatation. Liver ultrasound also shows findings concerning for intra-and extrahepatic biliary dilatation, but no evidence of choledocholithiasis. Given the patient's history, consider GI to evaluate. SNOMED Code(s): 422945432, 004251156 (4) Dilation of biliary tract Current Visit: Yes Status: Acute Noted on CT abdomen and pelvis and liver UTS. Etiology unclear. Given the abnormal LFTs and hypoproteinemia, concern for intra-abdominal process. SNOMED Code(s): 240609729 (5) Weakness Current Visit: Yes Status: Acute Generalized weakness. Consider PT/OT. SNOMED Code(s): 47624584 (6) GERD (gastroesophageal reflux disease) Current Visit: No Status: Chronic Qualifiers: Esophagitis presence: without esophagitis Qualified Code(s): K21.9 - Gastro-esophageal reflux disease without esophagitis SNOMED Code(s): 259284791 (7) CAD (coronary artery disease) Current Visit: No Status: Chronic Qualifiers: Coronary Disease-Associated Artery/Lesion type: [place] artery [place] vs. transplanted heart: [place] heart Associated angina: with unspecified angina Qualified Code(s): I25.119 - Atherosclerotic heart disease of [place] coronary artery with unspecified angina pectoris SNOMED Code(s): 24616612 (8) CHF (congestive heart failure) Current Visit: No Status: Acute Qualifiers: Heart failure type: diastolic Heart failure chronicity: chronic Qualified Code(s): I50.32 - Chronic diastolic (congestive) heart failure SNOMED Code(s): 23770486 (9) Hiatal hernia with gastroesophageal reflux disease and esophagitis Current Visit: No Status: Acute Status post EGD 02/28/[address] Blevins that showed severe erosive/ulcerated esopha gitis and a medium-sized hiatal hernia. Biopsies were non-revealing. Seen by Dr. Blevins 03/18/19 and started on steroid taper. SNOMED Code(s): 610918152 (10) Presence of intrathecal pump Current Visit: No Status: Chronic Clinically does not appear infected. SNOMED Code(s): 531928779 (11) Chronic back pain Current Visit: No Status: Acute Qualifiers: Back pain location: low back pain Back pain laterality: bilateral Sciatica presence: without sciatica Qualified Code(s): M54.5 - Low back pain; G89.29 - Other chronic pain SNOMED Code(s): 520250042 (12) CKD (chronic kidney disease) stage 3, GFR 30-59 ml/min Current Visit: Yes Status: Acute SNOMED Code(s): 169041090 (13) Cervix abnormality Current Visit: Yes Status: Acute Cervical and vaginal thickening noted on the CT scan. Per nursing, patient having some vaginal discharge. Consider PATTERN DUPLICATOR to evaluate. SNOMED Code(s): 76539093 (14) GABY (acute kidney injury) Current Visit: No Status: Acute GABY on CKD. Continue to trend. Dose-adjust antibiotics and avoid nephrotoxins as able. Consider nephrology to evaluate if persists/worsens. SNOMED Code(s): 72415828, 27857916 - Recommendations Recommendations: Await blood cultures to finalize. Await urine culture to finalize. Continue to trend LFTs. Recommend GI to evaluate. Recommend PATTERN DUPLICATOR to evaluate. Continue Zosyn 3.375 grams. Discontinue Vancomycin. Duration of treatment depends on the clinical picture. Monitor renal function and dose-adjust antibiotics. Past Med Surg Social Fam HX - Past Medical History Attestation: Yes The following information was validated with the patient. Source: patient, old records reviewed, nursing notes reviewed Medical history: renal disease, GERD, hyperlipidemia, hypertension, asthma, other, thyroid disease, coronary artery disease, CHF Additional medical history: coronary artery disease,barretts Psychiatric history: no psych history - Past Surgical History Surgical History: breast surgery, cholecystectomy, hysterectomy, knee replacement, orthopedic, other, other, arthroscopy Additional surgical history: heart stent,bladder,head,foot, pain pump in place - Social History Smoking Status: Never smoker Smokeless Tobacco Status: No Alcohol use: none Drug use: none Occupational status: retired Current living situation: Home, With Family Activity Level: Uses cane/walker Recent Out of Country Travel Within the Last 8 Weeks: No Exposure or Possible Exposure to Illness During Travel: No - Family History Mother Living Status: Father Living Status: Consult Discharge Plan - Plan Referrals: NONE,PCP [Primary Care Provider] - - Attending Attestation I have personally performed a face to face evaluation on this patient. I have reviewed and agree with the care plan. This is an addendum to original report dictated by Karyna Jacob CNP. Please refer to Karyna's note for full detail. Agree with above history of present illness, review of system and physical exam findings. Assessment and plan: 1.Sepsis on admission likely secondary to UTI but also concern for transient cholangitis or choledocholithiasis since patient had elevated transaminitis with the 2.biliary dilatated she and neck. 3.Tenderness in the right upper quadrant 4.Patient status post cholecystectomy about 20 years ago 5.Weakness 6.COPD 7.Vaginal discharge Recommendations: source of sepsis is probably UTI but also concern for intra-abdominal process based on the LFTs sick, imaging and physical exam. At this point I think Zosyn should suffice to treat the UTI and possible intra- abdominal process Start vancomycin Trend liver function test Recommend GI to evaluate the patient might need MRCP Patient with vaginal discharge. Discussed with nursing staff at. Recommend MANAGER OF APPLICATION DEVELOPMENT to evaluate Monitor labs and for drug toxicity
[2019-03-27] MEDS ORDERED: Aminoglycoside Consult 1 EACH MC ONE (15:51)
--- NOTE | 2019-03-27 15:56 | Electrocardiograph Report ---
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
[2019-03-27] MEDS: Magnesium Oxide 400 MG TABLET PO SCH (21:39)
[2019-03-27] MEDS: hydrALAZINE 25 MG TABLET PO SCH (21:39)
[2019-03-28] MEDS ORDERED: traMADol 50 MG TABLET PO ONE (04:27)
[2019-03-28] MEDS: *HR* Heparin 5,000 UNIT/ML VIAL SQ SCH (05:24)
[2019-03-28 05:38] LABS: Basophils % 0.1 %; Mean Corpuscular Hemoglobin 31.7 pg (28.0-33.3)
[2019-03-28 05:40] LABS: Eosinophils # 0.1 K/mcL (0.0-0.6); Eosinophils % 0.4 %; Hematocrit 28.5 % (35.3-44.9); Hemoglobin 9.7 g/dL (11.5-15.4); Immature Granulocytes % 4.5 % (0-4); Immature Platelets 5.2 % (1.1-6.1); Lymphocytes # 2.3 K/mcL (0.6-4.6); Lymphocytes % 11.7 %; Mean Corpuscular Volume 93.1 fL (83.0-100.0); Mean Platelet Volume 11.5 fL (9.4-12.4); Monocytes # 0.8 K/mcL (0.0-1.3); Monocytes % 3.9 %; Red Blood Count 3.06 M/mcL (3.82-4.97); Segmented Neutrophils % 79.4 %; White Blood Count 19.6 K/mcL (4.3-11.1)
[2019-03-28 05:57] LABS: Albumin 2.7 g/dL (3.5-5.7); Albumin/Globulin Ratio 1.3 (1.1-2.2); Bilirubin,Total 0.7 mg/dL (0.3-1.0); Calcium 7.8 mg/dL (8.6-10.3); Globulin 2.1 g/dL (2.4-3.5); Potassium 3.1 mEq/L (3.5-5.1); Total Protein 4.8 g/dL (6.4-8.9)
[2019-03-28 06:17] LABS: Neutrophils # 15.6 K/mcL (1.6-8.9); Platelet Count 64 K/mcL (140-400)
[2019-03-28 06:41] LABS: Platelet Estimate Decreased (Normal); Toxic Granulation Present (Not Present)
[2019-03-28] MEDS: Metoprolol XL (24 HR) Succ 50 MG TAB.ER.24H PO SCH (09:32)
[2019-03-28] MEDS: Magnesium Oxide 400 MG TABLET PO SCH ×2 (09:32→21:54)
[2019-03-28] MEDS: Furosemide 20 MG TABLET PO SCH (09:32)
[2019-03-28] MEDS: Cholecalciferol (D-3) 1,000 UNIT (25MCG) TABLET PO SCH (09:32)
[2019-03-28] MEDS: Aspirin 81 MG TAB.CHEW PO SCH (09:32)
[2019-03-28] MEDS: hydrALAZINE 25 MG TABLET PO SCH ×3 (09:32→21:54)
[2019-03-28] MEDS: Piperacillin/Tazobactam 3.375 GM in 0.9 % Sodium Chloride Mini Bag 100 ML IVPB SCH ×2 (09:33→15:51)
--- NOTE | 2019-03-28 09:37 | Infectious Disease Progress No ---
ID Progress Note Date of Encounter: 03/28/19 Time of Encounter: 09:35 - Subjective Subjective: Patient seen and examined. No acute events noted overnight. Patient states overall she does not feel very well today. She complains of a generalized headache. She states she has chronic neck pain that is at baseline. Denies chest pain or cough. She does report some intermittent shortness of breath. Reports some nausea, but denies any vomiting. States she feels like there is a lot of mucus buildup in her throat. States she was unable to eat much breakfast this morning and her appetite is pretty poor. She denies abdominal pain or urinary complaints. Reports chronic back pain is at baseline. Denies any flank pain. Denies oral thrush or skin rashes. Reports stools are loose and she has had one BM today. - Objective CBC & Chem 7: 03/28/19 05:22 03/28/19 05:22 - Exam Vitals: Temp Pulse Resp BP Pulse Ox 98 F 76 16 112/61 95 03/28/19 07:49 03/28/19 07:49 03/28/19 07:49 03/28/19 07:49 03/28/19 07:49 Exam: Head: Atraumatic, normal inspection, normocephalic. Eye: EOMI, PERRLA, no scleral icterus noted. ENT: Mucous membranes moist. No odontogenic infection noted. Oral thrush noted. Neck: Normal inspection, no meningismus. Respiratory: Clear to auscultation. No rales, respiratory distress, rhonchi, or wheezes noted. Cardiovascular: Regular rate and rhythm, S1 and S2 audible. No murmurs, rubs, or gallops. GI: Soft, nondistended, normal bowel sounds. Epigastric and right upper quadrant tenderness noted. Intrathecal pain pump noted to the right lower abdomen without surrounding erythema, warmth, tenderness. Extremities:No joint swelling, pedal edema, or tenderness noted. Back: Normal inspection. No vertebral tenderness noted. No CVA tenderness noted. Neurological: Alert, oriented 3, no focal deficits. Psychiatric: normal affect, normal mood. Skin: Dry, intact, warm. Normal color. No rashes. - Assessment and Plan (1) Sepsis Current Visit: Yes Status: Acute The patient had 2 sepsis criteria on admission. Etiology: Unclear. UTI versus intra-abdominal process versus other. Leukocytosis noted today, likely secondary to steroids. Tachycardia resolved. Blood cultures drawn 03/26/19 are no growth to date 2 sets. Qualifiers: Sepsis type: sepsis due to unspecified organism Sepsis acute organ dysfunction status: unspecified Qualified Code(s): A41.9 - Sepsis, unspecified organism SNOMED Code(s): 20238302 (2) UTI (urinary tract infection) Current Visit: Yes Status: Acute Causative organism: E. coli. Little unclear if the patient actually has urinary symptoms or not. Her CT of the abdomen and pelvis is concerning for left pyelonephritis. She reports chronic urinary frequency, but according to the records, she reported some dysuria as well on admission. Currently on Zosyn. Qualifiers: Urinary tract infection type: acute pyelonephritis Qualified Code(s): N10 - Acute pyelonephritis SNOMED Code(s): 90469321 (3) Transaminitis Current Visit: Yes Status: Acute Etiology: Unclear. CT of the abdomen and pelvis shows findings concerning for intra-and extrahepatic biliary dilatation. Liver ultrasound also shows findings concerning for intra-and extrahepatic biliary dilatation, but no evidence of choledocholithiasis. Improved. Concern for transient choledocolithiasis vs. cholangitis. Given the patient's history, consider GI to evaluate. SNOMED Code(s): 391460138, 717371265 (4) Dilation of biliary tract Current Visit: Yes Status: Acute Noted on CT abdomen and pelvis and liver UTS. Etiology unclear. Given the abnormal LFTs and hypoproteinemia, concern for intra-abdominal proces s. SNOMED Code(s): 252670007 (5) Weakness Current Visit: Yes Status: Acute Generalized weakness. Consider PT/OT. SNOMED Code(s): 39074155 (6) GERD (gastroesophageal reflux disease) Current Visit: No Status: Chronic Qualifiers: Esophagitis presence: without esophagitis Qualified Code(s): K21.9 - Gastro-esophageal reflux disease without esophagitis SNOMED Code(s): 243210167 (7) CAD (coronary artery disease) Current Visit: No Status: Chronic Qualifiers: Coronary Disease-Associated Artery/Lesion type: [place] artery [place] vs. transplanted heart: [place] heart Associated angina: with unspecified angina Qualified Code(s): I25.119 - Atherosclerotic heart disease of [place] coronary artery with unspecified angina pectoris SNOMED Code(s): 74150293 (8) CHF (congestive heart failure) Current Visit: No Status: Acute Qualifiers: Heart failure type: diastolic Heart failure chronicity: chronic Qualified Code(s): I50.32 - Chronic diastolic (congestive) heart failure SNOMED Code(s): 99335157 (9) Hiatal hernia with gastroesophageal reflux disease and esophagitis Current Visit: No Status: Acute Status post EGD 02/28/[address] Blevins that showed severe erosive/ulcerated esophagitis and a medium-sized hiatal hernia. Biopsies were non-revealing. Seen by Dr. Blevins 03/18/19 and started on steroid taper. 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 SNOMED Code(s): 341423866 (11) Chronic back pain Current Visit: No Status: Acute Qualifiers: Back pain location: low back pain Back pain laterality: bilateral S ciatica presence: without sciatica Qualified Code(s): M54.5 - Low back pain; G89.29 - Other chronic pain SNOMED Code(s): 141865610 (12) CKD (chronic kidney disease) stage 3, GFR 30-59 ml/min Current Visit: Yes Status: Acute SNOMED Code(s): 225264025 (13) Cervix abnormality Current Visit: Yes Status: Acute Cervical and vaginal thickening noted on the CT scan. Per nursing, patient having some vaginal discharge. Consider [employer] to evaluate. SNOMED Code(s): 26253801 (14) GABY (acute kidney injury) Current Visit: No Status: Acute GABY on CKD. Continue to trend. Resolved. Dose-adjust antibiotics and avoid nephrotoxins as able. SNOMED Code(s): 54580371, 28637929 (15) Oral thrush Current Visit: Yes Status: Acute Nystatin mouthwash. SNOMED Code(s): 60250958 - Recommendations Recommendations: Await blood cultures to finalize. Continue to trend LFTs. Recommend GI to evaluate. Given the elevated LFTs in the absence of septic shock which is new since her last hospitalization and the biliary dilation on the imaging with tenderness in the RUQ, there is concern for possible transient choledocolithiasis vs. transient cholangitis vs. other intra-abdominal source. Recommend [employer] to evaluate given the thickening of the cervix and vagina noted on imaging. D/C Zosyn 3.375 grams. Continue nystatin mouthwash. start rocephin 2 grams IV q24 hours while in house and on d/c switch to oral omnicef to treat for 10-14 days total Duration of treatment depends on the clinical picture. Monitor renal function and dose-adjust antibiotics. No further recommendations from the ID team. We will sign off. Please re-consult if needed. Consult Discharge Plan - Plan Referrals: NONE,PCP [Primary Care Provider] - - Attending Attestation I have personally performed a face to face evaluation on this patient. I have reviewed and agree with the care plan. History and Exam by me shows: Assessment and plan: 1.Sepsis on admission likely secondary to UTI but also concern for transient cholangitis or choledocholithiasis since patient had elevated transaminitis with the biliary dilatated 3.Tenderness in the right upper quadrant 4.Patient status post cholecystectomy about 20 years ago 5.Weakness 6.COPD 7.E coli bacteremia blood cultures 03/26 1/2 sets positive for GNR with PCR showing E coli. Likely due to Urosepsis Recommendations: d/c zosyn start ceftriaxone 2 grams q24 hours while in the hospital on d/c consider switching to oral omnicef to finish a 10-14 days course monitor labs and for drug toxicity Discussed with nursing staff. They are not sure anymore if she still having vaginal discharge. Deferred the cervical enlargement and vaginal discharge to the hospitalist team.
--- NOTE | 2019-03-28 11:06 | Internal Med Progress Note ---
Hospitalist Progress Note - Encounter Date of Encounter: 03/28/19 Time of Encounter: 07:30 - Subjective Interval History: No acute events overnight. Patient states that she feels ill today and has lost her appetite. She denies fever, chills, nausea and vomiting. - Exam Vitals: Temp Pulse Resp BP Pulse Ox 36.6 C 76 16 112/61 95 03/28/19 07:49 03/28/19 07:49 03/28/19 07:49 03/28/19 07:49 03/28/19 09:38 Exam: GENERAL: Not in distress. Alert and Oriented MOUTH: Moist oral mucosa NECK:No JVD, No lymph nodes. CHEST AND LUNGS: Normal breath sounds, no wheezes or crackles HEART: S1 and S2 normal, no murmurs ABDOMEN: Soft, nontender, no organomegaly SKIN: Normal color, no rashes, no lesions EXTREMITIES: No deformity, no edema, no tenderness, no joint swelling or clubbing NEUROLOGICAL: Normal cognition, normal motor and sensory exam. - Assessment and Plan (1) Sepsis Current Visit: Yes Status: Acute Assessment and Plan: Patient has been afebrile overnight. WBC 19.6>15.2 Urine culture yielding pansensitive E.coli ID on board. (2) UTI (urinary tract infection) Current Visit: Yes Status: Acute Assessment and Plan: As above. (3) Transaminitis Current Visit: Yes Status: Acute Assessment and Plan: Elevation in liver enzymes likley due to severe hypotension with reduced hepatic perfusion. Liver enzymes are trending down: AST 68<220, ALT 91<173, ALP 87<121 No RUQ tenderness on exam. Will continue with gentle hydration. (4) Hypokalemia Current Visit: No Status: Resolved Assessment and Plan: Potasium 3.1 this morning. Replace and monitor. (5) Elevated troponin Current Visit: No Status: Resolved Assessment and Plan: Likely due to demand ischemia Troponin trending down. 0.10<0.09<0.08 Patient denies chest pain, palpitations and SOB. Will monitor. (6) CKD (chronic kidney disease) stage 3, GFR 30-59 ml/min Current Visit: Yes Status: Acute (7) CAD (coronary artery disease) Current Visit: No Status: Chronic Assessment and Plan: Resume home meds (8) Presence of intrathecal pump Current Visit: No Status: Chronic Assessment and Plan: Will hold for now. (9) CHF (congestive heart failure) Current Visit: No Status: Acute Assessment and Plan: HFpEF. -12/05/2018 TTE: EF= 60-65%, mild diastolic dysfunction, mild mitral regurgitation. Patient takes metoprolol, Lasix, hydralazine Blood pressure has normalized Will resume home meds (10) DVT prophylaxis Current Visit: No Status: Acute Assessment and Plan: Heparin SQ - Time Spent with Patient Total time spent is greater than 50% in coordination of care (as documented) at patient's floor/unit and/or counseling patient: Internal Medicine: Result - Labs CBC & Chem 7: 03/28/19 05:22 03/28/19 05:22 Labs: Short CBC 03/28/19 Range/Units 05:22 WBC 19.6 H (4.3-11.1) K/mcL Hgb 9.7 L (11.5-15.4) g/dL Hct 28.5 L (35.3-44.9) % Plt Count 64 L (140-400) K/mcL Neutrophils # 15.6 H (1.6-8.9) K/mcL BMP 03/28/19 05:22 Sodium 134 L Potassium 3.1 L Chloride 103 Carbon Dioxide 23 BUN 29 H Creatinine 1.13 Glucose 83 Calcium 7.8 L Liver Function 03/28/19 Range/Units 05:22 Total Bilirubin 0.7 (0.3-1.0) mg/dL AST 68 H (13-39) Units/L ALT 91 H (7-52) Units/L Alkaline Phosphatase 87 (34-104) Units/L Albumin 2.7 L (3.5-5.7) g/dL - ABG Interpretation ABG results: PT/INR, D-dimer PT 12.7 Seconds (9.4-12.1) H 03/26/19 16:47 Consult Discharge Plan - Plan Referrals: NONE,PCP [Primary Care Provider] - (1) Sepsis Qualifiers: Sepsis type: sepsis due to unspecified organism Sepsis acute organ dysfunction status: unspecified Qualified Code(s): A41.9 - Sepsis, unspecified organism (2) UTI (urinary tract infection) Qualifiers: Urinary tract infection type: acute pyelonephritis Qualified Code(s): N10 - Acute pyelonephritis (7) CAD (coronary artery disease) Qualifiers: Coronary Disease-Associated Artery/Lesion type: [place] artery [place] vs. transplanted heart: [place] heart Associated angina: with unspecified angina Qualified Code(s): I25.119 - Atherosclerotic heart disease of [place] coronary artery with unspecified angina pectoris (9) CHF (congestive heart failure) Qualifiers: Heart failure type: diastolic Heart failure chronicity: chronic Qualified Code(s): I50.32 - Chronic diastolic (congestive) heart failure
[2019-03-28] MEDS: Nystatin SUSP 5 ML UD.LIQ PO SCH ×3 (13:43→21:55)
[2019-03-28] MEDS ORDERED: metroNIDAZOLE 500 MG TABLET PO SCH (15:00)
[2019-03-28] MEDS ORDERED: cefTRIAXone 1,000 MG in Water for inj. (sterile) 10 ML IVP SCH (16:00)
[2019-03-28 17:40] LABS: Acinetobacter baumannii by PCR Not Detected (Not Detect); Enterococcus by PCR Not Detected (Not Detect); Staphylococcus aureus by PCR Not Detected (Not Detect); Staphylococcus by PCR Not Detected (Not Detect); Streptococcus agalactiae(B)PCR Not Detected (Not Detect); Streptococcus by PCR Not Detected (Not Detect); Streptococcus pneumoniae PCR Not Detected (Not Detect); Streptococcus pyogenes (A) PCR Not Detected (Not Detect); blaKPC Carbapenem-Resist Gene Not Detected (Not Detect); mecA Methicillin-Resist Gene Not Detected (Not Detect); vanA/B Vancomycin-Resist Genes Not Detected (Not Detect)
[2019-03-28 17:41] LABS: Enterobacter cloacae Cmplx PCR Not Detected (Not Detect); Escherichia coli by PCR DETECTED (Not Detect)
[2019-03-28 17:42] LABS: Candida albicans by PCR Not Detected (Not Detect); Candida glabrata by PCR Not Detected (Not Detect); Candida krusei by PCR Not Detected (Not Detect); Candida parapsilosis by PCR Not Detected (Not Detect); Candida tropicalis by PCR Not Detected (Not Detect); Klebsiella oxytoca by PCR Not Detected (Not Detect); Klebsiella pneumoniae by PCR Not Detected (Not Detect); Proteus by PCR Not Detected (Not Detect); Pseudomonas aeruginosa by PCR Not Detected (Not Detect); Serratia marcescens by PCR Not Detected (Not Detect)
[2019-03-28] MEDS: traMADol 50 MG TABLET PO PRN (17:46)
[2019-03-29] MEDS: Piperacillin/Tazobactam 3.375 GM in 0.9 % Sodium Chloride Mini Bag 100 ML IVPB SCH (00:14)
[2019-03-29] MEDS: traMADol 50 MG TABLET PO PRN ×4 (04:38→22:36)
[2019-03-29 06:04] LABS: Basophils % 0.1 %; Hemoglobin 9.7 g/dL (11.5-15.4)
[2019-03-29 06:07] LABS: Eosinophils # 0.2 K/mcL (0.0-0.6); Eosinophils % 1.3 %; Hematocrit 29.3 % (35.3-44.9); Immature Granulocytes % 1.1 % (0-4); Immature Platelets 6.5 % (1.1-6.1); Lymphocytes # 1.6 K/mcL (0.6-4.6); Lymphocytes % 12.3 %; Mean Corpuscular HGB Conc 33.1 g/dL (31.6-35.5); Mean Corpuscular Hemoglobin 30.8 pg (28.0-33.3); Mean Platelet Volume 11.9 fL (9.4-12.4); Monocytes # 0.5 K/mcL (0.0-1.3); Monocytes % 3.9 %; Neutrophils # 10.3 K/mcL (1.6-8.9); Red Blood Count 3.15 M/mcL (3.82-4.97); Red Cell Distribution Width 13.8 % (11.5-14.5); Segmented Neutrophils % 81.3 %; White Blood Count 12.7 K/mcL (4.3-11.1)
[2019-03-29 06:09] LABS: Platelet Count 59 K/mcL (140-400)
[2019-03-29 06:30] LABS: Albumin 2.6 g/dL (3.5-5.7); Albumin/Globulin Ratio 1.2 (1.1-2.2); Bilirubin,Total 0.7 mg/dL (0.3-1.0); Calcium 8.1 mg/dL (8.6-10.3); Globulin 2.1 g/dL (2.4-3.5); Potassium 3.5 mEq/L (3.5-5.1); Total Protein 4.7 g/dL (6.4-8.9)
[2019-03-29 06:31] LABS: Platelet Estimate Decreased (Normal)
[2019-03-29] MEDS ORDERED: cefTRIAXone 2,000 MG in Water for inj. (sterile) 20 ML IVP SCH (09:00)
[2019-03-29] MEDS: hydrALAZINE 25 MG TABLET PO SCH ×3 (09:23→21:37)
[2019-03-29] MEDS: Cholecalciferol (D-3) 1,000 UNIT (25MCG) TABLET PO SCH (09:23)
[2019-03-29] MEDS: Aspirin 81 MG TAB.CHEW PO SCH (09:23)
[2019-03-29] MEDS: Metoprolol XL (24 HR) Succ 50 MG TAB.ER.24H PO SCH (09:23)
[2019-03-29] MEDS: Furosemide 20 MG TABLET PO SCH (09:23)
[2019-03-29] MEDS: Nystatin SUSP 5 ML UD.LIQ PO SCH ×4 (09:24→21:37)
[2019-03-29] MEDS: Magnesium Oxide 400 MG TABLET PO SCH ×2 (09:24→21:37)
[2019-03-29] MEDS: cefTRIAXone 2,000 MG in 0.9 % Sodium Chloride Mini Bag 100 ML IVPB SCH (10:25)
--- NOTE | 2019-03-29 10:49 | Internal Med Progress Note ---
Hospitalist Progress Note - Encounter Date of Encounter: 03/29/19 Time of Encounter: 07:30 - Subjective Interval History: No acute events overnight. Patient states that she generally feels much better than yesterday but still not at her baseline. She denies abdominal pain, nausea, fever, vomiting and dysuria. - Exam Vitals: Temp Pulse Resp BP Pulse Ox 36.5 C 59 14 117/64 96 03/29/19 06:50 03/29/19 06:50 03/29/19 06:50 03/29/19 06:50 03/29/19 06:50 Exam: GENERAL: Not in distress. Alert and Oriented MOUTH: Moist oral mucosa NECK:No JVD, No lymph nodes. CHEST AND LUNGS: Normal breath sounds, no wheezes or crackles HEART: S1 and S2 normal, no murmurs ABDOMEN: Soft, nontender, no organomegaly SKIN: Normal color, no rashes, no lesions EXTREMITIES: No deformity, no edema, no tenderness, no joint swelling or clubbing NEUROLOGICAL: Normal cognition, normal motor and sensory exam. - Assessment and Plan (1) Sepsis Current Visit: Yes Status: Acute Assessment and Plan: Patient has been afebrile overnight. WBC 12.7<19.6 Urine culture yielding pansensitive E.coli 1/2 blood cultrue als positive for E. coli Will switch from zosyn to rocephin due to thrombocytopenia. (2) UTI (urinary tract infection) Current Visit: Yes Status: Acute Assessment and Plan: As above. 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 Intermediate probability. SQ heparin held for now. Will switch from Zosyn to rocephin and monitor. (4) Transaminitis Current Visit: Yes Status: Resolved Assessment and Plan: Elevation in liver enzymes was likley due to severe hypotension with reduced hepatic perfusion. Has now resolved AST 23<63, ALT 50<91, ALP 83<87 Will monitor. (5) Elevated troponin Current Visit: No Status: Resolved Assessment and Plan: Likely due to demand ischemia Troponin ttrend 0.10<0.09<0.08 Patient denies chest pain, palpitations and SOB. Will monitor. (6) CKD (chronic kidney disease) stage 3, GFR 30-59 ml/min Current Visit: Yes Status: Acute Assessment and Plan: Creatinine currently normal. Will continue to monitor. 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 (9) CHF (congestive heart failure) Current Visit: No Status: Acute Assessment and Plan: HFpEF. -12/05/2018 TTE: EF= 60-65%, mild diastolic dysfunction, mild mitral regurgitation. Patient takes metoprolol, Lasix, hydralazine Blood pressure has normalized On home meds (10) DVT prophylaxis Current Visit: No Status: Acute Assessment and Plan: Heparin SQ - Time Spent with Patient Total time spent is greater than 50% in coordination of care (as documented) at patient's floor/unit and/or counseling patient: Internal Medicine: Result - Labs CBC & Chem 7: 03/29/19 05:36 03/29/19 05:36 Labs: Short CBC 03/29/19 Range/Units 05:36 WBC 12.7 H (4.3-11.1) K/mcL Hgb 9.7 L (11.5-15.4) g/dL Hct 29.3 L (35.3-44.9) % Plt Count 59 L (140-400) K/mcL Neutrophils # 10.3 H (1.6-8.9) K/mcL BMP 03/29/19 05:36 Sodium 135 L Potassium 3.5 Chloride 103 Carbon Dioxide 23 BUN 26 H Creatinine 1.07 Glucose 85 Calcium 8.1 L Liver Function 03/29/19 Range/Units 05:36 Total Bilirubin 0.7 (0.3-1.0) mg/dL AST 23 (13-39) Units/L ALT 50 (7-52) Units/L Alkaline Phosphatase 83 (34-104) Units/L Albumin 2.6 L (3.5-5.7) g/dL - ABG Interpretation ABG results: PT/INR, D-dimer PT 12.7 Seconds (9.4-12.1) H 03/26/19 16:47 Consult Discharge Plan - Plan Referrals: NONE,PCP [Primary Care Provider] - (1) Sepsis Qualifiers: Sepsis type: sepsis due to unspecified organism Sepsis acute organ dysfunction status: unspecified Qualified Code(s): A41.9 - Sepsis, unspecified organism (2) UTI (urinary tract infection) Qualifiers: Urinary tract infection type: acute pyelonephritis Qualified Code(s): N10 - Acute pyelonephritis (7) CAD (coronary artery disease) Qualifiers: Coronary Disease-Associated Artery/Lesion type: [place] artery [place] vs. transplanted heart: [place] heart Associated angina: with unspecified angina Qualified Code(s): I25.119 - Atherosclerotic heart disease of [place] coronary artery with unspecified angina pectoris (9) CHF (congestive heart failure) Qualifiers: Heart failure type: diastolic Heart failure chronicity: chronic Qualified Code(s): I50.32 - Chronic diastolic (congestive) heart failure
[2019-03-30] MEDS: traMADol 50 MG TABLET PO PRN ×2 (05:03→13:16)
[2019-03-30 05:43] LABS: Basophils % 0.1 %; Hematocrit 31.3 % (35.3-44.9); Hemoglobin 10.3 g/dL (11.5-15.4); Mean Corpuscular HGB Conc 32.9 g/dL (31.6-35.5); Mean Corpuscular Hemoglobin 30.9 pg (28.0-33.3); Red Blood Count 3.33 M/mcL (3.82-4.97)
[2019-03-30 05:45] LABS: Eosinophils # 0.1 K/mcL (0.0-0.6); Eosinophils % 1.5 %; Immature Granulocytes % 0.3 % (0-4); Immature Platelets 8.2 % (1.1-6.1); Lymphocytes % 18.9 %; Mean Platelet Volume 11.5 fL (9.4-12.4); Monocytes # 0.7 K/mcL (0.0-1.3); Monocytes % 8.1 %; Neutrophils # 6.2 K/mcL (1.6-8.9); Red Cell Distribution Width 13.7 % (11.5-14.5); Segmented Neutrophils % 71.1 %; White Blood Count 8.7 K/mcL (4.3-11.1)
[2019-03-30 05:48] LABS: Lymphocytes # 1.6 K/mcL (0.6-4.6); Platelet Count 66 K/mcL (140-400)
[2019-03-30 06:00] LABS: Alanine Aminotransferase 39 Units/L (7-52); Albumin/Globulin Ratio 1.3 (1.1-2.2); Alkaline Phosphatase 94 Units/L (34-104); Aspartate Amino Transferase 16 Units/L (13-39); BUN/Creatinine Ratio 24 (6-26); Bilirubin,Total 0.5 mg/dL (0.3-1.0); Blood Urea Nitrogen 22 mg/dL (8-23); Calcium 8.8 mg/dL (8.6-10.3); Carbon Dioxide 26 mEq/L (23-29); Chloride 98 mEq/L (98-107); Globulin 2.3 g/dL (2.4-3.5); Glucose 88 mg/dL (70-105); Osmolality,Calculated 281 (280-300); Potassium 3.2 mEq/L (3.5-5.1); Sodium 134 mEq/L (136-145); Total Protein 5.3 g/dL (6.4-8.9); eGFR For African Americans > 60 (> 60); eGFR For Non-African Americans 58 (> 60)
[2019-03-30] MEDS: hydrALAZINE 25 MG TABLET PO SCH ×3 (06:54→20:17)
[2019-03-30] MEDS: cefTRIAXone 2,000 MG in 0.9 % Sodium Chloride Mini Bag 100 ML IVPB SCH (08:13)
[2019-03-30] MEDS: Aspirin 81 MG TAB.CHEW PO SCH (08:13)
[2019-03-30] MEDS: Furosemide 20 MG TABLET PO SCH (08:13)
[2019-03-30] MEDS: Metoprolol XL (24 HR) Succ 50 MG TAB.ER.24H PO SCH (08:13)
[2019-03-30] MEDS: Magnesium Oxide 400 MG TABLET PO SCH ×2 (08:13→20:17)
[2019-03-30] MEDS: Cholecalciferol (D-3) 1,000 UNIT (25MCG) TABLET PO SCH (08:13)
[2019-03-30] MEDS: Nystatin SUSP 5 ML UD.LIQ PO SCH ×4 (08:13→20:16)
--- NOTE | 2019-03-30 10:50 | Internal Med Progress Note ---
Hospitalist Progress Note - Encounter Date of Encounter: 03/30/19 Time of Encounter: 07:45 - Subjective Interval History: No acute events overnight. Patient complains of epigastric pain and nausea. She denies fever and chills. - Exam Vitals: Temp Pulse Resp BP Pulse Ox 36.7 C 87 18 170/92 95 03/30/19 06:26 03/30/19 06:26 03/30/19 06:26 03/30/19 06:26 03/30/19 06:26 Exam: GENERAL: Not in distress. Alert and Oriented MOUTH: Moist oral mucosa NECK:No JVD, No lymph nodes. CHEST AND LUNGS: Normal breath sounds, no wheezes or crackles HEART: S1 and S2 normal, no murmurs ABDOMEN: Soft, moderate epigastric tenderness, no organomegaly SKIN: Normal color, no rashes, no lesions EXTREMITIES: No deformity, no edema, no tenderness, no joint swelling or clubbing NEUROLOGICAL: Normal cognition, normal motor and sensory exam. - Assessment and Plan (1) Sepsis Current Visit: Yes Status: Resolved Assessment and Plan: Patient has been afebrile overnight. WBC 8.7<12.7 Urine culture yielded pansensitive E.coli 1of 2 blood cultrue sets positive for E. coli On Ceftriaxone (2) UTI (urinary tract infection) Current Visit: Yes Status: Acute Assessment and Plan: As above. (3) Thrombocytopenia Current Visit: Yes Status: Acute Assessment and Plan: Platelet Count 66>59. 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 Intermediate probability. SQ heparin held for now. Will continue to monitor. (4) Transaminitis Current Visit: Yes Status: Resolved (5) Elevated troponin Current Visit: No Status: Resolved Assessment and Plan: Likely due to demand ischemia Troponin ttrend 0.10<0.09<0.08 Patient denies chest pain, palpitations and SOB. Will monitor. (6) CKD (chronic kidney disease) stage 3, GFR 30-59 ml/min Current Visit: Yes Status: Acute Assessment and Plan: Creatinine currently normal. Will continue to monitor. 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 (9) CHF (congestive heart failure) Current Visit: No Status: Acute Assessment and Plan: HFpEF. -12/05/2018 TTE: EF= 60-65%, mild diastolic dysfunction, mild mitral regurgitation. Patient takes metoprolol, Lasix, hydralazine Blood pressure has normalized On home meds (10) Severe protein-calorie malnutrition Current Visit: Yes Status: Acute Assessment and Plan: Patient has been assessed by ring packer. Will follow dietary recs. (11) DVT prophylaxis Current Visit: No Status: Acute Assessment and Plan: Heparin SQ - Time Spent with Patient Total time spent is greater than 50% in coordination of care (as documented) at patient's floor/unit and/or counseling patient: Internal Medicine: Result - Labs CBC & Chem 7: 03/30/19 04:44 03/30/19 04:44 Labs: Short CBC 03/30/19 Range/Units 04:44 WBC 8.7 (4.3-11.1) K/mcL Hgb 10.3 L (11.5-15.4) g/dL Hct 31.3 L (35.3-44.9) % Plt Count 66 L (140-400) K/mcL Neutrophils # 6.2 (1.6-8.9) K/mcL BMP 03/30/19 04:44 Sodium 134 L Potassium 3.2 L Chloride 98 Carbon Dioxide 26 BUN 22 Creatinine 0.92 Glucose 88 Calcium 8.8 Liver Function 03/30/19 Range/Units 04:44 Total Bilirubin 0.5 (0.3-1.0) mg/dL AST 16 (13-39) Units/L ALT 39 (7-52) Units/L Alkaline Phosphatase 94 (34-104) Units/L Albumin 3.0 L (3.5-5.7) g/dL - ABG Interpretation ABG results: PT/INR, D-dimer PT 12.7 Seconds (9.4-12.1) H 03/26/19 16:47 Consult Discharge Plan - Plan Referrals: NONE,PCP [Primary Care Provider] - (1) Sepsis Qualifiers: Sepsis type: sepsis due to unspecified organism Sepsis acute organ dysfunction status: unspecified Qualified Code(s): A41.9 - Sepsis, unspecified organism (2) UTI (urinary tract infection) Qualifiers: Urinary tract infection type: acute pyelonephritis Qualified Code(s): N10 - Acute pyelonephritis (7) CAD (coronary artery disease) Qualifiers: Coronary Disease-Associated Artery/Lesion type: [place] artery [place] vs. transplanted heart: [place] heart Associated angina: with unspecified angina Qualified Code(s): I25.119 - Atherosclerotic heart disease of [place] coronary artery with unspecified angina pectoris (9) CHF (congestive heart failure) Qualifiers: Heart failure type: diastolic Heart failure chronicity: chronic Qualified Code(s): I50.32 - Chronic diastolic (congestive) heart failure
[2019-03-30] MEDS: Pantoprazole 40 MG VIAL IVP SCH ×2 (11:38→17:18)
[2019-03-30] MEDS: Ondansetron 4 MG/2 ML VIAL IVP SCH ×2 (13:16→17:18)
[2019-03-31] MEDS: Ondansetron 4 MG/2 ML VIAL IVP SCH ×4 (01:05→16:14)
[2019-03-31] MEDS: traMADol 50 MG TABLET PO PRN ×2 (01:05→06:48)
[2019-03-31] MEDS: Pantoprazole 40 MG VIAL IVP SCH ×2 (05:40→16:14)
[2019-03-31] MEDS: Cholecalciferol (D-3) 1,000 UNIT (25MCG) TABLET PO SCH (09:43)
[2019-03-31] MEDS: Furosemide 20 MG TABLET PO SCH (09:43)
[2019-03-31] MEDS: Magnesium Oxide 400 MG TABLET PO SCH ×2 (09:43→21:18)
[2019-03-31] MEDS: Aspirin 81 MG TAB.CHEW PO SCH (09:44)
[2019-03-31] MEDS: cefTRIAXone 2,000 MG in 0.9 % Sodium Chloride Mini Bag 100 ML IVPB SCH (09:44)
[2019-03-31] MEDS: Nystatin SUSP 5 ML UD.LIQ PO SCH ×4 (09:44→21:18)
[2019-03-31] MEDS: hydrALAZINE 25 MG TABLET PO SCH ×3 (09:44→21:18)
[2019-03-31] MEDS: Metoprolol XL (24 HR) Succ 50 MG TAB.ER.24H PO SCH (09:45)
--- NOTE | 2019-03-31 10:33 | Internal Med Progress Note ---
Hospitalist Progress Note - Encounter Date of Encounter: 03/31/19 Time of Encounter: 10:26 - Subjective Interval History: No acute events overnight. Patient reports, "I am sick to my stomach". She said she felt better in the evening yesterday after receiving pantoprazole but feels nauseous again this morning with generalized abdominal discomfort. - Exam Vitals: Temp Pulse Resp BP Pulse Ox 36.6 C 69 16 162/86 96 03/31/19 06:38 03/31/19 06:38 03/31/19 06:38 03/31/19 06:38 03/31/19 06:38 Exam: GENERAL: Not in distress. Alert and Oriented MOUTH: Moist oral mucosa NECK:No JVD, No lymph nodes. CHEST AND LUNGS: Normal breath sounds, no wheezes or crackles HEART: S1 and S2 normal, no murmurs ABDOMEN: Soft, nontender, no organomegaly SKIN: Normal color, no rashes, no lesions EXTREMITIES: No deformity, no edema, no tenderness, no joint swelling or clubbing NEUROLOGICAL: Normal cognition, normal motor and sensory exam. - Assessment and Plan (1) Sepsis Current Visit: Yes Status: Resolved Assessment and Plan: Patient has been afebrile for >48 hours Urine culture yielded pansensitive E.coli 1of 2 blood cultrue sets positive for E. coli On Ceftriaxone Will transition to oral meds. For possible discharge (2) UTI (urinary tract infection) Current Visit: Yes Status: Acute Assessment and Plan: As above. (3) Thrombocytopenia Current Visit: Yes Status: Acute Assessment and Plan: Platelet Count 85>66>59. 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 Intermediate probability. SQ heparin held for now. Will continue to monitor. (4) Transaminitis Current Visit: Yes Status: Resolved Assessment and Plan: Elevation in liver enzymes was likley due to severe hypotension with reduced hepatic perfusion. Has now resolved AST 23<63, ALT 50<91, ALP 83<87 Will monitor. (5) Elevated troponin Current Visit: No Status: Resolved Assessment and Plan: Likely due to demand ischemia Troponin ttrend 0.10<0.09<0.08 Patient denies chest pain, palpitations and SOB. Will monitor. (6) CKD (chronic kidney disease) stage 3, GFR 30-59 ml/min Current Visit: Yes Status: Acute Assessment and Plan: Will continue to monitor. 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 (9) CHF (congestive heart failure) Current Visit: No Status: Acute Assessment and Plan: HFpEF. -12/05/2018 TTE: EF= 60-65%, mild diastolic dysfunction, mild mitral regurgitation. Patient takes metoprolol, Lasix, hydralazine Blood pressure has normalized On home meds (10) Severe protein-calorie malnutrition Current Visit: Yes Status: Acute Assessment and Plan: Patient has been assessed by business liaison manager. Will follow dietary recs. (11) DVT prophylaxis Current Visit: No Status: Acute Assessment and Plan: Heparin SQ - Time Spent with Patient Total time spent is greater than 50% in coordination of care (as documented) at patient's floor/unit and/or counseling patient: Internal Medicine: Result - Labs CBC & Chem 7: 03/31/19 11:00 03/30/19 04:44 Labs: Cardiac Enzymes 03/30/19 Range/Units 11:08 Troponin I 0.03 (< 0.04) ng/mL - ABG Interpretation ABG results: PT/INR, D-dimer PT 12.7 Seconds (9.4-12.1) H 03/26/19 16:47 Consult Discharge Plan - Plan Referrals: NONE,PCP [Primary Care Provider] - (1) Sepsis Qualifiers: Sepsis type: sepsis due to unspecified organism Sepsis acute organ dysfunc tion status: unspecified Qualified Code(s): A41.9 - Sepsis, unspecified organism (2) UTI (urinary tract infection) Qualifiers: Urinary tract infection type: acute pyelonephritis Qualified Code(s): N10 - Acute pyelonephritis (7) CAD (coronary artery disease) Qualifiers: Coronary Disease-Associated Artery/Lesion type: [place] artery [place] vs. transplanted heart: [place] heart Associated angina: with unspecified angina Qualified Code(s): I25.119 - Atherosclerotic heart disease of [place] coronary artery with unspecified angina pectoris (9) CHF (congestive heart failure) Qualifiers: Heart failure type: diastolic Heart failure chronicity: chronic Qualified Code(s): I50.32 - Chronic diastolic (congestive) heart failure
[2019-03-31 11:25] LABS: Basophils % 0.2 %; Eosinophils # 0.1 K/mcL (0.0-0.6); Eosinophils % 0.9 %; Hemoglobin 11.7 g/dL (11.5-15.4); Lymphocytes # 1.6 K/mcL (0.6-4.6); Lymphocytes % 19.2 %; Mean Corpuscular HGB Conc 33.4 g/dL (31.6-35.5); Mean Corpuscular Hemoglobin 30.7 pg (28.0-33.3); Mean Corpuscular Volume 91.9 fL (83.0-100.0); Monocytes # 0.8 K/mcL (0.0-1.3); Monocytes % 10.3 %; Neutrophils # 5.5 K/mcL (1.6-8.9); Red Blood Count 3.81 M/mcL (3.82-4.97); Red Cell Distribution Width 13.7 % (11.5-14.5); Segmented Neutrophils % 68.4 %; White Blood Count 8.1 K/mcL (4.3-11.1)
[2019-03-31 11:28] LABS: Platelet Count 85 K/mcL (140-400)
[2019-03-31 11:29] LABS: Platelet Estimate Decreased (Normal)
[2019-04-01] MEDS: Ondansetron 4 MG/2 ML VIAL IVP SCH ×3 (00:39→12:06)
[2019-04-01] MEDS: traMADol 50 MG TABLET PO PRN ×2 (00:53→12:07)
[2019-04-01 00:56] LABS: Basophils % 0.3 %; Eosinophils # 0.1 K/mcL (0.0-0.6); Eosinophils % 1.8 %; Hematocrit 35.3 % (35.3-44.9); Hemoglobin 11.7 g/dL (11.5-15.4); Immature Granulocytes % 0.8 % (0-4); Lymphocytes # 2.5 K/mcL (0.6-4.6); Mean Corpuscular HGB Conc 33.1 g/dL (31.6-35.5); Mean Corpuscular Hemoglobin 30.4 pg (28.0-33.3); Mean Corpuscular Volume 91.7 fL (83.0-100.0); Mean Platelet Volume 10.9 fL (9.4-12.4); Monocytes % 12.9 %; Neutrophils # 4.3 K/mcL (1.6-8.9); Platelet Count 108 K/mcL (140-400); Red Blood Count 3.85 M/mcL (3.82-4.97); Red Cell Distribution Width 13.7 % (11.5-14.5); Segmented Neutrophils % 53.2 %
[2019-04-01 01:16] LABS: Calcium 8.5 mg/dL (8.6-10.3); Potassium 3.1 mEq/L (3.5-5.1)
[2019-04-01] MEDS: Pantoprazole 40 MG VIAL IVP SCH (05:27)
[2019-04-01 07:16] VITALS: BP 151/138
--- NOTE | 2019-04-01 09:14 | Discharge Summary ---
Date of Encounter: 04/01/19 Time of Encounter: 09:10 - Discharge Diagnosis (1) Sepsis Priority: Primary Status: Resolved Qualifiers: Sepsis type: sepsis due to unspecified organism Sepsis acute organ dysfunction status: unspecified Qualified Code(s): A41.9 - Sepsis, unspecified organism (2) UTI (urinary tract infection) Priority: Secondary Status: Acute Qualifiers: Urinary tract infection type: acute pyelonephritis Qualified Code(s): N10 - Acute pyelonephritis (3) Thrombocytopenia Priority: Secondary Status: Acute (4) Transaminitis Priority: Secondary Status: Resolved (5) Elevated troponin Priority: Secondary Status: Resolved (6) CKD (chronic kidney disease) stage 3, GFR 30-59 ml/min Priority: Secondary Status: Acute (7) CAD (coronary artery disease) Priority: Secondary Status: Chronic Qualifiers: Coronary Disease-Associated Artery/Lesion type: [place] artery [place] vs. transplanted heart: [place] heart Associated angina: with unspecified angina Qualified Code(s): I25.119 - Atherosclerotic heart disease of [place] coronary artery with unspecified angina pectoris (8) Presence of intrathecal pump Priority: Secondary Status: Chronic (9) CHF (congestive heart failure) Priority: Secondary Status: Acute Qualifiers: Heart failure type: diastolic Heart failure chronicity: chronic Qualified Code(s): I50.32 - Chronic diastolic (congestive) heart failure (10) Severe protein-calorie malnutrition Priority: Secondary Status: Acute (11) DVT prophylaxis Priority: Secondary Status: Acute Hospital course: Ms. Parrish is a 83 year old female who presented with AMS. Evaluation revealed E.coli UTI and Sepsis. She was given appropriate antibiotics and has improved. Will dc to SNF. Initially became thrombocytopenic on Zosyn but numbers improved when antibiotics were changed to Ceftriaxone. She will be discharged on a 10 day course of bactrim. - Time Spent with Patient Total time spent providing and/or coordinating discharge services: Time spent: Greater than 30 minutes - Discharge Medications Prescriptions: New Sulfamethoxazole/Trimeth DS [Bactrim DS] 1 each PO BID 10 Days #20 tablet Continued Cholecalciferol (D-3) [Vitamin D] 5,000 unit PO DAILY Hydralazine HCl 50 mg PO TID Aspirin 81 mg PO DAILY #30 tab.chew Atorvastatin [Lipitor] 40 mg PO HS #30 tablet Metoprolol XL (24 HR) Succ [Toprol Xl] 50 mg PO DAILY #30 tab.er.24h Hydromorphone (Pf) [Hydromorphone Intrathecal Pump] 1 each IT AD Docusate [Colace] 100 mg PO DAILY PRN PRN Reason: Constipation Acetaminophen/Butalbital/Caffe [Fioricet] 1 tab PO DAILY PRN PRN Reason: Migraine Headache Magnesium Oxide [Magnesium] 400 mg PO BID Furosemide [Lasix] 20 mg PO DAILY Sucralfate [Carafate] 1 gm PO Q6HR 30 Days #120 oral.susp Metoclopramide HCl 5 mg PO TID Ondansetron ODT [Zofran ODT] 4 mg SL Q4HR PRN PRN Reason: Nausea And Vomiting Levothyroxine [Synthroid] 100 mcg PO 0630 #30 tablet predniSONE [PredniSONE] See Taper PO TAPER Pantoprazole Sodium [Protonix] 40 mg PO BID #120 tablet.dr Discontinued Dexlansoprazole [Dexilant] 60 mg PO BID Home Medications: Cholecalciferol (D-3) [Vitamin D] 5,000 unit PO DAILY 11/29/16 [History] Hydralazine HCl 50 mg PO TID 11/29/16 [History] Aspirin 81 mg PO DAILY #30 tab.chew 12/05/16 [Rx] Atorvastatin [Lipitor] 40 mg PO HS #30 tablet 12/05/16 [Rx] Metoprolol XL (24 HR) Succ [Toprol Xl] 50 mg PO DAILY #30 tab.er.24h 12/05/16 [Rx] Acetaminophen/Butalbital/Caffe [Fioricet] 1 tab PO DAILY PRN 12/07/18 [History] Docusate [Colace] 100 mg PO DAILY PRN 12/07/18 [History] Furosemide [Lasix] 20 mg PO DAILY 12/07/18 [History] Hydromorphone (Pf) [Hydromorphone Intrathecal Pump] 1 each IT AD 12/07/18 [History] Magnesium Oxide [Magnesium] 400 mg PO BID 12/07/18 [History] Sucralfate [Carafate] 1 gm PO Q6HR 30 Days #120 oral.susp 01/30/19 [Rx] Metoclopramide HCl 5 mg PO TID 02/25/19 [History] Ondansetron ODT [Zofran ODT] 4 mg SL Q4HR PRN 02/25/19 [History] Levothyroxine [Synthroid] 100 mcg PO 0630 #30 tablet 03/01/19 [Rx] predniSONE [PredniSONE] See Taper PO TAPER 03/26/19 [History] Pantoprazole Sodium [Protonix] 40 mg PO BID #120 tablet. 04/01/19 [Rx] Sulfamethoxazole/Trimeth DS [Bactrim DS] 1 each PO BID 10 Days #20 tablet [Rx] Allergies/Adverse Reactions: Allergy/AdvReac Type Severity Reaction Status Date / Time topiramate [From Topamax] Allergy Hives Verified 11/21/18 16:40 Date of admission: 03/27/19 15:14 Primary care physician: PCP NONE Consults: 03/26/19 23:33 Consult to [employer] [CONS] Routine Reason for SW Consult: possible ECF, patient lives home with with HH. 03/27/19 00:47 Consult to Occupational Therapy [CONS] Routine Comment: Evaluate, develop and implement POC Reason for Consult: Weakness Does patient have active BEDREST order?: No Is patient medically & hemodynamically stable?: Yes Consult to Physical Therapy [CONS] Routine Comment: Evaluate, develop and implement POC Reason for Consult: Weakness Does patient have active BEDREST order?: No Is patient medically & hemodynamically stable?: Yes 03/27/19 05:54 Consult to Nutrition [CONS] Routine Comment: Consulting Provider: NUTRITION Reason for Dietary Consult: Other Other:: Severe malnutrition. 03/27/19 06:34 Consult to Infectious Diseases [CONS] Routine Consulting Provider: Infectious Disease [place] Reason for Consult: sepsis with unknown etiology. possibly UTI. Call Completed: No - Constitutional Vitals: Temp Pulse Resp BP Pulse Ox 36.8 C 64 16 151/138 96 04/01/19 07:15 04/01/19 07:15 04/01/19 07:15 04/01/19 07:15 04/01/19 07:15 Exam: GENERAL: Not in distress. Alert and Oriented MOUTH: Moist oral mucosa NECK:No JVD, No lymph nodes. CHEST AND LUNGS: Normal breath sounds, no wheezes or crackles HEART: S1 and S2 normal, no murmurs ABDOMEN: Soft, nontender, no organomegaly SKIN: Normal color, no rashes, no lesions EXTREMITIES: No deformity, no edema, no tenderness, no joint swelling or clubbing NEUROLOGICAL: Normal cognition, normal motor and sensory exam. - Patient Status Disposition: Transfer SNF Condition: Fair Functional capacity at discharge: uses cane/walker Overall status at discharge: patient is progressing back to baseline - Discharge Instructions Follow Up With: NONE,PCP [Primary Care Provider] - - Diet and Activity Activity: resume usual activities as tolerated Diet: advance to your usual diet
--- NOTE | 2019-04-01 09:22 | Physician Discharge Referral ---
ExtendedCare Referral Info Transfer To: SNF Institutional Level of Care: Skilled - Diagnosis (1) Sepsis Priority: Primary Status: Resolved (2) UTI (urinary tract infection) Priority: Secondary Status: Acute (3) Thrombocytopenia Priority: Secondary Status: Acute (4) Transaminitis Priority: Secondary Status: Resolved (5) Elevated troponin Priority: Secondary Status: Resolved (6) CKD (chronic kidney disease) stage 3, GFR 30-59 ml/min Priority: Secondary Status: Acute (7) CAD (coronary artery disease) Priority: Secondary Status: Chronic (8) Presence of intrathecal pump Priority: Secondary Status: Chronic (9) CHF (congestive heart failure) Priority: Secondary Status: Acute (10) Severe protein-calorie malnutrition Priority: Secondary Status: Acute (11) DVT prophylaxis Priority: Secondary Status: Acute - Transfer Medications Prescriptions: Sulfamethoxazole/Trimeth DS [Bactrim DS] 1 each PO BID 10 Days #20 tablet Transmission Status: Received by [facility] Pantoprazole Sodium [Protonix] 40 mg PO BID #120 tablet.dr Transmission Status: Received by [facility] Home Medications: Cholecalciferol (D-3) [Vitamin D] 5,000 unit PO DAILY 11/29/16 [History] Hydralazine HCl 50 mg PO TID 11/29/16 [History] Aspirin 81 mg PO DAILY #30 tab.chew 12/05/16 [Rx] Atorvastatin [Lipitor] 40 mg PO HS #30 tablet 12/05/16 [Rx] Metoprolol XL (24 HR) Succ [Toprol Xl] 50 mg PO DAILY #30 tab.er.24h 12/05/16 [Rx] Acetaminophen/Butalbital/Caffe [Fioricet] 1 tab PO DAILY PRN 12/07/18 [History] Docusate [Colace] 100 mg PO DAILY PRN 12/07/18 [History] Furosemide [Lasix] 20 mg PO DAILY 12/07/18 [History] Hydromorphone (Pf) [Hydromorphone Intrathecal Pump] 1 each IT AD 12/07/18 [History] Magnesium Oxide [Magnesium] 400 mg PO BID 12/07/18 [History] Sucralfate [Carafate] 1 gm PO Q6HR 30 Days #120 oral.susp 01/30/19 [Rx] Metoclopramide HCl 5 mg PO TID 02/25/19 [History] Ondansetron ODT [Zofran ODT] 4 mg SL Q4HR PRN 02/25/19 [History] Levothyroxine [Synthroid] 100 mcg PO 0630 #30 tablet 03/01/19 [Rx] predniSONE [PredniSONE] See Taper PO TAPER 03/26/19 [History] Pantoprazole Sodium [Protonix] 40 mg PO BID #120 tablet. 04/01/19 [Rx] Sulfamethoxazole/Trimeth DS [Bactrim DS] 1 each PO BID 10 Days #20 tablet 04/01/19 [Rx] Allergies/Adverse Reactions: Allergy/AdvReac Type Severity Reaction Status Date / Time topiramate [From Topamax] Allergy Hives Verified 11/21/18 16:40 - Respiratory Orders Smoking Cessation: Smoking cessation has been advised. For more information, call the [place] Tobacco Quit Line at 2-239-NFZGNOW. CERTIFICATION: I certify that the transfer of the above named patient to an Extended Care Facility is necessary for the continuing treatment of the diagnosis listed. The above information is true and accurate reflection of patient's current condition. Confidential - Redisclosure prohibited without a patient's written consent.
[2019-04-01] MEDS: cefTRIAXone 2,000 MG in 0.9 % Sodium Chloride Mini Bag 100 ML IVPB SCH (09:54)
[2019-04-01] MEDS: Nystatin SUSP 5 ML UD.LIQ PO SCH ×2 (09:54→12:06)
[2019-04-01] MEDS: Furosemide 20 MG TABLET PO SCH (09:54)
[2019-04-01] MEDS: Cholecalciferol (D-3) 1,000 UNIT (25MCG) TABLET PO SCH (09:54)
[2019-04-01] MEDS: Magnesium Oxide 400 MG TABLET PO SCH (09:54)
[2019-04-01] MEDS: Aspirin 81 MG TAB.CHEW PO SCH (09:54)
[2019-04-01] MEDS: hydrALAZINE 25 MG TABLET PO SCH (09:54)
[2019-04-01] MEDS: Metoprolol XL (24 HR) Succ 50 MG TAB.ER.24H PO SCH (09:54)
== END 2019-04-01 15:52 | DRG 871 ==
LOC: EMEROOARM 16:07 → 2NENU 16:07 → SUATTDRO 21:05 → 2NENU 21:26
PROVIDERS: ADMIT Internal Medicine; ATTEND Internal Medicine